=== PATIENT | female | born 1940 | race Caucasian/White ===

== ENCOUNTER 2018-11-18 05:35 | Emergency (ER) | payer OTHER, BC ==
--- NOTE | 2018-11-18 07:25 | ER ---
Nurse's Notes [facility] Name: Samanta Hayes Age: 78 yrs Sex: Female : 1940 Arrival Date: 11/18/2018 Time: 05:37 Bed 17 Private MD: Mak Mtz E Diagnosis: Superficial injury of head;Other sprain of right thumb Presentation: 11/18 05:50 Presenting complaint: Patient states: my feet was tangled up, I fell down and hit my rr5 head on the wall. denies LOC and vomiting . Transition of care: patient was not received from another setting of care. Onset of symptoms was November 18, 2018. Risk Assessment: Do you want to hurt yourself or someone else? Patient reports no desire to harm self or others. Initial Sepsis Screen: Does the patient meet any 2 criteria? No. Patient's initial sepsis screen is negative. Does the patient have a suspected source of infection? No. Patient's initial sepsis screen is negative. Care prior to arrival: None. 05:50 Method Of Arrival: Wheelchair rr5 05:50 Acuity: KIT 3 rr5 05:50 Mechanism of Injury: Fall from standing position. rr5 Historical: - Allergies: 06:03 No Known Allergies; rr5 - Home Meds: 06:03 lamotrigine 100 mg oral tab [Active]; oxybutynin chloride 10 mg Oral tr24 [Active]; rr5 fluoxetine 40 mg Oral cap [Active]; bupropion HCl 100 mg Oral tab [Active]; clonazepam 1 mg Oral tab [Active]; propranolol 20 mg Oral tab [Active]; ranitidine HCl 150 mg Oral cap [Active]; trazodone 50 mg Oral tab [Active]; [place]-3 oral oral [Active]; Mucinex oral oral [Active]; Omeprazole Oral [Active]; Melatonin Oral [Active]; Ana Oral [Active]; - PMHx: 06:03 Crohn's; Depression; hiatal hernia; DVT; Hypertension; insomnia; COPD; rr5 - PSHx: 06:03 ; Hysterectomy; explore laparotomy; Appendectomy; Tonsillectomy; cyst removal rr5 at right hand; - Immunization history:: Adult Immunizations up to date, Adult Immunizations up to date. - Social history:: Smoking status: Patient/guardian denies using tobacco, Smoking status: Patient/guardian denies using tobacco, Patient/guardian denies using alcohol, street drugs. - Ebola Screening: : No symptoms or risks identified at this time Patient negative for fever greater than or equal to 101.5 degrees Fahrenheit, and additional compatible Ebola Virus Disease symptoms Patient denies exposure to infectious person Patient denies travel to an Ebola-affected area in the 21 days before illness onset. Screenin:56 Abuse screen: Denies threats or abuse. Nutritional screening: No deficits noted. ea Tuberculosis screening: No symptoms or risk factors identified. Fall Risk Fall in past 12 months (25 points). Assessment: 05:50 General: Appears in no apparent distress. comfortable, Behavior is calm, cooperative, rr5 appropriate for age. Pain: Complains of pain in right orthodoxy Pain does not radiate. Pain currently is 2 out of 10 on a pain scale. Quality of pain is described as aching, Pain began gradually, Is intermittent. 05:50 Neuro: Level of Consciousness is awake, alert, obeys commands, Oriented to person, rr5 place, time, situation, Appropriate for age Hydraulic Jack Mechanic are equal bilaterally Moves all extremities. Full function Gait is steady, Speech is normal, Pupils are PERRLA. Cardiovascular: Capillary refill < 3 seconds Patient's skin is warm and dry. Respiratory: Airway is patent Respiratory effort is even, unlabored, Respiratory pattern is regular, symmetrical. GI: No signs and/or symptoms were reported involving the gastrointestinal system. : No signs and/or symptoms were reported regarding the genitourinary system. EENT: No signs and/or symptoms were reported regarding the EENT system. Derm: Skin is intact, Skin temperature is warm Wound noted abrasion right elbow. Musculoskeletal: Circulation, motion, and sensation intact. Capillary refill < 3 seconds, Range of motion: intact in all extremities. 06:20 Reassessment: Patient appears in no apparent distress at this time. Patient is alert, rr5 oriented x 3, equal unlabored respirations, skin warm/dry/pink. no complaints made awaiting for result. 07:07 Reassessment: Patient appears in no apparent distress at this time. Patient and/or em family updated on plan of care and expected duration. Pain level reassessed. Patient is alert, oriented x 3, equal unlabored respirations, skin warm/dry/pink. pending radiology results. Vital Signs: 05:50 BP 151 / 89; Pulse 95; Resp 17; Temp 97.6; Pulse Ox 98% ; Weight 68.04 kg; Height 5 ft. rr5 1 in. (154.94 cm); Pain 2/10; 06:30 BP 112 / 55; Pulse 77; Resp 15; Temp 97.7; Pulse Ox 99% ; rr5 07:08 BP 125 / 52; Pulse 73; Resp 16; Pulse Ox 96% on R/A; Pain 2/10; em 05:50 Body Mass Index 28.34 (68.04 kg, 154.94 cm) rr5 [place] Coma Score: 05:50 Eye Response: spontaneous(4). Verbal Response: oriented(5). Motor Response: obeys rr5 commands(6). Total: 15. ED Course: 05:37 Patient arrived in ED. am2 05:37 Mak Mtz MD is Private Physician. am2 05:46 Jim Bradley MD is Attending Physician. ps1 05:50 Austin Yip RN is Primary Nurse. rr5 05:50 Arm band placed on. rr5 05:54 Triage completed. rr5 06:01 Patient has correct armband on for positive identification. Bed in low position. Call ea light in reach. Side rails up X 1. 06:05 No provider procedures requiring assistance completed. Patient did not have IV access rr5 during this emergency room visit. 06:22 CT Head C Spine In Process Unspecified. EDMS 06:22 Hand Right 3 View XRAY In Process Unspecified. EDMS 06:34 Warm blanket given. Ice pack to injury. rr5 07:37 Velcro wrist splint applied to right wrist. em Administered Medications: No medications were administered Outcome: 07:25 Discharge ordered by . rn 07:37 Discharged to home ambulatory. em 07:37 Condition: good 07:37 Discharge instructions given to patient, Instructed on discharge instructions, follow up and referral plans. Demonstrated understanding of instructions, follow-up care. 07:38 Patient left the ED. em Signatures: Dispatcher [employer] EDMS Brandon Valero, [employer] INTERNSHIP [employer] INTERNSH[employer] em Demond Emanuel MD MD rn Moreno, Amanda am2 Debbie Mcnamara RN RN ea Singer, Phillip, MD MD ps1 Roque, Raymond, RN RN rr5 Corrections: (The following items were deleted from the chart) 06:10 06:00 GCS: 15, rr5 rr5
--- NOTE | 2018-11-18 07:26 | EDPHYS ---
Physician Documentation [facility] Name: Samanta Hayes Age: 78 yrs Sex: Female : 1940 Arrival Date: 11/18/2018 Time: 05:37 Bed 17 Private MD: Mak Mtz E ED Physician Jim Bradley HPI: 11/18 05:47 This 78 yrs old Female presents to ER via Unassigned with complaints of Fall ps1 Injury. 05:47 patient got out of the recliner and went to bed, tripped over her feet and hit her head ps1 in the doorway. No LOC. Has small abrasion to right side of head. Abrasion to right elbow and right thumb pain. Pain rated as mild to moderate. 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 Not on blood thinners. . Historical: - Allergies: 06:03 No Known Allergies; rr5 - Home Meds: 06:03 lamotrigine 100 mg oral tab [Active]; oxybutynin chloride 10 mg Oral tr24 [Active]; rr5 fluoxetine 40 mg Oral cap [Active]; bupropion HCl 100 mg Oral tab [Active]; clonazepam 1 mg Oral tab [Active]; propranolol 20 mg Oral tab [Active]; ranitidine HCl 150 mg Oral cap [Active]; trazodone 50 mg Oral tab [Active]; [place]-3 oral oral [Active]; Mucinex oral oral [Active]; Omeprazole Oral [Active]; Melatonin Oral [Active]; Ana Oral [Active]; - PMHx: 06:03 Crohn's; Depression; hiatal hernia; DVT; Hypertension; insomnia; COPD; rr5 - PSHx: 06:03 ; Hysterectomy; explore laparotomy; Appendectomy; Tonsillectomy; cyst removal rr5 at right hand; - Immunization history:: Adult Immunizations up to date, Adult Immunizations up to date. - Social history:: Smoking status: Patient/guardian denies using tobacco, Smoking status: Patient/guardian denies using tobacco, Patient/guardian denies using alcohol, street drugs. - Ebola Screening: : No symptoms or risks identified at this time Patient negative for fever greater than or equal to 101.5 degrees Fahrenheit, and additional compatible Ebola Virus Disease symptoms Patient denies exposure to infectious person Patient denies travel to an Ebola-affected area in the 21 days before illness onset. ROS: 05:47 Constitutional: Negative for fever, chills, and weight loss, Eyes: Negative for injury, ps1 pain, redness, and discharge, ENT: Negative for injury, pain, and discharge, Cardiovascular: Negative for chest pain, palpitations, and edema, Respiratory: Negative for shortness of breath, cough, wheezing, and pleuritic chest pain, Abdomen/GI: Negative for abdominal pain, nausea, vomiting, diarrhea, and constipation, Skin: Negative for injury, rash, and discoloration, Neuro: Negative for headache, weakness, numbness, tingling, and seizure. 05:47 MS/extremity: Positive for abrasion, contusion, tenderness. Exam: 05:47 Constitutional: This is a well developed, well nourished patient who is awake, alert, ps1 and in no acute distress. 05:47 Eyes: Pupils equal round and reactive to light, extra-ocular motions intact. Lids and lashes normal. Conjunctiva and sclera are non-icteric and not injected. ENT: Nares patent. No nasal discharge, no septal abnormalities noted. Tympanic membranes are normal and external auditory canals are clear. Oropharynx with no redness, swelling, or masses, exudates, or evidence of obstruction, uvula midline. Mucous membranes moist. Chest/axilla: Normal chest wall appearance and motion. Nontender with no deformity. No lesions are appreciated. Cardiovascular: Regular rate and rhythm. No gallops, murmurs, or rubs. Normal PMI, no JVD. No pulse deficits. Respiratory: Lungs have equal breath sounds bilaterally, clear to auscultation and percussion. No rales, rhonchi or wheezes noted. No increased work of breathing, no retractions or nasal flaring. Abdomen/GI: Soft, non-tender, with normal bowel sounds. No distension or tympany. No guarding or rebound. No evidence of tenderness throughout. Skin: Warm, dry with normal turgor. Normal color with no rashes, no lesions, and no evidence of cellulitis. Neuro: Awake and alert, GCS 15, oriented to person, place, time, and situation. Cranial nerves II-XII grossly intact. Sensory grossly intact. 05:47 Head/face: Noted is contusion, of the right worship. 05:47 Musculoskeletal/extremity: Extremities: grossly normal except: noted in the dorsal aspect of proximal phalanx of right thumb: pain, noted in the right elbow: abrasion, noted in the right worship: contusion. Vital Signs: 05:50 BP 151 / 89; Pulse 95; Resp 17; Temp 97.6; Pulse Ox 98% ; Weight 68.04 kg; Height 5 ft. rr5 1 in. (154.94 cm); Pain 2/10; 06:30 BP 112 / 55; Pulse 77; Resp 15; Temp 97.7; Pulse Ox 99% ; rr5 07:08 BP 125 / 52; Pulse 73; Resp 16; Pulse Ox 96% on R/A; Pain 2/10; em 05:50 Body Mass Index 28.34 (68.04 kg, 154.94 cm) rr5 [place] Coma Score: 05:50 Eye Response: spontaneous(4). Verbal Response: oriented(5). Motor Response: obeys rr5 commands(6). Total: 15. MDM: 05:50 Patient medically screened. ps1 07:23 ED course: Pt with chronic arthritic changes on exam and on xray, no obvious fracture rn on xray hand, + chronic laxity at MCP of right thumb, FROM. Will splint and dc home, no radiology report yet, if abnormal told patient will call with result instead of her waiting for hours.. 11/18 05:47 Order name: CT Head C Spine ps1 11/18 05:47 Order name: Hand Right 3 View XRAY ps1 11/18 07:26 Order name: Splint - Thumb Spica: velcro splint; Complete Time: 07:27 rn Administered Medications: No medications were administered Disposition: 11/18/18 07:25 Discharged to Home. Impression: Superficial injury of head, Other sprain of right thumb. - Condition is Stable. - Discharge Instructions: Head Injury, Adult, Thumb Sprain. - Medication Reconciliation Form, Thank You Letter, Antibiotic Education, Prescription Opioid Use form. - Follow up: Private Physician; When: As needed; Reason: Recheck today's complaints, Re-evaluation by your physician. - Problem is new. - Symptoms have improved. Signatures: Dispatcher [employer] EDMS Brandon Valero, MARKET DEVELOPMENT SPECIALIST MARKET DEVELOPMENT SPECIALIST em Demond Emanuel MD MD rn Antunez, Elena RN Jim Gutierrez ea, MD MD ps1 Roque, Raymond, RN RN rr5 Corrections: (The following items were deleted from the chart) 07:38 07:25 11/18/2018 07:25 Discharged to Home. Impression: Superficial injury of head; em Other sprain of right thumb. Condition is Stable. Forms are Medication Reconciliation Form, Thank You Letter, Antibiotic Education, Prescription Opioid Use. Follow up: Private Physician; When: As needed; Reason: Recheck today's complaints, Re-evaluation by your physician. Problem is new. Symptoms have improved. rn
[2018-11-18 07:47] VITALS: TEMP 97.7
[2018-11-18 07:49] VITALS: BP 125/52; O2SAT 96
--- NOTE | 2018-11-18 10:02 | RAD REPORT ---
EXAM DESCRIPTION: RAD - Hand Right 3 View - 11/18/2018 6:21 am CLINICAL HISTORY: Fall, right hand pain COMPARISON: None. FINDINGS: No acute fracture identified. Patient has very advanced degenerative changes involving all IP joints of the hand. Advanced degenerative change involves the first MCP joint. Second- fifth MCP joints are spared. There is severe degenerative changes at the trapezial first metacarpal articulatio n. Radiocarpal joint space narrowing present. Distal radius and ulna appear intact. There is no dislo cation or periosteal reaction noted. No foreign body or other soft tissue abnormality. IMPRESSION: Patient has very advanced degenerative changes in the right hand as detailed. No fractur e or acute process identifiable.
--- NOTE | 2018-11-19 10:49 | RAD REPORT ---
EXAM DESCRIPTION: CT - Head C Spine Mpr Wo Con - 11/18/2018 6:35 am CLINICAL HISTORY: Fall hit head COMPARISON: None. TECHNIQUE: CT HEAD NECK WITHOUT IV CONTRAST on 11/18/2018 5:47 AM CDT This exam was performed according to our departmental dose-optimization program, which includes autom ated exposure control, adjustment of the mA and/or kV according to patient size and/or use of iterati ve reconstruction technique. FINDINGS: There is no acute hemorrhage, mass effect or midline shift. Collins-white differentiation is preserved. There is no hydrocephalus. There is no significant volume loss for age. There are mild pat nilay hypodensities within the periventricular and subcortical white matter, consistent with microangio pathic ischemic changes. The calvarium is intact. Orbits and globes are unremarkable. The paranasal sinuses are clear. Mastoid air cells are clear. There is no acute fracture. There is grade 1 anterolisthesis of C3 on C4. There is grade 1 anterolist hesis of C7 on T1. There is fusion of the C4-5 disc. There is mild to moderate diffuse facet arthriti s. There is incomplete posterior fusion of the C1 arch. There are moderate degenerative changes of the C5-6 and C6-7 discs. Vertebral body heights are preser main. Soft tissues are unremarkable. IMPRESSION: No definite posttraumatic findings. Electronically signed by: Nathan Dover MD 11/18/2018 6:30 AM CDT Due to temporary technical issues with the PACS/Fluency reporting system, reports are being signed by the in house radiologist as a courtesy to ensure prompt reporting. The interpreting radiologist is f ully responsible for the content of the report.
== END 2018-11-18 07:38 | disposition home or self-care (01) ==
LOC: ER 05:35
DX: S00.83XA Contusion of other part of head, initial encounter (principal); S63.681A Other sprain of right thumb, initial encounter; W01.198A Fall on same level from slipping, tripping and stumbling with subsequent striking against other object, initial encounter; Y93.89 Activity, other specified; Y92.9 Unspecified place or not applicable; Z86.718 Personal history of other venous thrombosis and embolism; I10 Essential (primary) hypertension; J44.9 Chronic obstructive pulmonary disease, unspecified; F32.9 Major depressive disorder, single episode, unspecified
CPT/HCPCS: 70450; 72125; 99283

== ENCOUNTER 2018-12-20 15:30 | Observation (INO) | payer OTHER, BC ==
[2018-12-20 16:18] LABS: Absolute Lymphocytes (CBC) 2.2 K/uL (0.7-4.9); Basophils % 1.1 % (0-1.3); Eosinophils % 6.3 % (0-4.4); Hematocrit 38.8 % (36.0-45.0); Lymphocytes % 33.2 % (15.3-44.8); MPV 8.1 fL (7.6-11.3); Monocytes % 10.5 % (3.3-12.3); RBC Red Blood Cell Count 4.35 M/uL (3.86-4.86)
[2018-12-20 16:25] LABS: Protime INR 0.91
--- NOTE | 2018-12-20 16:29 | RAD REPORT ---
EXAM DESCRIPTION: RAD - Chest Single View - 12/20/2018 4:21 pm CLINICAL HISTORY: CHEST PAIN Chest pain. COMPARISON: <Comparisons> FINDINGS: Portable technique limits examination quality. Mild emphysematous changes are present throughout the lungs. The heart is normal in size. No displace d fractures. IMPRESSION: Mild COPD suspected.
[2018-12-20] MEDS ORDERED: FENTANYL CITR 100 MCG/2 ML ONE (16:35)
[2018-12-20 16:44] LABS: ALT/SGPT 31 U/L (12-78); AST/SGOT 25 U/L (15-37); Albumin 3.7 g/dL (3.4-5.0); Alkaline Phosphatase 82 U/L (45-117); BUN Blood Urea Nitrogen 13 mg/dL (7-18); Bicarbonate 24 mmol/L (21-32); Bilirubin Direct < 0.1 mg/dL (0-0.2); Bilirubin Total 0.4 mg/dL (0.2-1.0); Glucose Level 96 mg/dL (74-106); Magnesium 2.4 mg/dL (1.8-2.4); NT PRO-BNP 352 pg/mL (<450); Potassium 4.1 mmol/L (3.5-5.1); Protein, Total 7.1 g/dL (6.4-8.2); Sodium Level 140 mmol/L (136-145); Troponin (Emerg Dept Use Only) < 0.02 ng/mL (0.0-0.045)
--- NOTE | 2018-12-20 17:11 | EDPHYS ---
Physician Documentation [facility] Name: Samanta Hayes Age: 78 yrs Sex: Female : 1940 Arrival Date: 12/20/2018 Time: 15:31 Bed 16 Private MD: ED Physician Murtaza Brennan HPI: 12/20 16:23 This 78 yrs old Female presents to ER via Ambulatory with complaints of Chest snw Pain. 16:23 The patient or guardian reports chest pain that is located primarily in the substernal snw area, anterior chest wall, left, anterior aspect of left upper chest. Onset: gradually, and became persistent. The pain does not radiate. Associated signs and symptoms: The patient has no apparent associated signs or symptoms. The chest pain is described as a pressure. Duration: The patient or guardian reports a single episode, that is still ongoing, and unchanged. Modifying factors: The symptoms are alleviated by nothing. Severity of pain: At its worst the pain was mild moderate. The patient has not experienced similar symptoms in the past. seeGreg Kramer at Dr. Mtz' office. Historical: - Allergies: 15:52 No Known Allergies; ph - PMHx: 15:52 COPD; Crohn's; Depression; DVT; hiatal hernia; Hypertension; insomnia; ph - PSHx: 15:52 ; Hysterectomy; explore laparotomy; Appendectomy; Tonsillectomy; cyst removal ph at right hand; - Immunization history:: Adult Immunizations up to date. - Social history:: Smoking status: Patient/guardian denies using tobacco. - Ebola Screening: : Patient negative for fever greater than or equal to 101.5 degrees Fahrenheit, and additional compatible Ebola Virus Disease symptoms Patient denies exposure to infectious person Patient denies travel to an Ebola-affected area in the 21 days before illness onset No symptoms or risks identified at this time. ROS: 16:23 Constitutional: Negative for fever, chills, and weight loss, Eyes: Negative for injury, snw pain, redness, and discharge, ENT: Negative for injury, pain, and discharge, Neck: Negative for injury, pain, and swelling, Respiratory: Negative for shortness of breath, cough, wheezing, and pleuritic chest pain, Abdomen/GI: Negative for abdominal pain, nausea, vomiting, diarrhea, and constipation, Back: Negative for injury and pain, : Negative for injury, bleeding, discharge, and swelling, MS/Extremity: Negative for injury and deformity, Skin: Negative for injury, rash, and discoloration, Neuro: Negative for headache, weakness, numbness, tingling, and seizure. 16:23 Cardiovascular: Positive for chest pain, of the anterior aspect of left upper chest. Exam: 16:23 Constitutional: This is a well developed, well nourished patient who is awake, alert, snw and in no acute distress. Head/Face: Normocephalic, atraumatic. Eyes: Pupils equal round and reactive to light, extra-ocular motions intact. Lids and lashes normal. Conjunctiva and sclera are non-icteric and not injected. Cornea within normal limits. Periorbital areas with no swelling, redness, or edema. ENT: Nares patent. No nasal discharge, no septal abnormalities noted. Tympanic membranes are normal and external auditory canals are clear. Oropharynx with no redness, swelling, or masses, exudates, or evidence of obstruction, uvula midline. Mucous membranes moist. Neck: Trachea midline, no thyromegaly or masses palpated, and no cervical lymphadenopathy. Supple, full range of motion without nuchal rigidity, or vertebral point tenderness. No Meningismus. Chest/axilla: Normal chest wall appearance and motion. Nontender with no deformity. No lesions are appreciated. Cardiovascular: Regular rate and rhythm with a normal S1 and S2. No gallops, murmurs, or rubs. Normal PMI, no JVD. No pulse deficits. Respiratory: Lungs have equal breath sounds bilaterally, clear to auscultation and percussion. No rales, rhonchi or wheezes noted. No increased work of breathing, no retractions or nasal flaring. Abdomen/GI: Soft, non-tender, with normal bowel sounds. No distension or tympany. No guarding or rebound. No evidence of tenderness throughout. Back: No spinal tenderness. No costovertebral tenderness. Full range of motion. Skin: Warm, dry with normal turgor. Normal color with no rashes, no lesions, and no evidence of cellulitis. MS/ Extremity: Pulses equal, no cyanosis. Neurovascular intact. Full, normal range of motion. Neuro: Awake and alert, GCS 15, oriented to person, place, time, and situation. Cranial nerves II-XII grossly intact. Motor strength 5/5 in all extremities. Sensory grossly intact. Cerebellar exam normal. Normal gait. Psych: Awake, alert, with orientation to person, place and time. Behavior, mood, and affect are within normal limits. Vital Signs: 15:50 BP 172 / 67; Pulse 67; Resp 18; Temp 97.4; Pulse Ox 98% on R/A; Weight 56.7 kg; Pain ph 3/10; 16:24 BP 171 / 92; Pulse 66; Resp 14; Pulse Ox 94% on R/A; aj 17:00 BP 138 / 77; Pulse 73; Resp 15; Temp 97.8(O); Pulse Ox 99% on R/A; mh5 18:03 BP 133 / 80; Pulse 59; Resp 13; Pulse Ox 97% on R/A; aj MDM: 16:01 Patient medically screened. snw 16:51 The patient was not given aspirin in the Emergency Department. Patient reports taking snw aspirin within the past 24 hours. JORGE Risk Score: 1 - patient's age is greater or equal to 65 years, 1 - Three or more CAD risk factors, [Family Hx], [HTN], 1 - ASA use in past 7 days, 1 - Recent [<24hrs] Severe Angina, TOTAL SCORE = 4. Data reviewed: vital signs, nurses notes, lab test result(s), EKG. Counseling: I had a detailed discussion with the patient and/or guardian regarding: the historical points, exam findings, and any diagnostic results supporting the discharge/admit diagnosis, the presence of at least one elevated blood pressure reading (>120/80) during this emergency department visit, lab results. 16:58 ECG:. snw 17:00 Physician consultation: Xavier Rider MD was called at 17:01, was contacted at 17:01, formerly [facility] regarding admission, to the telemetry unit. 12/20 16:01 Order name: Basic Metabolic Panel sn 12/20 16:01 Order name: CBC with Diff; Complete Time: 16:22 snw 12/20 16:01 Order name: LFT's; Complete Time: 16:50 snw 12/20 16:01 Order name: Magnesium; Complete Time: 16:50 formerly [facility] 12/20 16:01 Order name: NT PRO-BNP; Complete Time: 16:50 snw 12/20 16:01 Order name: PT-INR; Complete Time: 16:32 snw 12/20 16:01 Order name: Troponin (emerg Dept Use Only); Complete Time: 16:50 snw 12/20 16:01 Order name: XRAY Chest (1 view); Complete Time: 16:32 snw 12/20 16:01 Order name: EKG; Complete Time: 16:01 snw 12/20 16:01 Order name: Cardiac monitoring; Complete Time: 16:18 snw 12/20 16:01 Order name: Basic Metabolic Panel; Complete Time: 16:50 EDMS 12/20 16:19 Order name: Thyroid Stimulating Hormone; Complete Time: 16:50 EDMS 12/20 16:01 Order name: EKG - Nurse/Tech; Complete Time: 16:18 snw 12/20 16:01 Order name: IV Saline Lock; Complete Time: 16:17 snw 12/20 16:01 Order name: Labs collected and sent; Complete Time: 16:17 snw 12/20 16:01 Order name: O2 Per Protocol; Complete Time: 16:17 snw 12/20 16:01 Order name: O2 Sat Monitoring; Complete Time: 16:17 snw EC:58 Rate is 63 beats/min. Rhythm is regular. QRS [place] is Normal. [place] interval is normal. QRS snw interval is normal. QT interval is normal. No Q waves. T waves are Normal. Clinical impression: Normal ECG. Administered Medications: 16:22 Drug: fentaNYL (PF) 25 mcg Route: IVP; Site: left antecubital; 19:28 Follow up: Response: No adverse reaction; Pain is decreased aj Disposition: 12/21 07:52 Co-signature as Attending Physician, Murtaza Brennan MD I agree with the assessment and kdr plan of care. Disposition: 12/20/18 17:10 Hospitalization ordered by Xavier Rider for Observation. Preliminary diagnosis is Chest pain, unspecified. - Bed requested for Telemetry/MedSurg (observation). - Status is Observation. aj - Condition is Stable. - Problem is new. - Symptoms are unchanged. UTI on Admission? No Signatures: Dispatcher [employer] EDMelisa Santos RN RN aj Rittger, Kevin, MD MD kdr Therrien, Shelly, ROAD CROSSING GUARD-C ROAD CROSSING GUARD-Csnw Michelle Laird ag Melanie Chaney, RN RN ph Corrections: (The following items were deleted from the chart) 12/20 16:19 16:14 THYROID STIMULAT HORMONE+C.LAB.BRZ ordered. EDMS EDMS 18:09 17:10 Hospitalization Ordered by Xavier Rider MD for Observation. Preliminary diagnosis ag is Chest pain, unspecified. Bed requested for Telemetry/MedSurg (observation). Status is Observation. Condition is Stable. Problem is new. Symptoms are unchanged. UTI on Admission? No. snw 19:53 18:09 12/20/2018 17:10 Hospitalization Ordered by Xavier Rider MD for Observation. aj Preliminary diagnosis is Chest pain, unspecified. Bed requested for Telemetry/MedSurg (observation). Status is Observation. Condition is Stable. Problem is new. Symptoms are unchanged. UTI on Admission? No. ag
--- NOTE | 2018-12-20 17:11 | ER ---
Nurse's Notes [facility] Name: Samanta Hayes Age: 78 yrs Sex: Female : 1940 Arrival Date: 12/20/2018 Time: 15:31 Bed 16 Private MD: Diagnosis: Chest pain, unspecified Presentation: 12/20 15:48 Presenting complaint: Patient states: L sided chest pain that began this morning, also ph reports slight SOB states, " I have a hx of COPD though." Denies nausea or palpitations. Transition of care: patient was not received from another setting of care. Onset of symptoms was December 20, 2018. Risk Assessment: Do you want to hurt yourself or someone else? Patient reports no desire to harm self or others. Initial Sepsis Screen: Does the patient meet any 2 criteria? No. Patient's initial sepsis screen is negative. Does the patient have a suspected source of infection? No. Patient's initial sepsis screen is negative. Care prior to arrival: None. 15:48 Method Of Arrival: Ambulatory ph 15:48 Acuity: KIT 3 ph Historical: - Allergies: 15:52 No Known Allergies; ph - PMHx: 15:52 COPD; Crohn's; Depression; DVT; hiatal hernia; Hypertension; insomnia; ph - PSHx: 15:52 ; Hysterectomy; explore laparotomy; Appendectomy; Tonsillectomy; cyst removal ph at right hand; - Immunization history:: Adult Immunizations up to date. - Social history:: Smoking status: Patient/guardian denies using tobacco. - Ebola Screening: : Patient negative for fever greater than or equal to 101.5 degrees Fahrenheit, and additional compatible Ebola Virus Disease symptoms Patient denies exposure to infectious person Patient denies travel to an Ebola-affected area in the 21 days before illness onset No symptoms or risks identified at this time. Screenin:26 Abuse screen: Denies threats or abuse. Denies injuries from another. Nutritional aj screening: No deficits noted. Tuberculosis screening: No symptoms or risk factors identified. Fall Risk None identified. Assessment: 16:24 General: Appears in no apparent distress. comfortable, Behavior is calm, cooperative, aj appropriate for age. Pain: Complains of pain in chest Pain does not radiate. Pain began suddenly. Cardiovascular: Reports chest pain, Capillary refill < 3 seconds in bilateral fingers Patient's skin is warm and dry. Respiratory: Airway is patent Respiratory effort is even, unlabored, Respiratory pattern is regular, symmetrical. Derm: Skin is intact, is healthy with good turgor, Skin is pink, warm \\T\\ dry. normal. 18:03 Reassessment: Patient appears in no apparent distress at this time. No changes from aj previously documented assessment. Patient and/or family updated on plan of care and expected duration. Pain level reassessed. Patient is alert, oriented x 3, equal unlabored respirations, skin warm/dry/pink. Patient has family at bedside. Vital Signs: 15:50 BP 172 / 67; Pulse 67; Resp 18; Temp 97.4; Pulse Ox 98% on R/A; Weight 56.7 kg; Pain ph 3/10; 16:24 BP 171 / 92; Pulse 66; Resp 14; Pulse Ox 94% on R/A; aj 17:00 BP 138 / 77; Pulse 73; Resp 15; Temp 97.8(O); Pulse Ox 99% on R/A; mh5 18:03 BP 133 / 80; Pulse 59; Resp 13; Pulse Ox 97% on R/A; aj ED Course: 15:31 Patient arrived in ED. as 15:50 Triage completed. ph 15:50 Placed in gown. Bed in low position. Call light in reach. Side rails up X 1. Side rails jp3 up X2. Warm blanket given. Verbal reassurance given. 15:52 Arm band placed on Patient placed in an exam room, on a stretcher, on monitoring manager, ph on pulse oximetry. 15:55 Initial lab(s) drawn, by tn, sent to lab. EKG done, by fuel storage technician. reviewed by Sadia FISHER. Inserted saline lock: 20 gauge in left antecubital area, using aseptic technique. Blood collected. Patient maintains SpO2 saturation greater than 95% on room air. 16:00 Sadia Clark [facility]-C [facility]. sn 16:00 Murtaza Brennan MD is Attending Physician. snw 16:03 Melisa Medrano, RN is Primary Nurse. aj 16:17 Basic Metabolic Panel Sent. fredy 16:17 Basic Metabolic Panel Sent. Bev 16:17 CBC with Diff Sent. jp3 16:17 Magnesium Sent. jp3 16:17 LFT's Sent. jp3 16:17 NT PRO-BNP Sent. jp3 16:17 PT-INR Sent. jp3 16:17 Troponin (emerg Dept Use Only) Sent. jp3 16:21 XRAY Chest (1 view) In Process Unspecified. EDMS 17:09 Xvaier Rider MD is Hospitalizing Provider. snw 19:44 No provider procedures requiring assistance completed. Patient admitted, IV remains in aj place. intact. 19:45 radiation monitor on. Pulse ox on. NIBP on. aj Administered Medications: 16:22 Drug: fentaNYL (PF) 25 mcg Route: IVP; Site: left antecubital; aj 19:28 Follow up: Response: No adverse reaction; Pain is decreased aj Outcome: 17:10 Decision to Hospitalize by Provider. sn 19:44 Admitted to Tele accompanied by tech, room 430. aj 19:44 Condition: good 19:44 Instructed on the need for admit. 19:53 Patient left the ED. aj Signatures: Dispatcher [employer] Melisa Rowell, RN RN Sadia Mott, TURBINE ROOM ATTENDANT-C TURBINE ROOM ATTENDANT-Rejiw Magali Lizarraga Patricia, RN RN Halima Mccann [facility] Manjit Puri jp3 Corrections: (The following items were deleted from the chart) 16:19 16:17 THYROID STIMULAT HORMONE+C.LAB.BRZ drawn and sent. jp3 EDMS
[2018-12-20] MEDS ORDERED: NITROGLYCERIN 0.4 MG/TAB SL PRN (20:03)
[2018-12-20] MEDS ORDERED: MORPHINE 4 MG/ML SYR IV PRN (20:03)
[2018-12-20] MEDS ORDERED: ACETAMINOPHEN 500 MG TAB PO PRN (20:03)
[2018-12-20] MEDS ORDERED: ATORVASTATIN 40 MG TAB PO SCH (21:00)
[2018-12-20 21:56] VITALS: BMI 22.9
[2018-12-20 23:36] LABS: Urine Appearance CLEAR; Urine Bilirubin NEGATIVE (NEG); Urine Blood NEGATIVE (NEG); Urine Color YELLOW; Urine Glucose NEGATIVE (NEG); Urine Protein NEGATIVE (NEG); Urine Specific Gravity <=1.005 (1.005-1.030); Urine Urobilinogen 0.2 mg/dL (0.2-1.0)
[2018-12-20 23:37] LABS: Urine Microscopic Reflex NO UMIC
--- NOTE | 2018-12-21 03:08 | HP ---
Date of Admission: 12/20/2018 Digital Controls Technical Officer: Dr. Ortzi. Primary Care Physician: Dr. Mtz. Chief Complaint: Chest pain. Code Status: Full. History Of Present Illness: The patient is a 78-year-old female with past medical history of hyperte nsion, COPD, Crohn disease, depression, anxiety, gastroesophageal reflux disease, and history of DVT, who was in her usual state of health until day of admission when the patient had sudden onset of [address] pain that woke her up from sleep and has lasted all day. Pain is substernal, nonradiating; not as sociated with any nausea, vomiting, shortness of breath, diaphoresis, or palpitations. The patient t ook a full-dose aspirin, however, did not have any improvement in her pain. The patient denies any f ever, chills, cough, or sputum production. No ill contacts. The patient, therefore, came into the E R for worsening condition. Her symptoms are constant, moderate, progressively worsening. No allevia ting factors. In the ER, her workup revealed normal cardiac enzyme. No changes on the EKG. Chest x -ray showed mild COPD. The patient was given fentanyl and then referred for admission. When seen in the ER, she was awake, alert, oriented x3. Some mild distress due to chest discomfort. Past Medical History: Crohn disease, irritable bowel syndrome, depression, anxiety, hypertension, in somnia, gastroesophageal reflux disease, hiatal hernia, history of DVT. Past Surgical History: Knee surgery, x3, hysterectomy, exploratory laparotomy, colonoscopy , and EGD recently. Allergies: NO KNOWN DRUG ALLERGIES. Medications: List reviewed. Social History: The patient denies any tobacco use, alcohol use, or illicit drug use. The patient h ad significant secondhand smoke exposure from her . Family History: Mother of heart attack at age of 78. Sister also of a heart attack in her 70s, also had breast cancer. Father had GI disease and bleeding ulcers. Review of Systems: Ten-point system reviewed, negative except as per HPI. Physical Examination: Vital Signs: Blood pressure 172/67, pulse 67, respirations 18, temperature 97.4, O2 98% on room air. General: Awake, alert, oriented x3. Ill-appearing female, elderly. HEENT: Normocephalic, atraumatic. PERRLA. EOMI. Moist mucous membranes. Oropharynx is clear. Co njunctivae are anicteric. Neck: Supple. No JVD. Trachea midline. CV: S1, S2. Regular rate and rhythm. Peripheral pulses present. Respiratory: Moving air well bilaterally. No wheezing or stridor. No use of accessory muscles. Gastrointestinal: Abdomen is soft, nontender, nondistended. Positive bowel sounds. No guarding or rigidity. Extremities: No clubbing, cyanosis, or edema. Neurologic: Nonfocal. Cranial nerves 2 through 12 intact grossly. No focal neurological deficit. Speech is normal. Skin: No rashes. Normal skin turgor. Psych: Mood is okay. Affect is full. Insight and judgment are good. Laboratory Data: Sodium 140, potassium 4.1, chloride 108, CO2 24, BUN 13, creatinine 0.84, glucose 9 6, calcium 9, magnesium 2.4. Troponin less than 0.02. TSH 2.11. INR 0.91. WBC 6.5, H and H 12.9 a nd 38.8, platelets 283, neutrophils 48.9. Chest x-ray shows COPD changes. Assessment: A 78-year-old female with: 1.Chest pain, rule out acute coronary syndrome. We will start on chest pain guidelines. We will co nsult Cardiology. The patient does have heart score of 4. She has hypertension, was previously on m edications for hyperlipidemia. Has first-degree relatives with [place], age is 78. We will obtain serial cardiac enzymes and EKG. Obtain echocardiogram and possible stress test in a.m. We will discuss fu rther with Cardiology. 2.Essential hypertension. We will resume home medications as appropriate. 3.Crohn disease not on biologics. Follows with GI as outpatient. 4.Gastroesophageal reflux disease without esophagitis. 5.Chronic obstructive pulmonary disease, chronic bronchitis. We will use albuterol p.r.n. 6.History of lower extremity deep venous thrombosis. No longer on anticoagulation. Plan: Admit the patient to Med/Surg, place as observation. KRISSY Voice ID: [id number]
[2018-12-21 05:33] LABS: Absolute Lymphocytes (CBC) 3.3 K/uL (0.7-4.9); Basophils % 1.1 % (0-1.3); Eosinophils % 6.5 % (0-4.4); Hematocrit 39.2 % (36.0-45.0); Lymphocytes % 40.8 % (15.3-44.8); MPV 8.5 fL (7.6-11.3); Monocytes % 10.6 % (3.3-12.3); RBC Red Blood Cell Count 4.38 M/uL (3.86-4.86)
[2018-12-21 05:53] LABS: Potassium 3.8 mmol/L (3.5-5.1)
--- NOTE | 2018-12-21 07:35 | EKG ---
Test Date: 2018-12-20 Test Time: 15:59:28 Shearing Machine Feeder: ABNER MEASUREMENT RESULTS: Intervals: Rate: 63 [place]: 180 QRSD: 88 QT: 442 QTc: 452 [place]: P: 41 [place]: 180 QRS: 12 T: 38 INTERPRETIVE STATEMENTS: Normal sinus rhythm Normal ECG Compared to ECG 07/02/2016 05:40:13 No significant changes Electronically Signed On 12-21-18 07:34:20 CDT by Glen Ortiz
[2018-12-21] MEDS ORDERED: PNEUMOCOCCAL VACCINE 0.5 ML IMVAC ONE (08:00)
[2018-12-21 08:45] VITALS: O2SAT 93
[2018-12-21] MEDS ORDERED: LISINOPRIL 10 MG TAB PO SCH (09:00)
[2018-12-21] MEDS ORDERED: ASPIRIN EC 81 MG TAB PO SCH (09:00)
[2018-12-21] MEDS ORDERED: buPROPion HCl 100 MG TAB PO SCH (09:35)
[2018-12-21] MEDS ORDERED: HOME MED 1 EA UNK (Mesalamine [Mesalamine] 2 TAB) PO SCH (09:35)
[2018-12-21] MEDS ORDERED: RANITIDINE 150 MG TABLET PO SCH (09:35)
[2018-12-21] MEDS: lamoTRIgine 100 MG TAB PO SCH ×2 (09:35→11:41)
[2018-12-21] MEDS ORDERED: PROPRANOLOL HCL 10 MG TAB PO SCH (10:00)
[2018-12-21] MEDS ORDERED: OXYBUTYNIN ER 5 MG TAB PO SCH (10:00)
[2018-12-21] MEDS ORDERED: FLUOXETINE 20 MG CAP PO SCH (10:00)
--- NOTE | 2018-12-21 12:25 | CON ---
Date of Consultation: 12/21/[address] Rider's service on 12/20/2018. I saw the patient 12/21/2018. Reason For Consultation: Chest pain. History Of Present Illness: Ms. Hayes is 78 years old, has history of COPD, Crohn disease, depressi on, hypertension, history of DVT in the past. Comes in with chest pain. Her chest pain is in the le ft upper chest right beneath the left shoulder, it is exacerbated by touching and moving. Has been g oing on for about 2 days, normal EKG, normal troponin, normal chest x-ray except for mild COPD. No n ausea, vomiting, diaphoresis, PND, orthopnea, pedal edema, palpitations, or syncope. Denied shortnes s of breath. Past Medical History: As stated above. Allergies: NONE. Review of Systems: Negative. Social History: Negative. Family History: Negative. Medications: Includes clonazepam, other vitamins. Physical Examination: Vital Signs: Stable. She was afebrile. HEENT: Exam was negative. Neck: Supple with no bruit. Chest: Clear. Cardiac: Exam revealed a regular rhythm and rate. No murmurs, gallops, or rubs. Abdomen: Benign. Extremities: Revealed no clubbing, cyanosis, or edema. Diagnostic Data: Were within normal limits except for triglycerides being 218. Cholesterol was 239, her LDL was 140. Impression And Plan: Chest pain, most likely musculoskeletal. Echocardiogram is pending. It may be reasonable to have her do an outpatient stress test with [facility]. She can go home as far as I am co ncerned. We will see her in the office as an outpatient. I suggested that she at least take fish oi l for her lipids and watch her diet. I would prefer we do not start her on a statin at this point. Her blood pressure is well controlled. Her chest x-ray showed mild COPD, which is chronic. GORGE/ALPHONSE Voice ID: [id number] Report ID: [id number]
--- NOTE | 2018-12-21 15:08 | ECHO ---
HEIGHT: 5 ft 2 in WEIGHT: 125 lb 8 oz DATE OF STUDY: 12/21/[address]: Xavier Rider MD 2-DIMENSIONAL: YES M.MODE: YES DOPPLER: YES COLOR FLOW: YES TDS: NO PORTABLE: NO DEFINITY: NO BUBBLE STUDY: NO DIAGNOSIS: CHEST PAIN CARDIAC HISTORY: CATHERIZATION: NO SURGERY: NO PROSTHETIC VALVE: NO PACEMAKER: NO MEASUREMENTS (cm) DIASTOLIC (NORMALS) SYSTOLIC (NORMALS) IVSd 0.8 (0.6-1.2) LA Diam 3.4 (1.9-4.0) LVEF 76% LVIDd 4.5 (3.5-5.7) LVIDs 2.5 (2.0-3.5) %FS 44% LVPWd 0.9 (0.6-1.2) Ao Diam 2.8 (2.0-3.7) 2 DIMENSIONAL ASSESSMENT: RIGHT ATRIUM: NORMAL LEFT ATRIUM: NORMAL RIGHT VENTRICLE: NORMAL LEFT VENTRICLE: NORMAL TRICUSPID VALVE: NORMAL MITRAL VALVE: NORMAL PULMONIC VALVE: NORMAL AORTIC VALVE: NORMAL PERICARDIAL EFFUSION: NONE AORTIC ROOT: NORMAL LEFT VENTRICULAR WALL MOTION: NORMAL DOPPLER/COLOR FLOW: MILD MITRAL AND TRICUSPID REGURGITATION. NORMAL RIGHT VENTRICULAR SYSTOLIC PRESSURE. COMMENTS: NORMAL 2D ECHOCARDIOGRAM. MILD MITRAL AND TRICUSPID REGURGITATION. TECHNOLOGIST: Luz Elena DUTTON
[2018-12-21 16:08] VITALS: BP 146/70; TEMP 97.7
[2018-12-21] MEDS ORDERED: ENOXAPARIN 40 MG/0.4 ML SQ SCH (17:07)
[2018-12-21] MEDS ORDERED: FEXOFENADINE 180 MG TAB PO SCH (21:00)
[2018-12-21] MEDS ORDERED: MELATONIN 5 MG TABLET PO SCH (21:00)
[2018-12-21] MEDS ORDERED: MESALAMINE 1.2 GM PO SCH (21:00)
[2018-12-21] MEDS ORDERED: clonazePAM 1 MG TAB PO SCH (21:00)
--- NOTE | 2018-12-22 04:34 | DS ---
Date of Discharge: 12/21/2018 Consultants: Dr. Ortiz with Cardiology. Discharge Diagnoses: 1.Chest pain, ACS ruled out. 2.Essential hypertension, stable. 3.Crohn disease, on mesalamine. 4.Gastroesophageal reflux disease without esophagitis, stable. 5.COPD, chronic bronchitis, stable. 6.History of DVT, stable. Hospital Course: The patient is a 78-year-old female, comes in with chest pain. The patient was las t evaluated by Cardiology in 2013. The patient was started on chest pain guidelines. Cardiac enzyme s were obtained, which were negative x3. Her cholesterol, however, was abnormal with elevated total cholesterol and LDL at 239 and 140 respectively. Triglycerides were 218. HDL was 55. The patient w as counseled regarding her diet. She voiced understanding. Dr. Ortiz recommended echocardiogram, which was obtained. Chest x-ray did not show any acute changes. Chronic COPD changes were evident. Overall, the patient did well over the course of the hospital stay. Her pain resolved. She was abl e to ambulate without difficulty. She remained afebrile. She was then cleared for discharge and was sent home in a stable condition. Activity: As tolerated. Medications: As per medication reconciliation list. Followup: Follow up with primary care physician in 2-3 days. Follow up with document control supervisor, Dr. Asia candelaria, in 2 weeks. Return to ER for worsening condition. Diet: Heart-healthy. Physical Examination: General: Awake, alert, oriented x3, elderly female. CV: S1, S2. No murmurs. Respiratory: Moving air well bilaterally. Abdomen: Soft, nontender, nondistended. Positive bowel sounds. Extremities: No clubbing, cyanosis, or edema. Neuro: Nonfocal. SA/MODL Voice ID: [id number] Report ID: [id number]
[2018-12-22] MEDS ORDERED: GUAIFENESIN 600 MG SA TAB PO SCH (09:00)
== END 2018-12-21 18:09 | disposition home or self-care (01) ==
LOC: ER 15:30 → ERHOLD 17:05 → 4TH 19:47
PROVIDERS: ADMIT Family Medicine; ATTEND Family Medicine
DX: R07.9 Chest pain, unspecified (principal); I10 Essential (primary) hypertension; K50.90 Crohn's disease, unspecified, without complications; K21.9 Gastro-esophageal reflux disease without esophagitis; J44.9 Chronic obstructive pulmonary disease, unspecified; G47.00 Insomnia, unspecified; F32.9 Major depressive disorder, single episode, unspecified; F41.9 Anxiety disorder, unspecified; I34.0 Nonrheumatic mitral (valve) insufficiency; I07.1 Rheumatic tricuspid insufficiency; Z79.899 Other long term (current) drug therapy; Z86.718 Personal history of other venous thrombosis and embolism; Z82.49 Family history of ischemic heart disease and other diseases of the circulatory system
CPT/HCPCS: 93005; 93306; 85025 ×2; 80048 ×2; 36415; 83735; 85610; 80061; 80076; 84443; 81003; 84484 ×3; 83880; 71045; 90471; 90670; 94760 ×2; 96374; 99285; J3010; G0378 ×2

== ENCOUNTER 2019-08-16 13:47 | Emergency (ER) | payer OTHER, BC ==
--- NOTE | 2019-08-16 14:49 | RAD REPORT ---
EXAM DESCRIPTION: CT - Head C Spine Mpr Wo Con - 08/16/2019 2:39 pm CLINICAL HISTORY: Head and neck injury status post fall. Head and neck pain COMPARISON: 2019 TECHNIQUE: Computed axial tomography of the head and cervical spine was obtained. Sagittal and coronal reconstruction was performed. All CT scans are performed using dose optimization technique as appropriate and may include automated exposure control or mA/KV adjustment according to patient size. FINDINGS: An intracranial bleed is not seen. The ventricles are normal in caliber. An extra-axial fl uid collection is not noted.Fluid within the visualized sinuses and mastoids is not seen A cervical fracture is not visualized. Mild anterior subluxation C3 on C4 is unchanged. Anterior fusi on involves C4 and C5. Mild anterior subluxation C7 on T1 unchanged IMPRESSION: No acute intracranial abnormality is seen. A cervical fracture is not visualized. If the patient continues to have symptoms to suggest intracra nial /spinal cord pathology then MRI would be recommended
--- NOTE | 2019-08-16 14:51 | RAD REPORT ---
EXAM DESCRIPTION: CT - Facial Bones W/ Mpr - 08/16/2019 2:39 pm CLINICAL HISTORY: Facial injury TECHNIQUE: Computed axial tomography of the face was obtained. Coronal and sagittal reconstruction w as performed. All CT scans are performed using dose optimization technique as appropriate and may include automated exposure control or mA/KV adjustment according to patient size. FINDINGS: A fracture is not seen. A TMJ dislocation is not noted. The globes are intact. Fluid within the sinuses is not seen. IMPRESSION: Negative for a facial fracture.
[2019-08-16] MEDS ORDERED: ACETAMINOPHEN 325 MG TABLET ONE (15:05)
[2019-08-16] MEDS ORDERED: TRAMADOL HCL 50 MG TAB ONE (15:05)
--- NOTE | 2019-08-16 15:15 | RAD REPORT ---
EXAM DESCRIPTION: RAD - Knee Left 3 View - 08/16/2019 2:50 pm CLINICAL HISTORY: fall Fall, knee pain COMPARISON: No comparisons FINDINGS: Chondrocalcinosis is present about the knee. No acute fracture or dislocation seen. No shira nt effusion. 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
--- NOTE | 2019-08-16 16:37 | ER ---
Nurse's Notes [facility] Name: Samanta Hayes Age: 79 yrs Sex: Female : 1940 Arrival Date: 08/16/2019 Time: 13:49 Bed 5 Private MD: Mak Mtz E Diagnosis: Contusion of left knee;Contusion of unspecified part of head;Fall on same level from slipping, tripping and stumbling Presentation: 08/15 14:11 Chief complaint: Patient states: "I tripped over a cement block in a parking lot and aa5 fell right onto my face". Abrasions noted to face, no active bleeding noted, Denies LOC. Coronavirus screen: The patient has NOT traveled to a country currently being monitored by the CDC within the last 14 days. The patient has NOT had contact with any known and/or suspected case of coronavirus. Ebola Screen: Patient negative for fever greater than or equal to 101.5 degrees Fahrenheit, and additional compatible Ebola Virus Disease symptoms. Initial Sepsis Screen: Does the patient meet any 2 criteria? No. Patient's initial sepsis screen is negative. Does the patient have a suspected source of infection? No. Patient's initial sepsis screen is negative. Risk Assessment: Do you want to hurt yourself or someone else? Patient reports no desire to harm self or others. 14:11 Method Of Arrival: Ambulatory aa5 14:11 Acuity: KIT 4 aa5 Historical: - Allergies: 14:14 No Known Allergies; aa5 - PMHx: 14:14 COPD; Crohn's; Depression; hiatal hernia; Hypertension; insomnia; DVT; aa5 - PSHx: 14:14 ; Hysterectomy; explore laparotomy; Appendectomy; cyst removal at right hand; aa5 Tonsillectomy; - Immunization history:: Last tetanus immunization: unknown. - Social history:: Smoking status: Patient denies any tobacco usage or history of. Screenin:45 Abuse screen: Denies threats or abuse. Denies injuries from another. Nutritional jl7 screening: No deficits noted. Tuberculosis screening: No symptoms or risk factors identified. Fall Risk Fall in past 12 months (25 points). Total Belcher Fall Scale indicates Low Risk Score (25-44 pts). Fall prevention measures have been instituted. Side Rails Up X 2 Placed close to Nursing Station Frequent Obs/Assesments occuring Family Present and informed to notify staff if they need to leave bedside As available Patient and Family Educated on Fall Prevention Program and strategies. Assessment: 14:45 General: Appears in no apparent distress. uncomfortable, Behavior is calm, cooperative, jl7 appropriate for age. Pain: Complains of pain in left side of face Pain currently is 3 out of 10 on a pain scale. Neuro: Level of Consciousness is awake, alert, obeys commands, Oriented to person, place, time, situation. Cardiovascular: Patient's skin is warm and dry. Respiratory: Airway is patent Respiratory effort is even, unlabored, Respiratory pattern is regular, symmetrical. Derm: Skin is pink, warm \\T\\ dry. Bruising that is on left eye and upper genaro border. 16:28 Reassessment: Patient appears in no apparent distress at this time. No changes from tw2 previously documented assessment. Patient and/or family updated on plan of care and expected duration. Pain level reassessed. Patient is alert, oriented x 3, equal unlabored respirations, skin warm/dry/pink. 17:12 Reassessment: Patient appears in no apparent distress at this time. No changes from tw2 previously documented assessment. Patient and/or family updated on plan of care and expected duration. Pain level reassessed. Patient is alert, oriented x 3, equal unlabored respirations, skin warm/dry/pink. Vital Signs: 14:11 BP 145 / 76; Pulse 76; Resp 16 S; Temp 98.1(TE); Pulse Ox 97% on R/A; Weight 52.16 kg aa5 (R); Height 5 ft. 2 in. (157.48 cm) (R); Pain 2/10; 16:28 BP 151 / 65; Pulse 70; Resp 17; Pulse Ox 99% on R/A; tw2 17:11 BP 151 / 61; Pulse 72; Resp 17; Pulse Ox 99% on R/A; tw2 14:11 Body Mass Index 21.03 (52.16 kg, 157.48 cm) aa5 ED Course: 13:49 Patient arrived in ED. ag5 13:49 Mak Mtz MD is Private Physician. ag5 14:13 Triage completed. aa5 14:13 Arm band placed on. aa5 14:14 Oral Hillman PA is PHCP. cp 14:14 Oral Sesay MD is Attending Physician. cp 14:45 Patient has correct armband on for positive identification. Bed in low position. Call jl7 light in reach. Side rails up X 1. 14:51 Chrissie Cooper, RN is Primary Nurse. jl7 Administered Medications: 15:05 Drug: traMADol 50 mg Route: PO; jl7 16:37 Follow up: Response: No adverse reaction tw2 15:06 Drug: Tylenol 650 mg Route: PO; jl7 16:37 Follow up: Response: No adverse reaction; Pain is decreased tw2 Outcome: 16:37 Discharge ordered by MD. cp 17:12 Discharged to home via wheelchair, with family. tw2 17:12 Condition: stable 17:12 Discharge instructions given to patient, family, Instructed on discharge instructions, follow up and referral plans. Demonstrated understanding of instructions, follow-up care. 17:12 Patient left the ED. tw2 Signatures: Suzanne Ramon, RN RN aa5 Oral Hillman PA PA cp Mali Gudino RN RN tw2 Chrissie Cooper RN RN jl7 Lonnie Brady ag5
--- NOTE | 2019-08-16 16:37 | EDPHYS ---
Physician Documentation [facility] Name: Samanta Hayes Age: 79 yrs Sex: Female : 1940 Arrival Date: 08/16/2019 Time: 13:49 Bed 5 Private MD: Mak Mtz E ED Physician Oral Sesay HPI: 08/15 14:30 This 79 yrs old Female presents to ER via Ambulatory with complaints of Fall cp Injury. 14:30 Details of fall: The patient fell from an upright position, while walking. cp 14:30 Onset: The symptoms/episode began/occurred just prior to arrival. Associated injuries: cp The patient sustained injury to the head, contusion, swelling, tenderness, left knee, painful injury, swelling. Severity of symptoms: in the emergency department the symptoms are unchanged. Patient reports losing her balance and falling to ground striking face and knees while walking to car. Historical: - Allergies: 14:14 No Known Allergies; aa5 - PMHx: 14:14 COPD; Crohn's; Depression; hiatal hernia; Hypertension; insomnia; DVT; aa5 - PSHx: 14:14 ; Hysterectomy; explore laparotomy; Appendectomy; cyst removal at right hand; aa5 Tonsillectomy; - Immunization history:: Last tetanus immunization: unknown. - Social history:: Smoking status: Patient denies any tobacco usage or history of. ROS: 14:40 Constitutional: Negative for body aches, chills, fever. cp 14:40 Eyes: Negative for discharge, redness. cp 14:40 ENT: Negative for drainage from ear(s), ear pain, sore throat, difficulty swallowing, difficulty handling secretions. 14:40 Cardiovascular: Negative for chest pain, palpitations. 14:40 Respiratory: Negative for cough, shortness of breath, wheezing. 14:40 Abdomen/GI: Negative for abdominal pain, vomiting, diarrhea, constipation. 14:40 Back: Negative for pain at rest, pain with movement. 14:40 MS/extremity: Positive for contusion, ecchymosis, pain, tenderness, of the face and left knee, Negative for deformity, paresthesias. 14:40 Neuro: Negative for altered mental status, loss of consciousness, syncope, weakness. 14:40 All other systems are negative. Exam: 14:45 Constitutional: The patient appears in no acute distress, alert, awake, cp non-diaphoretic, non-toxic, well developed, well nourished. 14:45 Head/face: Noted is contusion, that is superficial, of the forehead, right cheek, left cp cheek and mouth, ecchymosis, that is mild, of the forehead, right cheek, left cheek and mouth, swelling, that is mild, of the forehead, right cheek, left cheek and mouth. 14:45 Eyes: Pupils: equal, round, and reactive to light and accomodation, Extraocular movements: intact throughout, Conjunctiva: normal, no exudate, no injection, Lids and lashes: appear normal, bilaterally. 14:45 ENT: External ear(s): are unremarkable, Ear canal(s): are normal, clear, TM's: dullness, bilaterally, Nose: is normal, Mouth: Lips: moist, Oral mucosa: pink and intact, moist, Posterior pharynx: is normal, airway is patent, no erythema, no exudate. 14:45 Neck: C-spine: vertebral tenderness, is not appreciated, crepitus, is not appreciated, ROM/movement: limited range of motion, is not appreciated, nuchal rigidity, is not appreciated. 14:45 Chest/axilla: Inspection: normal, Palpation: is normal, no crepitus, no tenderness. 14:45 Cardiovascular: Rate: normal, Rhythm: regular, Edema: is not appreciated, JVD: is not appreciated. 14:45 Respiratory: the patient does not display signs of respiratory distress, Respirations: normal, no use of accessory muscles, no retractions, labored breathing, is not present, Breath sounds: are clear throughout, no decreased breath sounds. 14:45 Abdomen/GI: Inspection: abdomen appears normal, Bowel sounds: active, all quadrants, Palpation: abdomen is soft and non-tender, in all quadrants, rebound tenderness, is not appreciated, voluntary guarding, is not appreciated, involuntary guarding, is not appreciated. 14:45 Back: pain, is absent, ROM is normal. 14:45 Musculoskeletal/extremity: Joints: All joints are normal except the left knee displays swelling, tenderness. 14:45 Neuro: Orientation: to person, place \T\ time. Mentation: is normal, Motor: moves all fours, strength is normal, Sensation: is normal. Vital Signs: 14:11 BP 145 / 76; Pulse 76; Resp 16 S; Temp 98.1(TE); Pulse Ox 97% on R/A; Weight 52.16 kg aa5 (R); Height 5 ft. 2 in. (157.48 cm) (R); Pain 2/10; 16:28 BP 151 / 65; Pulse 70; Resp 17; Pulse Ox 99% on R/A; tw2 17:11 BP 151 / 61; Pulse 72; Resp 17; Pulse Ox 99% on R/A; tw2 14:11 Body Mass Index 21.03 (52.16 kg, 157.48 cm) aa5 MDM: 14:17 Patient medically screened. luis 15:00 Differential diagnosis: closed head injury, contusion, fracture, multiple trauma. cp 16:23 Data reviewed: vital signs, nurses notes, radiologic studies, CT scan, plain films. cp Test interpretation: by ED physician or midlevel provider: plain radiologic studies, xrays of left knee negative for fracture. 16:37 Counseling: I had a detailed discussion with the patient and/or guardian regarding: the cp historical points, exam findings, and any diagnostic results supporting the discharge/admit diagnosis, radiology results, to return to the emergency department if symptoms worsen or persist or if there are any questions or concerns that arise at home. 16:37 Response to treatment: the patient's symptoms have markedly improved after treatment, cp and as a result, I will discharge patient. 08/15 14:25 Order name: CT Facial Bones W/O Con 08/15 14:25 Order name: CT Head C Spine 08/15 14:25 Order name: XRAY Knee LEFT 3 view 08/15 14:52 Order name: CT; Complete Time: 16:27 EDMS 08/15 16:27 Interpretation: Report reviewed. 08/15 14:52 Order name: CT; Complete Time: 16:27 EDMS 08/15 16:28 Interpretation: Report reviewed. 08/15 15:23 Order name: RAD; Complete Time: 16:27 EDMS 08/15 16:37 Order name: Ice pack; Complete Time: 16:38 tw2 Administered Medications: 15:05 Drug: traMADol 50 mg Route: PO; jl7 16:37 Follow up: Response: No adverse reaction tw2 15:06 Drug: Tylenol 650 mg Route: PO; jl7 16:37 Follow up: Response: No adverse reaction; Pain is decreased tw2 Disposition: 17:20 Chart complete. cp Disposition: 08/16/19 16:37 Discharged to Home. Impression: Contusion of left knee, Contusion of unspecified part of head, Fall on same level from slipping, tripping and stumbling. - Condition is Stable. - Discharge Instructions: Facial or Scalp Contusion, Head Injury, Adult, Knee Pain. - Medication Reconciliation Form, Thank You Letter, Antibiotic Education, Prescription Opioid Use form. - Follow up: Private Physician; When: 2 - 3 days; Reason: Recheck today's complaints. - Problem is new. - Symptoms have improved. Addendum: 08/19/2019 07:32 Co-signature as Attending Physician, Oral Sesay MD I agree with the assessment and c gonzáles plan of care. Signatures: Dispatcher [employer] EDOral Lawrence MD MD cha Calderon, Audri, RN RN aa5 Oral Hillman PA PA cp Mali Gudino, RN RN tw2 Chrissie Cooper RN RN jl7 Corrections: (The following items were deleted from the chart) 03 17:12 16:37 08/16/2019 16:37 Discharged to Home. Impression: Contusion of left knee; tw2 Contusion of unspecified part of head; Fall on same level from slipping, tripping and stumbling. Condition is Stable. Forms are Medication Reconciliation Form, Thank You Letter, Antibiotic Education, Prescription Opioid Use. Follow up: Private Physician; When: 2 - 3 days; Reason: Recheck today's complaints. Problem is new. Symptoms have improved. cp
[2019-08-16 17:17] VITALS: TEMP 98.1
[2019-08-16 17:19] VITALS: O2SAT 99
[2019-08-16 17:20] VITALS: BP 151/61
== END 2019-08-16 17:12 | disposition home or self-care (01) ==
LOC: ER 13:47
DX: S00.93XA Contusion of unspecified part of head, initial encounter (principal); S80.02XA Contusion of left knee, initial encounter; W01.0XXA Fall on same level from slipping, tripping and stumbling without subsequent striking against object, initial encounter; Y93.9 Activity, unspecified; Y92.481 Parking lot as the place of occurrence of the external cause
CPT/HCPCS: 70450; 70486; 72125; 76377; 99283

== ENCOUNTER 2022-03-28 16:23 | Emergency (ER) | payer OTHER, BC ==
--- OUTSIDE RECORDS SUMMARY | 2022-03-28 16:26 | XMS REPORT | Clinical Summary ---
:1940 Author Organization [facility] MD [facility] Address [address] [place] [address] Care Team Providers Name Role Phone Zora Lutz Unavailable Deann Dennis MD Primary Care Provider Allergies No known active allergies Medications Medication Sig Dispensed Refills Start End Date Status Date antiox.mv Take 1 capsule 0 Activ e [id number] by mouth (I-Caps) 280-10-2 mg daily. cap aspirin 81 mg Chew 1 tablet 0 Ac tive chewable tablet daily. Bifidobacterium 0 Acti ve infantis (ALIGN ORAL) clonazePAM Dissolve 1 0 Active (KlonoPIN) 1 mg tablet on the disintegrating tongue daily tablet as needed. cycloSPORINE Administer 1 0 Acti ve (Restasis) 0.05% drop to both ophthalmic emulsion eyes daily. [id number] 0 Active A-LIPIDS ORAL primidone (MYSOLINE) 0 Active 50 mg tablet 1 simethicone 0 Active (Phazyme) 180 mg capsule lamoTRIgine Take 50 mg by 0 Acti ve (LaMICtal) 100 mg mouth at tablet bedtime. ibuprofen Take 1 tablet 30 tablet 0 Active (ADVIL,MOTRIN) 800 (800 mg) by 1 mg mouth every 8 tabletIndications: (eight) hours Abdominal or pelvic as needed for swelling, mass, or moderate pain. lump, other specified site; multiple sites senna (Senna Lax) Take 1 tablet 30 tablet 0 Active 8.6 mg by mouth daily 1 tabletIndications: as needed for Abdominal or pelvic constipation. swelling, mass, or lump, other specified site; multiple sites dexlansoprazole Take 60 mg by 0 Active (DEXILANT) 60 mg mouth daily. capsule latanoprost daily. 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: Clinical stage from 2020: Stage IB (Primary) - Signed by Deann Dennis MD on 02/26/2021 Candidal vulvovaginitis 02/26/2021 Abdominal or pelvic swelling, mass, or lump, other spe cified site; 02/03/2021 multiple sites Family history of malignant neoplasm of breast 021 Overview: Added automatically from request for joaquin jose [id number] Mammography abnormal 02/03/2021 Overview: Added automatically from request for joaquin jose [id number] H/O: major abdominal surgery 02/03/2021 Chronic obstructive pulmonary disease 02/02/2021 Crohn's disease 02/02/2021 Depressive disorder 02/02/2021 Gastroesophageal reflux disease 02/02/2021 Encounters Date Type Specialty Care Team Description 10/01/2021 Office Visit Gynecology Jessy Macedo PA 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); Abdominal or pe lvic swelling, mass, or lump, other specified site; multiple sites 10/01/2021 Travel after 03/28/2021 Surgical History Surgery Date Site/Laterality Comments EXPLORATORY LAPAROTOMY 06/12/1961 - 06/11/1962 BREAST LUMPECTOMY 06/12/1969 - 06/11/1970 HYSTERECTOMY 06/12/1970 - 06/11/1971 UPPER GASTROINTESTINAL 06/12/2016 - ENDOSCOPY 06/11/2017 SECTION, CLASSIC x3 APPENDECTOMY OR LAP,RMV ADNEXAL 02/16/2021 Abdomen/Bilateral Procedure: LAPAROSCOPY STRUCTURE WITH REMOVAL OF ADNEXAL STRUCTURES , TOT AL OOPHERECTOMY AND SALPINGECTOMY.; Surgeon: Deann mcdonald MD; Location: MAIN O R; Service: FLAP PRESSER - GYNECOLOGIC ONCO LOGY OR CYSTOURETHROSCOPY 02/16/2021 Genitalia/Bilateral Procedu re: CYSTOURETHROSCOP Y; Surgeon: Deann Dennis MD; Loc ation: MAIN OR; Service : FLAP PRESSER - GYNECOLOGIC ONCO LOGY OR REMOVAL OF OMENTUM 02/16/2021 Abdomen/N/A Procedure: OMENTAL BIOPSY; Surgeon: Deann Dennis MD; Location: MAIN O R; Service: FLAP PRESSER - GYNECOLOGIC ONCO LOGY OR FREEING BOWEL 02/16/2021 Abdomen/N/A Procedure: FREE ING OF ADHESION,ENTEROLYSIS INTESTINAL ADHESION; Surgeon: Deann Dennis MD; Loc ation: MAIN OR; Service : FLAP PRESSER - GYNECOLOGIC ONCO LOGY OR RELEASE URETER,RETROPER 02/16/2021 Abdomen/Left Proce dure: URETEROLYSIS, FIBROSIS WITH OR WITHOUT REPOSITIONING OF URETER FOR RETROPERITON EAL FIBROSIS; Surgeo n: Deann mcdonald MD; Location: MAIN O R; Service: FLAP PRESSER - GYNECOLOGIC ONCO LOGY Medical History Medical History Date Comments Allergic rhinitis 1960 Sinusitis 1965 Difficulty talking 2018 Tooth disorder 2026 Swallowing problem 2010 Have had throat stre tched twice Gastric reflux 2015 Crohn's disease 2013 Treated for 5 years Irritable bowel syndrome 2018 Treated for 5 y ears Menopause 1970 Osteoporosis 1980 Arthritis 1980 Depressive disorder 1970 Anxiety 1970 History of cerebrovascular accident per imaging Chronic obstructive pulmonary disease Gastroesophageal reflux disease Syncope Family History Medical History Relation Name Comments Skin cancer Father Reji Breast cancer Maternal Aunt Penny Breast cancer Maternal Grandmother Silvia Black Breast cancer Paternal Aunt Annie Breast cancer Sister Em Relation Name Status Comments Father Reji Maternal Aunt Penny Maternal Grandmother Silvia Black Paternal Aunt Annie Sister Em Social History Tobacco Use Types Packs/Day Years Used Date Never Smoker 0 0 Smokeless Tobacco: Never Used Comments: Second hand smoke Alcohol Use Standard Drinks/Week Comments Not Currently 0 (1 standard drink = 0.6 oz pure alcoho l) Education Answer Date Recorded What is the highest level of school you have High school [employer] 02/09/2021 completed or the highest degree you have received? Sex Assigned at Date Recorded Female 02/02/2021 5:56 PM CDT Job Start Date Occupation Industry Not on file Not on file Not on file Obstetrics History Para Term AB IAB SAB Ectopic Multiple Living Live Births 3 3 2 1 2 Date Outcome GA Total Labor/2nd/3rd Weight Sex Delivery Anes PTL Nickie A 1 A5 Name Clin Labor Term Term Last Filed Vital Signs Vital Sign Reading Time Taken Comments Blood Pressure 125/68 10/01/2021 2:41 PM CDT Pulse 77 10/01/2021 2:41 PM CDT Temperature 36.5 C (97.7 F) 10/01/2021 2:41 PM CDT Respiratory Rate 18 10/01/2021 2:41 PM CDT Oxygen Saturation - - Inhaled Oxygen Concentration - - Weight 58.2 kg (128 lb 4.9 oz) 10/01/2021 2:41 PM CDT Height - - Body Mass Index 24.38 02/03/2021 10:58 AM CDT Plan of Treatment Date Type Specialty Care Team Description 04/01/2022 Lab Lab Jessy Macedo PA [address] [place], [place] [address] (Wo rk) 04/01/2022 Office Visit Gynecology Deann Dennis MD [address], [place] [address] (Wo rk) Health Maintenance Due Date Last Done Comments COVID-19 Vaccination (3 - Booster for 01/29/2021 08/29/2020 , 08/08/2020 Pfizer series) Procedures Procedure Name Priority Date/Time Associated Diagnosis Comme nts BHCG, TUMOR MARKER Routine 10/01/2021 2:19 PM Abdominal or pel jona Results for this CDT swelling, mass, or procedure are in lump, other the results specified site; section. multiple sites CANCER ANTIGEN 125 Routine 10/01/2021 2:19 PM Abdominal or pel jona Results for this CDT swelling, mass, or procedure are in lump, other the results specified site; section. multiple sites after 03/28/2021 Results (ABNORMAL) BHCG, Tumor Marker (10/01/2021 2:19 PM CDT) P athologist Signature Beta HCG, 2.3 (H) <=0.9 [facility] Tumor Marker mIU/mL [facility] Comment: Tumor Markers BHCG Reference Range: Negative: <1.0 mIU/mL Non- pre-menopausal women: </= 1 .0 mIU/mL Post-menopausal women: </= 7.0 mIU/mL Men: < 2.0 mIU/mL Specimen Anatomical Collection Method Collection Time Receive d Time (Source) Location / / Volume Laterality Blood 10/01/2021 2:19 PM 2 7:08 CDT PM CDT Jessy JESUS LAB BLOOD ORDERABLES Performing Organization Address City/State/ZIP Code Phon e Number [facility] Unless otherwise noted, [place] [address] CENTER all lab tests performed by: Division of Pathology and Laboratory Medicine [address] [facility] [address] [place] [address] (10/01/2021 2:19 PM CDT) athologist Signature [place] 125 11.7 <=38.0 U/mL [facility] Comment: Results greater than 11,500.0 U/L may no t be reliable due to matrix effect with extended dilution as it exceeds the weed controller s recommended limit. Caution should be exercised when interpreting such values and done in conjunction with cli nical context. Reference intervals are not available fo r male patients. Results should be interpreted in conjunction with clinical context. This test is measured by electrochemilum inescence immunoassay on Janey Sudeep immunoassay analyzers. Results obtained in different methods are not interchangeable. Testing performed at [facility], [address] [place] [id number] Specimen Anatomical Collection Method Collection Time Receive d Time (Source) Location / / Volume Laterality Blood 10/01/2021 2:19 PM 2 2:28 CDT PM CDT Jessy JESUS LAB BLOOD ORDERABLES Performing Organization Address City/[facility]/ZIP [facility] Phon e Number [address] after 03/28/2021 Insurance Payer Benefit Plan Subscriber ID Effective Phone Address Typ e / Group Dates MEDICARE MEDICARE PART [id number] 2005-Prese [phone] [facility] Medicare A AND B [employer] [address] [place] [phone] [employer] [place] PPO [id number] 2015-Prese [address] [place]PO [place] POS nt [address] [place] [address] Care Teams Makeup Editor Relationship Specialty Start Date End Date Zora Lutz PCP - External Primary Obstetrics/Gynecology 01/21/[address] [place] [address] Provider [address] [place], [place] [id number] Deann Dennis, PCP - General Gynecological Oncology [facility] [place] [place] [id number]
--- OUTSIDE RECORDS SUMMARY | 2022-03-28 16:29 | XMS REPORT | Continuity of Care Document ---
:1940 Author Organization [facility] t Address [address] [place] [address] Care Team Providers Name Role Phone Deangelo Flannery MD Primary Care Physician SYSTEM, PROVIDER NOT IN Attending Clinician Unavailable MARCO A LUTZ Attending Clinician Unavailable Duncan Lo MD Attending Clinician Doctor Unassigned, [place] Attending Clinician Unavailable ROMAINE QUINTERO Attending Clinician Unavailable Kirstie Solitario Attending Clinician [phone] Romaine Blackburn Attending Clinician Vaccine, Ang Db Cbc Fam Attending Clinician Unavailable Gavin Vázquez MD Attending Clinician GAVIN VÁZQUEZ Attending Clinician Unavailable Jessy Ochoa Attending Clinician JESSY RIVERA Attending Clinician Unavailable 1, [facility] Infusion Chair Attending Clinician Unavailable Awa Mackey Attending Clinician [phone] AWA MARIN Attending Clinician Unavailable Marco A Lutz MD Attending Clinician DEANGELO FLANNERY Attending Clinician Unavailable Deangelo Flannery MD Attending Clinician Corrine Kaur MA Attending Clinician Unavailable SHAWNEE VIDES Attending Clinician Unavailable RAE JERONIMO Attending Clinician Unavailable HANY BOWER Attending Clinician Unavailable Sheela Gonzalez RN Attending Clinician Unavailable Provider, [facility] Attending Clinician Unavailable John Pinedo Attending Clinician JOHN NAVARRO Attending Clinician Unavailable Shruti Rich Attending Clinician Unavailable Kyle Flannery MD Attending Clinician Jung BASURTO Sobia S Attending Clinician HARMAN MUHAMMAD Attending Clinician Unavailable Lab, Adc Fam Pob I Attending Clinician Unavailable Ora CHEN, Matthew Attending Clinician MATTHEW PAYAN Attending Clinician Unavailable Madison Veronica Attending Clinician RHIANNON DEVINE Attending Clinician Unavailable Rangel Bae DO Attending Clinician Cong Joseph MD Attending Clinician CONG JOSEPH Attending Clinician Unavailable Pob, Adc Lab Main Attending Clinician Unavailable SHAWNEE VIDES Admitting Clinician Unavailable Payers Payer Name Policy Type Policy Number Effective Date Expiration Date S sonya MEDICARE PART A \T\ [id number] 2005 B 00:00:00 [employer] TRADITIONAL [id number] 2015 00:00:00 Problems Condition Condition Condition Status Onset Resolution Last Treating Co mments Source Name Details Category Date Date Treatment Clinician Date Left knee Left knee Disease Active [facility] pain pain 4-27 Health 00:00: 00 Arthritis Arthritis Disease Active Last [facility] of right of right 4-27 Assessmen [facility] knee knee 00:00: t & Plan: 00 Formattin g of this note might be different from the original. Reassured patient today. May follow-up as needed for possible CSI injection recommend she continue PT. Consider CSI injection and if she does not may consider ENNIS injection in future. Today, I recommend ed activity modificat ions, weight loss, NSAIDs as needed (if no contraind ication such as a history of kidney disease), and gentle self-driv en exercise program. We discussed joint replaceme nt as a last resort option, which is guided by progressi ve symptomat ic worsening and unsuccess ful non-opera tive treatment . 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 1-10 ity of 00:00: [place] 00 Medical Branch Postmenopa Postmenopa Disease Active U nivers usal usal 1-10 ity of osteoporos osteoporos [place] 00 [place] Neoplasm Neoplasm Disease Active Unive rs of low of low 9-17 ity of malignant malignant 00:[place] potential potential 00 behavior behavior Junior o of ovary of ovary [facility] Candidal Candidal Disease Active Unive rs vulvovagin vulvovagin -17 it y of itis itis 00:00: 00 MD [facility] Other Other Disease Active Univers intra-abdo intra-abdo 8-25 it y of barbie and barbie and 00:[place] pelvic pelvic 00 Medical swelling, swelling, Bran ch mass and mass and lump lump Other Other Disease Active Univers specified specified 8- ity of postproced postproced 00:[place] ural ural [facility] Abdominal Abdominal Disease Active Uni vers or pelvic or pelvic 825 ity of swelling, swelling, 00:[place] mass, or mass, or 00 MD lump, lump, Anderso other other n specified specified Can er site; site; Center multiple multiple sites sites Family Family Disease Active Overview: Univer s history of history of 02-03 Formattin ity of malignant malignant 00:00: g of this [place] neoplasm neoplasm 00 note of breast of breast might be An derso different n from the Cancer original. Center Added automatic ally from request for surgery [id number] Mammograph Mammograph Disease Active Overview : Univers y abnormal y abnormal 825 Formattin ity of 00:00: g of this note MD might be Anderso different n from the Cancer original. Center Added automatic ally from request for surgery [id number] H/O: major H/O: major Disease Active U nivers abdominal abdominal 8- ity of surgery surgery 00:00: 00 MD [facility] Chronic Chronic Disease Active Univers obstructiv obstructiv 8-24 it y of e e 00:00: [place] pulmonary pulmonary 00 disease disease Andhalieo marible [facility] Center Crohn's Crohn's Disease Active Univers disease disease 02-02 ity of 00:: [place] MD [facility] Depressive Depressive Disease Active U nivers disorder disorder 02-02 ity of 00:: [place] MD [facility] Center Gastroesop Gastroesop Disease Active U nivers hageal hageal 02-02 ity of reflux reflux 00:: [place] disease disease MD [facility] 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 01-18 ity of 00:: [place] [facility] Vaginal Vaginal Disease Active 2019-06 Univers dryness dryness 06-13 ity of :: [place] [facility] Vaginal Vaginal Disease Active 2019-06 Univers discharge discharge 06-13 ity of 00:: [address] Dry eyes Dry eyes Disease Active Unive rs ity of [facility] Allergies Allergies Disease Active Uni vers ity of [facility] Insomnia Insomnia Disease Active Unive rs ity of [facility] Excessive Excessive Disease Active Uni vers gas gas ity of [facility] Panic Panic Disease Active Univers attacks attacks ity of [facility] Incontinen Incontinen Disease Active U nivers ce ce ity of [facility] Bipolar Bipolar Disease Active Univers disease, disease, ity of chronic chronic [facility] Tremors of Tremors of Disease Active U nivers nervous nervous ity of system system [facility] Sinus Sinus Disease Active Univers disease disease ity of [facility] Second Second Disease Active Overview: Univer s hand smoke hand smoke Formattin ity of exposure exposure g of this [place] as note Medical might be Branch different from the original. 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 Vaginal Vaginal Disease Active Univers atrophy atrophy ity of [facility] Allergies, Adverse Reactions, Alerts Allergy Allergy Status Severity Reaction(s) Onset Inactive Treating Comm ents Source Name Type Date Date Clinician NO KNOWN Drug Active Univers ALLERGIE Class ity of [facility] [place] [facility] Family History Family Member Diagnosis Comments Start Date Stop Date Source Natural father Skin cancer Universit y of [facility] Maternal aunt Breast cancer Universi ty of [facility] Maternal grandmother Breast cancer U niversity of [facility] Paternal aunt Breast cancer Universi ty of [facility] Natural sister Breast cancer Univers ity of [facility] Social History Social Habit Start Date Stop Date Quantity Comments Source History [facility] Std [facility]inks [facility] Alcohol Binge History [facility] Alcohol Comment Exposure to Not sure [facility] SARS-CoV-2 (event) History SDOH 2021-10-06 2021-10-06 1 [facility] Alcohol Frequency 00:00:00 00:00:00 Alcohol intake 2021-10-01 2021-10-01 Ex-drinker University 00:00:00 00:00:00 (finding) [place] MD [facility] Education 2021-02-09 2021-02-09 13 [facility] 00:00:00 00:00:00 [place] MD [place] ronquillo [facility] Tobacco use and 2021-02-03 2021-02-03 Smokeless tobacco Un iversity of exposure 00:00:00 00:00:00 non-user [place] MD [place] ronqu[place] [facility] Tobacco Comment 2021-02-03 2021-02-03 Second hand smoke Un iversity of 00:00:00 00:00:00 [place] MD [place] ronquillo [facility] Sex Assigned At [birth year] [facility] 00:00:[facility] 00:00:00 Smoking Status Start Date Stop Date Source Never smoked tobacco [facility] Medications Ordered Filled Start Stop Current Ordering Indication Dosage Frequency Signature Comments Components Source Medication Medication Date Date Medication? Clinician (SIG) Name Name lamoTRIgine Yes 1{tbl} 1 tablet. [facility] (LaMICtal) 4-27 Health 100 MG 11:03: tablet 44 Fluticasone Yes 1{spray Inhale 1 [facility] Furoate 4-27 } spray. Health (Arnuity 11:03: Ellipta) 50 44 MCG/ACT aerosol powder Krill Oil Yes 1{capsu QD Take 1 [facility] 350 MG 4-27 le} capsule by Health capsule 11:03: mouth 1 44 (one) time each day. lamoTRIgine Yes 1{tbl} 1 tablet. [facility] (LaMICtal) 4-27 Health 100 MG 11:03: tablet 44 Fluticasone Yes 1{spray Inhale 1 [facility] Furoate 4-27 } spray. Health (Arnuity 11:03: Ellipta) 50 44 MCG/ACT aerosol powder Krill Oil Yes 1{capsu QD Take 1 [facility] 350 MG 4-27 le} capsule by Health capsule 11:03: mouth 1 44 (one) time each day. buPROPion Yes [facility] (Wellbutrin 4-26 Health ) 100 MG 00:00: tablet 00 buPROPion Yes [facility] (Wellbutrin 4-26 Health ) 100 MG 00:00: tablet 00 cycloSPORIN Yes 1[drp] Administer Univers E 4-22 1 drop to ity of (Restasis) 14:46: [place] eyes [place] 0.05% 14 daily. ophthalmic [facility] KRILL-OMEGA Yes [place] [facility] s -3-DHA-EPA- 4-22 ity of LIPIDS ORAL 14:46: [place] [facility] simethicone Yes [facility] (Ph[facility] 4-22 ity of 180 mg 14:46: [place] [facility] lamoTRIgine Yes 50mg Take 50 mg Univers (LaMICtal) 4-22 by mouth ity o f 100 mg 14:46: at [place] tablet 14 bedtime. MD Kaela lópez [facility] dexlansopra Yes 60mg Take 60 mg Univers zole 4-22 by mouth ity of (DEXILANT) 14:46: daily. [place] 60 mg 14 MD m[facility]ox [facility] antiox.mv Yes 1{capsu Take 1 Uni vers no.10-omeg3 4-22 le} capsule by it y of s-lut-mani 14:46: mouth [place] (I-Caps) 14 daily. 280-10-2 mg [facility] aspirin 81 Yes 1{tbl} Chew 1 Uni vers mg chewable 4-22 tablet ity of tablet 14:46: daily. [place] 14 MD Kaela lópez [facility] Bifidobacte Yes Univyossi s rium 4-22 ity of infantis 14:46: [place] (ALIGN 14 ORAL) [facility] clonazePAM Yes 1{tbl} Dissolve 1 Univers (KlonoPIN) 4-22 tablet on ity of 1 mg 14:46: the tongue [place] disintegrat 14 daily as MD ing tablet needed. [facility] antiox.mv Yes 1{capsu Take 1 Uni vers no.10-omeg3 4-22 le} capsule by it y of s-lut-mani 14:46: mouth [place] (I-Caps) 14 daily. 280-10-2 mg Kaela [facility] aspirin 81 Yes 1{tbl} Chew 1 Uni vers mg chewable 4-22 tablet ity of tablet 14:46: daily. [place] 14 [facility] Bifidobacte Yes Sadiq s rium 4-22 ity of infantis 14:46: [place] (ALIGN 14 MD ORAL) [facility] clonazePAM Yes 1{tbl} Dissolve 1 Univers (KlonoPIN) 4-22 tablet on ity of 1 mg 14:46: the tongue [place] disintegrat 14 daily as MD ing tablet needed. [facility] cycloSPORIN Yes 1[drp] Administer Univers E 4-22 1 drop to ity of (Restasis) 14:46: [place] eyes [place] 0.05% 14 daily. ophthalmic [facility] KRILL-OMEGA Yes Univyossi s -3-DHA-EPA- -22 ity of LIPIDS ORAL 14:46: [place] 14 [facility] simethicone Yes Univer s (Phazyme) 4-22 ity of 180 mg 14:46: [place] capsule 14 [facility] lamoTRIgine Yes 50mg Take 50 mg Univers (LaMICtal) 4-22 by mouth ity o f 100 mg 14:46: at [place] tablet 14 bedtime. MD [place] [facility] dexlansopra Yes 60mg Take 60 mg Univers zole 4-22 by mouth ity of (DEXILANT) 14:46: daily. [place] 60 mg 14 capsule [facility] loratadine 2021- Univer s 10 mg cap 4-22 04-22 ity of 14:46: 00:00 [place] 14 :00 MD [facility] loratadine 2021- No Univer s 10 mg cap 10-01 ity of 14:46: 00:00 [place] 14 :00 MD [place] [facility] pantoprazol Yes UT e 09-28 Health (ProtoNix) 00:00: 40 MG EC 00 tablet pantoprazol Yes UT e 09-28 Health (ProtoNix) 00:00: 40 MG EC 00 tablet latanoprost Yes daily. [facility] ers (XALATAN) 3-24 ity of 0.005% 00:00: [place] ophthalmic 00 solution [facility] latanoprost Yes daily. [facility] ers (XALATAN) 3-24 ity of 0.005% 00:00: [place] ophthalmic 00 MD werner [facility] zoledronic 2021- No [id number] 5mg 5 mg, IV Univers acid 08-26 Piggyback, ity of (RECLAST) 5 16:25: 18:45 at 200 [place] as mg/100 mL 00 :00 mL/hr Medical IV solution Administer Br anch 5 mg over 30 Minutes, ONCE, 1 dose, On Jeanine 08/26/21 at 1130, Routine
city council member approving Restricted medication : AWA MORRISON acetaminoph 2021- No [id number] 650mg 650 mg, Univers en 08-26 Oral, ity of (TYLENOL) 16:24: 16:31 ONCE, 1 [place] tablet 650 00 :00 dose, On Medic al mg Jeanine Branch 08/26/21 at 1130, Routine clonazePAM Yes [facility] (KlonoPIN) 2-28 Health 1 MG tablet 00:00: 00 clonazePAM 0 Yes [facility] (KlonoPIN) 2-28 Health 1 MG tablet 00:00: 00 clonazePAM Yes 1mg Take 1 mg Un nikhil 1 mg tablet 1-10 by mouth 2 it y of 15:44: (two) [place] 12 times Medical daily. Branch antiox.mv Yes 1{capsu Take 1 Uni vers no.10-omeg3 1-10 le} capsule by it y of s-lut-mani 15:44: mouth [place] (I-CAPS) 12 daily. Medical 280-10-2 mg Branch Cap cycloSPORIN 2-0 Yes 1[drp] Place 1 U nivers E 1-10 Drop in ity of (RESTASIS) 15:44: each eye. [place] 0.05 % 12 Medical drops Branch clonazePAM 2-0 Yes 1mg Take 1 mg Un nikhil 1 mg tablet 1-10 by mouth 2 it y of 15:44: (two) [place] 12 times Medical daily. Branch antiox.mv 2021-0 Yes 1{capsu Take 1 Uni vers no.10-omeg3 1-10 le} capsule by it y of s-lut-mani 15:44: mouth [place] (I-CAPS) 12 daily. Medical 280-10-2 mg Branch Cap cycloSPORIN 2-0 Yes 1[drp] Place 1 U nivers E 1-10 Drop in ity of (RESTASIS) 15:44: each eye. [place] 0.05 % 12 Medical drops Branch clonazePAM 2-0 Yes 1mg Take 1 mg Un nikhil 1 mg tablet 1-10 by mouth 2 it y of 15:44: (two) [place] 12 times Medical daily. Branch antiox.mv 2021-0 Yes 1{capsu Take 1 Uni vers no.10-omeg3 1-10 le} capsule by it y of s-lut-mani 15:44: mouth [place] (I-CAPS) 12 daily. Medical 280-10-2 mg Branch Cap cycloSPORIN 2-0 Yes 1[drp] Place 1 U nivers E 1-10 Drop in ity of (RESTASIS) 15:44: each eye. [place] 0.05 % 12 Medical drops Branch clonazePAM 2-0 Yes 1mg Take 1 mg Un nikhil 1 mg tablet 1-10 by mouth 2 it y of 15:44: (two) [place] 12 times Medical daily. Branch antiox.mv 2021-0 Yes 1{capsu Take 1 Uni vers no.10-omeg3 1-10 le} capsule by it y of s-lut-mani 15:44: mouth [place] (I-CAPS) 12 daily. Medical 280-10-2 mg Branch Cap cycloSPORIN 2-0 Yes 1[drp] Place 1 U nivers E 1-10 Drop in ity of (RESTASIS) 15:44: each eye. [place] 0.05 % 12 Medical drops Branch clonazePAM 2021-0 Yes 1mg Take 1 mg Un nikhil 1 mg tablet 1-10 by mouth 2 it y of 15:44: (two) [place] 12 times Medical daily. Branch antiox.mv 2021-0 Yes 1{capsu Take 1 Uni vers no.10-omeg3 1-10 le} capsule by it y of s-lut-mani 15:44: mouth [place] (I-CAPS) 12 daily. Medical 280-10-2 mg Branch Cap cycloSPORIN 2021-0 Yes 1[drp] Place 1 U nivers E 1-10 Drop in ity of (RESTASIS) 15:44: each eye. [place] 0.05 % 12 Medical drops Branch clonazePAM 2021-0 Yes 1mg Take 1 mg Un nikhil 1 mg tablet 1-10 by mouth 2 it y of 15:44: (two) [place] 12 times Medical daily. Branch antiox.mv 2021-0 Yes 1{capsu Take 1 Uni vers no.10-omeg3 1-10 le} capsule by it y of s-lut-mani 15:44: mouth [place] (I-CAPS) 12 daily. Medical 280-10-2 mg Branch Cap cycloSPORIN 2021-0 Yes 1[drp] Place 1 U nivers E 1-10 Drop in ity of (RESTASIS) 15:44: each eye. [place] 0.05 % 12 Medical drops Branch calcium 2021-0 Yes 1{tbl} QD Take 1 [facility] carbonate-v 1-10 tablet by [facility] itamin D 00:00: mouth 1 600-400 00 (one) time MG-UNIT each day. tablet calcium 2021-0 Yes 1{tbl} QD Take 1 [facility] carbonate-v 1-10 tablet by [facility] itamin D 00:00: mouth 1 600-400 00 (one) time MG-UNIT each day. tablet Calcium-Cho 2021-0 Yes [id number] 1{tbl} Take 1 Univers lecalcifero 1-10 tablet by ity of l, D3, 00:00: mouth [place] (CALCIUM 00 daily. Medical WITH Branch VITAMIN D) 600 mg(1,500mg) -400 unit tablet Calcium-Cho 0 Yes [id number] 1{tbl} Take 1 Univers lecalcifero 1-10 tablet by ity of l, D3, 00:00: mouth [place] (CALCIUM 00 daily. Medical WITH Branch VITAMIN D) 600 mg(1,500mg) -400 unit tablet Calcium-Cho 0 Yes [id number] 1{tbl} Take 1 Univers lecalcifero 1-10 tablet by ity of l, D3, 00:00: mouth [place] (CALCIUM 00 daily. Medical WITH Branch VITAMIN D) 600 mg(1,500mg) -400 unit tablet Calcium-Cho Yes [id number] 1{tbl} Take 1 Univers lecalcifero 1-10 tablet by ity of l, D3, 00:00: mouth [place] (CALCIUM 00 daily. Medical WITH Branch VITAMIN D) 600 mg(1,500mg) -400 unit tablet Calcium-Cho Yes [id number] 1{tbl} Take 1 Univers lecalcifero 1-10 tablet by ity of l, D3, 00:00: mouth [place] (CALCIUM 00 daily. Medical WITH Branch VITAMIN D) 600 mg(1,500mg) -400 unit tablet Calcium-Cho Yes [id number] 1{tbl} Take 1 Univers lecalcifero 1-10 tablet by ity of l, D3, 00:00: mouth [place] (CALCIUM 00 daily. Medical WITH Branch VITAMIN D) 600 mg(1,500mg) -400 unit tablet latanoprost 0 Yes Univer s 0.005 % 1-06 ity of ophthalmic 00:00: [place] drops 00 Medical Branch latanoprost 2021-0 Yes Univer s 0.005 % 1-06 ity of ophthalmic 00:00: [place] drops 00 Medical Branch latanoprost 2021-0 Yes Univer s 0.005 % 1-06 ity of ophthalmic 00:00: [place] drops 00 Medical Branch latanoprost 2021-0 Yes Univer s 0.005 % 1-06 ity of ophthalmic 00:00: [place] drops 00 Medical Branch latanoprost 2021-0 Yes Univer s 0.005 % 1-06 ity of ophthalmic 00:00: [place] drops Medical Branch latanoprost 2021-0 Yes Univer s 0.005 % 1-06 ity of ophthalmic 00:00: [place] drops 00 Medical Branch solifenacin 2020-06 Yes 10mg QD Take 10 mg UT (VESIcare) 2-22 by mouth 1 Hea lth 10 MG 00:00: (one) time tablet 00 each day. solifenacin 2020-06 Yes 10mg QD Take 10 mg UT (VESIcare) 2-22 by mouth 1 Hea lth 10 MG 00:00: (one) time tablet 00 each day. clobetasol 2020-06 Yes Apply UT (Temovate) 1-16 topically. Hea lth 0.05 % 00:00: ointment 00 clobetasol 2020-06 Yes Apply UT (Temovate) 1-16 topically. Hea lth 0.05 % 00:00: ointment 00 clobetasoL 2020-06 Yes [id number] Apply to Univers 0.05 % 1-16 area(s) at ity of ointment 00:00: bedtime. [place] Apply to Medical the vulva Branch every night for 4 weeks, then every other night for 4 weeks, then 3 times per week for 4 weeks clobetasoL 2020-06 Yes [id number] Apply to Univers 0.05 % 1-16 area(s) at ity of ointment 00:00: bedtime. [place] 00 Apply to Medical the vulva Branch every night for 4 weeks, then every other night for 4 weeks, then 3 times per week for 4 weeks clobetasoL 2020-06 Yes [id number] Apply to Univers 0.05 % 1-16 area(s) at ity of ointment 00:00: bedtime. [place] Apply to Medical the vulva Branch every night for 4 weeks, then every other night for 4 weeks, then 3 times per week for 4 weeks clobetasoL 2020-06 Yes [id number] Apply to Univers 0.05 % 1-16 area(s) at ity of ointment 00:00: bedtime. [place] Apply to Medical the vulva Branch every night for 4 weeks, then every other night for 4 weeks, then 3 times per week for 4 weeks clobetasoL 2020-06 Yes [id number] Apply to Univers 0.05 % 1-16 area(s) at ity of ointment 00:00: bedtime. [place] 00 Apply to Medical the vulva Branch every night for 4 weeks, then every other night for 4 weeks, then 3 times per week for 4 weeks clobetasoL 2020-06 Yes [id number] Apply to Univers 0.05 % 1-16 area(s) at ity of ointment 00:00: bedtime. [place] 00 Apply to Medical the vulva Branch every night for 4 weeks, then every other night for 4 weeks, then 3 times per week for 4 weeks famotidine 2020-06 Yes 20mg Take 20 mg U T (Pepcid) 20 1-04 by mouth. Hea lth MG tablet 00:00: 00 famotidine 2020-06 Yes 20mg Take 20 mg U T (Pepcid) 20 1-04 by mouth. Hea lth MG tablet 00:00: 00 famotidine 2020-06 Yes [id number] 20mg Take 1 Univers (PEPCID) 20 1-04 tablet by ity of mg tablet 00:00: mouth [place] ([facility]) Medical times Branch daily. famotidine 2020-06 Yes [id number] 20mg Take 1 Univers (PEPCID) 20 1-04 tablet by ity of mg tablet 00:00: mouth [place] ([facility]) Medical times Branch daily. famotidine 2020-06 Yes [id number] 20mg Take 1 Univers (PEPCID) 20 1-04 tablet by ity of mg tablet 00:00: mouth [place] ([facility]) Medical times Branch daily. famotidine 2020-06 Yes [id number] 20mg Take 1 Univers (PEPCID) 20 1-04 tablet by ity of mg tablet 00:00: mouth [place] (two) Medical times Branch daily. famotidine 2020-06 Yes [id number] 20mg Take 1 Univers (PEPCID) 20 1-04 tablet by ity of mg tablet 00:00: mouth [place] (two) Medical times Branch daily. famotidine 2020-06 Yes [id number] 20mg Take 1 Univers (PEPCID) 20 1-04 tablet by ity of mg tablet 00:00: mouth [place] [id number] (two) Medical times Branch daily. ibuprofen Yes Abdominal 800mg Take 1 Univers (ADVIL,MOTR 9-07 or pelvic tablet i ty of [place]) 800 mg 00:00: swelling, (800 mg) [place] tablet 00 mass, or by mouth MD lumcesar, other every 8 [place] so specified (eight) n site; hours as Cancer multiple needed for Cente r sites moderate pain. senna Yes Abdominal 1{tbl} Take 1 Uni vers (Senna Lax) 9-07 or pelvic tablet by ity of 8.6 mg 00:00: swelling, mouth [place] tablet 00 mass, or daily as MD lump, other needed for An derso specified constipati n site; on. Cancer multiple Center sites ibuprofen Yes Univers 800 mg 9-07 ity of tablet 00:00: [facility] sennosides Yes 1{tbl} Take 1 Uni vers 8.6 mg 9-07 tablet by ity of tablet 00:00: mouth. [facility] ibuprofen Yes Univers 800 mg 9-07 ity of tablet 00:00: [facility] Branch sennosides Yes 1{tbl} Take 1 Uni vers 8.6 mg 9-07 tablet by ity of tablet 00:00: mouth. [facility] ibuprofen Yes Univers 800 mg 9-07 ity of tablet 00:00: [facility] Branch sennosides Yes 1{tbl} Take 1 Uni vers 8.6 mg 9-07 tablet by ity of tablet 00:00: mouth. [facility] ibuprofen Yes Univers 800 mg 9-07 ity of tablet 00:00: [facility] sennosides Yes 1{tbl} Take 1 Uni vers 8.6 mg 9-07 tablet by ity of tablet 00:00: mouth. [facility] ibuprofen Yes Univers 800 mg 9-07 ity of tablet 00:00: [facility] Branch sennosides Yes 1{tbl} Take 1 Uni vers 8.6 mg 9-07 tablet by ity of tablet 00:00: mouth. [facility] ibuprofen Yes Univers 800 mg 9-07 ity of tablet 00:00: [facility] Branch sennosides Yes 1{tbl} Take 1 Uni vers 8.6 mg 02-16 tablet by ity of tablet 00:00: mouth. [place] 00 Medical Branch ibuprofen Yes Abdominal 800mg Take 1 Univers (ADVIL,MOTR 02-16 or pelvic tablet i ty of [place]) 800 mg 00:00: swelling, (800 mg) [place] tablet 00 mass, or by mouth MD lump, other every 8 [place] so specified (eight) n site; hours as Cancer multiple needed for Cente r sites moderate pain. senna Yes Abdominal 1{tbl} Take 1 Uni vers (Senna Lax) 02-16 or pelvic tablet by ity of 8.6 mg 00:00: swelling, mouth [place] tablet 00 mass, or daily as MD lump, other needed for An derso specified constipati n site; on. Cancer multiple Center sites acetaminoph 2020- No Abdominal 1000mg Take 2 Univers en (Tylenol 02-16 or pelvic tablets ity of Extra 00:00: 00:00 swelling, (1,000 mg) [place] Strength) 00 :00 mass, or by mouth MD 500 mg lump, other every 6 And erso tablet specified (six) n site; hours as Cancer multiple needed for Cente r sites mild pain. oxyCODONE 2020- No Abdominal 5mg Take 1 [facility] (Roxicodone 02-16 or pelvic tablet (5 ity of ) 5 mg 00:00: 00:00 swelling, mg) by [facility] as immediate 00 :00 mass, or mouth MD release lump, other every 8 An derso tablet specified (eight) n site; hours as Cancer multiple needed for Cente r sites severe pain. DEXILANT 60 Yes TAKE 1 Univ ers mg capsule - CAPSULE BY ity of 00:00: MOUTH ONCE 00 DAILY 30 Medical MINUTES Branch BEFORE EATING BREAKFAST DEXILANT 60 Yes TAKE 1 Univ ers mg capsule - CAPSULE BY ity of 00:00: MOUTH ONCE 00 DAILY 30 Medical MINUTES Branch BEFORE EATING BREAKFAST DEXILANT 60 Yes TAKE 1 Univ ers mg capsule 02-12 CAPSULE BY ity of 00:00: MOUTH ONCE [place] 00 DAILY 30 Medical MINUTES Branch BEFORE EATING BREAKFAST DEXILANT 60 2021-0 Yes TAKE 1 Univ ers mg capsule 9-03 CAPSULE BY ity of 00:00: MOUTH ONCE [place] DAILY 30 Medical MINUTES Branch BEFORE EATING BREAKFAST DEXILANT 60 2020-0 Yes TAKE 1 Univ ers mg capsule 9-03 CAPSULE BY ity of 00:00: MOUTH ONCE [place] DAILY 30 Medical MINUTES Branch BEFORE EATING BREAKFAST DEXILANT 60 2020-0 Yes TAKE 1 Univ ers mg capsule 9-03 CAPSULE BY ity of 00:00: MOUTH ONCE [place] DAILY 30 Medical MINUTES Branch BEFORE EATING BREAKFAST mesalamine 2020-0 Yes 2.4g Take 2.4 g U nivers 1.2 gram EC 8-17 by mouth 2 it y of tablet 00:00: (two) [place] times Medical daily. Branch mesalamine 2020-0 Yes 2.4g Take 2.4 g U nivers 1.2 gram EC 8-17 by mouth 2 it y of tablet 00:00: (two) [place] times Medical daily. Branch mesalamine 2020- Yes 2.4g Take 2.4 g U nivers 1.2 gram EC 8-17 by mouth 2 it y of tablet 00:00: (two) [place] times Medical daily. Branch mesalamine 2020-0 Yes 2.4g Take 2.4 g U nivers 1.2 gram EC 8-17 by mouth 2 it y of tablet 00:00: (two) [place] times Medical daily. Branch mesalamine 2020-0 Yes 2.4g Take 2.4 g U nivers 1.2 gram EC 8-17 by mouth 2 it y of tablet 00:00: (two) [place] times Medical daily. Branch mesalamine 2020-0 Yes 2.4g Take 2.4 g U nivers 1.2 gram EC 8-17 by mouth 2 it y of tablet 00:00: (two) [place] times Medical daily. Branch loratadine 2020- Yes 1{tbl} QD Take 1 [facility] (Claritin) 8-13 tablet by [facility]al [facility] 10 MG 00:00: mouth 1 tablet 00 (one) time each day. loratadine 2020-0 Yes 1{tbl} QD Take 1 [facility] (Claritin) 8-13 tablet by [facility] 10 MG 00:00: mouth 1 tablet 00 (one) time each day. loratadine 2020-0 Yes [id number] 10mg Take 1 U nivers (CLARITIN) 8-13 tablet by ity of 10 mg 00:00: mouth [place] tablet 00 daily. Medical Branch loratadine 0 Yes [id number] 10mg Take 1 U nivers (CLARITIN) 8-13 tablet by ity of 10 mg 00:00: mouth [place] tablet 00 daily. Medical Branch loratadine Yes [id number] 10mg Take 1 U nivers (CLARITIN) 8-13 tablet by ity of 10 mg 00:00: mouth [place] tablet 00 daily. Medical Branch loratadine Yes [id number] 10mg Take 1 U nivers (CLARITIN) 8-13 tablet by ity of 10 mg 00:00: mouth [place] tablet 00 daily. Medical Branch loratadine Yes [id number] 10mg Take 1 U nivers (CLARITIN) 8-13 tablet by ity of 10 mg 00:00: mouth [place] tablet 00 daily. Medical Branch loratadine Yes [id number] 10mg Take 1 U nivers (CLARITIN) 8-13 tablet by ity of 10 mg 00:00: mouth [place] tablet 00 daily. Medical Branch pantoprazol Yes 40mg Take 40 mg Univers e 40 mg EC 8-05 by mouth ity o f tablet 00:00: every [place] 00 morning. Medical Branch pantoprazol Yes 40mg Take 40 mg Univers e 40 mg EC 8-05 by mouth ity o f tablet 00:00: every [place] 00 morning. Medical Branch pantoprazol Yes 40mg Take 40 mg Univers e 40 mg EC 8-05 by mouth ity o f tablet 00:00: every [place] 00 morning. Medical Branch pantoprazol Yes 40mg Take 40 mg Univers e 40 mg EC 8-05 by mouth ity o f tablet 00:00: every [place] 00 morning. Medical Branch pantoprazol 0 Yes 40mg Take 40 mg Univers e 40 mg EC 8-05 by mouth ity o f tablet 00:00: every [place] 00 morning. Medical Branch pantoprazol 0 Yes 40mg Take 40 mg Univers e 40 mg EC 8-05 by mouth ity o f tablet 00:00: every [place] 00 morning. Medical Branch primidone Yes Univers (MYSOLINE) 7-12 ity of 50 mg 00:00: [place] tablet 00 [facility] primidone 0 Yes Univers (MYSOLINE) 7-12 ity of 50 mg 00:00: [place] tablet 00 [facility] solifenacin 0 Yes [id number] 10mg Take 1 [facility] 10 mg 7-06 tablet by ity of tablet 00:00: mouth [place] 00 daily. Medical Branch solifenacin Yes [id number] 10mg Take 1 [facility] 10 mg 7-06 tablet by ity of tablet 00:00: mouth [place] 00 daily. Medical Branch solifenacin Yes [id number] 10mg Take 1 [facility] 10 mg 7-06 tablet by ity of tablet 00:00: mouth [place] 00 daily. [facility] Branch solifenacin Yes [id number] 10mg Take 1 [facility] 10 mg 7-06 tablet by ity of tablet 00:00: mouth [place] 00 daily. [facility] Branch solifenacin Yes [id number] 10mg Take 1 [facility] 10 mg 7-06 tablet by ity of tablet 00:00: mouth [place] 00 daily. Medical Branch solifenacin Yes [id number] 10mg Take 1 [facility] 10 mg 7-06 tablet by ity of tablet 00:00: mouth [place] 00 daily. Medical Branch chlorhexidi 0 Yes [id number] 15mL Swish and Univers ne 0.12 % 3-15 07 spit out ity of mouthwash 00:00: 15 mL 2 [place] 00 (two) Medical times Branch daily. Polyethylen 2020-0 Yes [id number] 1{packe Take 1 Univers e Glycol 3-15 t} Packet by ity of 3350 17 00:00: mouth [place] gram powder 00 daily. Medica l Branch chlorhexidi 2020-0 Yes [id number] 15mL Swish and Univers ne 0.12 % 3-15 07 spit out ity of mouthwash 00:00: 15 mL 2 [place] 00 (two) Medical times Branch daily. Polyethylen 2020-0 Yes [id number] 1{packe Take 1 Univers e Glycol 3-15 t} Packet by ity of 3350 17 00:00: mouth [place] gram powder 00 daily. Medica l Branch chlorhexidi 0 Yes [id number] 15mL Swish and Univers ne 0.12 % 3-15 07 spit out ity of mouthwash 00:00: 15 mL 2 [place] 00 (two) Medical times Branch daily. Polyethylen 2020- Yes [id number] 1{packe Take 1 Univers e Glycol 3-15 t} Packet by ity of 3350 17 00:00: mouth [place] gram powder 00 daily. Medica l Branch chlorhexidi Yes [id number] 15mL Swish and Univers ne 0.12 % 3-15 07 spit out ity of mouthwash 00:00: 15 mL 2 [place] 00 (two) Medical times Branch daily. Polyethylen 2020- Yes [id number] 1{packe Take 1 Univers e Glycol 3-15 t} Packet by ity of 3350 17 00:00: mouth [place] gram powder 00 daily. Medica l Branch chlorhexidi 2020- Yes [id number] 15mL Swish and Univers ne 0.12 % 3-15 07 spit out ity of mouthwash 00:00: 15 mL 2 [place] (two) Medical times Branch daily. Polyethylen 2020- Yes [id number] 1{packe Take 1 Univers e Glycol 3-15 t} Packet by ity of 3350 17 00:00: mouth [place] gram powder 00 daily. Medica l Branch chlorhexidi 2020- Yes [id number] 15mL Swish and Univers ne 0.12 % 3-15 07 spit out ity of mouthwash 00:00: 15 mL 2 [place] 00 (two) Medical times Branch daily. Polyethylen 2020- Yes [id number] 1{packe Take 1 Univers e Glycol 3-15 t} Packet by ity of 3350 17 00:00: mouth [place] gram powder 00 daily. Medica l Branch primidone 2020-0 Yes [facility] (Mysoline) 1-22 Health 50 MG 00:00: tablet 00 primidone 2020-0 Yes [facility] (Mysoline) 1-22 Health 50 MG 00:00: tablet 00 primidone 2020-0 Yes [id number] 25mg Take 0.5 [facility] 50 mg 1-22 tablets by ity of tablet 00:00: mouth 2 [place] 00 (two) Medical times Branch daily. primidone 2020-0 Yes [id number] 25mg Take 0.5 [facility] 50 mg 1-22 tablets by ity of tablet 00:00: mouth 2 (two) Medical times Branch daily. primidone 2020-0 Yes [id number] 25mg Take 0.5 [facility] 50 mg 1-22 tablets by ity of tablet 00:00: mouth 2 (two) Medical times Branch daily. primidone 0 Yes [id number] 25mg Take 0.5 [facility] 50 mg 1-22 tablets by ity of tablet 00:00: mouth 2 (two) Medical times Branch daily. primidone 0 Yes [id number] 25mg Take 0.5 [facility] 50 mg 1-22 tablets by ity of tablet 00:00: mouth 2 (two) Medical times Branch daily. primidone 2020-0 Yes [id number] 25mg Take 0.5 [facility] 50 mg 1-22 tablets by ity of tablet 00:00: mouth 2 (two) Medical times Branch daily. traZODone 2019-06 Yes 1 (one) [facility] (Desyrel) 1-10 time each Healt h 50 MG 00:00: day at the tablet 00 same time. traZODone 2019-06 Yes 1 (one) [facility] (Desyrel) 1-10 time each Healt h 50 MG 00:00: day at the tablet 00 same time. traZODone 2019- Yes [id number] 50mg Take 1 U nivers 50 mg 1-10 tablet by ity of tablet 00:00: mouth at [place] [address] bedtime. Medical Branch traZODone 2019- Yes [id number] 50mg Take 1 U nivers 50 mg 1-10 tablet by ity of tablet 00:00: mouth at [place] [address] bedtime. Medical Branch traZODone 2019- Yes [id number] 50mg Take 1 U nivers 50 mg 1-10 tablet by ity of tablet 00:00: mouth at [place] 00 bedtime. Medical Branch traZODone 2019- Yes [id number] 50mg Take 1 U nivers 50 mg 1-10 tablet by ity of tablet 00:00: mouth at [place] [address] bedtime. Medical Branch traZODone 2019- Yes [id number] 50mg Take 1 U nivers 50 mg 1-10 tablet by ity of tablet 00:00: mouth at [place] [address] bedtime. Medical Branch traZODone 2019-06 Yes [id number] 50mg Take 1 U nivers 50 mg 1-10 tablet by ity of tablet 00:00: mouth at [place] 00 bedtime. Medical Branch buPROPion 2019-06 Yes 100mg Take 100 Uni vers 100 mg 1-02 mg by ity of tablet 16:02: mouth [place] 53 daily. Medical Branch FLUoxetine 2019-06 Yes 40mg Take 40 mg U nivers 40 mg 1-02 by mouth ity of capsule 16:02: daily. [place] 53 Medical Branch fluticasone 2019-06 Yes 1{spray Inhale 1 Univers furoate 50 1-02 } [place] 2 ity of mcg/actuati 16:02: (two) [place] on DsDv 53 times Medical daily. Branch lamoTRIgine 2019-06 Yes 100mg Take 100 U nivers (LAMICTAL) 1-02 mg by ity of 100 mg 16:02: mouth [place] tablet 53 daily. Medical Branch krill-omega 2019-06 Yes 1{capsu Take 1 U nivers -3-dha-epa- 1-02 le} capsule by it y of lipids 16:02: mouth [place] 350-90-24-5 53 daily. Medica l 0 mg Cap Branch carboxymeth 2019-06 Yes 1[drp] Place 1 U nivers ylcellulose 1-02 Drop in ity o f sodium 16:02: each eye [place] (REFRESH 53 as needed. Medic al OPHTHALMIC) Branch B2/vits 2019-06 Yes 1{capsu Take 1 Unive rs A,C,E/lut/z 1-02 le} capsule by it y of eaxanth/min 16:02: mouth [place] (ICAPS 53 daily. Medical ORAL) Branch aspirin 2019-06 Yes 81mg Take 81 mg Univ ers (ASPIRIN 1-02 by mouth ity of LOW DOSE) 16:02: daily. [place] 81 mg EC 53 Medical tablet Branch Bifidobacte 2019-06 Yes 1{capsu Take 1 U nivers rium 1-02 le} capsule by ity of infantis 16:02: mouth [place] (ALIGN 53 daily. Medical ORAL) Branch simethicone 2019-06 Yes 1{capsu Take 1 U nivers (PHAZYME 1-02 le} capsule by ity o f ORAL) 16:02: mouth [place] 53 daily. Medical Branch buPROPion 2020-1 Yes 100mg Take 100 Uni vers 100 mg 1-02 mg by ity of tablet 16:02: mouth [place] 53 daily. Medical Branch FLUoxetine 2019-06 Yes 40mg Take 40 mg U nivers 40 mg 1-02 by mouth ity of capsule 16:02: daily. [place] 53 Medical Branch fluticasone 2019-06 Yes 1{spray Inhale 1 Univers furoate 50 1-02 } [place] 2 ity of mcg/actuati 16:02: (two) [place] on DsDv 53 times Medical daily. Branch lamoTRIgine 2019-06 Yes 100mg Take 100 U nivers (LAMICTAL) 1-02 mg by ity of 100 mg 16:02: mouth [place] tablet 53 daily. Medical Branch krill-omega 2019-06 Yes 1{capsu Take 1 U nivers -3-dha-epa- 1-02 le} capsule by it y of lipids 16:02: mouth [place] 350-90-24-5 53 daily. Medica l 0 mg Cap Branch carboxymeth 2019-06 Yes 1[drp] Place 1 U nivers ylcellulose 1-02 Drop in ity o f sodium 16:02: each eye [place] (REFRESH 53 as needed. Medic al OPHTHALMIC) Branch B2/vits 2019-06 Yes 1{capsu Take 1 Unive rs A,C,E/lut/z 1-02 le} capsule by it y of eaxanth/min 16:02: mouth [place] (ICAPS 53 daily. Medical ORAL) Branch aspirin 2019-06 Yes 81mg Take 81 mg Univ ers (ASPIRIN 1-02 by mouth ity of LOW DOSE) 16:02: daily. [place] 81 mg EC 53 Medical tablet Branch Bifidobacte 2019-06 Yes 1{capsu Take 1 U nivers rium 1-02 le} capsule by ity of infantis 16:02: mouth [place] (ALIGN 53 daily. Medical ORAL) Branch simethicone 2019-06 Yes 1{capsu Take 1 U nivers (PHAZYME 1-02 le} capsule by ity o f ORAL) 16:02: mouth [place] 53 daily. Medical Branch buPROPion 2019-06 Yes 100mg Take 100 Uni vers 100 mg 1-02 mg by ity of tablet 16:02: mouth [place] 53 daily. Medical Branch FLUoxetine 2019-06 Yes 40mg Take 40 mg U nivers 40 mg 1-02 by mouth ity of capsule 16:02: daily. [place] 53 Medical Branch fluticasone 2019-06 Yes 1{spray Inhale 1 Univers furoate 50 1-02 } [place] 2 ity of mcg/actuati 16:02: (two) [place] on DsDv 53 times Medical daily. Branch lamoTRIgine 2019-06 Yes 100mg Take 100 U nivers (LAMICTAL) 1-02 mg by ity of 100 mg 16:02: mouth [place] tablet 53 daily. Medical Branch krill-omega 2019-06 Yes 1{capsu Take 1 U nivers -3-dha-epa- 1-02 le} capsule by it y of lipids 16:02: mouth [place] 350-90-24-5 53 daily. Medica l 0 mg Cap Branch carboxymeth 2019-06 Yes 1[drp] Place 1 U nivers ylcellulose 1-02 Drop in ity o f sodium 16:02: each eye [place] (REFRESH 53 as needed. Medic al OPHTHALMIC) Branch B2/vits 2019-06 Yes 1{capsu Take 1 Unive rs A,C,E/lut/z 1-02 le} capsule by it y of eaxanth/min 16:02: mouth [place] (ICAPS 53 daily. Medical ORAL) Branch aspirin 2019-06 Yes 81mg Take 81 mg Univ ers (ASPIRIN 1-02 by mouth ity of LOW DOSE) 16:02: daily. [place] 81 mg EC 53 Medical tablet Branch Bifidobacte 2019-06 Yes 1{capsu Take 1 U nivers rium 1-02 le} capsule by ity of infantis 16:02: mouth [place] (ALIGN 53 daily. Medical ORAL) Branch simethicone 2019-06 Yes 1{capsu Take 1 U nivers (PHAZYME 1-02 le} capsule by ity o f ORAL) 16:02: mouth [place] 53 daily. Medical Branch buPROPion 2019-06 Yes 100mg Take 100 Uni vers 100 mg 1-02 mg by ity of tablet 16:02: mouth [place] 53 daily. Medical Branch FLUoxetine 2019-06 Yes 40mg Take 40 mg U nivers 40 mg 1-02 by mouth ity of capsule 16:02: daily. [place] 53 Medical Branch fluticasone 2019- Yes 1{spray Inhale 1 [facility] furoate 50 1-02 } [place] 2 ity of mcg/actuati 16:02: (two) [place] on DsDv 53 times Medical daily. Branch lamoTRIgine 2019-06 Yes 100mg Take 100 U nivers (LAMICTAL) 1-02 mg by ity of 100 mg 16:02: mouth [place] tablet 53 daily. Medical Branch krill-omega 2019-06 Yes 1{capsu Take 1 U nivers -3-dha-epa- 1-02 le} capsule by it y of lipids 16:02: mouth [place] 350-90-24-5 53 daily. Medica l 0 mg Cap Branch carboxymeth 2019-06 Yes 1[drp] Place 1 U nivers ylcellulose 1-02 Drop in ity o f sodium 16:02: each eye [place] (REFRESH 53 as needed. Medic al OPHTHALMIC) Branch B2/vits 2019-06 Yes 1{capsu Take 1 Unive rs A,C,E/lut/z 1-02 le} capsule by it y of eaxanth/min 16:02: mouth [place] (ICAPS 53 daily. Medical ORAL) Branch aspirin 2019-06 Yes 81mg Take 81 mg Univ ers (ASPIRIN 1-02 by mouth ity of LOW DOSE) 16:02: daily. [place] 81 mg EC 53 Medical tablet Branch Bifidobacte 2019-06 Yes 1{capsu Take 1 U nivers rium 1-02 le} capsule by ity of infantis 16:02: mouth [place] (ALIGN 53 daily. Medical ORAL) Branch simethicone 2019-06 Yes 1{capsu Take 1 U nivers (PHAZYME 1-02 le} capsule by ity o f ORAL) 16:02: mouth [place] 53 daily. Medical Branch buPROPion 2019-06 Yes 100mg Take 100 Uni vers 100 mg 1-02 mg by ity of tablet 16:02: mouth [place] 53 daily. Medical Branch FLUoxetine 2019-06 Yes 40mg Take 40 mg U nivers 40 mg 1-02 by mouth ity of capsule 16:02: daily. [place] 53 Medical Branch fluticasone 2019-06 Yes 1{spray Inhale 1 [facility] furoate 50 1-02 } [place] 2 ity of mcg/actuati 16:02: (two) [place] on DsDv 53 times Medical daily. Branch lamoTRIgine 2019-06 Yes 100mg Take 100 U nivers (LAMICTAL) 1-02 mg by ity of 100 mg 16:02: mouth [place] tablet 53 daily. Medical Branch krill-omega 2019-06 Yes 1{capsu Take 1 U nivers -3-dha-epa- 1-02 le} capsule by it y of lipids 16:02: mouth [place] 350-90-24-5 53 daily. Medica l 0 mg Cap Branch carboxymeth 2019-06 Yes 1[drp] Place 1 U nivers ylcellulose 1-02 Drop in ity o f sodium 16:02: each eye [place] (REFRESH 53 as needed. Medic al OPHTHALMIC) Branch B2/vits 2019-06 Yes 1{capsu Take 1 Unive rs A,C,E/lut/z 1-02 le} capsule by it y of eaxanth/min 16:02: mouth [place] (ICAPS 53 daily. Medical ORAL) Branch aspirin 2019-06 Yes 81mg Take 81 mg Univ ers (ASPIRIN 1-02 by mouth ity of LOW DOSE) 16:02: daily. [place] 81 mg EC 53 Medical tablet Branch Bifidobacte 2019-06 Yes 1{capsu Take 1 U nivers rium 1-02 le} capsule by ity of infantis 16:02: mouth [place] (ALIGN 53 daily. Medical ORAL) Branch simethicone 2019-06 Yes 1{capsu Take 1 U nivers (PHAZYME 1-02 le} capsule by ity o f ORAL) 16:02: mouth [place] 53 daily. Medical Branch buPROPion 2019-06 Yes 100mg Take 100 Uni vers 100 mg 1-02 mg by ity of tablet 16:02: mouth [place] 53 daily. Medical Branch FLUoxetine 2019-06 Yes 40mg Take 40 mg U nivers 40 mg 1-02 by mouth ity of capsule 16:02: daily. [place] 53 Medical Branch fluticasone 2019-06 Yes 1{spray Inhale 1 [facility] furoate 50 1-02 } [place] 2 ity of mcg/actuati 16:02: (two) [place] on DsDv 53 times Medical daily. Branch lamoTRIgine 2019-06 Yes 100mg Take 100 U nivers (LAMICTAL) 1-02 mg by ity of 100 mg 16:02: mouth [place] tablet 53 daily. Medical Branch krill-omega 2019-06 Yes 1{capsu Take 1 U nivers -3-dha-epa- 1-02 le} capsule by it y of lipids 16:02: mouth [place] 350-90-24-5 53 daily. Medica l 0 mg Cap Branch carboxymeth 2019-06 Yes 1[drp] Place 1 U nivers ylcellulose 1-02 Drop in ity o f sodium 16:02: each eye [place] (REFRESH 53 as needed. Medic al OPHTHALMIC) Branch B2/vits 2019-06 Yes 1{capsu Take 1 Unive rs A,C,E/lut/z 1-02 le} capsule by it y of eaxanth/min 16:02: mouth [place] (ICAPS 53 daily. Medical ORAL) Branch aspirin 2019-06 Yes 81mg Take 81 mg Univ ers (ASPIRIN 1-02 by mouth ity of LOW DOSE) 16:02: daily. [place] 81 mg EC 53 Medical tablet Branch Bifidobacte 2019-06 Yes 1{capsu Take 1 U nivers rium 1-02 le} capsule by ity of infantis 16:02: mouth [place] (ALIGN 53 daily. Medical ORAL) Branch simethicone 2019-06 Yes 1{capsu Take 1 U nivers (PHAZYME 1-02 le} capsule by ity o f ORAL) 16:02: mouth [place] 53 daily. Medical Branch Immunizations Ordered Filled Immunization Date Status Comments [facility] e Immunization Name Name SARS-COV-2 COVID-19 2021-10-12 Completed Unive rsity of PFIZER ROGER-SUCROSE 00:00:00 [place] [facility] VACCINE (BAH TOP) Branch SARS-COV-2 COVID-19 2021-10-12 Completed Unive rsity of PFIZER ROGER-SUCROSE 00:00:00 [place] [facility] VACCINE (BAH TOP) Branch SARS-COV-2 COVID-19 2021-10-12 Completed Unive rsity of PFIZER ROGER-SUCROSE 00:00:00 [place] [facility] VACCINE (BAH TOP) Branch Influenza Virus 2021-04-14 Completed Universit y of Vaccine [place] .5 mL 00:00:00 [place] [facility] IM 6+ MO Branch Influenza Virus 2021-04-14 Completed Universit y of Vaccine [place] .5 mL 00:00:00 [place] [facility] IM 6+ MO Branch Influenza Virus 2021-04-14 Completed Universit y of Vaccine [place] .5 mL 00:00:00 [place] [facility] IM 6+ MO Branch Influenza Virus 2021-04-14 Completed Universit y of Vaccine [place] .5 mL 00:00:00 [place] [facility] IM 6+ MO Branch Influenza Virus 2021-04-14 Completed Universit y of Vaccine [place] .5 mL 00:00:00 [facility] IM 6+ MO Branch Influenza Virus 2021-04-14 Completed Universit y of Vaccine [place] .5 mL 00:00:00 [facility] IM 6+ MO Branch SARS-COV-2 COVID-19 2020-08-29 Completed Unive rsity of PFIZER VACCINE 00:00:00 [facility] Branch SARS-COV-2 COVID-19 2020-08-29 Completed Unive rsity of PFIZER VACCINE 00:00:00 [facility] Branch SARS-COV-2 COVID-19 2020-08-29 Completed Unive rsity of PFIZER VACCINE 00:00:00 [facility] Branch SARS-COV-2 COVID-19 2020-08-29 Completed Unive rsity of PFIZER VACCINE 00:00:00 [facility] Branch SARS-COV-2 COVID-19 2020-08-29 Completed Unive rsity of PFIZER VACCINE 00:00:00 [facility] Branch SARS-COV-2 COVID-19 2020-08-29 Completed Unive rsity of PFIZER VACCINE 00:00:00 [facility] Branch SARS-COV-2 COVID-19 2020-08-08 Completed Unive rsity of PFIZER VACCINE 00:00:00 [facility] Branch SARS-COV-2 COVID-19 2020-08-08 Completed Unive rsity of PFIZER VACCINE 00:00:00 [facility] Branch SARS-COV-2 COVID-19 2020-08-08 Completed Unive rsity of PFIZER VACCINE 00:00:00 [facility] Branch SARS-COV-2 COVID-19 2020-08-08 Completed Unive rsity of PFIZER VACCINE 00:00:00 [facility] Branch SARS-COV-2 COVID-19 2020-08-08 Completed Unive rsity of PFIZER VACCINE 00:00:00 [facility] Branch SARS-COV-2 COVID-19 2020-08-08 Completed Unive rsity of PFIZER VACCINE 00:00:00 [facility] Influenza High Dose 2020-04-09 Completed Unive rsity of [place] 00:00:00 [facility] Influenza High Dose 2020-04-09 Completed Unive rsity of [place] 00:00:00 [facility] Influenza High Dose 2020-04-09 Completed Unive rsity of Quad 00:00:00 [facility] Branch Influenza High Dose 2020-04-09 Completed Unive rsity of Quad 00:00:00 [facility] Branch Influenza High Dose 2020-04-09 Completed Unive rsity of Quad 00:00:00 [facility] Branch Influenza High Dose 2020-04-09 Completed Unive rsity of Quad 00:00:00 [facility] Vital Signs Vital Name Observation Time Observation Value Comments Source Systolic blood 2021-11-06 21:34:00 134 mm[Hg] Univer sity of pressure [place] [facility] Diastolic blood 2021-11-06 21:34:00 78 mm[Hg] Unive rsity of pressure [place] [facility] Heart rate 2021-11-06 21:34:00 80 /min [facility] [place] [facility] [place] Body temperature 2021-11-06 21:34:00 36.67 Priscilla Univ [facility] [place] [facility] Respiratory rate 2021-11-06 21:34:00 16 /min [facility] [place] [facility] Body weight 2021-11-06 21:34:00 57.153 kg [facility] [place] [facility] BMI 2021-11-06 21:34:00 23.05 kg/m2 [facility] [place] [facility] Oxygen saturation in 2021-11-06 21:34:00 97 /min University of Arterial blood by [place] [employer] [facility]anna Pulse oximetry Branch Systolic blood 2021-08-26 17:43:00 150 mm[Hg] Univer sity of pressure [place] [facility] Diastolic blood 2021-08-26 17:43:00 75 mm[Hg] Unive rsity of pressure [place] [facility] Heart rate 2021-08-26 17:43:00 72 /min [facility] [place] [facility] Body temperature 2021-08-26 17:43:00 36.5 Priscilla [facility] [place] [facility] Respiratory rate 2021-08-26 17:43:00 17 /min [facility] [place] [facility] Oxygen saturation in 2021-08-26 17:43:00 99 /min University of Arterial blood by [place] [employer] arianna Pulse oximetry Branch Body height 2021-08-26 16:19:00 157.5 cm [facility] [place] [facility] Body weight 2021-08-26 16:19:00 57.607 kg [facility] [place] [facility] BMI 2021-08-26 16:19:00 23.23 kg/m2 Universi ty of [facility] Systolic blood 2021-07-29 15:47:00 119 mm[Hg] Univer sity of pressure [facility] Diastolic blood 2021-07-29 15:47:00 76 mm[Hg] Unive rsity of pressure [facility] Heart rate 2021-07-29 15:47:00 82 /min Universi ty of [facility] Body temperature 2021-07-29 15:47:00 35.83 Priscilla Univ ersity of [facility] Body height 2021-07-29 15:47:00 157.5 cm Universi ty of [facility] Body weight 2021-07-29 15:47:00 58.06 kg Universi ty of [facility] BMI 2021-07-29 15:47:00 23.41 kg/m2 Universi ty of [facility] Systolic blood 2021-10-01 19:41:59 125 mm[Hg] [facility]iver [facility]ity of [facility] Diastolic blood 2021-10-01 19:41:59 68 mm[Hg] Unive rsity of [facility] Heart rate 2021-10-01 19:41:59 77 /min [facility] [place] [facility] Body temperature 2021-10-01 19:41:59 36.5 Priscilla [facility] Respiratory rate 2021-10-01 19:41:59 18 /min [facility] Body weight 2021-10-01 19:41:59 58.2 kg [facility] BMI 2021-10-01 19:41:59 24.38 kg/m2 [facility] Procedures Procedure Date / Time Performed Performing Clinician Sourc e EXTERNAL PROVIDER 2021-11-17 05:01:00 Doctor Unassigned, No [facility] [place] RECORDS Name Medical Branch SARS-COV-2 COVID-19 2021-10-12 20:36:33 Doctor Unassigned, No [facility] [place] VACCINE 12 Name Medical Branch YRS+,0.3ML,IM (PFIZER - [facility]AH [facility]) EXTERNAL PROVIDER 2021-10-06 05:01:00 Doctor Unassigned, No [facility] [place] RECORDS Name [facility] CANCER ANTIGEN 125 2021-10-01 19:19:00 [place] [facility] y [facility] er Center BHCG, TUMOR MARKER 2021-10-01 19:19:00 RemingtonJessy [facility] er Center Plan of Care Planned Activity Planned Date Details Comments Source Future Scheduled 2022-03-24 COVID-19 Vaccination [facility] [place] Test 14:56:54 (3 - Booster for MD Lázaro Cancer Pfizer series) [code Center = COVID-19 Vaccination (3 - Booster for Pfizer series)] Future Scheduled 2021-11-03 COVID-19 Vaccination [facility] [place] Test 14:51:54 (3 - Booster for MD Lázaro Cancer Pfizer series) [code Center = COVID-19 Vaccination (3 - Booster for Pfizer series)] Encounters Start End Encounter Admission Attending Care Care Encounter Source Date/Time Date/Time Type Type Clinicians Facility Department ID 2021-04-11 Emergency [facility] [id number] Univers 14:43:01 ity [facility] 2021-01-21 Outpatient SYSTEM, [facility] [id number] 09:53:48 PROVIDER Junior lópez 2022-06-21 2022-06-21 Outpatient R MARCO A LUTZ [facility] [id number] Univers 15:30:00 15:30:00 ity [facility] 2021-11-17 2021-11-17 Office Alex [facility] 1.2.840.114 [id number] ID 13:30:00 14:06:15 Visit ESTRADA Jeffers 350.1.13.58 [facility] 9.2.7.2.686 [place] [address] [id number] 7 2021-11-17 2021-11-17 Orders Doctor STEPHANIE 1.2.840.114 [id number] Univers 00:00:00 00:00:00 Only Unassigned, RAFA 350.1.13.10 ity of [place] [facility] 4.2.7.2.686 [place] as [id number] [address] 2021-11-06 2021-11-06 Outpatient R INGRID [facility] [id number] Univers 16:40:00 17:51:21 ROMAINE martino o f [facility] 2021-11-06 2021-11-06 Urgent ByronIldefonsoKirstie Baron [facility] 1.2 .840.114 [id number] Univers 16:40:00 17:51:21 Care Romaine Quintero 350.1.13.10 ity of [facility] 4.2.7.2.686 [place] RAUL?BLEA [phone] [facility] [address] MEDICAL OFFICE BUILDING 2021-10-12 2021-10-12 Imm/Inj Vaccine, Ang Db Cbc Fam [facility] 1. 2.840.114 [id number] Univers 15:10:00 15:20:00 Visit Gavin Vázquez [facility] 350.1.13.10 ity of [place] 4.2.7.2.686 [place] RAUL?BLEA [id number] [facility] 044 [facility] OFFICE [facility] 2021-10-12 2021-10-12 Outpatient R GURPREET [facility] [id number] Univers 15:10:00 15:10:00 GAVIN ity [facility] 2021-10-06 2021-10-06 Office Alex [facility] 1.2.840.114 [id number] ID 11:00:00 11:31:07 Visit ESTRADA Jeffers 350.1.13.58 [facility] 9.2.7.2.686 [place] 9 [id number] 7 2021-10-06 2021-10-06 Orders Doctor STEPHANIE 1.2.840.114 [id number] Univers 00:00:00 00:00:00 Only Unassigned, RAFA 350.1.13.10 ity of [place] [facility] 4.2.7.2.686 [place] as [id number] [address] 2021-10-01 2021-10-01 Office Jessy Stewart 1.2.840.1 [id number] Univers 14:30:00 15:00:00 Visit 06099.1.1 ity of 3.412.2.7 [place] .3.565846 .8 [facility] 2021-10-01 2021-10-01 Office Jessy Rivera 1.2.840.1 [id number] Univers 14:30:00 15:00:00 Visit 83488.1.1 ity of 3.412.2.7 [place] .3.731635 MD De Leon8 [facility] 2021-10-01 2021-10-01 Outpatient EL JESSY RIVERA [facility] [id number] 14:18:36 14:31:15 [facility] 2021-10-01 2021-10-01 Travel 1.2.840.1 1.2.528.930 [id number] Univers 00:00:00 00:00:00 03956.1.1 350.1.13.41 ity of 3.412.2.7 [place].3.698 [place] .3.329[place] 084.8 .8 [facility] 2021-10-01 2021-10-01 Travel 1.2.840.1 1.2.780.706 [id number] Univers 00:00:00 00:00:00 02401.1.1 350.1.13.41 ity of 3.412.2.7 2.[place].3.698 [place] .3.914822 084.8 .8 [facility] 2021-08-26 2021-08-26 Nurse 1, Adc Infusion Chair [facility] 1.2. 840.114 [id number] Univers 11:00:00 11:30:00 Visit Awa Marin 350. 1.13.10 ity of [place] SUR[place]ICAL [phone] Med [place] [id number] [place] 2021-08-26 2021-08-26 Outpatient R SANTHOSH [facility] [id number] Univers 11:00:00 11:00:00 gunner GRAMAJO of [facility] 2021-07-29 2021-07-29 Office Santhosh [facility] 1.2.840.114 [id number] Univers 09:40:00 10:00:00 Visit rox, SPECIALTY 350.1.13.10 ity of [place] CARE 4.2.7.2.686 [facility] s CENTER AT [phone] [place] min [place] [facility] 2021-07-29 2021-07-29 Outpatient R SANTHOSH [facility] [id number] Univers 09:40:00 09:40:00 ROX ity of [facility] 2021-07-29 2021-07-29 Outpatient R SARAHSINGH [facility] [id number] Univers 09:40:00 09:40:00 ROX ity of [facility] 2021-07-29 2021-07-29 [facility] [id number] Univers 09:40:00 09:40:00 ROX ity of [facility] 2021-06-30 2021-06-30 Outpatient R [facility] [id number] Univers 13:00:00 13:00:00 ity of [facility] 2021-06-21 2021-06-21 Outpatient R MARCO A LUTZ [facility] [id number] Univers 15:00:00 15:57:33 ity [facility] 2021-06-21 2021-06-21 Office Marco A Lutz [facility] 1.2.840.114 [id number] Univers 15:00:00 15:57:33 Visit [place] 350.1.13.10 it y of WOMEN'S 4.2.7.2.686 [place] [facility] [id number] [address] 2021-06-21 2021-06-21 Outpatient R MARCO A LUTZ [facility] [id number] Univers 15:00:00 15:57:33 ity of [facility] 2021-06-17 2021-06-17 [facility] 1.2.840.114 [id number] Univers 14:40:00 15:26:45 Visit rox, SPECIALTY 350.1.13.10 ity of [place] CARE 4.2.7.2.686 [facility] s CENTER AT [phone] [place] min [place] [address] [facility] 2021-06-17 2021-06-17 Outpatient R SANTHOSH [facility] [id number] Univers 14:40:00 15:26:45 gunner GRAMAJO [facility] 2021-06-17 2021-06-17 Outpatient R SANTHOSH [facility] [id number] Univers 14:40:00 14:40:00 gunner GRAMAJO [facility] 2021-06-17 2021-06-17 Outpatient R SANTHOSH [facility] 006 [id number] Univers 14:40:00 14:40:00 gunner GRAMAJO [facility] 2021-06-14 2021-06-14 Outpatient R PRUDENCIO [facility] [id number] Univers 15:00:00 15:00:00 DEANGELOROLAND martino [facility] 2021-06-14 2021-06-14 Outpatient R PRUDENCOI [facility] [id number] Univers 15:00:00 [facility]:00:[facility] 2021-04-27 2021-04-27 Office Marco A Lutz [facility] 1.2.840.114 [id number] Univers 14:54:43 16:14:53 Visit SEAMUS 350.1.13.10 i ty [facility] [place].2.7.[place] [id number] Ks dical [address] 2021-04-27 2021-04-27 Outpatient R MARCO A LUTZ [facility] [id number] Univers 14:45:00 14:45:00 ity [facility] 2021-04-27 2021-04-27 Outpatient R MARCO A LUTZ [facility] [id number] Univers 14:45:00 14:45:00 ity [facility] 2021-04-21 2021-04-21 Telephone Marco A Lutz [facility] 1.2.840.11 [id number] Univers 00:00:00 00:00:00 LEONEL 350.1.13.10 it y of [place] [id number] [address] 2021-04-192021-04-19 Telephone Marco A Lutz VARELA 1.2.840.11 [id number] Univers 00:00:00 00:00:00 LEONEL 350.1.13.10 it y of [place] 4[place] [id number] [address] 2021-04-16 2021-04-16 Office Marco A Lutz [facility] 1.2.840.114 [id number] Univers 10:47:12 12:01:36 [facility] 350.1.13.10 i ty of [place].2.[place] PROFESS[place] [id number] [place] dical NAL [address] [place] [address] 2021-04-16 2021-04-16 Outpatient R MARCO A LUTZ [facility] [id number] Univers 10:15:00 12:01:36 ity of [facility] 2021-04-16 2021-04-16 Outpatient R MARCO A LUTZ [facility] [id number] Univers 10:15:00 12:01:36 ity of [facility] 2021-04-16 2021-04-16 Outpatient R MARCO A LUTZ [facility] [id number] Univers 10:15:00 10:15:00 ity of [facility] 2021-04-16 2021-04-16 Orders Doctor STEPHANIE 1.2.840.114 [id number] Univers 00:00:00 00:00:00 Only Unassigned, RAFA 350.1.13.10 ity of [place] [facility] 4.2.7.2.686 [place] [phone] [place] [address] [place] 2021-04-16 2021-04-16 Refill Marco A Lutz [facility] 1.2.840.114 [id number] Univers 00:00:00 00:00:00 LEONEL 350.1.13.10 it y of [place] [id number] [address] 2021-04-15 2021-04-15 Refill Prudencio [facility] 1.2.840.114 [id number] Univers 00:00:00 00:00:00 Deangelo MULTISPEC 350.1.13.10 ity of [place] [id number] [facility] AND [address] DIABETES CLINIC 2021-04-15 2021-04-15 Telephone [facility] 1.2.697.748 [id number] Univers 00:00:00 00:00:00 Deangelo MULTISPEC 350.1.13.10 ity of [place].2.[place] [id number] [facility] AND [address] DIABETES CLINIC 2021-04-14 2021-04-14 Office Marco A Lutz [facility] 1.2.840.114 [id number] Univers 09:41:39 10:55:39 Visit LEONEL 350.1.13.10 it y of [place] 4[place].2.[place] [facility] [id number] [address] 2021-04-14 2021-04-14 Outpatient R ALEX MARCO A [facility] [id number] Univers 09:30:00 10:55:39 ity of [facility] 2021-04-12 2021-04-12 Telephone [facility] 1.2.038.410 [id number] Univers 00:00:00 00:00:00 Deangelo MULTISPEC 350.1.13.10 it[place] of [place]2.[place] [id number] [facility] AND [address] DIABETES CLINIC 2021-04-12 2021-04-12 Telephone [facility] 1.2.215.185 [id number] Univers 00:00:00 00:00:00 Deangelo MULTISPEC 350.1.13.10 ity of [place] [id number] [facility] AND [address] DI[facility]ETES CLINIC 2021-04-08 2021-04-08 Pre Visit CHRISTIAN Kaur 1.2.400.850 [id number] Univers 00:00:00 00:00:00 Outreach Corrine MORA 350.1.13.10 i ty of [place] [id number] [address] 2021-04-08 2021-04-08 Pre Visit CHRISTIAN Kaur 1.2.559.302 [id number] Univers 00:00:00 00:00:00 Outreach Corrine MORA 350.1.13.10 i ty of [place] [id number] [address] 2021-03-22 2021-03-22 Orders Doctor STEPHANIE 1.2.840.114 [id number] Univers 00:00:00 00:00:00 Only Unassigned, RAFA 350.1.13.10 ity of [place] [facility] 4.2.7.2.686 [place] [id number] [address] 2021-03-17 2021-03-17 Office Jessy Stewart 1.2.840.1 [id number] Univers 09:00:00 09:30:00 Visit 10922.1.1 ity of 3.412.2.7 [place] .3.176983 .8 [facility] 2021-03-17 2021-03-17 Travel 1.2.840.1 1.2.750.114 [id number] Univers 00:00:00 00:00:00 63251.1.1 350.1.13.41 ity of 3.412.2.7 [place].3.698 [place] .3.893253 084.8 .8 [facility] 2021-02-26 2021-02-26 Outpatient ESTEFANI VIDES MDA [facility] [id number] 12:17:02 12:17:02 SHAWNEE lópez 2021-02-25 2021-02-25 Orders Doctor STEPHANIE 1.2.840.114 [id number] Univers 00:00:00 00:00:00 Only Unassigned, RAFA 350.1.13.10 ity of [place] [facility]PITAL 4.2.7.2.686 [place] [id number] [address] 2021-02-23 2021-02-23 [facility] 1.2.840.11 [id number] Univers 00:00:00 00:00:00 [place] 350.1.13.10 it y of Women's 4.2.7.2.686 [facility] Health [id number] [facility] [address] 2021-02-22 2021-02-22 Telephone Marco A Lutz 1.2.840.11 [id number] Univers 00:00:00 00:00:00 [place] 350.1.13.10 it y of Women's 4.2.7.2.686 [facility] [id number] [facility] [address] 2021-02-16 2021-02-16 Inpatient ESTEFANI VIDES [facility] [id number] 07:18:00 18:23:00 SHAWNEE lópez 2021-02-14 2021-02-14 Outpatient ESTEFANI JERONIMO MDA MDA [id number] 12:42:59 23:59:00 RAE lópez 2021-02-14 2021-02-14 Outpatient ESTEFANI BOWER MDA MDA [id number] 12:05:06 12:05:06 HANY lópez 2021-02-12 2021-02-12 Outpatient ESTEFANI BOWER MDA MDA [id number] 08:50:02 08:50:02 HANY lópez 2021-02-12 2021-02-12 Outpatient ESTEFANI BOWER MDA MDA [id number] 08:24:48 08:42:33 HANY lópez 2021-02-11 2021-02-11 Outpatient ESTEFANI BOWERGARCIA MDA [id number] 11:58:10 11:58:10 HANY lópez 2021-02-11 2021-02-11 Orders Doctor BROWN 1.2.840.114 [id number] 00:00:00 00:00:00 Only Unassigned, RAFA 350.1.13.10 ity of [place] [facility] 4.2.7.2.686 [facility] [id number] [facility] [address] 2021-02-09 2021-02-09 Outpatient ESTEFANI VIDES MDA MDA [id number] 08:26:01 23:59:00 SHAWNEE lópez 2021-02-09 2021-02-09 Outpatient ESTEFANI VIDES MDA MDA [id number] 09:03:20 15:07:44 SHAWNEE lópez 2021-02-09 2021-02-09 Outpatient ESTEFANI BOWER MDA MDA [id number] 09:03:44 09:03:44 HANY lópez 2021-02-08 2021-02-08 Outpatient ESTEFANI VIDES MDA MDA [id number] 15:43:00 15:43:00 SHAWNEE lópez 2021-02-05 2021-02-05 Outpatient ESTEFANI VIDES MDA MDA [id number] 10:55:45 10:55:45 SHAWNEE lópez 2021-02-05 2021-02-05 Outpatient ESTEFANI VIDES MDA MDA [id number] 09:47:29 09:47:29 SHAWNEE lópez 2021-02-05 2021-02-05 Outpatient ESTEFANI VIDES MDA MDA [id number] 09:02:03 09:02:03 SHAWNEE lópez 2021-02-04 2021-02-04 Telephone Marco A Lutz [facility] 1.2.840.11 [id number] [facility] 00:00:00 00:00:00 Leonel 350.1.13.10 it y of [facility] [place].2.7.2.[place] [id number] [facility] [address] 2021-02-03 2021-02-03 Outpatient ESTEFANI BOWER MDA MDA [id number] 12:49:53 13:07:40 HANY lópez 2021-02-03 2021-02-03 Outpatient ESTEFANI VIDES MDA MDA [id number] 10:38:58 10:38:58 SHAWNEE lópez 2021-01-25 2021-01-25 Telephone STEPHANIE Gonzalez 1.2.291.479 [id number] Univers 00:00:00 00:00:00 Sheela CRAIG 350.1.13.10 i ty [facility] 4.2.7.2.686 [place] [phone] [facility] 019 [address] 2021-01-22 2021-01-22 Urgent Provider, [facility] Urgent Care [facility] 1.2.840.114 [id number] Univers 14:29:39 15:46:58 Care John Navarro [facility] 350.1.13.10 ity of [place] 4.2.7.2.686 [place] Professio [phone] [address] Office [facility] 2021-01-22 2021-01-22 Outpatient R IRMA [facility] [id number] Univers 14:40:00 14:40:00 RANIA ity of [facility] 2021-01-20 2021-01-20 Telephone Marco A Lutz [facility] 1.2.840.11 [id number] Univers 00:00:00 00:00:00 Leonel 350.1.13.10 it y of [place] [id number] [address] 2021-01-18 2021-01-18 Office Marco A Lutz [facility] 1.2.840.114 [id number] Univers 14:44:22 15:18:27 Visit Leonel 350.1.13.10 it y of Women's 4.2.7.2.686 [facility] [id number] [address] 2021-01-18 2021-01-18 Outpatient R MARCO A LUTZ [facility] [id number] Univers 14:30:00 14:30:00 ity of [facility] 2021-01-15 2021-01-15 Telephone Marco A Lutz [facility] 1.2.840.11 [id number] Univers 00:00:00 00:00:00 Leonel 350.1.13.10 it [place] of [place] [id number] [address] 2021-01-15 2021-01-15 [facility] 1.2.803.247 [id number] Univers 00:00:00 00:00:00 Deangelo MULTISPEC 350.1.13.10 ity of IALTY 4.2.7.2.686 [facility] [place] [id number] [facility] AND [address] DIABETES CLINIC 2020-12-15 2020-12-15 [facility] 1.2.277.243 [id number] Univers 00:00:00 00:00:00 Deangelo MULTISPEC 350.1.13.10 it[place].2.[place] [id number] [address] DIABETES CLINIC 2020-12-15 2020-12-15 Orders Doctor BROWN 1.2.840.114 [id number] Univers 00:00:00 00:00:00 Only Unassigned, RAFA 350.1.13.10 ity of [place] [facility] 4.2.7.2.686 [place] [phone] [place] [address] [place] 2020-12-09 2020-12-09 Telephone [facility] 1.2.240.188 [id number] Univers 00:00:00 00:00:00 Deangelo MULTISPEC 350.1.13.10 [place]2.[place] [id number] [address] DIABETES CLINIC 2020-12-07 2020-12-07 Telephone [facility] 1.2.080.355 [id number] Univers 00:00:00 00:00:00 Deangelo MULTISPEC 350.1.13.10 it[place] of [place].2.[place] [id number] [address] DIABETES CLINIC 2020-12-07 2020-12-07 Telephone [facility] 1.2.950.766 [id number] Univers 00:00:00 00:00:00 Deangelo MULTISPEC 350.1.13.10 it[place] [id number] [address] DIABETES CLINIC 2020-12-04 2020-12-04 Telephone [facility] 1.2.700.632 [id number] Univers 00:00:00 00:00:00 Deangelo MULTISPEC 350.1.13.10 ity of [place] 4[place]2.[place].2.[place] [id number] [facility] AND [address] DIABETES CLINIC 2020-12-01 2020-12-01 Orders Doctor STEPHANIE 1.2.840.114 [id number] Univers 00:00:00 00:00:00 Only Unassigned, RAFA 350.1.13.10 ity of [place] [facility] 4.2.7.2.686 [place] [phone] [facility] [address] 2020-11-12 2020-11-12 Telephone [facility] 1.2.186.343 [id number] Univers 00:00:00 00:00:00 Deangelo MULTISPEC 350.1.13.10 it[place]2.[place] [id number] [address] DIABETES CLINIC 2020-11-10 2020-11-10 Telephone [facility] 1.2.327.246 [id number] Univers 00:00:00 00:00:00 Deangelo MULTISPEC 350.1.13.10 it[place] [id number] [address] DIABETES CLINIC 2020-10-27 2020-10-27 Orders Doctor STEPHANIE 1.2.840.114 [id number] Univers 00:00:00 00:00:00 Only Unassigned, RAFA 350.1.13.10 ity of [place] [facility] 4.2.7.2.686 [place] [id number] [address] 2020-10-26 2020-10-26 Patient Hilario [facility] 1.2.840.114 [id number] Univers 00:00:00 00:00:00 Outreach Shruti N MULTISPEC 350.1.13.10 it[place] [id number] [address] DIABETES CLINIC 2020-10-21 2020-10-21 [facility]phone [facility] 1.2.840.114 [id number] Univers 00:00:00 00:00:00 N MULTISPEC 350.1.13.10 [place]2.[place].2.[place] [id number] [address] DIABETES CLINIC 2020-10-15 2020-10-15 Telephone [facility] 1.2.362.269 [id number] Univers 00:00:00 00:00:00 Deangelo MULTISPEC 350.1.13.10 ity of IALTY 4.2.7.2.686 [facility] s [place] [id number] [address] DIABETES CLINIC 2020-10-01 2020-10-[address] [facility] 1.2.018.486 [id number] Univers 15:03:00 19:56:00 Sobia Davison 350.1.13.10 i ty of [place] 4.2.7.2.686 [facility] [id number] [facility] [address] 2020-10-01 2020-10-01 [facility] [id number] Univers 14:40:00 14:40:00 HARMAN ity of [facility] 2020-09-29 2020-09-29 Telephone [facility] 1.2.001.658 [id number] Univers 00:00:00 00:00:00 Deangelo MULTISPEC 350.1.13.10 ity of IALTY 4.2.7.2.686 [facility] [id number] [address] DIABETES CLINIC 2020-09-28 2020-09-28 Orders Doctor STEPHANIE 1.2.840.114 [id number] Univers 00:00:00 00:00:00 Only Unassigned, RAFA 350.1.13.10 ity of [place] [facility] 4.2.7.2.686 [facility] [id number] [facility] [address] 2020-09-28 2020-09-28 Telephone [facility] 1.2.710.663 [id number] 9465 Univers 00:00:00 00:00:00 Deangelo MULTISPEC 350.1.13.10 ity of IALTY 4.2.7.2.686 [facility] [id number] [address] DIABETES CLINIC 2020-09-15 2020-09-15 Telephone [facility] 1.2.715.366 [id number] [id number] Univers 00:00:00 00:00:00 Deangelo MULTISPEC 350.1.13.10 it[place] of [place] [id number] [facility] AND [address] [facility]ES [facility] 2020-09-10 2020-09-10 Orders Doctor STEPHANIE 1.2.840.114 [id number] Univers 00:00:00 00:00:00 Only Unassigned, RAFA 350.1.13.10 ity of [place] [facility] 4.2.7.2.686 [place] [id number] [place] [address] Branch 2020-09-10 2020-09-10 Telephone [facility] 1.2.329.090 [id number] [id number] Univers 00:00:00 00:00:00 Deangelo MULTISPEC 350.1.13.10 it[place] of [place] [id number] [address] [facility]ES CLINIC 2020-09-08 2020-09-08 [facility] 1.2.840.114 [id number] Univers 00:00:00 00:00:00 Outreach Shruti N MULTISPEC 350.1.13.10 it[place] of [place]2.[place] [id number] [facility] AND [address] DIABET[facility] 2020-09-08 2020-09-08 Telephone [facility] [id number] Univers 00:00:00 00:00:00 Deangelo MULTISPEC 350.1.13.10 [place] [id number] [facility] AND [address] [facility] 2020-09-07 2020-09-07 Telephone [facility] [id number] Univers 00:00:00 00:00:00 Deangelo MULTISPEC 350.1.13.10 [place] [id number] [facility] AND [address] [facility] 2020-08-29 2020-08-29 Outpatient [facility] [id number] Univers 12:55:00 12:55:00 ity of [facility] 2020-08-24 2020-08-24 Office [facility] [id number] Univers 16:00:26 16:30:26 Visit Deangelo MULTISPEC 350.1.13.10 [place] [id number] [address] [facility] 2020-08-24 2020-08-24 Outpatient R [facility] [id number] Univers 16:00:00 16:00:00 DEANGELO ity of [facility] 2020-08-18 2020-08-18 Laboratory Lab, Adc Fam Pob I [facility] 1.2. [id number] Univers 17:07:03 17:27:03 Only Matthew Payan [facility] 350.1.13.10 ity of [place] 4.2.7.2.686 [place] Professio [phone] [place] [address] Office [facility] 2020-08-18 2020-08-18 [facility] [id number] Univers 17:00:00 17:00:00 MATTHEW ity [facility] 2020-08-17 2020-08-17 Telephone [facility] [id number] Univers 00:00:00 00:00:00 [place] FRANKLIN 350.1.13.10 ity of [place] 4.2.7.2.686 [facility] [place] [id number] [address] [facility] 2020-08-08 2020-08-08 [facility] [id number] Univers 12:40:00 12:40:00 RHIANNON ity of [facility] 2020-07-13 2020-07-13 Refill [facility] 1.2.840.114 [id number] Univers 00:00:00 00:00:00 Deangelo MULTISPEC 350.1.13.10 [place] CENTER [id number] [address] [facility] 2020-07-04 2020-07-04 [facility] [id number] Univers 00:00:00 00:00:00 Outreach Rangel WALLACE [id number] i ty of [facility] [id number] [id number] [address] 2020-07-03 2020-07-03 Telephone [facility] [id number] Univers 00:00:00 00:00:00 Deangelo MULTISPEC [id number] [id number] [id number] [address] DI[facility]ETES CLINIC 2020-06-15 2020-06-15 Outpatient R MARCO A LUZT [facility] [id number] Univers 13:00:00 13:00:00 ity of [facility] 2020-05-04 2020-05-04 Outpatient R [facility] [id number] Univers 13:30:00 13:30:00 DEANGELO ity [facility] 2020-04-29 2020-04-29 Telephone [facility] [id number] Univers 00:00:00 00:00:00 Deangelo MULTISPEC [id number] [id number] [id number] [address] DI[facility]ETES CLINIC 2020-04-28 2020-04-28 Office [facility] [id number] Univers 10:15:46 10:45:46 Visit Deangelo MULTISPEC [id number] [id number] [id number] [facility] AND [address] DIABETES CLINIC 2020-04-28 2020-04-28 Outpatient R [facility] [id number] Univers 10:30:00 10:30:00 DEANGELO ity [facility] 2020-04-27 2020-04-27 [facility] [id number] Univers 14:08:54 16:35:30 Visit Cong R MULTISPEC [id number] [id number] [id number] [facility] [address] [facility]INIC 2020-04-27 2020-04-27 [facility] [id number] Univers 14:15:00 14:15:00 CONG ity of [facility] 2020-04-25 2020-04-25 Orders Doctor STEPHANIE [id number] Univers 00:00:00 00:00:00 Only Unassigned, RAFA 350.1.13.10 ity of [place] [facility] [id number] [facility] [id number] [place] [address] [address] 2020-04-24 2020-04-24 Telephone [facility] [id number] Univers 00:00:00 00:00:00 Deangelo MULTISPEC [id number] [place] [id number] [facility] [place] [id number] [address] DIABETES CLINIC 2020-04-22 2020-04-22 Telephone [facility] [id number] Univers 00:00:00 00:00:00 Deangelo MULTISPEC [id number] [place] [id number] [facility] [place] [id number] [address] DIABETES CLINIC 2020-04-17 2020-04-17 [facility] [id number] Univers 12:52:50 23:59:00 Encounter Deangelo Davison [id number] [place] [id number] [facility] [address] 2020-04-17 2020-04-17 Outpatient [facility] [id number] Univers 00:00:00 00:00:00 DEANGELO ity of [facility] 2020-04-17 2020-04-17 Orders Doctor BROWN [id number] Univers 00:00:00 00:00:00 Only Unassigned, RAFA [id number] ity of [place] [facility] [id number] [place] [id number] [address] 2020-04-15 2020-04-15 Telephone [facility] [id number] Univers 00:00:00 00:00:00 Deangelo OSEGUERAPEC [id number] [id number] [id number] [facility] AND [address] DIABETES CLINIC 2020-04-14 2020-04-14 Patient Hilario [facility] [id number] Univers 00:00:00 00:00:00 Outreach Shruti OSEGUERAPEC [id number] [id number] [id number] [facility] AND [address] DIABETES CLINIC 2020-04-13 2020-04-13 Outpatient R MARCO A LUTZ [facility] [id number] Univers 15:30:00 15:30:00 ity of [facility] 2020-04-10 2020-04-10 [employer] 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 Braulio [facility] [id number] Univers 11:17:42 11:32:42 Visit Deangelo Flannery [id number] [id number] [phone] [address] 2020-04-10 2020-04-10 Outpatient [facility] [id number] Univers 11:00:00 11:00:00 DEANGELO ity of [facility] 2020-04-09 2020-04-09 Office Prudencio [facility] [id number] Univers 14:16:13 16:58:03 Visit Madsion [place] [id number] [id number] [id number] [facility] AND [address] DIABETES CLINIC 2020-04-09 2020-04-09 Outpatient [facility] [id number] Univers 14:00:00 14:00:00 DEANGELO ity of [facility] 2020-04-09 2020-04-09 Orders Doctor STEPHANIE 1.2.840.114 [id number] Univers 00:00:00 00:00:00 Only Unassigned, RAFA 350.1.13.10 ity of [place] [facility] [id number] [place] [id number] [address] 2020-04-01 2020-04-01 Telephone Marco A Lutz [facility] 1.2.840.114 [id number] Univers 00:00:00 00:00:00 Seamus 350.1.13.10 i [place] [id number] [place] dical nal [address] Results This patient has no known results.
--- NOTE | 2022-03-28 19:04 | RAD REPORT ---
EXAM DESCRIPTION: CT - Stone Protocol - 03/28/2022 6:51 pm CLINICAL HISTORY: Flank pain. stone COMPARISON: Abdomen Pelvis W Contrast dated 01/12/2021 TECHNIQUE: Axial images were obtained without oral or IV contrast. Lack of contrast limits solid org an and vascular assessment. The [id number] spans the entirety of the system partially obscuring uppermost abdomen and lung bases. Coronal reformatted images were obtained and reviewed. All CT scans are performed using dose optimization technique as appropriate and may include automated exposure control or mA/KV adjustment according to patient size. FINDINGS: The lower lung chao are clear. Imaged portions of the liver and spleen show no suspicious findings on non-contrast imaging. The panc reas and adrenal glands are normal. No pathologic lymphadenopathy in the abdomen or pelvis. Small fat containing ventral hernia. No urinary tract stones or obstructive uropathy. No bowel obstruction, free air, free fluid or abscess. Nonvisualized appendix.Prominent sigmoid diver ticulosis coli is seen with moderate fecal retention throughout the colon. Moderate lower lumbar degenerative changes. IMPRESSION: No urinary tract stones or obstructive uropathy. Sigmoid diverticulosis coli is seen with moderate fecal retention. No evidence of diverticulitis.
--- NOTE | 2022-03-28 20:28 | EDPHYS ---
Physician Documentation [facility] Name: Samanta Hayes Age: 81 yrs Sex: Female : 1940 Arrival Date: 03/28/2022 Time: 16:35 Bed 11 Private MD: ED Physician Laura Garcia HPI: 03/28 20:33 This 81 yrs old Female presents to ER via Ambulatory with complaints of Lips Swelling, snw Swelling Of Tongue, Ulcers. 20:33 The patient presents with swelling, to upper lip, edema x 1.5 yrs but worse over the snw past 4 days, ulcerations to tongue and lips x 4 days, lower abd swelling x 4 days. The problem is located in the mouth. Onset: The symptoms/episode began/occurred gradually, 1.5 year(s) ago, and became worse 4 day(s) ago. Duration: The symptoms are continuous, and are unchanged since they started. Associated signs and symptoms: Pertinent positives: swelling, facial. Severity of symptoms: At their worst the symptoms were moderate. The patient has experienced a previous episode. spoke with GI PAc. Historical: - Allergies: 17:57 No Known Allergies; vg1 - PMHx: 17:57 COPD; Crohn's; Depression; DVT; hiatal hernia; Hypertension; insomnia; vg1 - Immunization history:: Client reports receiving the 2nd dose of the Covid vaccine. - Social history:: Smoking status: Patient denies any tobacco usage or history of. ROS: 20:35 Constitutional: Negative for fever, chills, and weight loss, Eyes: Negative for injury, snw pain, redness, and discharge, Neck: Negative for injury, pain, and swelling, Cardiovascular: Negative for chest pain, palpitations, and edema, Respiratory: Negative for shortness of breath, cough, wheezing, and pleuritic chest pain, Abdomen/GI: Negative for abdominal pain, nausea, vomiting, diarrhea, and constipation, Back: Negative for injury and pain, : Negative for injury, bleeding, discharge, and swelling, MS/Extremity: Negative for injury and deformity, Skin: Negative for injury, rash, and discoloration, Neuro: Negative for headache, weakness, numbness, tingling, and seizure. 20:35 ENT: Positive for sore throat, upper lip edema. Exam: 21:16 Constitutional: This is a well developed, well nourished patient who is awake, alert, snw and in no acute distress. Eyes: Pupils equal round and reactive to light, extra-ocular motions intact. Lids and lashes normal. Conjunctiva and sclera are non-icteric and not injected. Cornea within normal limits. Periorbital areas with no swelling, redness, or edema. Neck: Trachea midline, no thyromegaly or masses palpated, and no cervical lymphadenopathy. Supple, full range of motion without nuchal rigidity, or vertebral point tenderness. No Meningismus. Chest/axilla: Normal chest wall appearance and motion. Nontender with no deformity. No lesions are appreciated. Cardiovascular: Regular rate and rhythm with a normal S1 and S2. No gallops, murmurs, or rubs. Normal PMI, no JVD. No pulse deficits. Respiratory: Lungs have equal breath sounds bilaterally, clear to auscultation and percussion. No rales, rhonchi or wheezes noted. No increased work of breathing, no retractions or nasal flaring. Back: No spinal tenderness. No costovertebral tenderness. Full range of motion. Skin: Warm, dry with normal turgor. Normal color with no rashes, no lesions, and no evidence of cellulitis. MS/ Extremity: Pulses equal, no cyanosis. Neurovascular intact. Full, normal range of motion. Neuro: Awake and alert, GCS 15, oriented to person, place, time, and situation. Cranial nerves II-XII grossly intact. Motor strength 5/5 in all extremities. Sensory grossly intact. Cerebellar exam normal. Normal gait. 21:16 Head/face: Noted is erythema, that is moderate, of the mouth, swelling, that is mild, of the mouth, of the upper lip. 21:16 ENT: Nose: is normal, Mouth: Lips: cracked, abraded, Tongue: displays fissures, tender, displays stomatitis. Vital Signs: 17:52 BP 151 / 71; Pulse 76; Resp 17; Temp 98.0; Pulse Ox 97% on R/A; Weight 54.43 kg; Height vg1 5 ft. 2 in. (157.48 cm); Pain 4/10; 19:45 BP 152 / 64; Pulse 69; Resp 16; Temp 98.2; Pulse Ox 96% ; Pain 0/10; jj7 20:53 BP 141 / 69; Pulse 78; Resp 17; Pulse Ox 96% ; Pain 0/10; jj7 17:52 Body Mass Index 21.95 (54.43 kg, 157.48 cm) vg1 MDM: 20:11 Patient medically screened. snw 20:32 Data reviewed: vital signs, nurses notes. Data interpreted: Pulse oximetry: on room air snw is 97 %. Interpretation: normal. Counseling: I had a detailed discussion with the patient and/or guardian regarding: the historical points, exam findings, and any diagnostic results supporting the discharge/admit diagnosis, radiology results, the need for outpatient follow up, for definitive care, to return to the emergency department if symptoms worsen or persist or if there are any questions or concerns that arise at home. Special discussion: Based on the history and exam findings, there is no indication for further emergent testing or inpatient evaluation. I discussed with the patient/guardian the need to see the primary care provider for further evaluation of the symptoms. 03/28 18:28 Order name: Stone Protocol; Complete Time: 19:07 EDMS Administered Medications: 21:07 Drug: GI Cocktail without - (Maalox Suspension 30 ml, Lidocaine Liquid 2 % 15 jj7 ml) Route: PO; 21:07 Drug: Lactulose 20 grams Volume: 30 ml; Route: PO; jj7 Disposition Summary: 03/28/22 20:28 Discharge Ordered Location: Home snw Condition: Stable snw Diagnosis - Other forms of stomatitis snw - Glossitis snw - Constipation, unspecified snw Followup: snw - With: Emergency Department - When: As needed - Reason: Worsening of condition Followup: snw - With: Private Physician - When: 1 - 2 days - Reason: Recheck today's complaints, Continuance of care, Re-evaluation by your physician Discharge Instructions: - Discharge Summary Sheet snw - Constipation, Adult snw - Glossitis snw - Stomatitis snw Forms: - Medication Reconciliation Form snw - Thank You Letter snw - Antibiotic Education snw - Prescription Opioid Use snw Prescriptions: - Carafate 1 gram Oral Tablet - take 1 tablet by ORAL route 4 times per day take on an empty stomach, beginning snw on waking and last dose at bedtime; 100 tablet; Refills: 0, Product Selection Permitted - Zyrtec 10 mg Oral Tablet - take 1 tablet by ORAL route once daily As needed; 20 tablet; Refills: 0, snw Product Selection Permitted - Pepcid 20 mg Oral Tablet - take 1 tablet by ORAL route once daily; 20 tablet; Refills: 0, Product snw Selection Permitted Addendum: 03/31/2022 03:43 STAFF ATTESTATION STATEMENT: I was immediately available onsite in the emergency s d2 department for consultation in the care of this patient. I did not see or examine this patient. Laura Garcia MD. Signatures: Dispatcher [employer] EDMS Sadia Eid FNP-C LOGISTICS DIRECTOR-Alice Ruiz RN RN vg1 Laura Garcia MD MD sd2 Eitan Andino RN RN jj7
--- NOTE | 2022-03-28 20:28 | ER ---
Nurse's Notes [facility] Name: Samanta Hayes Age: 81 yrs Sex: Female : 1940 Arrival Date: 03/28/2022 Time: 16:35 Bed 11 Private MD: Diagnosis: Other forms of stomatitis;Glossitis;Constipation, unspecified Presentation: 03/28 17:52 Chief complaint: Patient states: noticed upper lip swelling and tongue ulcers x 2 days. vg1 States unable to eat due to ulcers. Also states ABD bloating. Coronavirus screen: Vaccine status: Patient reports receiving the 2nd dose of the covid vaccine. Client denies travel out of the [place] in the last 14 days. Ebola Screen: Patient negative for fever greater than or equal to 101.5 degrees Fahrenheit, and additional compatible Ebola Virus Disease symptoms Patient denies exposure to infectious person. Initial Sepsis Screen: Does the patient meet any 2 criteria? No. Patient's initial sepsis screen is negative. Does the patient have a suspected source of infection? No. Patient's initial sepsis screen is negative. Risk Assessment: Do you want to hurt yourself or someone else? Patient reports no desire to harm self or others. Onset of symptoms was March 26, 2022. 17:52 Method Of Arrival: Ambulatory vg1 17:52 Acuity: KIT 3 vg1 Triage Assessment: 17:57 General: Appears in no apparent distress. uncomfortable, Behavior is calm, cooperative. vg1 Pain: Complains of pain in mouth Pain currently is 4 out of 10 on a pain scale. EENT: Oral mucosa is moist. Respiratory: Airway is patent Respiratory effort is even, unlabored. Historical: - Allergies: 17:57 No Known Allergies; vg1 - PMHx: 17:57 COPD; Crohn's; Depression; DVT; hiatal hernia; Hypertension; insomnia; vg1 - Immunization history:: Client reports receiving the 2nd dose of the Covid vaccine. - Social history:: Smoking status: Patient denies any tobacco usage or history of. Screenin:23 Abuse screen: Denies threats or abuse. Nutritional screening: No deficits noted. jj7 Tuberculosis screening: No symptoms or risk factors identified. Fall Risk None identified. Assessment: 19:23 General: Appears in no apparent distress. comfortable, Behavior is calm, cooperative, jj7 appropriate for age, Denies. Pain: Denies pain. Neuro: No deficits noted. EENT: Oral mucosa is dry. NO ULCERS NOTED TO TONGUE. NO LIP SWELLING NOTED. 19:23 GI: No deficits noted. Abdomen is non-distended. jj7 19:23 Reassessment: ASSUMED CARE OF PT. PT SITTING IN BED. NO DISTRESS NOTED. NO SWELLING jj7 NOTED TO LIPS. NO ULCERS NOTED TO TONGUE. NO ABD DISTENTION NOTED. Vital Signs: 17:52 BP 151 / 71; Pulse 76; Resp 17; Temp 98.0; Pulse Ox 97% on R/A; Weight 54.43 kg; Height vg1 5 ft. 2 in. (157.48 cm); Pain 4/10; 19:45 BP 152 / 64; Pulse 69; Resp 16; Temp 98.2; Pulse Ox 96% ; Pain 0/10; jj7 20:53 BP 141 / 69; Pulse 78; Resp 17; Pulse Ox 96% ; Pain 0/10; jj7 17:52 Body Mass Index 21.95 (54.43 kg, 157.48 cm) vg1 ED Course: 16:35 Patient arrived in ED. rg4 17:57 Triage completed. vg1 17:57 Arm band placed on. vg1 18:02 Sadia Eid FNP-C [facility]. snw 18:02 Laura Garcia MD is Attending Physician. snw 18:53 Stone Protocol In Process Unspecified. EDMS 19:19 Eitan Andino, EL is Primary Nurse. jj7 19:23 Patient has correct armband on for positive identification. Bed in low position. Call jj7 light in reach. 19:23 No provider procedures requiring assistance completed. jj7 21:19 Patient did not have IV access during this emergency room visit. jj7 Administered Medications: 21:07 Drug: GI Cocktail without - (Maalox Suspension 30 ml, Lidocaine Liquid 2 % 15 jj7 ml) Route: PO; 21:07 Drug: Lactulose 20 grams Volume: 30 ml; Route: PO; jj7 Medication: 19:23 VIS not applicable for this client. jj7 Outcome: 20:28 Discharge ordered by . snw 21:19 Discharged to home ambulatory, with family. jj7 21:19 Condition: good 21:19 Discharge instructions given to patient, friend, Instructed on discharge instructions, medication usage, Demonstrated understanding of instructions, medications, Prescriptions given X 3. 21:23 Patient left the ED. jj7 Signatures: Dispatcher [employer] EDMS Sadia Eid, GUSTAVO-C CIGAR PACKER-Brenda Ruiz rg4 Alice Gonzalez, RN RN vg1 Eitan Andino RN RN jj7
[2022-03-28] MEDS ORDERED: LIDOCAINE VISCOUS 2% SOLN 15 ML UDC ONE (21:01)
[2022-03-28] MEDS ORDERED: MAGNES/ALUMIN/SIMET 30ML UCUP ONE (21:03)
[2022-03-28] MEDS ORDERED: LACTULOSE 20 GM/30 ML UCUP ONE (21:04)
[2022-03-28 21:42] VITALS: TEMP 98.2; O2SAT 96
[2022-03-28 21:43] VITALS: BP 141/69
== END 2022-03-28 21:23 | disposition home or self-care (01) ==
LOC: ER 16:23
DX: K12.1 Other forms of stomatitis (principal); K14.0 Glossitis; K59.00 Constipation, unspecified; I10 Essential (primary) hypertension; J44.9 Chronic obstructive pulmonary disease, unspecified; K50.90 Crohn's disease, unspecified, without complications; F32.A Depression, unspecified; G47.00 Insomnia, unspecified
CPT/HCPCS: 74176; 76377; 99283

== ENCOUNTER 2022-07-21 09:41 | Emergency (ER) | payer OTHER, BC ==
--- OUTSIDE RECORDS SUMMARY | 2022-07-21 09:45 | XMS REPORT | Clinical Summary ---
:1940 Author Organization [facility] Address [address] [place] [address] Care Team Providers Name Role Phone Zora Lutz Unavailable Deann Dennis MD Primary Care Provider Allergies No known active allergies Medications Medication Sig Dispensed Refills Start End Date Status Date antiox.mv Take 1 capsule 0 Activ e [id number] by mouth (I-Caps) 280-10-2 mg daily. cap aspirin 81 mg Chew 1 tablet 0 Ac tive chewable tablet daily. Bifidobacterium 0 Acti ve infantis (ALIGN ORAL) clonazePAM Dissolve 1 0 Active (KlonoPIN) 1 mg tablet on the disintegrating tongue daily tablet as needed. cycloSPORINE Administer 1 0 Acti ve (Restasis) 0.05% drop to both ophthalmic emulsion eyes daily. [id number]-[id number]-9-DHA-EP 0 Active A-LIPIDS ORAL primidone (MYSOLINE) 0 Active 50 mg tablet 1 simethicone 0 Active (MYLICON,GAS-X) 180 mg capsule LAMOTRIGINE ORAL Take 50 mg by 0 Active mouth at bedtime. ibuprofen Take 1 tablet 30 tablet 0 Active (ADVIL,MOTRIN) 800 (800 mg) by 1 mg mouth every 8 tabletIndications: (eight) hours Abdominal or pelvic as needed for swelling, mass, or moderate pain. lump, other specified site; multiple sites latanoprost daily. 0 Active (XALATAN) 0.005% 2 ophthalmic solution loratadine 10 mg cap 0 10/02/19 Discontinued (Not Appli cable) senna (Senna Lax) Take 1 tablet 30 tablet 0 05/27/20 Discontinued 8.6 mg by mouth daily 1 22 tabletIndications: as needed for Abdominal or pelvic constipation. swelling, mass, or lump, other specified site; multiple sites dexlansoprazole Take 60 mg by 0 05/25/20 Discontinued (DEXILANT) 60 mg mouth daily. 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); Decrease in silvia etite; Screening for m alignant neoplasm of breast 05/25/2022 Travel 10/01/2021 Office Visit Gynecology Jessy Macedo PA 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); Abdominal or pe lvic swelling, mass, or lump, other specified site; multiple sites 10/01/2021 Travel after 07/21/2021 Surgical History Surgery Date Site/Laterality Comments EXPLORATORY LAPAROTOMY 06/12/1961 - 06/11/1962 BREAST LUMPECTOMY 06/12/1969 - 06/11/1970 HYSTERECTOMY 06/12/1970 - 06/11/1971 UPPER GASTROINTESTINAL 06/12/2016 - ENDOSCOPY 06/11/2017 SECTION, CLASSIC x3 APPENDECTOMY RI LAPAROSCOPY W/RMVL 02/16/2021 Abdomen/Bilateral Procedur e: LAPAROSCOPY ADNEXAL STRUCTURES WITH REMOVAL OF ADNEXAL STRUCTURES , TOT AL OOPHERECTOMY AND SALPINGECTOMY.; Surgeon: Deann mcdonald MD; Location: MAIN O R; Service: GYNAECOLOGICAL ONCOLOGIST - GYNECOLOGIC ONCO LOGY RI CYSTOURETHROSCOPY 02/16/2021 Genitalia/Bilateral Procedu re: CYSTOURETHROSCOP Y; Surgeon: Deann Dennis MD; Loc ation: MAIN OR; Service : GYNAECOLOGICAL ONCOLOGIST - GYNECOLOGIC ONCO LOGY RI OMNTC EPIPLOECTOMY RESCJ 02/16/2021 Abdomen/N/A Proc edure: OMENTAL OMENTUM SPX BIOPSY; Surgeon: Deann Dennis MD; Location: MAIN O R; Service: GYNAECOLOGICAL ONCOLOGIST - GYNECOLOGIC ONCO LOGY RI ENTEROLSS FRING 02/16/2021 Abdomen/N/A Procedure: FR EEING OF INTSTINAL ADHESION SPX INTESTINA L ADHESION; Surgeon: Deann Dennis MD; Loc ation: MAIN OR; Service : GYNAECOLOGICAL ONCOLOGIST - GYNECOLOGIC ONCO LOGY RI URETEROLYSIS W/WORPSG 02/16/2021 Abdomen/Left Procedu re: URETEROLYSIS, URETER RETROPERIT FIBROSIS WITH OR WITHOUT REPOSITIONING OF URETER FOR RETROPERITON EAL FIBROSIS; Surgeo n: Deann mcdonald MD; Location: MAIN O R; Service: GYNAECOLOGICAL ONCOLOGIST - GYNECOLOGIC ONCO LOGY Medical History Medical [...] Tobacco Use Types Packs/Day Years Used Date Smoking Tobacco: Never Smokeless Tobacco: Never Comments: Second hand smoke Alcohol Use Standard Drinks/Week Comments Not Currently 0 (1 standard drink = 0.6 oz pure alcoho l) Education Answer Date Recorded What is the highest level of school you have High school fela valdov[employer] 02/09/2021 completed or the highest degree you [...] Sign Reading Time Taken Comments Blood Pressure 130/74 05/25/2022 1:27 PM [employer] CRM DEVELOPER Pulse 73 05/25/2022 1:27 PM [employer] CRM DEVELOPER Temperature 36.6 C (97.9 F) 05/25/2022 1:27 PM [employer] CRM DEVELOPER Respiratory Rate 18 05/25/2022 1:27 PM [employer] CRM DEVELOPER Oxygen Saturation - - Inhaled Oxygen Concentration - - Weight 55.9 kg (123 lb 3.8 oz) 05/25/2022 1:27 PM [employer] CRM DEVELOPER Height - - Body Mass Index 23.42 02/03/2021 10:58 AM CDT Plan of Treatment Date Type Specialty Care Team Description 11/25/2022 Lab Lab Deann Dennis MD [address], [place] [address] (Wo rk) 11/25/2022 Follow-Up Gynecology Deann Dennis MD [address] [place] [address] (Wo rk) Health Maintenance Due Date Last Done Comments COVID-19 Vaccination (4 - Booster 12/07/2021 10/12/2021, , for Pfizer series) 08/08/2020 Procedures Procedure Name Priority Date/Time Associated Diagnosis Comme nts CANCER ANTIGEN 125 Routine 05/25/2022 12:53 PM Neoplasm of low Results for this [employer] CRM DEVELOPER malignant potential procedur e are in behavior of ovary the result s <Unspecified side> section. BHCG, TUMOR MARKER Routine 10/01/2021 2:19 PM Abdominal or pel jona Results for this CDT swelling, mass, or procedure are in lump, other the results specified site; section. multiple sites CANCER ANTIGEN 125 Routine 10/01/2021 2:19 PM Abdominal or pel jona Results for this CDT swelling, mass, or procedure are in lump, other the results specified site; section. multiple sites after 07/21/2021 Results CA 125 (05/25/2022 12:53 PM SAP CRM DEVELOPER)Only the most recent of2 resultswithin the time period is included. athologist Signature CA 125 8.6 <=38.0 U/mL [place] Comment: Results greater than 11,500.0 U/L may no t be reliable due to matrix effect with extended dilution as it exceeds the airline customer service agent s recommended limit. Caution should be exercised when interpreting such values and done in conjunction with cli nical context. Reference intervals are not available fo r male patients. Results should be interpreted in conjunction with clinical context. This test is measured by electrochemilum inescence immunoassay on Janey Sudeep immunoassay analyzers. Results obtained in different methods are not interchangeable. [facility], [address] [place] [id number] Specimen Anatomical Collection Method Collection Time Receive d Time (Source) Location / / Volume Laterality Blood 05/25/2022 12:53 05/25/2022 1:16 PM SAP CRM DEVELOPER PM SAP CRM DEVELOPER Jessy JES[facility] LAB BLOOD ORDERABLES Performing Organization Address City/State/[place] [address] [place] [address] (ABNORMAL) BHCG, Tumor Marker (10/01/2021 2:19 PM CDT) athologist Signature Beta HCG, 2.3 (H) <=0.9 [facility] Tumor Marker mIU/mL [facility] Comment: Tumor Markers BHCG Reference Range: Negative: <1.0 mIU/mL Non- pre-menopausal women: </= 1 .0 mIU/mL Post-menopausal women: </= 7.0 mIU/mL Men: < 2.0 mIU/mL Specimen Anatomical Collection Method Collection Time Receive d Time (Source) Location / / Volume Laterality Blood 10/01/2021 2:19 PM 2 CDT 7:08 PM CDT Jessy JESUS LAB BLOOD ORDERABLES Performing Organization Address City/State/ZIP Code Phon e Number [facility] Unless otherwise noted, [place] [address] [place] all lab tests performed by: Division of Pathology and Laboratory Medicine Eben Yousif after 07/21/2021 Insurance Payer Benefit Plan Subscriber ID Effective Phone Address Typ e / Group Dates MEDICARE MEDICARE PART [id number] 2005-Prese [phone] [employer] Medicare A AND B nt [employer] [address] [place] [phone] [employer] PPO [id number] 2015-Prese [address] [place] 08[address] [place] [address] Care Teams Fly Fishing Guide Relationship Specialty Start Date End Date Zora Lutz PCP - External Primary Obstetrics/Gynecology 01/21/[address] [place] [address] [place] [address] [place] [address] Deann Dennis, PCP - General Gynecological Oncology 01/21/21 [place] [address]
--- OUTSIDE RECORDS SUMMARY | 2022-07-21 09:51 | XMS REPORT | Continuity of Care Document ---
:1940 Author Organization [facility] t Address [address] [place] [address] Care Team Providers Name Role Phone Deangelo Flannery MD Primary Care Physician SYSTEM, PROVIDER NOT IN Attending Clinician Unavailable SHIRLEY SOARES Attending Clinician Unavailable SHIRLEY SOARES Attending Clinician Unavailable AWA MARIN Attending Clinician Unavailable MARCIA AUGUST Attending Clinician Unavailable Marcia August PA-C Attending Clinician MARCO A LUTZ Attending Clinician Unavailable LIZ SALDANA III Attending Clinician Unavailable King TIANNA MD, James C Attending Clinician Unknown, Attending Attending Clinician Unavailable Shawnee Vides MD Attending Clinician SHAWNEE VIDES Attending Clinician Unavailable JESSY RIVERA Attending Clinician Unavailable Awa Mackey Attending Clinician [phone] Duncan Lo MD Attending Clinician Doctor Unassigned, [place] Attending Clinician Unavailable ROMAINE DOMINGUEZ Attending Clinician Unavailable Kirstie Solitario Attending Clinician [phone] Romaine Blackburn Attending Clinician Vaccine, Ang Db Cbc Fam Attending Clinician Unavailable Gavin Hoffman MD Attending Clinician GAVIN HOFFMAN Attending Clinician Unavailable Unke PA, Jessy Attending Clinician 1, Adc Infusion Chair Attending Clinician Unavailable Marco A Lutz MD Attending Clinician DEANGELO FLANNERY Attending Clinician Unavailable Deangelo Flannery MD Attending Clinician Corrine Kaur MA Attending Clinician Unavailable RAE JERONIMO Attending Clinician Unavailable HANY BOWER Attending Clinician Unavailable Carlos GALLEGOS, Sheela Porras Attending Clinician Unavailable Provider, [facility] Attending Clinician Unavailable John Pinedo Attending Clinician JOHN SOLIS Attending Clinician Unavailable Shruti Rich Attending Clinician Unavailable Kyle Flannery MD Attending Clinician Sobia Barboza Attending Clinician HARMAN MUHAMMAD Attending Clinician Unavailable Lab, Adc Fam Pob I Attending Clinician Unavailable Ora CHEN, Matthew Attending Clinician MATTHEW PAYAN Attending Clinician Unavailable Madison Veronica Attending Clinician RHIANNON DEVINE Attending Clinician Unavailable Rangel Bae DO Attending Clinician Cong Chau MD Attending Clinician CONG CHAU Attending Clinician Unavailable Pob, [facility] Lab Main Attending Clinician Unavailable AWA MARIN Admitting Clinician Unavailable SHAWNEE VIDES Admitting Clinician Unavailable Payers Payer Name Policy Type Policy Number Effective Date Expiration Date S [facility] MEDICARE PART A \T\ [id number] 2005 B 00:00:00 [employer] TRADITIONAL [id number] 2015 00:00:00 Problems Condition Condition Condition Status Onset Resolution Last Treating Co mments Source Name Details Category Date Date Treatment Clinician Date 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 00:00: [place] of ovary of ovary 00 Medica l in in Branch adulthood adulthood Abnormal Abnormal Disease Active 2021-06 Unive rs urinalysis urinalysis 0-30 it y of 00:00: [place] 00 Medical Branch Dysuria Dysuria Disease Active 2021-06 Univers 0-30 ity of 00:00: Medical Branch Hematuria, Hematuria, Disease Active 2021-06 U nivers unspecifie unspecifie 0-30 it y of d type d type 00:: Medical Branch Left knee Left knee Disease Active [facility] pain pain 10-06 Health 00:00: 00 Arthritis Arthritis Disease Active Last [place] of right of right 10-06 Assessmen Ez lth knee knee 00:00: t & Plan: [...] Active Univers sclerosus sclerosus 1-10 ity of 00:: Medical Branch Postmenopa Postmenopa Disease Active U nivers usal usal 1-10 ity of osteoporos osteoporos [place] 00 [place] Neoplasm Neoplasm Disease Active Unive rs of low of low 9-17 ity of malignant malignant 00:[place] potential potential 00 behavior behavior [facility] o [facility] Candidal Candidal Disease Active Unive rs vulvovagin vulvovagin 9-17 it y of itis itis 00:00: [facility] Other Other Disease Active Univers intra-abdo intra-abdo 8-25 it y of barbie and barbie and 00:[place] pelvic pelvic 00 Medical swelling, swelling, Bran ch mass and mass and lump lump Other Other Disease Active Univers specified specified 8-25 ity of postproced postproced 00:00: Zachary padilla ural ural 00 [facility] Branch Other Other Disease Active Univers intra-abdo intra-abdo 8-25 it y of barbie and barbie and 00:[place] pelvic pelvic 00 Medical swelling, swelling, Bran ch mass and mass and lump lump Abdominal Abdominal Disease Active Uni vers or pelvic or pelvic 02-03 ity of swelling, swelling, 00:00[place] mass, or mass, or 00 lump, lump, Anderso other other n specified specified [facility] er site; site; Center multiple multiple sites sites Family Family Disease Active Overview: Univer s history of history of 02-03 Formattin ity of malignant malignant 00:00: [place] of this [place] neoplasm neoplasm note MD of breast of breast might be An derso different n from the Cancer original. Center Added automatic ally from request for surgery [id number] Mammograph Mammograph Disease Active Overview : Univers y abnormal y abnormal 02-03 Formattin ity of 00:00: g of this note MD might be Anderso different n from the Cancer original. Center Added automatic ally from request for surgery [id number] H/O: major H/O: major Disease Active U nivers abdominal abdominal 02-03 ity of surgery surgery 00:00: 00 MD [facility] Chronic Chronic Disease Active Univers obstructiv obstructiv 02-02 it y of e e 00:00: [place] pulmonary pulmonary 00 disease disease [facility] Crohn's Crohn's Disease Active Univers disease disease 02-02 ity of 00:00: MD [facility] Depressive Depressive Disease Active U nivers disorder disorder 02-02 ity of 00:00: MD [facility] Gastroesop Gastroesop Disease Active U nivers hageal hageal 02-02 ity of reflux reflux 00:00: [place] disease disease 00 MD [facility] 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 01-18 ity of 00:00: Medical Branch Vaginal Vaginal Disease Active 2019-06 Univers dryness dryness 06-13 ity of 00:00: Medical Branch Vaginal Vaginal Disease Active 2019-06 Univers discharge discharge 06-13 ity of 00:00: Medical Branch Dry eyes Dry eyes Disease Active Unive rs ity of [facility] Allergies Allergies Disease Active Uni vers ity of [facility] Insomnia Insomnia Disease Active Unive rs ity of [facility] Excessive Excessive Disease Active Uni vers gas gas ity of [facility] Panic Panic Disease Active Univers attacks attacks ity of [facility] Incontinen Incontinen Disease Active U nivers ce ce ity of [facility] Bipolar Bipolar Disease Active Univers disease, disease, ity of chronic chronic [facility] Tremors of Tremors of Disease Active U nivers nervous nervous ity of system system [facility] Sinus Sinus Disease Active Univers disease disease ity of [facility] Second Second Disease Active Overview: Univer s hand smoke hand smoke Formattin ity of exposure exposure g of this [place] as note Medical might be Branch different from the original. 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 Vaginal Vaginal Disease Active Univers atrophy atrophy ity of [place] [facility] Allergies, Adverse Reactions, Alerts Allergy Allergy Status Severity Reaction(s) Onset Inactive Treating Comm ents Source Name Type Date Date Clinician NO KNOWN Drug Active Univers ALLERGIE Class ity of [facility] Family History Family Member Diagnosis Comments Start Date Stop Date Source Natural father Skin cancer [facility] [place] Maternal aunt Breast cancer Universi ty of [facility] Maternal grandmother Breast cancer U niversity of [facility] Paternal aunt Breast cancer Universi ty of [facility] Natural sister Breast cancer Univers ity of [facility] Social History Social Habit Start Date Stop Date Quantity Comments [facility] Alcohol Std Drinks [facility] Alcohol Binge History [facility] Health Alcohol Comment Exposure to 2022-06-12 2022-06-22 Not sure [facility] SARS-CoV-2 00:00:00 13:58:00 [place] [facility] (event) Branch History SDOH 2021-10-06 2021-10-06 1 [facility] Alcohol Frequency 00:00:00 00:00:00 Alcohol intake 2021-10-01 2021-10-01 Ex-drinker University 00:00:00 00:00:00 (finding) [facility] Education 2021-02-09 2021-02-09 13 University of 00:00:00 00:00:00 [facility] Tobacco Comment 2021-02-03 2021-02-03 Second hand smoke Un iversity of 00:00:00 00:00:00 [facility] Tobacco use and 2021-02-03 2021-02-03 Smokeless tobacco Un iversity of exposure 00:00:00 00:00:00 non-user [facility] Sex [facility] At [birth year] [facility] 00:00:[facility] 00:00:00 Smoking Status Start Date Stop Date Source Never smoked tobacco [facility] Medications Ordered Filled Start Stop Current Ordering Indication Dosage Frequency Signature Comments Components Source Medication Medication Date Date Medication? Clinician (SIG) Name Name fluticasone Yes USE ONE Uni vers propionate 1-11 SPRAY(S) ity o f 50 14:30: IN EACH [place] mcg/actuati 55 NOSTRIL Medic al on nasal TWICE Branch spray DAILY Mometasone- Yes 2 puffs Uni vers Formoterol 1-11 ity of (DULERA) 14:30: [place] [facility] Medical mcg/actuati Branch on inhaler montelukast Yes 1 tablet Un nikhil 10 mg 1-11 ity of tablet 14:30: [address] Branch oxybutynin Yes 1 tablet Uni vers 10 mg 24 hr 1-11 ity of tablet 14:30: [address] Branch propranoloL Yes 1 capsule U nivers 60 mg 24 hr 1-11 ity of capsule 14:30: [address] simvastatin Yes 1 tablet Un nikhil 20 mg 1-11 in the ity of tablet 14:30: evening [place] [address] Medical Branch fluticasone Yes USE ONE Uni vers propionate 1-11 SPRAY(S) ity o f 50 14:30: IN EACH [place] mcg/actuati 55 NOSTRIL Medic al on nasal TWICE Branch spray DAILY Mometasone- Yes 2 puffs Uni vers Formoterol 1-11 ity of (DULERA) 14:30: [place] 5 55 Medical mcg/actuati Branch on inhaler montelukast 0 Yes 1 tablet Un nikhil 10 mg 1-11 ity of tablet 14:30: [address] Branch oxybutynin 2023-0 Yes 1 tablet Uni vers 10 mg 24 hr 1-11 ity of tablet 14:30: [address] propranoloL Yes 1 capsule U nivers 60 mg 24 hr 1-11 ity of capsule 14:30: [address] simvastatin Yes 1 tablet Un nikhil 20 mg 1-11 in the ity of tablet 14:30: evening [address] nystatin 0 Yes [id number] Take 5 mL Univers 100,000 1-11 by mouth 4 ity of unit/mL 00:00: (four) [place] suspension 00 times Medical daily. Branch Retain in mouth as long as possible to treat thrush nystatin Yes [id number] Take 5 mL Univers 100,000 1-11 by mouth 4 ity of unit/mL 00:00: (four) [place] suspension 00 times Medical daily. Branch Retain in mouth as long as possible to treat thrush fluticasone 2021-06 Yes USE ONE Uni vers propionate 2-23 SPRAY(S) ity o f 50 13:26: IN EACH [facility] [place] [facility] [address] NOSTRIL Medic al on nasal TWICE Branch spray DAILY Mometasone- 2021-06 Yes 2 puffs Uni vers Formoterol 2-23 ity of (DULERA) 13:26: [place] 100-[address] [place] [address]/actuati Branch on inhaler montelukast 2021-06 Yes 1 tablet Un nikhil (SINGULAIR) 2-23 ity of 10 mg 13:26: [address] oxybutynin 2021-06 Yes 1 tablet Uni vers 10 mg 24 hr 2-23 ity of tablet 13:26: [address] propranoloL 2021-06 Yes 1 capsule U nivers 60 mg 24 hr 2-23 ity of capsule 13:26: [address] simvastatin 2021-06 Yes 1 tablet Un nikhil 20 mg 2-23 in the ity of tablet 13:26: evening [address] triamcinolo 2021-06 Yes [id number] by Dental Univers ne 08-04 route 2 ity of acetonide 00:00: (two) [place] 0.1 % 00 times Medical dental daily. Branch paste triamcinolo 2021-06 Yes [id number] by Dental Univers ne 08-04 route 2 ity of acetonide 00:00: (two) [place] 0.1 % 00 times Medical dental daily. Branch paste triamcinolo 2021-06 Yes [id number] by Dental [place] [facility] ne 08-04 route 2 ity of acetonide 00:00: (two) [place] 0.1 % 00 times Medical dental daily. Branch paste aspirin 81 2021-06 Yes 81mg Chew 1 Unive rs mg chewable 2-14 tablet ity of tablet 13:30: [facility]. [facility] Bifidobacte 2021-06 Yes Sadiq alonzo rium 2-14 ity of infantis 13:30: [place] (ALIGN ORAL) [facility] clonazePAM 2021-06 Yes 1mg Dissolve 1 U nivers (KlonoPIN) 2-14 tablet on ity of 1 mg 13:30: the tongue [place] disintegrat 26 daily as ing tablet needed. [facility] cycloSPORIN 2021-06 Yes 1[drp] Administer Univers E 2-14 1 drop to ity of (Restasis) 13:30: [place] eyes [place] 0.05% 26 daily. ophthalmic [facility] KRILL-OMEGA 2021-06 Yes [facility] -[facility]-EPA- 2-14 ity of LIPIDS ORAL [facility]: [facility] simethicone 2021-06 Yes Sadiq alonzo (MYLICON,GA 2-14 ity of S-X) 180 mg 13:30: [facility] LAMOTRIGINE 2021-06 Yes 50mg Take 50 mg Univers ORAL 2-14 by mouth ity of 13:30: at [place] [address] [facility]time. [facility] dexlansopra 2021-06- No 60mg Take 60 mg Univers zole 2-14 12-14 by mouth ity of (DEXILANT) 13:30: 00:00 daily. [place] cheri 60 mg 26 :00 capsule [facility] gabapentin 2021-06 Yes Univers 100 mg 0-30 ity of capsule 00:00: [place] [facility] gabapentin 2021-06 Yes Univers 100 mg 0-30 ity of capsule 00:00: [place] [facility] gabapentin 2021-06 Yes Univers 100 mg 0-30 ity of capsule 00:00: [place] 00 Medical Branch triamcinolo 2021-06 Yes [id number] Apply to Univers ne 0-28 area(s) 2 ity of acetonide 00:00: (two) [place] 0.1 % cream 00 times Medical daily. Branch lidocaine 2021-06 Yes [id number] 1mL Apply 0.5 Univers % mucosal 0-28 Inches to ity o f jelly 00:00: area(s) 2 [place] 00 (two) Medical times Branch daily as needed for Pain (scale 4-6). triamcinolo 2021-06 Yes [id number] Apply to Univers ne 0-28 area(s) 2 ity of acetonide 00:00: (two) [place] 0.1 % cream 00 times Medical daily. Branch lidocaine 2021-06 Yes [id number] 1mL Apply 0.5 Univers % mucosal 0-28 Inches to ity o f jelly 00:00: area(s) 2 [place] 00 (two) Medical times Branch daily as needed for Pain (scale 4-6). triamcinolo 2021-06 Yes [id number] Apply to Univers ne 0-28 area(s) 2 ity of acetonide 00:00: (two) [place] 0.1 % cream 00 times Medical daily. Branch lidocaine 2021-06 Yes [id number] 1mL Apply 0.5 Univers % mucosal 0-28 Inches to ity o f jelly 00:00: area(s) 2 [place] 00 (two) Medical times Branch daily as needed for Pain (scale 4-6). triamcinolo 2021-06 Yes [id number] Apply to Univers ne 0-28 area(s) 2 ity of acetonide 00:00: (two) [place] 0.1 % cream 00 times Medical daily. Branch lidocaine 2021-06 Yes [id number] 1mL Apply 0.5 Univers % mucosal 0-28 Inches to ity o f jelly 00:00: area(s) 2 [place] 00 (two) Medical times Branch daily as needed for Pain (scale 4-6). triamcinolo 2021-06 Yes [id number] Apply to Univers ne 0-28 area(s) 2 ity of acetonide 00:00: (two) [place] 0.1 % cream 00 times Medical daily. Branch lidocaine 2021-06 Yes [id number] 1mL Apply 0.5 Univers % mucosal 0-28 Inches to ity o f jelly 00:00: area(s) 2 [place] 00 (two) Medical times Branch daily as needed for Pain (scale 4-6). triamcinolo 2021-06 Yes [id number] Apply to Univers ne 0-28 area(s) 2 ity of acetonide 00:00: (two) [place] 0.1 % cream 00 times Medical daily. Branch lidocaine 2 2021-06 Yes [id number] 1mL Apply 0.5 Univers % mucosal 0-28 Inches to ity o f jelly 00:00: area(s) 2 [place] 00 (two) Medical times Branch daily as needed for Pain (scale 4-6). solifenacin 2021-06 Yes [id number] 10mg Take 1 Univers 10 mg 0-27 tablet by ity of tablet 00:00: mouth in [place] 00 the Medical morning. Branch solifenacin 2021-06 Yes [id number] 10mg Take 1 Univers 10 mg 0-27 tablet by ity of tablet 00:00: mouth in [place] the Medical morning. Branch solifenacin 2021-06 Yes [id number] 10mg Take 1 Univers 10 mg 0-27 tablet by ity of tablet 00:00: mouth in [place] the Medical morning. Branch solifenacin 2021-06 Yes [id number] 10mg Take 1 Univers 10 mg 0-27 tablet by ity of tablet 00:00: mouth in [place] 00 the Medical morning. Branch solifenacin 2021-06 Yes [id number] 10mg Take 1 Univers 10 mg 0-27 tablet by ity of tablet 00:00: mouth in [place] 00 the Medical morning. Branch solifenacin 2021-06 Yes [id number] 10mg Take 1 Univers 10 mg 0-27 tablet by ity of tablet 00:00: mouth in [place] 00 the Medical morning. Branch solifenacin 2021-06 Yes [id number] 10mg Take 1 Univers 10 mg 0-27 tablet by ity of tablet 00:00: mouth in [place] 00 the Medical morning. [place] Nitrofurant 2021-06- No [id number] 100mg Take 1 Univers oin&Nit. 0-26 11-03 capsule by ity of Mac[place] 00:00: 04:59 [place] (MACROBID) 00 :00 the Medical 100 mg morning Branch capsule and 1 capsule in the evening. Do all this for 7 days. Nitrofurant 2021-06- No [id number] 100mg Take 1 Univers oin&Nit. 0-26 11-03 capsule by ity of Macrocryst 00:00: 04:59 [place] (MACROBID) 00 :00 the Medical 100 mg morning Branch capsule and 1 capsule in the evening. Do all this for 7 days. Nitrofurant 2021-06- No [id number] 100mg Take 1 Univers oin&Nit. 0-26 11-03 capsule by ity of Macrocryst 00:00: 04:59 [place] in [place] (MACROBID) 00 :00 the Medical 100 mg morning Branch capsule and 1 capsule in the evening. Do all this for 7 days. Nitrofurant 2021-06- No [id number] 100mg Take 1 Univers oin&Nit. 0-26 11-03 capsule by ity of Macrocryst 00:00: 04:59 [place] in [place] (MACROBID) 00 :00 the Medical 100 mg morning Branch capsule and 1 capsule in the evening. Do all this for 7 days. Nitrofurant 2021-06- No [id number] 100mg Take 1 Univers oin&Nit. 0-26 11-03 capsule by ity of Macroc[place] 00:00: 04:59 [place] in [place] (MACROBID) 00 :00 the Medical 100 mg morning Branch capsule and 1 capsule in the evening. Do all this for 7 days. sucralfate 2021-06 Yes Univers 1 gram 0-20 ity of tablet 00:00: [place] [facility] sucralfate 2021-06 Yes Univers 1 gram 0-20 ity of tablet 00:00: [place] [facility] sucralfate 2021-06 Yes Univers 1 gram 0-20 ity of tablet 00:00: [place] [facility] lamoTRIgine Yes 1{tbl} 1 tablet. UT (LaMICtal) [...] Fluticasone Yes 1{spray Inhale 1 UT Furoate 427 } spray. Health (Arnuity 11:03: Ellipta) 50 44 MCG/ACT aerosol powder Krill Oil Yes 1{capsu QD Take 1 [place] 350 MG 4-27 le} capsule by Health capsule 11:03: mouth 1 44 (one) time each day. buPROPion Yes [place] (Wellbutrin 4-26 Health ) 100 MG 00:00: tablet 00 buPROPion 0 Yes [place] (Wellbutrin 4-26 Health ) 100 MG 00:00: tablet 00 antiox.mv Yes 1{capsu Take 1 Uni vers no.10-omeg3 - le} capsule by it y of s-lut-mani 14:46: mouth [place] (I-Caps) 14 daily. 280-10-2 mg Kaela harrell [facility] cycloSPORIN Yes 1[drp] Administer Univers E -22 1 drop to ity of (Restasis) 14:46: [place] eyes [place] 0.05% 14 daily. ophthalmic Kaela emulsion [facility] KRILL-OMEGA Yes [facility] s -3-DHA-EPA- -22 ity of LIPIDS ORAL 14:46: [place] 14 MD Kaela lópez [facility] simethicone Yes [facility] s (Phazyme) 4-22 ity of 180 mg 14:46: [place] capsule 14 MD Kaela lópez [facility] lamoTRIgine Yes 50mg Take 50 mg Univers (LaMICtal) 4-22 by mouth ity o f 100 mg 14:46: at [place] tablet 14 bedtime. MD Kaela lópez [facility] dexlansopra Yes 60mg Take 60 mg Univers zole 4-22 by mouth ity of (DEXILANT) 14:46: daily. [place] 60 mg 14 MD capsule [facility] antiox.mv Yes 1{capsu Take 1 Uni vers no.10-omeg3 4-22 le} capsule by it y of s-lut-mani 14:46: mouth [place] (I-Caps) 14 daily. 280-10-2 mg [facility] aspirin 81 Yes 1{tbl} Chew 1 Uni vers mg chewable 4-22 tablet ity of tablet 14:46: daily. [place] 14 [facility] Bifidobacte Yes [facility] s rium 4-22 ity of infantis 14:46: [place] (ALIGN 14 ORAL) [facility] clonazePAM Yes 1{tbl} Dissolve 1 Univers (KlonoPIN) 4-22 tablet on ity of 1 mg 14:46: the tongue [place] disintegrat 14 daily as MD ing tablet needed. [facility] cycloSPORIN Yes 1[drp] Administer Univers E 4-22 1 drop to ity of (Restasis) 14:46: [place] eyes [place] 0.05% 14 daily. ophthalmic [facility] KRILL-OMEGA Yes [facility] s -3-DHA-EPA- 4-22 ity of LIPIDS ORAL 14:46: [place] 14 [facility] simethicone Yes [facility] s (Phazyme) 4-22 ity of 180 mg 14:46: [place] capsule 14 [facility] lamoTRIgine Yes 50mg Take 50 mg Univers (LaMICtal) 4-22 by mouth ity o f 100 mg 14:46: at [place] tablet 14 bedtime. [facility] dexlansopra Yes 60mg Take 60 mg Univers zole 4-22 by mouth ity of (DEXILANT) 14:46: daily. [place] 60 mg 14 MD capsule [facility] antiox.mv Yes 1{capsu Take 1 Uni vers no.10-omeg3 4-22 le} capsule by it y of s-lut-mani 14:46: mouth [place] (I-Caps) 14 daily. 280-10-2 mg Kaela harrell [facility] aspirin 81 Yes 1{tbl} Chew 1 Uni vers mg chewable 4-22 tablet ity of tablet 14:46: daily. [place] 14 MD Kaela lópez [facility] Bifidobacte Yes Univer s rium - ity of infantis 14:46: [place] (ALIGN 14 ORAL) [facility] clonazePAM Yes 1{tbl} Dissolve 1 Univers (KlonoPIN) 4-22 tablet on ity of 1 mg 14:46: the tongue [place] disintegrat 14 daily as ing tablet needed. [facility] loratadine 2021- No Univer s 10 mg cap 10-01- ity of 14:46: 00:00 [place] 14 :00 MD Kaela lópez [facility] loratadine 2021- No Univer s 10 mg cap 10-01 ity of 14:46: 00:00 [place] 14 :00 MD [place] [facility] loratadine 2021- No Univer s 10 mg cap 10-01 ity of 14:46: 00:00 [place] 14 :00 [facility] pantoprazol Yes UT e 4-19 Health (ProtoNix) 00:00: 40 MG EC 00 tablet pantoprazol 0 Yes UT e 4-19 Health (ProtoNix) 00:00: 40 MG EC 00 tablet latanoprost Yes daily. Univ ers (XALATAN) 3-24 ity of 0.005% 00:00: [place] ophthalmic 00 solution [facility] latanoprost Yes daily. Univ ers (XALATAN) 3-24 ity of 0.005% 00:00: [place] ophthalmic 00 solution [facility] latanoprost 0 Yes daily. Univ ers (XALATAN) 3-24 ity of 0.005% 00:00: [place] ophthalmic 00 MD [facility] zoledronic 2021- No [id number] 5mg 5 mg, IV Univers acid 08-26 Piggyback, ity of (RECLAST) 5 16:25: 18:45 at 200 [place] as mg/100 mL 00 :00 mL/hr Medical IV solution Administer Br anch 5 mg over 30 Minutes, ONCE, 1 dose, On Jeanine 08/26/21 at 1130, Routine
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 Branch antiox.mv Yes 1{capsu Take 1 Uni vers no.10-omeg3 1-10 le} capsule by it y of s-lut-mani 15:44: mouth [place] (I-CAPS) 12 daily. Medical 280-10-2 mg Branch Cap cycloSPORIN 0 Yes 1[drp] Place 1 U nivers E 1-10 Drop in ity of (RESTASIS[place] 15:44: [place] 0.05 % 12 Medical drops Branch clonazePAM 0 Yes 1mg Take 1 mg Un nikhil 1 mg tablet 1-10 by mouth 2 it y of 15:44: (two) [place] 12 times Medical daily. Branch antiox.mv 0 Yes 1{capsu Take 1 Uni vers no.10-[id number] 1-10 le} capsule by it y of s-lut-mani 15:44: mouth [place] (I-CAPS) 12 daily. Medical 280-10-2 mg Branch Cap cycloSPORIN 0 Yes 1[drp] Place 1 U nivers E [...] Take 1 [facility] carbonate-v 1-[address] [facility] itamin D 00:00: mouth 1 600-400 00 (one) time MG-UNIT each day. tablet calcium 2021-0 Yes 1{tbl} QD Take 1 [facility] carbonate-v 1-10 tablet [address] [facility] itamin D 00:00: mouth 1 600-400 00 (one) time MG-UNIT each day. tablet Calcium-Cho 2021-0 Yes [id number] 1{tbl} Take 1 [facility] lecalcifero 1-10 tablet by ity of l, D3, 00:00: mouth [place] (CALCIUM 00 daily. Medical WITH Branch VITAMIN D) 600 mg(1,500mg) -400 unit tablet Calcium-Cho 0 Yes [id number] 1{tbl} Take 1 [facility] lecalcifero 1-10 tablet by ity of l, D3, 00:00: mouth [place] (CALCIUM 00 daily. Medical WITH Branch VITAMIN D) 600 mg(1,500mg) -400 unit tablet Calcium-Cho 2021-0 Yes [id number] 1{tbl} Take 1 [facility] lecalcifero 1-10 tablet by ity of l, D3, 00:00: mouth [place] (CALCIUM 00 daily. Medical WITH Branch VITAMIN D) 600 mg(1,500mg) -400 unit tablet Calcium-Cho 2021-0 Yes [id number] 1{tbl} Take 1 [facility] lecalcifero 1-10 tablet by ity of l, D3, 00:00: mouth [place] (CALCIUM 00 daily. Medical WITH Branch VITAMIN D) 600 mg(1,500mg) -400 unit tablet Calcium-Cho 2021-0 Yes [id number] 1{tbl} Take 1 [facility] lecalcifero 1-10 tablet by ity of l, D3, 00:00: mouth [place] (CALCIUM 00 daily. Medical WITH Branch VITAMIN D) 600 mg(1,500mg) -400 unit tablet Calcium-Cho 2021-0 Yes [id number] 1{tbl} Take 1 [facility] lecalcifero 1-10 tablet by ity of l, D3, 00:00: mouth [place] (CALCIUM 00 daily. Medical WITH Branch VITAMIN D) 600 mg(1,500mg) -400 unit tablet Calcium-Cho 2021-0 Yes [id number] 1{tbl} Take 1 [facility] lecalcifero 1-10 tablet by ity of l, D3, 00:00: mouth [place] (CALCIUM 00 daily. Medical WITH Branch VITAMIN D) 600 mg(1,500mg) -400 unit tablet Calcium-Cho 2021-0 Yes [id number] 1{tbl} Take 1 [facility] lecalcifero 1-10 tablet by ity of l, D3, 00:00: mouth [place] (CALCIUM 00 daily. Medical WITH Branch VITAMIN D) 600 mg(1,500mg) -400 unit tablet Calcium-Cho 2021-0 Yes [id number] 1{tbl} Take 1 [facility] lecalcifero 1-10 tablet by ity of l, D3, 00:00: mouth [place] (CALCIUM 00 daily. Medical WITH Branch VITAMIN D) 600 mg(1,500mg) -400 unit tablet Calcium-Cho 2021-0 Yes [id number] 1{tbl} Take 1 [facility] lecalcifero 1-10 tablet by ity of l, D3, 00:00: mouth [place] (CALCIUM 00 daily. Medical WITH Branch VITAMIN D) 600 mg(1,500mg) -400 unit tablet Calcium-Cho 2021-0 Yes [id number] 1{tbl} Take 1 [facility] lecalcifero 1-10 tablet by ity of l, D3, 00:00: mouth [place] (CALCIUM 00 daily. Medical WITH Branch VITAMIN D) 600 mg(1,500mg) -400 unit tablet Calcium-Cho 2021-0 Yes [id number] 1{tbl} Take 1 [facility] lecalcifero 1-10 tablet by ity of l, D3, 00:00: mouth [place] (CALCIUM 00 daily. Medical WITH Branch VITAMIN D) 600 mg(1,500mg) -400 unit tablet Calcium-Cho 2021-0 Yes [id number] 1{tbl} Take 1 [facility] lecalcifero 1-10 tablet by ity of l, D3, 00:00: mouth [place] (CALCIUM 00 daily. Medical WITH Branch VITAMIN D) 600 mg(1,500mg) -400 unit tablet Calcium-Cho 2021-0 Yes [id number] 1{tbl} Take 1 [facility] lecalcifero 1-10 tablet by ity of l, D3, 00:00: mouth [place] (CALCIUM 00 daily. Medical WITH Branch VITAMIN D) 600 mg(1,500mg) -400 unit tablet Calcium-Cho 2021-0 Yes [id number] 1{tbl} Take 1 [facility] lecalcifero 1-10 tablet by ity of l, D3, 00:00: mouth [place] (CALCIUM 00 daily. Medical WITH Branch VITAMIN D) 600 mg(1,500mg) -400 unit tablet latanoprost Yes Univer s 0.005 % 1-06 ity of ophthalmic 00:00: [place] drops Medical Branch latanoprost 0 Yes Univer s 0.005 % 1-06 ity of ophthalmic 00:00: [place] drops Medical Branch latanoprost 0 Yes Univer s 0.005 % 1-06 ity of ophthalmic 00:00: [place] drops Medical Branch latanoprost 0 Yes Univer s 0.005 % 1-06 ity of ophthalmic 00:00: [place] drops Medical Branch latanoprost 0 Yes Univer s 0.005 % 1-06 ity of ophthalmic 00:00: [place] drops Medical Branch latanoprost 0 Yes Univer s 0.005 % 1-06 ity of ophthalmic 00:00: [place] drops Medical Branch latanoprost 0 Yes Univer s 0.005 % 1-06 ity of ophthalmic 00:00: [place] drops Medical Branch latanoprost 0 Yes Univer s 0.005 % 1-06 ity of ophthalmic 00:00: [place] drops Medical Branch latanoprost 0 Yes Univer s 0.005 % 1-06 ity of ophthalmic 00:00: [place] drops Medical Branch latanoprost 0 Yes Univer s 0.005 % 1-06 ity of ophthalmic 00:00: [place] drops Medical Branch latanoprost 0 Yes Univer s 0.005 % 1-06 ity of ophthalmic 00:00: [place] drops 00 Medical Branch latanoprost 0 Yes Univer s 0.005 % 1-06 ity of ophthalmic 00:00: [place] drops 00 Medical Branch latanoprost 0 Yes Univer s 0.005 % 1-06 ity of ophthalmic 00:00: [place] drops 00 Medical Branch latanoprost 0 Yes Univer s 0.005 % 1-06 ity of ophthalmic 00:00: [place] drops Medical Branch latanoprost 2022-0 Yes Univer s 0.005 % 1-06 ity [...] % 00:00: ointment 00 clobetasoL 2020-06 Yes [id number] Apply to Univers 0.05 % 1-16 area(s) at ity of ointment 00:00: bedtime. [place] Apply to Medical the vulva Branch every night for 4 weeks, then every other night for 4 weeks, then 3 times per week for 4 weeks clobetasoL 2020-06 Yes [id number] Apply to Univers 0.05 % 1-16 area(s) at ity of ointment 00:00: bedtime. [place] 00 Apply to Medical the vulva Branch every night for 4 weeks, then every other night for 4 weeks, then 3 times per week for 4 weeks clobetasoL 2020-06 Yes [id number] Apply to Univers 0.05 % 1-16 area(s) at ity of ointment 00:00: bedtime. [place] Apply to Medical the vulva Branch every night for 4 weeks, then every other night for 4 weeks, then 3 times per week for 4 weeks clobetasoL 2020-06 Yes [id number] Apply to Univers 0.05 % 1-16 area(s) at ity of ointment 00:00: bedtime. [place] Apply to Medical the vulva Branch every night for 4 weeks, then every other night for 4 weeks, then 3 times per week for 4 weeks clobetasoL 2020-06 Yes [id number] Apply to Univers 0.05 % 1-16 area(s) at ity of ointment 00:00: bedtime. [place] 00 Apply to Medical the vulva Branch every night for 4 weeks, then every other night for 4 weeks, then 3 times per week for 4 weeks clobetasoL 2020-06 Yes [id number] Apply to Univers 0.05 % 1-16 area(s) at ity of ointment 00:00: bedtime. 00 Apply to Medical the vulva Branch every night for 4 weeks, then every other night for 4 weeks, then 3 times per week for 4 weeks clobetasoL 2020-06 Yes [id number] Apply to Univers 0.05 % 1-16 area(s) at ity of ointment 00:00: bedtime. 00 Apply to Medical the vulva Branch every night for 4 weeks, then every other night for 4 weeks, then 3 times per week for 4 weeks clobetasoL 2020-06 Yes [id number] Apply to Univers 0.05 % 1-16 area(s) at ity of ointment 00:00: bedtime. [place] 00 Apply to Medical the vulva Branch every night for 4 weeks, then every other night for 4 weeks, then 3 times per week for 4 weeks clobetasoL 2020-06 Yes [id number] Apply to Univers 0.05 % 1-16 area(s) at ity of ointment 00:00: bedtime. [place] 00 Apply to Medical the vulva Branch every night for 4 weeks, then every other night for 4 weeks, then 3 times per week for 4 weeks clobetasoL 2020-06 Yes [id number] Apply to Univers 0.05 % 1-16 area(s) at ity of ointment 00:00: bedtime. [place] 00 Apply to Medical the vulva Branch every night for 4 weeks, then every other night for 4 weeks, then 3 times per week for 4 weeks clobetasoL 2020-06 Yes [id number] Apply to Univers 0.05 % 1-16 area(s) at ity of ointment 00:00: bedtime. [place] 00 Apply to Medical the vulva Branch every night for 4 weeks, then every other night for 4 weeks, then 3 times per week for 4 weeks clobetasoL 2020-06 Yes [id number] Apply to Univers 0.05 % 1-16 area(s) at ity of ointment 00:00: bedtime. [place] 00 Apply to Medical the vulva Branch every night for 4 weeks, then every other night for 4 weeks, then 3 times per week for 4 weeks clobetasoL 2020-06 Yes [id number] Apply to Univers 0.05 % 1-16 area(s) at ity of ointment 00:00: bedtime. [place] 00 Apply to Medical the vulva Branch every night for 4 weeks, then every other night for 4 weeks, then 3 times per week for 4 weeks clobetasoL 2020-06 Yes [id number] Apply to Univers 0.05 % 1-16 area(s) at ity of ointment 00:00: bedtime. [place] 00 Apply to Medical the vulva Branch every night for 4 weeks, then every other night for 4 weeks, then 3 times per week for 4 weeks clobetasoL 2020-06 Yes [id number] Apply to Univers 0.05 % 1-16 area(s) at ity of ointment 00:00: bedtime. [place] 00 Apply to Medical the vulva Branch [...] MG tablet 00:00: 00 famotidine 2020-06 Yes [id number] 20mg Take 1 Univers (PEPCID) 20 1-04 tablet by ity of mg tablet 00:00: mouth 2 [place] (two) Medical times Branch daily. famotidine 2020-06 Yes [id number] 20mg Take 1 Univers (PEPCID) 20 1-04 tablet by ity of mg tablet 00:00: mouth 2 [place] (two) Medical times Branch daily. famotidine 2020-06 Yes [id number] 20mg Take 1 Univers (PEPCID) 20 1-04 tablet by ity of mg tablet 00:00: mouth 2 [place] (two) Medical times Branch daily. famotidine 2020-06 Yes [id number] 20mg Take 1 Univers (PEPCID) 20 1-04 tablet by ity of mg tablet 00:00: mouth (two) Medical times Branch daily. famotidine 2020-06 Yes [id number] 20mg Take 1 Univers (PEPCID) 20 1-04 tablet by ity of mg tablet 00:00: mouth 2 (two) Medical times Branch daily. famotidine 2020-06 Yes [id number] 20mg Take 1 Univers (PEPCID) 20 1-04 tablet by ity of mg tablet 00:00: mouth (two) Medical times Branch daily. famotidine 2020-06 Yes [id number] 20mg Take 1 Univers (PEPCID) 20 1-04 tablet by ity of mg tablet 00:00: mouth (two) Medical times Branch daily. famotidine 2020-06 Yes [id number] 20mg Take 1 Univers (PEPCID) 20 1-04 tablet by ity of mg tablet 00:00: mouth (two) Medical times Branch daily. famotidine 2020-06 Yes [id number] 20mg Take 1 Univers (PEPCID) 20 1-04 tablet by ity of mg tablet 00:00: mouth (two) Medical times Branch daily. famotidine 2020-06 Yes [id number] 20mg Take 1 Univers (PEPCID) 20 1-04 tablet by ity of mg tablet 00:00: mouth (two) Medical times Branch daily. famotidine 2020-06 Yes [id number] 20mg Take 1 Univers (PEPCID) 20 1-04 tablet by ity of mg tablet 00:00: mouth (two) Medical times Branch daily. famotidine 2020-06 Yes [id number] 20mg Take 1 Univers (PEPCID) 20 1-04 tablet by ity of mg tablet 00:00: mouth (two) Medical times Branch daily. famotidine 2020-06 Yes [id number] 20mg Take 1 Univers (PEPCID) 20 1-04 tablet by ity of mg tablet 00:00: mouth (two) Medical times Branch daily. famotidine 2020-06 Yes [id number] 20mg Take 1 Univers (PEPCID) 20 1-04 tablet by ity of mg tablet 00:00: mouth 2 (two) Medical times Branch daily. famotidine 2020-06 Yes [id number] 20mg Take 1 Univers (PEPCID) 20 1-04 tablet by ity of mg tablet 00:00: mouth 2 (two) Medical times Branch daily. ibuprofen Yes Abdominal 800mg Take 1 Univers (ADVIL,MOTR 907 or pelvic tablet i ty of [place]) 800 mg 00:00: swelling, (800 mg) [place] tablet 00 mass, or by mouth MD lump, other every 8 [place] so specified (eight) n site; hours as Cancer multiple needed for Cente r sites moderate pain. ibuprofen Yes Abdominal 800mg Take 1 Univers (ADVIL,MOTR 9 or pelvic tablet i ty of [place]) [...] on. Cancer multiple Center sites ibuprofen Yes Abdominal 800mg Take 1 Univers (ADVIL,MOTR 02-16 or pelvic tablet i ty of [place]) 800 mg 00:00: swelling, (800 mg) [place] tablet 00 mass, or by mouth MD lump, other every 8 [place] so specified (eight) n site; hours as Cancer multiple needed for Cente r sites moderate pain. senna Yes Abdominal 1{tbl} Take 1 Uni vers (Senna Lax) 9 or pelvic tablet by ity of 8.6 mg 00:00: swelling, mouth [place] tablet 00 mass, or daily as MD lump, other needed for An derso specified constipati n site; on. Cancer multiple Center sites ibuprofen Yes Univers 800 mg 07 ity of tablet 00:00: Medical Branch sennosides 2021-0 Yes 1{tbl} Take 1 Uni vers 8.6 mg 9-07 tablet by ity of tablet 00:00: mouth. [place] Medical Branch ibuprofen 2020-0 Yes Univers 800 mg 9-07 ity of tablet 00:00: Medical Branch sennosides 2020-0 Yes 1{tbl} Take 1 Uni vers 8.6 mg 9-07 tablet by ity of tablet 00:00: mouth. [place] Medical [place] ibuprofen 2020-0 Yes Univers 800 mg 9-07 ity of tablet 00:00: Medical Branch sennosides 2020-0 Yes 1{tbl} Take 1 Uni vers 8.6 mg 9-07 tablet by ity of tablet 00:00: mouth. [place] [facility] Branch ibuprofen 2020-0 Yes Univers 800 mg 9-07 ity of tablet 00:00: Medical Branch sennosides 2020-0 Yes 1{tbl} Take 1 Uni vers 8.6 mg 9-07 tablet by ity of tablet 00:00: mouth. [place] Medical [place] ibuprofen 2020-0 Yes Univers 800 mg 9-07 ity of tablet 00:00: Medical Branch sennosides 2020-0 Yes 1{tbl} Take 1 Uni vers 8.6 mg 9-07 tablet by ity of tablet 00:00: mouth. [place] [facility] ibuprofen 2020-0 Yes Univers 800 mg 9-07 ity of tablet 00:00: Medical Branch sennosides 2020-0 Yes 1{tbl} Take 1 Uni vers 8.6 mg 9-07 tablet by ity of tablet 00:00: mouth. [place] Medical [place] ibuprofen 2020-0 Yes Univers 800 mg 9-07 ity of tablet 00:00: Medical Branch sennosides 2020-0 Yes 1{tbl} Take 1 Uni vers 8.6 mg 9-07 tablet by ity of tablet 00:00: mouth. [place] Medical [place] ibuprofen 2020-0 Yes Univers 800 mg 9-07 ity of tablet 00:00: Medical Branch sennosides 2020-0 Yes 1{tbl} Take 1 Uni vers 8.6 mg 9-07 tablet by ity of tablet 00:00: mouth. [place] Medical [place] ibuprofen 2020-0 Yes Univers 800 mg 9-07 ity of tablet 00:00: [place] [facility] sennosides 0 Yes 1{tbl} Take 1 Uni vers 8.6 mg 9-07 tablet by ity of tablet 00:00: mouth. [place] [facility] ibuprofen 0 Yes Univers 800 mg 9-07 ity of tablet 00:00: [place] [facility] sennosides 0 Yes 1{tbl} Take 1 Uni vers 8.6 mg 9-07 tablet by ity of tablet 00:00: mouth. [place] [facility] ibuprofen 0 Yes Univers 800 mg 9-07 ity of tablet 00:00: [place] [facility] sennosides 0 Yes 1{tbl} Take 1 Uni vers 8.6 mg 9-07 tablet by ity of tablet 00:00: mouth. [place] [facility] ibuprofen 0 Yes Univers 800 mg 9-07 ity of tablet 00:00: [place] [facility] sennosides 0 Yes 1{tbl} Take 1 Uni vers 8.6 mg 9-07 tablet by ity of tablet 00:00: mouth. [place] [facility] ibuprofen 0 Yes Univers 800 mg 9-07 ity of tablet 00:00: [place] [facility] sennosides 0 Yes 1{tbl} Take 1 Uni vers 8.6 mg 9-07 tablet by ity of tablet 00:00: mouth. [place] [facility] ibuprofen 0 Yes Univers 800 mg 9-07 ity of tablet 00:00: [address] sennosides 0 Yes 1{tbl} Take 1 Uni vers 8.6 mg 9-07 tablet by ity of tablet 00:00: mouth. [place] [facility] ibuprofen 0 Yes Univers 800 mg 9-07 ity of tablet 00:00: [address] sennosides 0 Yes 1{tbl} Take 1 Uni vers 8.6 mg 9-07 tablet by ity of tablet 00:00: mouth. [address] senna 0 2- No Abdominal 1{tbl} Take 1 Un nikhil (Senna Lax) 02-16 12-16 or pelvic tablet by ity of 8.6 mg 00:00: 00:00 [place], [place] tablet [place] :00 mass, or daily as MD lump, other [...] CAPSULE BY ity of 00:00: MOUTH ONCE [place] 00 DAILY 30 Medical MINUTES Branch BEFORE EATING BREAKFAST DEXILANT 60 Yes TAKE 1 Univ ers mg capsule 9-03 CAPSULE BY ity of 00:00: MOUTH ONCE [place] 00 DAILY 30 Medical MINUTES Branch BEFORE EATING BREAKFAST DEXILANT 60 Yes TAKE 1 Univ ers mg capsule 9-03 CAPSULE BY ity of 00:00: MOUTH ONCE [place] 00 DAILY 30 Medical MINUTES Branch BEFORE EATING BREAKFAST DEXILANT 60 Yes TAKE 1 Univ ers mg capsule 9-03 CAPSULE BY ity of 00:00: MOUTH ONCE [place] 00 DAILY 30 Medical MINUTES Branch BEFORE EATING BREAKFAST DEXILANT 60 Yes TAKE 1 Univ ers mg capsule 9-03 CAPSULE BY ity of 00:00: MOUTH ONCE [place] 00 DAILY 30 Medical MINUTES Branch BEFORE EATING BREAKFAST DEXILANT 60 Yes TAKE 1 Univ ers mg capsule 9-03 CAPSULE BY ity of 00:00: MOUTH ONCE [place] 00 DAILY 30 Medical MINUTES Branch BEFORE EATING BREAKFAST DEXILANT 60 Yes TAKE 1 Univ ers mg capsule 9-03 CAPSULE BY ity of 00:00: MOUTH ONCE [place] 00 DAILY 30 Medical MINUTES Branch BEFORE EATING BREAKFAST DEXILANT 60 2021-0 Yes TAKE 1 Univ ers mg capsule 9-03 CAPSULE BY ity of 00:00: MOUTH ONCE DAILY 30 Medical MINUTES Branch BEFORE EATING BREAKFAST DEXILANT 60 2020-0 Yes TAKE 1 Univ ers mg capsule 9-03 CAPSULE BY ity of 00:00: MOUTH ONCE DAILY 30 Medical MINUTES Branch BEFORE EATING BREAKFAST DEXILANT 60 2020-0 Yes TAKE 1 Univ ers mg capsule 9-03 CAPSULE BY ity of 00:00: MOUTH ONCE DAILY 30 Medical MINUTES Branch BEFORE EATING BREAKFAST DEXILANT 60 2020-0 Yes TAKE 1 Univ ers mg capsule 9-03 CAPSULE BY ity of 00:00: MOUTH ONCE DAILY 30 Medical MINUTES Branch BEFORE EATING BREAKFAST DEXILANT 60 2020-0 Yes TAKE 1 Univ ers mg capsule 9-03 CAPSULE BY ity of 00:00: MOUTH ONCE [place] DAILY 30 Medical MINUTES Branch BEFORE EATING BREAKFAST DEXILANT 60 2020-0 Yes TAKE 1 Univ ers mg capsule 9-03 CAPSULE BY ity of 00:00: MOUTH ONCE [place] DAILY 30 Medical MINUTES Branch BEFORE EATING BREAKFAST DEXILANT 60 2020-0 Yes TAKE 1 Univ ers mg capsule 9-03 CAPSULE BY ity of 00:00: MOUTH ONCE [place] DAILY 30 Medical MINUTES Branch BEFORE EATING BREAKFAST DEXILANT 60 2020-0 Yes TAKE 1 Univ ers mg capsule 9-03 CAPSULE BY ity of 00:00: MOUTH ONCE [place] DAILY 30 Medical MINUTES Branch BEFORE EATING BREAKFAST mesalamine 0 Yes 2.4g Take 2.4 g U nivers 1.2 gram EC 8-17 by mouth 2 it y of tablet 00:00: (two) [place] 00 times Medical daily. Branch mesalamine Yes 2.4g Take 2.4 g U nivers 1.2 gram EC 8-17 by mouth 2 it y of tablet 00:00: (two) [place] 00 times Medical daily. Branch mesalamine Yes 2.4g Take 2.4 g U nivers 1.2 gram EC 8-17 by mouth 2 it y of tablet 00:00: (two) [place] 00 times Medical daily. Branch mesalamine Yes 2.4g Take 2.4 g U nivers 1.2 gram EC 8-17 by mouth 2 it y of tablet 00:00: (two) [place] 00 times Medical daily. Branch mesalamine 2021-0 Yes 2.4g Take 2.4 g U nivers 1.2 gram EC 8-17 by mouth 2 it y of tablet 00:00: (two) [place] 00 times Medical daily. Branch mesalamine 2021-0 Yes 2.4g Take 2.4 g U nivers 1.2 gram EC 8-17 by mouth 2 it y of tablet 00:00: (two) [place] 00 times Medical daily. Branch mesalamine 2021-0 Yes 2.4g Take 2.4 g U nivers 1.2 gram EC 8-17 by mouth 2 it y of tablet 00:00: (two) [place] 00 times Medical daily. Branch mesalamine 2021-0 Yes 2.4g Take 2.4 g U nivers 1.2 gram EC 8-17 by mouth 2 it y of tablet 00:00: (two) [place] 00 times Medical daily. Branch mesalamine 2021-0 Yes 2.4g Take 2.4 g U nivers 1.2 gram EC 8-17 by mouth 2 it y of tablet 00:00: (two) [place] times Medical daily. Branch mesalamine 2021-0 Yes 2.4g Take 2.4 g U nivers 1.2 gram EC 8-17 by mouth 2 it y of tablet 00:00: (two) [place] 00 times Medical daily. Branch mesalamine 2021-0 Yes 2.4g Take 2.4 g U nivers 1.2 gram EC 8-17 by mouth 2 it y of tablet 00:00: (two) [place] 00 times Medical daily. Branch mesalamine 2021-0 Yes 2.4g Take 2.4 g U nivers 1.2 gram EC 8-17 by mouth 2 it y of tablet 00:00: (two) [place] 00 times Medical daily. Branch mesalamine 2021-0 Yes 2.4g Take 2.4 g U nivers 1.2 gram EC 8-17 by mouth 2 it y of tablet 00:00: (two) [place] 00 times Medical daily. Branch mesalamine 2021-0 Yes 2.4g Take 2.4 g U nivers 1.2 gram EC 8-17 by mouth 2 it y of tablet 00:00: (two) [place] 00 times Medical daily. Branch mesalamine 2021-0 Yes 2.4g Take 2.4 g U nivers 1.2 gram EC 8-17 by mouth 2 it y of tablet 00:00: (two) [place] 00 times Medical daily. Branch loratadine Yes 1{tbl} QD Take 1 [facility] (Claritin) 8-13 tablet by Heal th 10 MG 00:00: mouth 1 tablet 00 (one) time each day. loratadine Yes 1{tbl} QD Take 1 [facility] (Claritin) 8-13 tablet by Heal th 10 MG 00:00: mouth 1 tablet 00 (one) time each day. loratadine Yes [id number] 10mg Take 1 U nivers (CLARITIN) 8-13 tablet by ity of 10 mg 00:00: mouth [place] tablet 00 daily. Medical Branch loratadine Yes [id number] 10mg Take 1 U nivers (CLARITIN) 8-13 tablet by ity of 10 mg 00:00: mouth [place] tablet 00 daily. Medical Branch loratadine Yes [id number] 10mg Take 1 U nivers (CLARITIN) 8-13 tablet by ity of 10 mg 00:00: mouth [place] tablet 00 daily. Medical Branch loratadine Yes [id number] 10mg Take 1 U nivers (CLARITIN) 8-13 tablet by ity of 10 mg 00:00: mouth [place] tablet 00 daily. Medical Branch loratadine Yes [id number] 10mg Take 1 U nivers (CLARITIN) 8-13 tablet by ity of 10 mg 00:00: mouth [place] tablet 00 daily. Medical Branch loratadine Yes [id number] 10mg Take 1 U nivers (CLARITIN) 8-13 tablet by ity of 10 mg 00:00: mouth [place] tablet 00 daily. Medical Branch loratadine Yes [id number] 10mg Take 1 U nivers (CLARITIN) 8-13 tablet by ity of 10 mg 00:00: mouth [place] tablet 00 daily. Medical Branch loratadine Yes [id number] 10mg Take 1 U nivers (CLARITIN) 8-13 tablet by ity of 10 mg 00:00: mouth [place] tablet 00 daily. Medical Branch loratadine Yes [id number] 10mg Take 1 U nivers (CLARITIN) 8-13 tablet by ity of 10 mg 00:00: mouth [place] tablet 00 daily. Medical Branch loratadine 2020-0 Yes [id number] 10mg Take 1 U nivers (CLARITIN) 8-13 tablet by ity of 10 mg 00:00: mouth [place] tablet 00 daily. Medical Branch loratadine 2020-0 Yes [id number] 10mg Take 1 U nivers (CLARITIN) 8-13 tablet by ity of 10 mg 00:00: mouth [place] tablet 00 daily. Medical Branch loratadine 2020-0 Yes [id number] 10mg Take 1 U nivers (CLARITIN) 8-13 tablet by ity of 10 mg 00:00: mouth [place] tablet 00 daily. Medical Branch loratadine 0 Yes [id number] 10mg Take 1 U nivers (CLARITIN) 8-13 tablet by ity of 10 mg 00:00: mouth [place] tablet 00 daily. Medical Branch loratadine 0 Yes [id number] 10mg Take 1 U nivers (CLARITIN) 8-13 tablet by ity of 10 mg 00:00: mouth [place] tablet 00 daily. Medical Branch loratadine 0 Yes [id number] 10mg Take 1 U nivers (CLARITIN) 8-13 tablet by ity of 10 mg 00:00: mouth [place] tablet 00 daily. Medical Branch pantoprazol 0 Yes 40mg Take 40 mg Univers e 40 mg EC 8-05 by mouth ity o f tablet 00:00: every [place] 00 morning. Medical Branch pantoprazol 2020-0 Yes 40mg Take 40 mg Univers e 40 mg EC 8-05 by mouth ity o f tablet 00:00: every [place] 00 morning. Medical Branch pantoprazol 2020-0 Yes 40mg Take 40 mg Univers e 40 mg EC 8-05 by mouth ity o f tablet 00:00: every [place] 00 morning. Medical Branch pantoprazol 2020-0 Yes 40mg Take 40 mg Univers e 40 mg EC 8-05 by mouth ity o f tablet 00:00: every [place] 00 morning. Medical Branch pantoprazol 2020-0 Yes 40mg Take 40 mg Univers e 40 mg EC 8-05 by mouth ity o f tablet 00:00: every [place] 00 morning. Medical Branch pantoprazol 2020-0 Yes 40mg Take 40 mg Univers e 40 mg EC 8-05 by mouth ity o f tablet 00:00: every [place] 00 morning. Medical Branch pantoprazol Yes 40mg Take 40 mg Univers e 40 mg EC 8-05 by mouth ity o f tablet 00:00: every [place] morning. Medical Branch pantoprazol Yes 40mg Take 40 mg [facility] e 40 mg EC 8-05 by mouth ity o f tablet 00:00: every [place] morning. Medical Branch pantoprazol Yes 40mg Take 40 mg [facility] e 40 mg EC 8-05 by mouth ity o f tablet 00:00: every [place] morning. Medical Branch pantoprazol Yes 40mg Take 40 mg [facility] e 40 mg EC 8-05 by mouth ity o f tablet 00:00: every [place] 00 morning. Medical Branch pantoprazol Yes 40mg Take 40 mg [facility] e 40 mg EC 8-05 by mouth ity o f tablet 00:00: every [place] morning. Medical Branch pantoprazol Yes 40mg Take 40 mg [facility] e 40 mg EC 8-05 by mouth ity o f tablet 00:00: every [place] morning. Medical Branch pantoprazol Yes 40mg Take 40 mg Univers e 40 mg EC 8-05 by mouth ity o f tablet 00:00: every [place] morning. [facility] pantoprazol Yes 40mg Take 40 mg Univers e 40 mg EC 8-05 by mouth ity o f tablet 00:00: every [place] morning. [facility] pantoprazol Yes 40mg Take 40 mg Univers e 40 mg EC 8-05 by mouth ity o f tablet 00:00: every [place] morning. [facility] primidone Yes Univers (MYSOLINE) 7-12 ity of 50 mg 00:00: [place] tablet 00 MD Kaela lópez [facility] primidone Yes Univers (MYSOLINE) 7-12 ity of 50 mg 00:00: [place] tablet 00 MD Kaela lópez [facility] primidone Yes Univers (MYSOLINE) 7-12 ity of 50 mg 00:00: [place] tablet 00 MD [facility] solifenacin Yes [id number] 10mg Take 1 Univers 10 mg 7-06 tablet by ity of tablet 00:00: mouth [place] 00 daily. Medical Branch solifenacin 2021-0 Yes [id number] 10mg Take 1 Univers 10 mg 7-06 tablet by ity of tablet 00:00: mouth [place] 00 daily. [facility] solifenacin 2020-0 Yes [id number] 10mg Take 1 Univers 10 mg 7-06 tablet by ity of tablet 00:00: mouth [place] 00 daily. [facility] solifenacin 2020-0 Yes [id number] 10mg Take 1 Univers 10 mg 7-06 tablet by ity of tablet 00:00: mouth [place] 00 daily. [facility] solifenacin 2020-0 Yes [id number] 10mg Take 1 [facility] 10 mg 7-06 tablet by ity of tablet 00:00: mouth [place] 00 daily. [facility] solifenacin 2020-0 Yes [id number] 10mg Take 1 Univers 10 mg 7-06 tablet by ity of tablet 00:00: mouth [place] 00 daily. [facility] solifenacin 2020-0 Yes [id number] 10mg Take 1 Univers 10 mg 7-06 tablet by ity of tablet 00:00: mouth [place] 00 daily. [facility] solifenacin 2020-0 Yes [id number] 10mg Take 1 [facility] 10 mg 7-06 tablet by ity of tablet 00:00: mouth [place] 00 daily. [facility] solifenacin 2020-0 Yes [id number] 10mg Take 1 Univers 10 mg 7-06 tablet by ity of tablet 00:00: mouth [place] 00 daily. [facility] solifenacin 2020-0 Yes [id number] 10mg Take 1 [facility] 10 mg 7-06 tablet by ity of tablet 00:00: mouth [place] 00 daily. [facility] solifenacin 2020-0 Yes [id number] 10mg Take 1 [facility] 10 mg 7-06 tablet by ity of tablet 00:00: mouth [place] 00 daily. [facility] solifenacin 2020-0 Yes [id number] 10mg Take 1 [facility] 10 mg 7-06 tablet by ity of tablet 00:00: mouth [place] 00 daily. [facility] solifenacin 2020-0 Yes [id number] 10mg Take 1 Univers 10 mg 7-06 tablet by ity of tablet 00:00: mouth [place] 00 daily. [facility] solifenacin 2020-0 Yes [id number] 10mg Take 1 Univers 10 mg 7-06 tablet by ity of tablet 00:00: mouth [place] 00 daily. [facility] solifenacin 2020-0 Yes [id number] 10mg Take 1 Univers 10 mg 7-06 tablet by ity of tablet 00:00: mouth [place] 00 daily. Medical Branch chlorhexidi Yes [id number] 15mL Swish and Univers ne 0.12 % 3-15 07 spit out ity of mouthwash 00:00: 15 mL 2 [place] 00 (two) Medical times Branch daily. Polyethylen Yes [id number] 1{packe Take 1 Univers e Glycol 3-15 t} Packet by ity of 3350 17 00:00: mouth [place] gram powder 00 daily. Medica l Branch chlorhexidi Yes [id number] 15mL Swish and Univers ne 0.12 % 3-15 07 spit out ity of mouthwash 00:00: 15 mL 2 [place] 00 (two) Medical times Branch daily. Polyethylen Yes [id number] 1{packe Take 1 Univers e Glycol 3-15 t} Packet by ity of 3350 17 00:00: mouth [place] gram powder 00 daily. Medica l Branch chlorhexidi Yes [id number] 15mL Swish and Univers ne 0.12 % 3-15 07 spit out ity of mouthwash 00:00: 15 mL 2 [place] (two) Medical times Branch daily. Polyethylen Yes [id number] 1{packe Take 1 Univers e Glycol 3-15 t} Packet by ity of 3350 17 00:00: mouth [place] gram powder 00 daily. Medica l Branch chlorhexidi Yes [id number] 15mL Swish and Univers ne 0.12 % 3-15 07 spit out ity of mouthwash 00:00: 15 mL 2 [place] 00 (two) Medical times Branch daily. Polyethylen 2020- Yes [id number] 1{packe Take 1 Univers e Glycol 3-15 t} Packet by ity of 3350 17 00:00: mouth [place] gram powder 00 daily. Medica l Branch chlorhexidi Yes [id number] 15mL Swish and Univers ne 0.12 % 3-15 07 spit out ity of mouthwash 00:00: 15 mL 2 [place] 00 (two) Medical times Branch daily. Polyethylen Yes [id number] 1{packe Take 1 Univers e Glycol 3-15 t} Packet by ity of 3350 17 00:00: mouth [place] gram powder 00 daily. Medica l Branch chlorhexidi Yes [id number] 15mL Swish and Univers ne 0.12 % 3-15 07 spit out ity of mouthwash 00:00: 15 mL 2 [place] 00 (two) Medical times Branch daily. Polyethylen 2020- Yes [id number] 1{packe Take 1 Univers e Glycol 3-15 t} Packet by ity of 3350 17 00:00: mouth [place] gram powder 00 daily. Medica l Branch chlorhexidi Yes [id number] 15mL Swish and Univers ne 0.12 % 3-15 07 spit out ity of mouthwash 00:00: 15 mL 2 [place] 00 (two) Medical times Branch daily. Polyethylen Yes [id number] 1{packe Take 1 Univers e Glycol 3-15 t} Packet by ity of 3350 17 00:00: mouth [place] gram powder 00 daily. Medica l Branch chlorhexidi Yes [id number] 15mL Swish and Univers ne 0.12 % 3-15 07 spit out ity of mouthwash 00:00: 15 mL 2 [place] 00 (two) Medical times Branch daily. Polyethylen 2020- Yes [id number] 1{packe Take 1 Univers e Glycol 3-15 t} Packet by ity of 3350 17 00:00: mouth [place] gram powder 00 daily. Medica l Branch chlorhexidi Yes [id number] 15mL Swish and Univers ne 0.12 % 3-15 07 spit out ity of mouthwash 00:00: 15 mL 2 [place] 00 (two) Medical times Branch daily. Polyethylen 2020-0 Yes [id number] 1{packe Take 1 Univers e Glycol 3-15 t} Packet by ity of 3350 17 00:00: mouth [place] gram powder 00 daily. Medica l Branch chlorhexidi Yes [id number] 15mL Swish and Univers ne 0.12 % 3-15 07 spit out ity of mouthwash 00:00: 15 mL 2 [place] 00 (two) Medical times Branch daily. Polyethylen 2020- Yes [id number] 1{packe Take 1 Univers e Glycol 3-15 t} Packet by ity of 3350 17 00:00: mouth [place] gram powder 00 daily. Medica l Branch chlorhexidi 0 Yes [id number] 15mL Swish and Univers ne 0.12 % 3-15 07 spit out ity of mouthwash 00:00: 15 mL 2 [place] 00 (two) Medical times Branch daily. Polyethylen 2020- Yes [id number] 1{packe Take 1 Univers e Glycol 3-15 t} Packet by ity of 3350 17 00:00: mouth [place] gram powder 00 daily. Medica l Branch chlorhexidi Yes [id number] 15mL Swish and Univers ne 0.12 % 3-15 07 spit out ity of mouthwash 00:00: 15 mL 2 [place] 00 (two) Medical times Branch daily. Polyethylen Yes [id number] 1{packe Take 1 Univers e Glycol 3-15 t} Packet by ity of 3350 17 00:00: mouth [place] gram powder 00 daily. Medica l Branch chlorhexidi Yes [id number] 15mL Swish and Univers ne 0.12 % 3-15 07 spit out ity of mouthwash 00:00: 15 mL 2 [place] 00 (two) Medical times Branch daily. Polyethylen 2020- Yes [id number] 1{packe Take 1 Univers e Glycol 3-15 t} Packet by ity of 3350 17 00:00: mouth [place] gram powder 00 daily. Medica l Branch chlorhexidi 0 Yes [id number] 15mL Swish and Univers ne 0.12 % 3-15 07 spit out ity of mouthwash 00:00: 15 mL 2 [place] 00 (two) Medical times Branch daily. Polyethylen 2020-0 Yes [id number] 1{packe Take 1 Univers e Glycol 3-15 t} Packet by ity of 3350 17 00:00: mouth [place] gram powder 00 daily. Medica l Branch chlorhexidi Yes [id number] 15mL Swish and Univers ne 0.12 % 3-15 07 spit out ity of mouthwash 00:00: 15 mL 2 [place] 00 (two) Medical times Branch daily. Polyethylen 2020-0 Yes [id number] 1{packe Take 1 Univers e Glycol 3-15 t} Packet by ity of 3350 17 00:00: mouth [place] gram powder 00 daily. Medica l [facility] primidone 2020-0 Yes [facility] (Mysoline) 1-22 [facility] 50 MG 00:00: tablet 00 primidone 2020-0 Yes [facility] (Mysoline) 1-22 [facility] 50 MG 00:00: tablet 00 primidone 2020-0 Yes [id number] 25mg Take 0.5 Univers 50 mg 1-22 tablets by ity of tablet 00:00: mouth 2 [place] (two) Medical times Branch daily. primidone 2020-0 Yes [id number] 25mg Take 0.5 Univers 50 mg 1-22 tablets by ity of tablet 00:00: mouth [place] (two) Medical times Branch daily. primidone 2020-0 Yes [id number] 25mg Take 0.5 Univers 50 mg 1-22 tablets by ity of tablet 00:00: mouth [address] [place] [address] (two) Medical times Branch daily. primidone 2020-0 Yes [id number] 25mg Take 0.5 Univers 50 mg 1-22 tablets by ity of tablet 00:00: mouth [address] [place] [address] (two) Medical times Branch daily. primidone 2020-0 Yes [id number] 25mg Take 0.5 Univers 50 mg 1-22 tablets by ity of tablet 00:00: mouth [place] (two) Medical times Branch daily. primidone 2020-0 Yes [id number] 25mg Take 0.5 Univers 50 mg 1-22 tablets by ity of tablet 00:00: mouth [address] [place] [address] (two) Medical times Branch daily. primidone 2020-0 Yes [id number] 25mg Take 0.5 Univers 50 mg 1-22 tablets by ity of tablet 00:00: mouth [address] [place] [address] (two) Medical times Branch daily. primidone 2020-0 Yes [id number] 25mg Take 0.5 Univers 50 mg 1-22 tablets by ity of tablet 00:00: mouth 2 [place] (two) Medical times Branch daily. primidone 2020-0 Yes [id number] 25mg Take 0.5 Univers 50 mg 1-22 tablets by ity of tablet 00:00: mouth [address] [place] [address] (two) Medical times Branch daily. primidone 2021-0 Yes [id number] 25mg Take 0.5 Univers 50 mg 1-22 tablets by ity of tablet 00:00: mouth 2 (two) Medical times Branch daily. primidone 2020-0 Yes [id number] 25mg Take 0.5 Univers 50 mg 1-22 tablets by ity of tablet 00:00: mouth 2 00 (two) Medical times Branch daily. primidone 2020-0 Yes [id number] 25mg Take 0.5 Univers 50 mg 1-22 tablets by ity of tablet 00:00: mouth 2 00 (two) Medical times Branch daily. primidone 2020-0 Yes [id number] 25mg Take 0.5 Univers 50 mg 1-22 tablets by ity of tablet 00:00: mouth 2 (two) Medical times Branch daily. primidone 2020-0 Yes [id number] 25mg Take 0.5 Univers 50 mg 1-22 tablets by ity of tablet 00:00: mouth 2 (two) Medical times Branch daily. primidone 2020-0 Yes [id number] 25mg Take 0.5 Univers 50 mg 1-22 tablets by ity of tablet 00:00: mouth 2 (two) Medical times Branch daily. traZODone 2020- Yes 1 (one) [place] (Desyrel) 1-10 time each [facility]alt [facility] 50 MG 00:00: day at the tablet 00 same time. traZODone 2019- Yes 1 (one) [place] (Desyrel) 1-10 time each Healt [facility] 50 MG 00:00: day at the tablet 00 same time. traZODone 2019- Yes [id number] 50mg Take 1 U nivers 50 mg 1-10 tablet by ity of tablet 00:00: mouth at [place] 00 bedtime. Medical Branch traZODone 2019- Yes [id number] 50mg Take 1 U nivers 50 mg 1-10 tablet by ity of tablet 00:00: mouth at [place] 00 bedtime. Medical Branch traZODone 2019- Yes [id number] 50mg Take 1 U nivers 50 mg 1-10 tablet by ity of tablet 00:00: mouth at [place] 00 bedtime. Medical Branch traZODone 2019- Yes [id number] 50mg Take 1 U nivers 50 mg 1-10 tablet by ity of tablet 00:00: mouth at [place] [address] bedtime. Medical Branch traZODone 2020-1 Yes [id number] 50mg Take 1 U nivers 50 mg 1-10 tablet by ity of tablet 00:00: mouth at [place] [address] bedtime. Medical Branch traZODone 2020-1 Yes [id number] 50mg Take 1 U nivers 50 mg 1-10 tablet by ity of tablet 00:00: mouth at [place] [address] bedtime. Medical Branch traZODone 2020-1 Yes [id number] 50mg Take 1 U nivers 50 mg 1-10 tablet by ity of tablet 00:00: mouth at [place] [address] bedtime. Medical Branch traZODone 2020-1 Yes [id number] 50mg Take 1 U nivers 50 mg 1-10 tablet by ity of tablet 00:00: mouth at [place] [address] bedtime. Medical Branch traZODone 2020-1 Yes [id number] 50mg Take 1 U nivers 50 mg 1-10 tablet by ity of tablet 00:00: mouth at [place] [address] bedtime. Medical Branch traZODone 2020-1 Yes [id number] 50mg Take 1 U nivers 50 mg 1-10 tablet by ity of tablet 00:00: mouth at [place] [address] bedtime. Medical Branch traZODone 2020-1 Yes [id number] 50mg Take 1 U nivers 50 mg 1-10 tablet by ity of tablet 00:00: mouth at [place] [address] bedtime. Medical Branch traZODone 2020-1 Yes [id number] 50mg Take 1 U nivers 50 mg 1-10 tablet by ity of tablet 00:00: mouth at [place] [address] bedtime. Medical Branch traZODone 2020-1 Yes [id number] 50mg Take 1 U nivers 50 mg 1-10 tablet by ity of tablet 00:00: mouth at [place] [address] bedtime. Medical Branch traZODone 2020-1 Yes [id number] 50mg Take 1 U nivers 50 mg 1-10 tablet by ity of tablet 00:00: mouth at [place] [address] bedtime. Medical Branch traZODone 2020-1 Yes [id number] 50mg Take 1 U nivers 50 mg 1-10 tablet by ity of tablet 00:00: mouth at [place] [address] bedtime. Medical Branch buPROPion 2019-1 Yes 100mg Take 100 Uni vers 100 mg 1-02 mg by ity of tablet 16:02: mouth [place] 53 daily. Medical Branch FLUoxetine 2019-06 Yes 40mg Take 40 mg U nivers 40 mg 1-02 by mouth ity of capsule 16:02: daily. [place] 53 Medical Branch fluticasone 2019-06 Yes 1{spray Inhale 1 Univers furoate 50 1-02 } [place] 2 ity of mcg/actuati 16:02: (two) [place] [...] by mouth ity of capsule 16:02: daily. [place] 53 Medical Branch fluticasone 2019- Yes 1{spray Inhale 1 Univers furoate 50 1-02 } [place] 2 ity of mcg/actuati 16:02: (two) [place] [...] mouth [place] 53 daily. Medical Branch buPROPion 2019- Yes 100mg Take 100 Uni vers 100 mg 1-02 mg by ity of tablet 16:02: mouth [place] 53 daily. Medical Branch FLUoxetine 2019-06 Yes 40mg Take 40 mg U nivers 40 mg 1-02 by mouth ity of capsule 16:02: daily. [place] 53 Medical Branch fluticasone 2019- Yes 1{spray Inhale 1 Univers furoate 50 1-02 } [place] 2 ity of mcg/actuati 16:02: (two) [place] [...] mouth ity of LOW DOSE) 16:02: daily. [place] 81 mg EC 53 Medical tablet Branch [...] Inhale 1 Univers furoate 50 1-02 } [place] 2 ity of mcg/actuati 16:02: (two) [place] [...] Inhale 1 Univers furoate 50 1-02 } [place] 2 ity of mcg/actuati 16:02: (two) [place] [...] Inhale 1 Univers furoate 50 1-02 } [place] 2 ity of mcg/actuati 16:02: (two) [place] [...] Inhale 1 Univers furoate 50 1-02 } [place] 2 ity of mcg/actuati 16:02: (two) [place] [...] Inhale 1 Univers furoate 50 1-02 } [place] 2 ity of mcg/actuati 16:02: (two) [place] [...] Inhale 1 Univers furoate 50 1-02 } [place] 2 ity of mcg/actuati 16:02: (two) [place] [...] Inhale 1 Univers furoate 50 1-02 } [place] 2 ity of mcg/actuati 16:02: (two) [place] [...] Inhale 1 Univers furoate 50 1-02 } [place] 2 ity of mcg/actuati 16:02: (two) [place] [...] mouth ity of LOW DOSE) 16:02: daily. [place] 81 mg EC 53 Medical tablet Branch [...] by mouth ity of capsule 16:02: daily. [place] 53 Medical Branch fluticasone 2019-06 Yes 1{spray Inhale 1 Univers furoate 50 1-02 } [place] 2 ity of mcg/actuati 16:02: (two) [place] [...] by mouth ity of capsule 16:02: daily. [place] 53 Medical Branch fluticasone 2019-06 Yes 1{spray Inhale 1 Univers furoate 50 1-02 } [place] 2 ity of mcg/actuati 16:02: (two) [place] on DsDv 53 times Medical daily. Branch [...] Inhale 1 Univers furoate 50 1-02 } [place] 2 ity of mcg/actuati 16:02: (two) [place] on DsDv 53 times Medical daily. Branch [...] Inhale 1 Univers furoate 50 1-02 } [place] 2 ity of mcg/actuati 16:02: (two) [place] [...] Immunizations Ordered Filled Immunization Date Status Comments [facility] Immunization Name Name SARS-COV-2 COVID-19 2021-10-12 Completed [...] y of Vaccine Quad .5 mL 00:00:00 [place] [facility] IM 6+ MO Branch Influenza Virus 2021-04-14 Completed Universit y of Vaccine [place] .5 mL 00:00:00 [place] [facility] IM 6+ MO Branch Influenza Virus 2021-04-14 Completed Universit y of Vaccine [place] .5 mL 00:00:00 [place] [facility] IM 6+ MO Branch Influenza Virus 2021-04-14 Completed Universit y of Vaccine [place] .5 mL 00:00:00 [place] [facility] IM 6+ MO Branch Influenza Virus 2021-04-14 Completed Universit y of Vaccine [place] .5 mL 00:00:00 [place] [facility] IM 6+ MO Branch Influenza Virus 2021-04-14 Completed Universit y of Vaccine [place] .5 mL 00:00:00 [place] [facility] IM 6+ MO Branch Influenza Virus 2021-04-14 Completed Universit y of Vaccine [place] .5 mL 00:00:00 [place] [facility] IM 6+ MO Branch Influenza Virus 2021-04-14 Completed Universit y of Vaccine [place] .5 mL 00:00:00 [place] [facility] IM 6+ MO Branch Influenza Virus 2021-04-14 Completed Universit y of Vaccine [place] .5 mL 00:00:00 [place] [facility] IM 6+ MO Branch Influenza Virus 2021-04-14 Completed Universit y of Vaccine [place] .5 mL 00:00:00 [place] [facility] IM 6+ MO Branch Influenza Virus 2021-04-14 Completed Universit y of Vaccine [place] .5 mL 00:00:00 [place] [facility] IM 6+ MO Branch Influenza Virus 2021-04-14 Completed Universit y of Vaccine [place] .5 mL 00:00:00 [place] [facility] IM 6+ MO Branch Influenza Virus 2021-04-14 Completed Universit y of Vaccine [place] .5 mL 00:00:00 [place] [facility] IM 6+ MO Branch Influenza Virus 2021-04-14 Completed Universit y of Vaccine [facility] .5 mL 00:00:00 [place] [facility] IM 6+ MO Branch Influenza Virus 2021-04-14 Completed Universit y of Vaccine Quad .5 mL 00:00:00 [place] [facility] IM 6+ MO Branch SARS-COV-2 COVID-19 2020-08-29 Completed Unive rsity of PFIZER VACCINE 00:00:00 [facility] SARS-COV-2 COVID-19 2020-08-29 Completed Unive rsity of PFIZER VACCINE 00:00:00 [facility] SARS-COV-2 COVID-19 2020-08-29 Completed Unive rsity of PFIZER VACCINE 00:00:00 [facility] SARS-COV-2 COVID-19 2020-08-29 Completed Unive rsity of PFIZER VACCINE 00:00:00 [facility] SARS-COV-2 COVID-19 2020-08-29 Completed Unive rsity of PFIZER VACCINE 00:00:00 [facility] SARS-COV-2 COVID-19 2020-08-29 Completed Unive rsity of PFIZER VACCINE 00:00:00 [facility] [place] [facility] SARS-COV-2 COVID-19 2020-08-29 Completed Unive rsity of PFIZER VACCINE 00:00:00 [facility] SARS-COV-2 COVID-19 2020-08-29 Completed Unive rsity of PFIZER VACCINE 00:00:00 [facility] SARS-COV-2 COVID-19 2020-08-29 Completed Unive rsity of PFIZER VACCINE 00:00:00 [facility] SARS-COV-2 COVID-19 2020-08-29 Completed Unive rsity of PFIZER VACCINE 00:00:00 [place] [facility] SARS-COV-2 COVID-19 2020-08-29 Completed Unive rsity of PFIZER VACCINE 00:00:00 [facility] [place] [facility] SARS-COV-2 COVID-19 2020-08-29 Completed Unive rsity of PFIZER VACCINE 00:00:00 [facility] [place] [facility] SARS-COV-2 COVID-19 2020-08-29 Completed Unive rsity of PFIZER VACCINE 00:00:00 [facility] [place] [facility] SARS-COV-2 COVID-19 2020-08-29 Completed Unive rsity of PFIZER VACCINE 00:00:00 [facility] [place] [facility] SARS-COV-2 COVID-19 2020-08-29 Completed Unive rsity of PFIZER VACCINE 00:00:00 [facility] [place] [facility] SARS-COV-2 COVID-19 2020-08-08 Completed Unive rsity of PFIZER VACCINE 00:00:00 [facility] [place] [facility] SARS-COV-2 COVID-19 2020-08-08 Completed Unive rsity of PFIZER VACCINE 00:00:00 [facility] [place] [facility] SARS-COV-2 COVID-19 2020-08-08 Completed Unive rsity of PFIZER VACCINE 00:00:00 [facility] [place] [facility] SARS-COV-2 COVID-19 2020-08-08 Completed Unive rsity of PFIZER VACCINE 00:00:00 [facility] [place] [facility] SARS-COV-2 COVID-19 2020-08-08 Completed Unive rsity of PFIZER VACCINE 00:00:00 [facility] [place] [facility] SARS-COV-2 COVID-19 2020-08-08 Completed Unive rsity of PFIZER VACCINE 00:00:00 [facility] [place] [facility] SARS-COV-2 COVID-19 2020-08-08 Completed Unive rsity of PFIZER VACCINE 00:00:00 [facility] [place] [facility] SARS-COV-2 COVID-19 2020-08-08 Completed Unive rsity of PFIZER VACCINE 00:00:00 [facility] [place] [facility] SARS-COV-2 COVID-19 2020-08-08 Completed Unive rsity of PFIZER VACCINE 00:00:00 [facility] [place] [facility] SARS-COV-2 COVID-19 2020-08-08 Completed Unive rsity of PFIZER VACCINE 00:00:00 [facility] [place] [facility] SARS-COV-2 COVID-19 2020-08-08 Completed Unive rsity of PFIZER VACCINE 00:00:00 [facility] SARS-COV-2 COVID-19 2020-08-08 Completed Unive rsity of PFIZER VACCINE 00:00:00 [facility] SARS-COV-2 COVID-19 2020-08-08 Completed Unive rsity of PFIZER VACCINE 00:00:00 [facility] SARS-COV-2 COVID-19 2020-08-08 Completed Unive rsity of PFIZER VACCINE 00:00:00 [facility] SARS-COV-2 COVID-19 2020-08-08 Completed Unive rsity of PFIZER VACCINE 00:00:00 [facility] Influenza High Dose 2020-04-09 Completed Unive rsity of Quad 00:00:00 [facility] Influenza High Dose 2020-04-09 Completed Unive rsity of Quad 00:00:00 [facility] Influenza High Dose 2020-04-09 Completed Unive rsity of Quad 00:00:00 [facility] Influenza High Dose 2020-04-09 Completed Unive rsity of Quad 00:00:00 [facility] Influenza High Dose 2020-04-09 Completed Unive rsity of Quad 00:00:00 [facility] Influenza High Dose 2020-04-09 Completed Unive rsity of Quad 00:00:00 [facility] Influenza High Dose 2020-04-09 Completed Unive rsity of Quad 00:00:00 [facility] Influenza High Dose 2020-04-09 Completed Unive rsity of Quad 00:00:00 [facility] Influenza High Dose 2020-04-09 Completed Unive rsity of Quad 00:00:00 [facility] Influenza High Dose 2020-04-09 Completed Unive rsity of Quad 00:00:00 [facility] Influenza High Dose 2020-04-09 Completed Unive rsity of Quad 00:00:00 [facility] Influenza High Dose 2020-04-09 Completed Unive rsity of Quad 00:00:00 [facility] Influenza High Dose 2020-04-09 Completed Unive rsity of Quad 00:00:00 [facility] Influenza High Dose 2020-04-09 Completed Unive rsity of Quad 00:00:00 [facility] Influenza High Dose 2020-04-09 Completed Unive rsity of Quad 00:00:00 [place] [facility] Vital Signs Vital Name Observation Time Observation Value Comments Source Systolic blood 2022-06-22 20:27:00 122 mm[Hg] Univer sity of pressure [place] [facility] Diastolic blood 2022-06-22 20:27:00 66 mm[Hg] Unive rsity of pressure [place] [facility] Heart rate 2022-06-22 20:27:00 82 /min [facility] [place] [facility] Body temperature 2022-06-22 20:27:00 36.83 Priscilla [facility] [place] [facility] Respiratory rate 2022-06-22 20:27:00 18 /min [facility] [place] [facility] Body height 2022-06-22 20:27:00 157.5 cm [facility] [place] [facility] Body weight 2022-06-22 20:27:00 56.246 kg [facility] [place] [facility] BMI 2022-06-22 20:27:00 22.68 kg/m2 [facility] [place] [facility] Systolic blood 2022-06-03 19:24:00 144 mm[Hg] Univer sity of pressure [place] [facility] Diastolic blood 2022-06-03 19:24:00 80 mm[Hg] Unive rsity of pressure [place] [facility] Heart rate 2022-06-03 19:24:00 89 /min [facility] [place] [facility] Body temperature 2022-06-03 19:24:00 36.56 [facility]illa [facility] [place] [facility] Respiratory rate 2022-06-03 19:24:00 16 /min [facility] [place] [facility] Body height 2022-06-03 19:24:00 157.5 cm [facility] [place] [facility] Body weight 2022-06-03 19:24:00 55.702 kg [facility] [place] [facility] BMI 2022-06-03 19:24:00 22.46 kg/m2 [facility] [place] [facility] Oxygen saturation in 2022-06-03 19:24:00 98 /min [facility] of Arterial blood by [facility] [place] [facility] Pulse oximetry Branch Systolic blood 2022-04-06 19:42:00 124 mm[Hg] Univer sity of pressure [place] [facility] Diastolic blood 2022-04-06 19:42:00 75 mm[Hg] Unive rsity of pressure [place] [facility] Heart rate 2022-04-06 19:42:00 81 /min [facility] [place] [facility] Body temperature 2022-04-06 19:42:00 36.61 [facility]illa [facility] [place] [facility] Respiratory rate 2022-04-06 19:42:00 17 /min [facility] [place] [facility] Body weight 2022-04-06 19:42:00 56.246 kg [facility] [place] [facility] BMI 2022-04-06 19:42:00 22.68 kg/m2 [facility] [place] [facility] Systolic blood 2021-11-06 21:34:00 134 mm[Hg] Univer sity of pressure [place] [facility] Diastolic blood 2021-11-06 21:34:00 78 mm[Hg] Unive rsity of pressure [place] [facility] Heart rate 2021-11-06 21:34:00 80 /min [facility] [place] [facility] Body temperature 2021-11-06 21:34:00 36.67 Priscilla [facility] Respiratory rate 2021-11-06 21:34:00 16 /min [facility] Body weight 2021-11-06 21:34:00 57.153 kg [facility] BMI 2021-11-06 21:34:00 23.05 kg/m2 [facility] Oxygen saturation in 2021-11-06 21:34:00 97 /min [facility] of Arterial blood by [place] [employer] arianna Pulse oximetry Branch Systolic blood 2021-08-26 17:43:00 150 mm[Hg] [facility] Diastolic blood 2021-08-26 17:43:00 75 mm[Hg] [facility]ive [facility] Heart rate 2021-08-26 17:43:00 72 /min [facility] Body temperature 2021-08-26 17:43:00 36.5 Priscilla [facility] Respiratory rate 2021-08-26 17:43:00 17 /min [facility] Oxygen saturation in 2021-08-26 17:43:00 99 /min [facility] Arterial blood by [place] [employer] arianna Pulse oxim[facility] Branch Body height 2021-08-26 16:19:00 157.5 cm [facility] Body weight 2021-08-26 16:19:00 57.607 kg [facility] BMI 2021-08-26 16:19:00 23.23 kg/m2 [facility] Systolic blood 2021-07-29 15:47:00 119 mm[Hg] Univer [facility] Diastolic blood 2021-07-29 15:47:00 76 mm[Hg] Unive rsity of [facility] Heart rate 2021-07-29 15:47:00 82 /min [facility] Body temperature 2021-07-29 15:47:00 35.83 Priscilla [facility] Body height 2021-07-29 15:47:00 157.5 cm [facility] Body weight 2021-07-29 15:47:00 58.06 kg [facility] BMI 2021-07-29 15:47:00 23.41 kg/m2 [facility] Systolic blood 2022-05-25 19:27:00 130 mm[Hg] [facility] of [facility] Diastolic blood 2022-05-25 19:27:00 74 mm[Hg] Unive [facility]ity of [facility] Heart rate 2022-05-25 19:27:00 73 /min [facility] Body temperature 2022-05-25 19:27:00 36.61 Priscilla [facility] Respiratory rate 2022-05-25 19:27:00 18 /min [facility] Body weight 2022-05-25 19:27:00 55.9 kg [facility] BMI 2022-05-25 19:27:00 23.42 kg/m2 [facility] Systolic blood 2021-10-01 19:41:59 125 mm[Hg] Univer sitdonta of [facility] Diastolic blood 2021-10-01 19:41:59 68 mm[Hg] Unive rsity of [facility] Heart rate 2021-10-01 19:41:59 77 /min [facility] Body temperature 2021-10-01 19:41:59 36.5 Priscilla [facility] Respiratory rate 2021-10-01 19:41:59 18 /min [facility] Body weight 2021-10-01 19:41:59 58.2 kg [facility] BMI 2021-10-01 19:41:59 24.38 kg/m2 [facility] Procedures Procedure Date / Time Performed Performing Clinician Sour e CANCER ANTIGEN 125 2022-05-25 18:53:00 Jessy Rivera [facility] DEXA PERIPHERAL 2022-05-16 19:48:[facility] DEXA AXIAL (HIP AND 2022-05-16 19:48:01 Rusty [facility] SPINE) [facility] CONSENT/REFUSAL FOR 2022-05-16 19:14:10 Doctor Unassigned, [facility] TREATMENT ASSIGNMENT OF BENEFITS 2022-05-16 19:13:29 Doctor Unassigned, No [facility] URINE CULTURE 2022-04-06 19:57:00 Shirley Soares [facility] POCT URINALYSIS W/O 2022-04-06 00:00:00 Shirley Soares [facility] SPECIFIC GRAVITY [facility] EXTERNAL PROVIDER 2021-11-17 05:01:00 Doctor Unassigned, No [facility] SARS-COV-2 COVID-19 2021-10-12 20:36:33 Doctor Unassigned, No [facility] VACCINE 12 [facility] YRS+,0.3ML,IM (PFIZER - [facility]) EXTERNAL PROVIDER 2021-10-06 05:01:00 Doctor Unassigned, No [facility] ersity [facility] RECORDS [facility] CANCER ANTIGEN 125 2021-10-01 19:19:00 Jessy Rivera [facility] BHCG, TUMOR MARKER 2021-10-01 19:19:00 Jessy Rivera [facility] [place] [facility] Plan of Care Planned Activity Planned Date Details Comments Source Future Scheduled 2022-06-30 COVID-19 Vaccination [facility] [place] Test 10:51:05 (4 - Booster for MD [facility] Cancer Pfizer series) [code Center = COVID-19 Vaccination (4 - Booster for Pfizer series)] Future Scheduled 2022-03-24 COVID-19 Vaccination [facility] [place] Test 14:56:54 (3 - Booster for MD [facility] Pfizer series) [code Center = COVID-19 Vaccination (3 - Booster for Pfizer series)] Future Scheduled 2021-11-03 COVID-19 Vaccination [facility] [place] Test 14:51:54 (3 - Booster for MD [facility] Pfizer series) [code Center = COVID-19 Vaccination (3 - Booster for Pfizer series)] Encounters Start End Encounter Admission Attending Care Care Encounter Source Date/Time Date/Time Type Type Clinicians Facility Department ID 2021-04-11 Emergency [facility] [id number] Univers 14:43:01 [facility] 2021-01-21 Outpatient [facility] [id number] 09:53:48 PROVIDER Junior lópez 2022-06-22 2022-06-22 Outpatient Lien AUGUST [facility] [id number] Univers 14:15:00 [facility]52[facility] 2022-06-22 2022-06-22 Office Mariangel [facility] 1.2.490.101 [id number] Univers 14:15:00 15:52:[address] 350.1.13.10 sonia Conroy 4.2.7.2.686 Estefany FELIZ [id number] Nv dical [address] 2022-06-21 2022-06-21 Outpatient R MARCO A LUTZ [facility] [id number] Univers 15:30:00 15:30:00 [facility] 2022-06-21 2022-06-21 Outpatient R MARIANGEL [facility] [id number] Univers 15:00:00 15:00:00 MARCIA [facility] 2022-06-03 2022-06-03 Outpatient R KING TIANNA [facility] [id number] Univers 13:20:00 13:44:13 LIZ [facility] 2022-06-03 2022-06-03 Urgent Liz Saldana [facility] 1.2.840.114 [id number] Univers 13:20:00 13:44:13 Care Unknown, Attending [facility] 350.1.13.10 ity of [place] 4.2.7.2.686 [place]hal as RAUL?BLEA [id number] [address] MEDICAL OFFICE BUILDING 2022-05-25 2022-05-25 Follow-Up Jeannie 1.2.840.1 [id number] Univers 13:30:00 14:17:29 Shawnee Irvin 64759.1.1 it y of 3.412.2.7 [place] .3.438174 .8 [facility] 2022-05-25 2022-05-25 Outpatient ESTEFANI VIDES MDA MDA [id number] 13:18:22 14:17:29 SHAWNEE lópez 2022-05-25 2022-05-25 Outpatient JESSY SIMMS MDA [facility] [id number] 12:52:49 13:10:50 Junior lópez 2022-05-25 2022-05-25 Travel 1.2.840.1 1.2.008.056 [id number] Univers 00:00:00 00:00:00 12922.1.1 350.1.13.41 ity of 3.412.2.7 [place].3.698 [place] .3.207186 084.8 .8 [facility] 2022-05-16 2022-05-16 Outpatient R [place] [facility] [id number] Univers 13:12:23 23:59:00 gunner GRAMAJO of [facility] 2022-05-16 2022-05-16 [facility] 1.2.840.114 [id number] Univers 13:12:23 23:59:00 [facility] SEAMUS gramajo 350.1.13.10 ity of [facility] 4.2.7.2.686 [place] [facility] [id number] [address] 2022-04-11 2022-04-11 Telephone [facility] 1.2.840.11 [id number] Univers 00:00:00 00:00:00 Shirley SANDERSON 350.1.13.10 it [place].2.[place] [facility] [id number] [address] 2022-04-08 2022-04-08 Case [facility] 1.2.840.114 [id number] Univers 00:00:00 00:00:00 Management Shirley SANDERSON 350.1.13.10 ity of WOMEN'S 4.2.7.2.686 [facility] [id number] [address] 2022-04-06 2022-04-06 Outpatient R SHIRLEY SOARES [facility] B [id number] [facility] 14:30:00 15:18:55 SHIRLEY SOARES [facility] 2022-04-06 2022-04-06 Office [facility] 1.2.840.114 [id number] [facility] 14:30:00 15:18:55 Visit Shirley SANDERSON 350.1.13.10 it y of WOMEN'S 4.2.7.2.686 [facility] [id number] [address] 2022-04-06 2022-04-06 Telephone [facility] 1.2.840.11 [id number] Univers 00:00:00 00:00:00 Shirley SANDERSON 350.1.13.10 it [place] [facility] [id number] [address] 2021-11-17 2021-11-[address] [facility] 1.2.840.114 [id number] [place] 13:30:00 14:06:15 Visit ESTRADA Jeffers 350.1.13.58 H [facility] 9.2.7.2.686 PLA[place] 1 [id number] 7 2021-11-17 2021-11-17 Orders Doctor STEPHANIE 1.2.840.114 [id number] Univers 00:00:00 00:00:00 Only Unassigned, RAFA 350.1.13.10 ity of [place] [facility] 4.2.7.2.686 [place] as [id number] [facility] [address] 2021-11-06 2021-11-06 Outpatient R INGRID [facility] [id number] Univers 16:40:00 17:51:21 ROMAINE martino o f [facility] 2021-11-06 2021-11-06 Urgent Kirstie Cardenas [facility] 1.2 .840.114 [id number] Univers 16:40:00 17:51:21 Care Romaine Dominguez [facility] 350.1.13.10 ity of [place] 4.2.7.2.686 [place] as RAUL?BLEA [id number] [facility] [address] MEDICAL OFFICE [facility] 2021-10-12 2021-10-12 Imm/Inj Vaccine, Ang Db Cbc Fam [facility] 1. 2.840.114 [id number] Univers 15:10:00 15:20:00 Visit HoffmanGavin ambrose [facility] 350.1.13.10 ity of [place] 4.2.7.2.686 [place] as RAUL?BLEA [id number] [facility] [address] MEDICAL OFFICE [facility] 2021-10-12 2021-10-12 Outpatient R HOFFMAN [facility] [id number] Univers 15:10:00 15:10:00 GAVIN gunner [facility] 2021-10-06 2021-10-[address] [facility] 1.2.840.114 [id number] [place] 11:00:00 11:31:07 Visit ESTRADA Jeffers 350.1.13.58 H [facility] 9.2.7.2.686 [place] 6 [id number] [id number] 2021-10-06 2021-10-06 Orders Doctor BROWN 1.2.840.114 [id number] Univers 00:00:00 00:00:00 Only Unassigned, RAFA 350.1.13.10 ity of [place] [facility] 4.2.7.2.686 [place] as [id number] [facility] [address] 2021-10-01 2021-10-01 Office Jessy Rivera 1.2.840.1 [id number] Univers 14:30:00 15:00:00 Visit 43159.1.1 ity of 3.412.2.7 [place] .3.767619 MD De Leon8 [facility] 2021-10-01 2021-10-01 Office Jessy Simms 1.2.840.1 [id number] Univers 14:30:00 15:00:00 Visit 92800.1.1 ity of 3.412.2.7 [place] .3.108182 .8 [facility] 2021-10-01 2021-10-01 Outpatient JESSY SIMMS [facility] MDA [id number] 14:18:36 14:31:15 [facility] 2021-10-01 2021-10-01 Travel 1.2.840.1 1.2.471.123 [id number] Univers 00:00:00 00:00:00 45055.1.1 350.1.13.41 ity of 3.412.2.7 [place]7.3.698 [place] .3.793453 084.8 MD De Leon8 [facility] 2021-10-01 2021-10-01 Travel 1.2.840.1 1.2.016.038 [id number] Univers 00:00:00 00:00:00 12369.1.1 350.1.13.41 ity of 3.412.2.7 [place].7.3.698 [place] .3.228274 084.8 MD De Leon8 [facility] 2021-08-26 2021-08-26 Nurse 1, Adc Infusion Chair [facility] 1.2. 840.114 [id number] Univers 11:00:00 11:30:00 Visit Awa Marin 350. 1.13.10 ity of [place] 4.2.7.2.686 [place] SURGICAL [id number] [facility] CENTER [address] 2021-08-26 2021-08-26 Outpatient Lien [facility]IP[facility] [id number] Univers 11:00:00 11:00:00 king GRAMAJOy of [facility] 2021-07-29 2021-07-29 [facility] 1.2.840.114 [id number] Univers 09:40:00 10:00:00 Visit PARAM gramajo 350.1.13.10 ity of [facility] 4.2.7.2.686 [facility] AT [id number] Nv yung[address] 2021-07-29 2021-07-29 [facility] [id number] Univers 09:40:00 09:40:00 KORINAKYLEE kingy of [facility] 2021-07-29 2021-07-29 Outpatient R SARAHALEDA E. [facility]Z [facility] [id number] Univers 09:40:00 09:40:00 ROXkingy of [facility] 2021-07-29 2021-07-29 Outpatient R SARAHALEDA E. LUTZ [facility] [id number] Univers 09:40:00 09:40:00 KOIRNAking PICHARDOy of [facility] 2021-06-30 2021-06-30 Outpatient R [facility] [id number] Univers 13:00:00 13:00:00 ity [facility] 2021-06-21 2021-06-21 Outpatient R MARCO A LUTZ [facility] [id number] Univers 15:00:00 15:57:33 ity [facility] 2021-06-21 2021-06-21 Office Marco A Lutz [facility] 1.2.840.114 [id number] Univers 15:00:00 15:57:33 Visit LEONEL 350.1.13.10 it y of [facility] 4.2.7.2.686 [facility] [id number] [address] 2021-06-21 2021-06-21 Outpatient R MARCO A LUTZ [facility] [id number] Univers 15:00:00 15:57:33 ity [facility] 2021-06-17 2021-06-17 [facility] 1.2.840.114 [id number] Univers 14:40:00 15:26:45 Visit PARAM gramajo 350.1.13.10 ity [facility] 4.2.7.2.686 [place] CENTER AT [phone] Nv dical VICTORY [address] [place] [address] 2021-06-17 2021-06-17 Outpatient R SARAHSINGH [facility] [id number] Univers 14:40:00 15:26:45 KAMRONJACKSON gunner [facility] 2021-06-17 2021-06-17 Outpatient R SARAH-SINGH [facility] [id number] Univers 14:40:00 14:40:00 KAMRONJACKSON donta [facility] 2021-06-17 2021-06-17 Outpatient R SARAHALEDA E. L[facility]Z [facility] [id number] Univers 14:40:00 14:40:00 king GRAMAJOdonta [facility] 2021-06-14 2021-06-14 [facility] [id number] Univers 15:00:00 15:00:00 [facility] 2021-06-14 2021-06-14 Outpatient [facility] [id number] Univers 15:00:00 15:00:00 [facility] 2021-04-27 2021-04-27 Office Bolivar Marco A [facility] 1.2.840.114 [id number] Univers 14:54:43 16:14:53 [facility] 350.1.13.10 i [facility] 4.2.7.2.686 [place] [facility] [id number] Nv dicmaximino NAL [address] [facility] 2021-04-27 2021-04-27 Outpatient R MARCO A LUTZ [facility] [id number] Univers 14:45:00 14:45:00 [facility] 2021-04-27 2021-04-27 Outpatient R BOLIVAR MARCO A [facility] [id number] Univers 14:45:00 14:45:00 ity [facility] 2021-04-21 2021-04-21 Telephone Marco A Lutz [facility] 1.2.840.11 [id number] Univers 00:00:00 00:00:00 LEONEL 350.1.13.10 it y [place].7.2.[place] [id number] [address] 2021-04-19 2021-04-19 Telephone Marco A Lutz [facility] 1.2.840.11 [id number] Univers 00:00:00 00:00:00 LEONEL 350.1.13.10 it y of W[place] 4.2.7.2.686 [place] [id number] [address] 2021-04-16 2021-04-16 Office Marco A Lutz [facility] 1.2.840.114 [id number] Univers 10:47:12 12:01:36 Visit BERGER 350.1.13.10 i ty of [place] 4.2.7.2.686 [place] PROFESSIO [id number] Nv dical [address] 2021-04-16 2021-04-16 Outpatient R MARCO A LUTZ [facility] [id number] Univers 10:15:00 12:01:36 ity of [facility] 2021-04-16 2021-04-16 Outpatient R MARCO A LUTZ [facility] [id number] Univers 10:15:00 12:01:36 ity of [facility] 2021-04-16 2021-04-16 Outpatient R MARCO A LUTZ [facility] [id number] Univers 10:15:00 10:15:00 ity of [facility] 2021-04-16 2021-04-16 Orders Doctor STEPHANIE 1.2.840.114 [id number] Univers 00:00:00 00:00:00 Only Unassigned, RAFA 350.1.13.10 ity of [place] [facility] 4.2.7.2.686 [place] as [id number] [address] 2021-04-16 2021-04-16 Refill Marco A Lutz MTTIMOTHY [facility] 1.2.840.114 [id number] Univers 00:00:00 00:00:00 LEONEL 350.1.13.10 it y of [place] 4.2.7.2.686 [place] [id number] [address] 2021-04-15 2021-04-15 Refill [facility] 1.2.840.114 [id number] Univers 00:00:00 00:00:00 Deangelo MULTISPEC 350.1.13.10 ity of [place].2.7.2.686 [place] C[place] [id number] [facility] AND [address] DIABETES CLINIC 2021-04-15 2021-04-15 Telephone [facility] 1.2.100.762 [id number] Univers 00:00:00 00:00:00 Deangelo MULTISPEC 350.1.13.10 ity of IALTY 4.2.7.2.686 [facility] [id number] [facility] AND [address] DIABETES CLINIC 2021-04-14 2021-04-14 Office Marco A Lutz [facility] 1.2.840.114 [id number] Univers 09:41:39 10:55:39 Visit LEONEL 350.1.13.10 it y of W[place] 4.2.7.2.686 [place] [id number] [address] 2021-04-14 2021-04-14 Outpatient R MARCO A LUTZ [facility] [id number] Univers 09:30:00 10:55:39 ity of [facility] 2021-04-12 2021-04-12 Telephone [facility] 1.2.430.716 [id number] Univers 00:00:00 00:00:00 Deangelo MULTISPEC 350.1.13.10 ity of [place] 4.2.7.2.686 [place] CENTER [id number] [facility] AND [address] DIABETES CLINIC 2021-04-12 2021-04-12 Telephone [facility] 1.2.874.448 [id number] Univers 00:00:00 00:00:00 Deangelo MULTISPEC 350.1.13.10 ity of [place]2.7.2.686 [place] C[place] [id number] [facility] AND [address] DIABETES CLINIC 2021-04-08 2021-04-08 Pre Visit CHRISTIAN Kaur 1.2.181.440 [id number] Univers 00:00:00 00:00:00 Outreach Corrine MORA 350.1.13.10 i ty of [place] 4.2.7.2.686 [place] [id number] [facility] [address] 2021-04-08 2021-04-08 Pre Visit CHRISTIAN Kaur 1.2.536.593 [id number] Univers 00:00:00 00:00:00 Outreach Corrine MORA 350.1.13.10 i ty of [place] 4[place]2.7.2.686 [place] [id number] [facility] [address] 2021-03-22 2021-03-22 Orders Doctor STEPHANIE 1.2.840.114 [id number] Univers 00:00:00 00:00:00 Only Unassigned, RAFA 350.1.13.10 ity of [place] [facility] 4.2.7.2.686 [place] as [id number] [facility] [address] 2021-03-17 2021-03-17 Office ESTEFANI VarinderJessy martinez 1.2.840.1 [id number] Univers 09:00:00 09:30:00 Visit 97497.1.1 ity of 3.412.2.7 [place] .3.009712 MD De Leon8 [facility] 2021-03-17 2021-03-17 Travel 1.2.840.1 1.2.324.687 [id number] Univers 00:00:00 00:00:00 63803.1.1 350.1.13.41 ity of 3.412.2.7 2.[place].7.3.698 [place] .3.377502 084.8 .8 [facility] 2021-02-26 2021-02-26 Outpatient ESTEFANI VIDES MDA [facility] [id number] 12:17:02 12:17:02 SHAWNEE lópez 2021-02-25 2021-02-25 Orders Doctor STEPHANIE 1.2.840.114 [id number] Univers 00:00:00 00:00:00 Only Unassigned, RAFA 350.1.13.10 ity of [place] [facility] 4.2.7.2.686 [place] [id number] [facility] [address] 2021-02-23 2021-02-23 Telephone Marco A Lutz Alaniz 1.2.840.11 [id number] Univers 00:00:00 00:00:00 Leonel 350.1.13.10 it y of Women's 4.2.7.2.686 [place] [id number] [facility] [address] 2021-02-22 2021-02-22 Telephone Marco A Lutz [facility] 1.2.840.11 [id number] Univers 00:00:00 00:00:00 Leonel 350.1.13.10 it y of Women's 4.2.7.2.686 [facility] [id number] [address] 2021-02-16 2021-02-16 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 [id number] 07:18:00 18:23:00 SHAWNEE lópez 2021-02-14 2021-02-14 Outpatient ESTEFANI JERONIMO MDA MDA [id number] 12:42:59 23:59:00 RAE lópez 2021-02-14 2021-02-14 Outpatient ESTEFANI BOWER MDA MDA [id number] 12:05:06 12:05:06 HANY lópez 2021-02-12 2021-02-12 Outpatient ESTEFANI BOWER MDA MDA [id number] 08:50:02 08:50:02 HANY lópez 2021-02-12 2021-02-12 Outpatient ESTEFANI BOWER MDA MDA [id number] 08:24:48 08:42:33 HANY lópez 2021-02-11 2021-02-11 Outpatient ESTEFANI BOWER MDA MDA [id number] 11:58:10 11:58:10 HANY lópez 2021-02-11 2021-02-11 Candie BROWN 1.2.840.114 [id number] Univers 00:00:00 00:00:00 Only Unassigned, RAFA 350.1.13.10 ity of [place] [facility] 4.2.7.2.686 [facility] [id number] [facility] [address] 2021-02-09 2021-02-09 Outpatient ESTEFANI VIDES, MDA MDA [id number] 08:26:01 23:59:00 SHAWNEE lópez 2021-02-09 2021-02-09 Outpatient ESTEFANI VIDES MDA MDA [id number] 09:03:20 15:07:44 SHAWNEE lópez 2021-02-09 2021-02-09 Outpatient ESTEFANI BOWER, MDA MDA [id number] 09:03:44 09:03:44 HANY lópez 2021-02-08 2021-02-08 Outpatient ESTEFANI VIDES, MDA MDA [id number] 15:43:00 15:43:00 SHAWNEE lópez 2021-02-05 2021-02-05 Outpatient ESTEFANI VIDES MDA MDA [id number] 10:55:45 10:55:45 SHAWNEE lópez 2021-02-05 2021-02-05 Outpatient ESTEFANI VIDES MDA MDA [id number] 09:47:29 09:47:29 SHAWNEE lópez 2021-02-05 2021-02-05 Outpatient ESTEFANI VIDES MDA MDA [id number] 09:02:03 09:02:03 SHAWNEE lópez 2021-02-04 2021-02-04 Telephone Marco A Lutz Alaniz 1.2.840.11 [id number] Univers 00:00:00 00:00:00 Leonel 350.1.13.10 it y of Women's 4.2.7.2.686 [facility] [id number] [facility] [address] 2021-02-03 2021-02-03 Outpatient ESTEFANI BOWER, MDA MDA [id number] 12:49:53 13:07:40 HANY lópez 2021-02-03 2021-02-03 Outpatient ESTEFANI VIDES, MDA MDA [id number] 10:38:58 10:38:58 SHAWNEE lópez 2021-01-25 2021-01-25 Telephone STEPHANIE Gonzalez [id number] Univers 00:00:00 00:00:00 Sheela D RAFA [id number] i ty of [facility] 4.2.7.2.686 [place] as [id number] [address] 2021-01-22 2021-01-22 Urgent Provider, [facility] [id number] Univers 14:29:39 15:46:58 Care Melanie John [facility] [id number] ity [facility] 4.2.7.2.686 [place] as Professio [phone] [facility] [address] 2021-01-22 2021-01-22 Outpatient R MELANIE [facility] [id number] Univers 14:40:00 14:40:00 JOHN ity [facility] 2021-01-20 2021-01-20 Telephone Daniele Lutzn [facility] [id number] Univers 00:00:00 00:00:00 Leonel [id number] it y [facility] [id number] [facility] [id number] [address] 2021-01-18 2021-01-18 Office Marco A Lutz [facility] [id number] Univers 14:44:22 15:18:27 Visit Leonel [id number] it y [facility] [id number] [facility] [id number] [address] 2021-01-18 2021-01-18 Outpatient R BOLIVAR MARCO A [facility] [id number] Univers 14:30:00 14:30:00 ity [facility] 2021-01-15 2021-01-15 Telephone Marco A Lutz [facility] 1.2.840.11 [id number] Univers 00:00:00 00:00:00 Leonel [id number] it y [facility] [id number] [facility] [id number] [id number] [address] 2021-01-15 2021-01-15 Telephone Prudencio [facility] [id number] Univers 00:00:00 00:00:00 Deangelo MULTISPEC 350.1.13.10 [place] [phone] [facility] AND [address] [facility] 2020-12-15 2020-12-15 Telephone [facility] [id number] Univers 00:00:00 00:00:00 Deaneglo MULTISPEC 350.1.13.10 [place] [phone] [facility] AND [address] [facility] 2020-12-15 2020-12-15 Orders Doctor STEPHANIE 1.2.840.114 [id number] 00:00:00 00:00:00 Only Unassigned, RAFA 350.1.13.10 ity of [place] [facility] 4.2.7.2.686 [place] [phone] [place] [address] [place] 2020-12-09 2020-12-09 Telephone [facility] [id number] Univers 00:00:00 00:00:00 Deangelo MULTISPEC 350.1.13.10 [place] [id number] [facility] AND [address] [facility] 2020-12-07 2020-12-07 Telephone [facility] 1.2.510.522 [id number] Univers 00:00:00 00:00:00 Deangelo MULTISPEC 350.1.13.10 [place] [phone] [facility] AND [address] [facility] 2020-12-07 2020-12-07 Telephone [facility] [id number] Univers 00:00:00 00:00:00 Deangelo MULTISPEC 350.1.13.10 [place] [phone] [facility] AND [address] [facility] 2020-12-04 2020-12-04 Telephone [facility] [id number] Univers 00:00:00 00:00:00 Deangelo MULTISPEC 350.1.13.10 [place] [phone] [address] [facility] 2020-12-01 2020-12-01 Orders Doctor STEPHANIE 1.2.840.114 [id number] Univers 00:00:00 00:00:00 Only Unassigned, RAFA 350.1.13.10 ity of [place] [facility] 4.2.7.2.686 [place] [id number] [facility] [address] 2020-11-12 2020-11-12 Telephone [facility] 1.2.801.781 [id number] Univers 00:00:00 00:00:00 Deangelo MULTISPEC 350.1.13.10 [place] [id number] [address] [facility] 2020-11-10 2020-11-10 Telephone [facility] [id number] Univers 00:00:00 00:00:00 Deangelo MULTISPEC 350.1.13.10 [place] [phone] [address] [facility] 2020-10-27 2020-10-27 Orders Doctor BROWN 1.2.840.114 [id number] Univers 00:00:00 00:00:00 Only Unassigned, RAFA 350.1.13.10 ity of [place] [facility] 4.2.7.2.686 [place] [phone] [facility] [address] 2020-10-26 2020-10-26 [facility] 1.2.840.114 [id number] Univers 00:00:00 00:00:00 Outreach Shruti N MULTISPEC 350.1.13.10 [place] [id number] [address] [facility] 2020-10-21 2020-10-21 Telephone [facility] 1.2.840.114 [id number] Univers 00:00:00 00:00:00 N MULTISPEC 350.1.13.10 ity of [place] 4.2.7.2.686 [facility] [place] [id number] [address] [facility] 2020-10-15 2020-10-15 Telephone [facility] 1.2.830.411 [id number] Univers 00:00:00 00:00:00 Deangelo MULTISPEC 350.1.13.10 ity of [place] 4.2.7.2.686 [place] [facility] [id number] [address] [facility] 2020-10-01 2020-10-01 Emergency [facility] [id number] Univers 15:03:00 19:56:[address] 350.1.13.10 i ty of [place] 4.2.7.2.686 [facility] [phone] [facility] [address] [place] 2020-10-01 2020-10-01 [facility] [id number] Univers 14:40:00 14:40:00 HARMAN ity of [facility] 2020-09-29 2020-09-29 Telephone [facility] 1.2.532.813 [id number] Univers 00:00:00 00:00:00 Deangelo MULTISPEC 350.1.13.10 ity of [place] 4.2.7.2.686 [facility] [place] [id number] [address] [facility] 2020-09-28 2020-09-28 Orders Doctor STEPHANIE 1.2.840.114 [id number] Univers 00:00:00 00:00:00 Only Unassigned, RAFA 350.1.13.10 ity of [place] [facility] 4.2.7.2.686 [facility] [id number] [facility] [address] 2020-09-28 2020-09-28 Telephone [facility] [id number] Univers 00:00:00 00:00:00 Deangelo MULTISPEC 350.1.13.10 [place] [phone] [facility] AND [address] [facility] 2020-09-15 2020-09-15 Telephone [facility] [id number] Univers 00:00:00 00:00:00 Deangelo MULTISPEC 350.1.13.10 [place] [phone] [address] [facility] 2020-09-10 2020-09-10 Orders Doctor STEPHANIE 1.2.840.114 [id number] Univers 00:00:00 00:00:00 Only Unassigned, RAFA 350.1.13.10 ity of [place] [facility] 4.2.7.2.686 [place] [id number] [place] [address] [address] 2020-09-10 2020-09-10 Telephone [facility] 1.2.393.820 [id number] Univers 00:00:00 00:00:00 Deangelo MULTISPEC 350.1.13.10 [place] [id number] [address] [facility] 2020-09-08 2020-09-08 [facility] 1.2.840.114 [id number] Univers 00:00:00 00:00:00 Outreach Shruti N MULTISPEC 350.1.13.10 [place] [id number] [address] [facility] 2020-09-08 2020-09-08 Telephone [facility] 1.2.703.044 [id number] Univers 00:00:00 00:00:00 Deangelo MULTISPEC 350.1.13.10 [place] [id number] [facility] AND [address] [facility] 2020-09-07 2020-09-07 Telephone [facility] [id number] Univers 00:00:00 00:00:00 Deangelo MULTISPEC 350.1.13.10 [place] [id number] [facility] AND [address] [facility] 2020-08-29 2020-08-29 Outpatient [facility] [id number] Univers 12:55:00 12:55:00 ity of [facility] 2020-08-24 2020-08-24 Office [facility] 1.2.840.114 [id number] Univers 16:00:26 16:30:26 Visit Deangelo MULTISPEC 350.1.13.10 [place] [id number] [address] [facility] 2020-08-24 2020-08-24 Outpatient R [facility] [id number] Univers 16:00:00 16:00:00 [facility] 2020-08-18 2020-08-18 Laboratory Lab, Adc Fam Pob I [facility] 1.2. 840.114 [id number] Univers 17:07:03 17:27:03 Only Matthew Payan [facility] 350.1.13.10 ity of [place] 4.2.7.2.686 [facility] as Professio [phone] [address] Office Building One 2020-08-18 2020-08-18 [facility] [id number] Univers 17:00:00 17:00:00 MATTHEW ity of [facility] 2020-08-17 2020-08-17 Telephone [facility] 1.2.345.391 [id number] Univers 00:00:00 00:00:00 [place] OSEGUERAPEC 350.1.13.10 [place] [id number] [address] [facility] 2020-08-08 2020-08-08 Outpatient R SYBIL [facility] [id number] Univers 12:40:00 12:40:00 RHIANNON ity of [facility] 2020-07-13 2020-07-13 Refill [facility] 1.2.840.114 [id number] Univers 00:00:00 00:00:00 Deangelo MULTISPEC 350.1.13.10 [place] [id number] [address] [facility] 2020-07-04 2020-07-04 Patient [facility] 1.2.840.114 [id number] Univers 00:00:00 00:00:00 Outreach Rangel PRIMARY 350.1.13.10 i ty of [facility] 4[place]2.7.2.[place] [id number] [facility] [address] [place] [address] 2020-07-03 2020-07-03 Telephone [facility] 1.2.264.921 [id number] Univers 00:00:00 00:00:00 Deangelo MULTISPEC 350.1.13.10 [place] [id number] [address] [facility] 2020-06-15 2020-06-15 Outpatient R MARCO A LUTZ [facility] [id number] Univers 13:00:00 13:00:00 ity of [facility] 2020-05-04 2020-05-04 Outpatient R [facility] [id number] Univers 13:30:00 13:30:00 DEANGELO ity of [facility] 2020-04-29 2020-04-29 Telephone [facility] [id number] Univers 00:00:00 00:00:00 Deangelo MULTISPEC 350.1.13.10 [place] [id number] [address] [facility] 2020-04-28 2020-04-28 Office [facility] 1.2.840.114 [id number] Univers 10:15:46 10:45:46 Visit Deangelo MULTISPEC 350.1.13.10 [place] [id number] [address] [facility] 2020-04-28 2020-04-28 Outpatient R [facility] [id number] Univers 10:30:00 10:30:00 DEANGELO ity of [facility] 2020-04-27 2020-04-27 Office [facility] 1.2.840.114 [id number] Univers 14:08:54 16:35:30 Visit Cong OSEGUERAPEC 350.1.13.10 [place]2.[place] [id number] [address] [facility] 2020-04-27 2020-04-27 Outpatient R [facility] [id number] Univers 14:15:00 14:15:00 CONG ity of [facility] 2020-04-25 2020-04-25 Orders Doctor STEPHANIE 1.2.840.114 [id number] Univers 00:00:00 00:00:00 Only Unassigned, RAFA 350.1.13.10 ity of [place] [facility] 4.2.7.2.686 [place] [id number] [place] [address] [address] 2020-04-24 2020-04-24 Telephone [facility] [id number] Univers 00:00:00 00:00:00 Deangelo MULTISPEC 350.1.13.10 ity of [place] 4.2.7.2.686 [facility] [id number] [address] [facility] 2020-04-22 2020-04-22 Telephone [facility] [id number] Univers 00:00:00 00:00:00 Deangelo MULTISPEC 350.1.13.10 [place] [id number] [address] [facility] 2020-04-17 2020-04-17 [facility] 1.2.840.114 [id number] Univers 12:52:50 23:59:[address] 350.1.13.10 ity of [place].2.[place] [phone] [facility] [address] 2020-04-17 2020-04-17 Outpatient R [facility] [id number] Univers 00:00:00 00:00:00 DEANGELO ity [facility] 2020-04-17 2020-04-17 Orders Doctor STEPHANIE 1.2.840.114 [id number] Univers 00:00:00 00:00:00 Only Unassigned, RAFA 350.1.13.10 ity of [place] [facility] 4.2.7.2.686 [place] [phone] [address] 2020-04-15 2020-04-15 Telephone [facility] [id number] Univers 00:00:00 00:00:00 Deangelo MULTISPEC 350.1.13.10 [place] [id number] [address] [facility] 2020-04-14 2020-04-14 [facility] 1.2.840.114 [id number] Univers 00:00:00 00:00:00 Outreach Shruti López MULTISPEC 350.1.13.10 [place] [id number] [facility] AND [address] [facility] 2020-04-13 2020-04-13 Outpatient R MARCO A LUTZ [facility] [id number] Univers 15:30:00 15:30:00 ity of [facility] 2020-04-10 2020-04-10 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[employer] Braulio Blandon Lab Main [facility] 1.2.8 40.114 [id number] Univers 11:17:42 11:32:42 Visit Deangelo Flannery 350.1.13.10 ity of [place] [phone] Nv dical [address] 2020-04-10 2020-04-10 Outpatient R [facility] [id number] Univers 11:00:00 11:00:00 DEANGELO ity [facility] 2020-04-09 2020-04-09 Office Prudencio [facility] 1.2.840.114 [id number] Univers 14:16:13 16:58:03 Visit [place] 350.1.13.10 [place] [phone] [facility] AND TERRY [address] [place] [facility] 2020-04-09 2020-04-09 Outpatient R PRUDENCIO [facility] [id number] Univers 14:00:00 14:00:00 DEANGELO ity of [facility] 2020-04-09 2020-04-09 Orders Doctor STEPHANIE 1.2.840.114 [id number] Univers 00:00:00 00:00:00 Only Unassigned, RAFA 350.1.13.10 ity of [place] [facility] 4.2.7.2.686 [place] [phone] [facility] [address] 2020-04-01 2020-04-01 Telephone Marco A Lutz [facility] 1.2.840.114 [id number] Univers 00:00:00 00:00:00 Seamus 350.1.13.10 i ty of [place] [phone] Me dical nal [address] [facility] Results Test Description Test Time Test Comments Results Result Comments Source POCT URINALYSIS W/O SPECIFIC GRAVITY 2022-04-06 19:53:00 Test Item Value Reference Range Interpretation Comme nts POCT PH U (test code = 3254) 5 mg/dl 5-8 POCT U LEUK EST (test code = 3263) trace Negative - Negative POCT U NIT (test code = 3262) negative Negative - Negative POCT U PROT (test code = 3259) trace Negative - Negative POCT U GLU (test code = 3256) negative Negative - Negative POCT U KETONE (test code = 3258) negative Negative - Negative POCT U BLD (test code = 3257) trace Negative - Negative [facility] SPECIFIC [id number] 19:53:00 Test Item Value Reference Range Interpretation Comments POCT PH U (test code = 3254) 5 mg/dl 5-8 POCT U LEUK EST (test code = trace Negative - Negative 3263) POCT U NIT (test code = 3262) negative Negative - Negative POCT U PROT (test code = 3259) trace Negative - Negative POCT U GLU (test code = 3256) negative Negative - Negative POCT U KETONE (test code = 3258) negative Negative - Negative POCT U BLD (test code = 3257) trace Negative - Negative [facility]
[2022-07-21 10:24] LABS: Urine Blood Trace-intact (Negative); Urine Glucose Negative (Negative); Urine Protein Negative (Negative); Urine pH 5.5 (5.0-7.0)
--- NOTE | 2022-07-21 10:42 | RAD REPORT ---
EXAM DESCRIPTION: CT - Abdomen Pelvis Wo Contrast - 07/21/2022 10:24 am CLINICAL HISTORY: Flank pain COMPARISON: Stone protocol CT abdomen and pelvis 03/28/2022 TECHNIQUE: CT imaging of the abdomen and pelvis was performed without IV contrast. Multiplanar refor mats were generated and reviewed. All CT scans are performed using dose optimization technique as appropriate and may include automated exposure control or mA/KV adjustment according to patient size. FINDINGS: No suspicious findings in the lung bases. The liver, spleen and pancreas show no suspicious findings. Gallbladder and biliary tree are also wit hout suspicious finding. No hydronephrosis or suspicious renal mass or other abnormalities within limits of noncontrast CT. Ad renal glands are unremarkable. Colonic diverticulosis without evidence of acute diverticulitis. No dilated bowel loops or bowel wall thickening. No free air, free fluid or inflammatory stranding. No hernia, mass or bulky lymphadenopa thy. Urinary bladder is suboptimally distended, limiting evaluation. Status post hysterectomy. Moderate atherosclerotic calcifications of the abdominal aorta. Small left lower abdominal paramidlin e fat containing hernia measuring 2 centimeter. No suspicious bony findings. Lumbosacral spine degenerative changes are present. IMPRESSION: Non-contrast enhanced CT abdomen and pelvis showing no significant or suspicious finding . Incidental findings as above.
[2022-07-21 10:53] LABS: Urine Bacteria None Seen /HPF (<20); Urine Mucus 4+ /HPF (None Seen)
--- NOTE | 2022-07-21 11:09 | ER ---
Nurse's Notes [facility] Name: Samanta Hayes Age: 82 yrs Sex: Female : 1940 Arrival Date: 07/21/2022 Time: 09:48 Bed 13 Private MD: Diagnosis: Muscle spasm of back;Hematuria, unspecified Presentation: 07/21 09:56 Chief complaint: Patient states: "I was just watching TV today around 2 or 3am when I aa5 started feeling a pain in my back and every time I move it hurts". Pt c/o pain to right scapular area, pt's daughter states "she almost had a fall 3 days ago and I was able to catch her". Coronavirus screen: At this time, the client does not indicate any symptoms associated with coronavirus-19. Ebola Screen: Patient denies travel to an Ebola-affected area in the 21 days before illness onset. Initial Sepsis Screen: Does the patient meet any 2 criteria? No. Patient's initial sepsis screen is negative. Does the patient have a suspected source of infection? No. Patient's initial sepsis screen is negative. Risk Assessment: Do you want to hurt yourself or someone else? Patient reports no desire to harm self or others. Onset of symptoms was July 21, 2022. 09:56 Acuity: KIT 4 aa5 09:56 Method Of Arrival: Wheelchair aa5 Triage Assessment: 10:00 General: Appears in no apparent distress. uncomfortable, Behavior is calm, cooperative, bp appropriate for age. Pain: Complains of pain in back. EENT: No deficits noted. Neuro: No deficits noted. Cardiovascular: No deficits noted. Respiratory: No deficits noted. GI: No signs and/or symptoms were reported involving the gastrointestinal system. : No signs and/or symptoms were reported regarding the genitourinary system. Derm: No deficits noted. Musculoskeletal: Circulation, motion, and sensation intact. Range of motion: intact in all extremities. Historical: - Allergies: 10:01 No Known Allergies; aa5 - PMHx: 10:01 COPD; Crohn's; Depression; DVT; hiatal hernia; Hypertension; insomnia; Anxiety; CVA; aa5 - Immunization history:: Adult Immunizations unknown. - Social history:: Smoking status: Patient denies any tobacco usage or history of. - Family history:: not pertinent. Screenin:02 [facility] ED Fall Risk Assessment (Adult) History of falling in the last 3 months, bp including since admission No falls in past 3 months (0 pts). Abuse screen: Denies threats or abuse. Denies injuries from another. Nutritional screening: No deficits noted. Tuberculosis screening: No symptoms or risk factors identified. Assessment: 10:02 General: SEE TRIAGE NOTE. bp 11:03 Reassessment: PT RETURNED FROM CT. Neuro: Level of Consciousness is awake, alert, obeys bp commands, Oriented to Appropriate for age. 11:36 Reassessment: DC HOME VIA WC WITH FAMILY. bp Vital Signs: 09:56 BP 164 / 78; Pulse 81; Resp 16 S; Temp 98.0(TE); Pulse Ox 95% on R/A; Weight 58.97 kg aa5 (R); Height 5 ft. 2 in. (157.48 cm) (R); 11:03 BP 163 / 76; Pulse 72; Resp 16; Pulse Ox 98% ; bp 09:56 Body Mass Index 23.78 (58.97 kg, 157.48 cm) aa5 ED Course: 09:48 Patient arrived in ED. as 09:49 Pawan Garcia MD is Attending Physician. rt 09:56 Arm band placed on Patient placed in an exam room, on a stretcher. aa5 10:01 Triage completed. aa5 10:01 Tanner Arce, RN is Primary Nurse. bp 10:02 Patient has correct armband on for positive identification. Bed in low position. Call bp light in reach. Side rails up X2. 10:26 CT Abd/Pelvis - Without Contrast In Process Unspecified. EDMS 11:07 Jordin Marie MD is Referral Physician. rt 11:36 No provider procedures requiring assistance completed. Patient did not have IV access bp during this emergency room visit. Administered Medications: No medications were administered Medication: 11:36 VIS not applicable for this client. bp Outcome: 11:08 Discharge ordered by . rt 11:36 Discharged to home via wheelchair, with family. bp 11:36 Condition: stable 11:36 Discharge instructions given to patient, family, Instructed on discharge instructions, follow up and referral plans. medication usage, Demonstrated understanding of instructions, follow-up care, medications, Prescriptions given X 1. 11:37 Patient left the ED. bp Signatures: Dispatcher [employer] Magali Dia Audri, RN RN aa5 Tanner Arce RN RN bp Pawan Garcia MD MD rt
--- NOTE | 2022-07-21 11:09 | EDPHYS ---
Physician Documentation [facility] Name: Samanta Hayes Age: 82 yrs Sex: Female : 1940 Arrival Date: 07/21/2022 Time: 09:48 Bed 13 Private MD: ED Physician Pawan Garcia HPI: 07/21 10:19 This 82 yrs old Female presents to ER via Wheelchair with complaints of Back Pain. rt 10:19 The patient presents with pain that is acute, with no known mechanism of injury. The rt symptoms are located in the right mid back. Onset: The symptoms/episode began/occurred acutely, At 2 AM. The pain does not radiate. Associated signs and symptoms: The patient has no apparent associated signs or symptoms. Modifying factors: The patient symptoms are alleviated by OTC meds, NSAID. Severity of symptoms: At their worst the symptoms were severe, in the emergency department the symptoms have improved, markedly. The patient has not experienced similar symptoms in the past. Historical: - Allergies: 10:01 No Known Allergies; aa5 - PMHx: 10:01 COPD; Crohn's; Depression; DVT; hiatal hernia; Hypertension; insomnia; Anxiety; CVA; aa5 - Immunization history:: Adult Immunizations unknown. - Social history:: Smoking status: Patient denies any tobacco usage or history of. - Family history:: not pertinent. ROS: 10:19 Constitutional: Negative for fever, chills, and weight loss, Cardiovascular: Negative rt for chest pain, palpitations, and edema, Respiratory: Negative for shortness of breath, cough, wheezing, and pleuritic chest pain, Abdomen/GI: Negative for abdominal pain, nausea, vomiting, diarrhea, and constipation, : Negative for injury, bleeding, discharge, and swelling, MS/Extremity: Negative for injury and deformity, Skin: Negative for injury, rash, and discoloration, Neuro: Negative for headache, weakness, numbness, tingling, and seizure, Psych: Negative for depression, anxiety, suicide ideation, homicidal ideation, and hallucinations. 10:19 Back: Positive for pain at rest, pain with movement. Exam: 10:19 Constitutional: This is a well developed, well nourished patient who is awake, alert, rt and in no acute distress. Head/Face: Normocephalic, atraumatic. Eyes: Pupils equal round and reactive to light, extra-ocular motions intact. Lids and lashes normal. Conjunctiva and sclera are non-icteric and not injected. Cornea within normal limits. Periorbital areas with no swelling, redness, or edema. Chest/axilla: Normal chest wall appearance and motion. Nontender with no deformity. No lesions are appreciated. Cardiovascular: Regular rate and rhythm with a normal S1 and S2. No gallops, murmurs, or rubs. Normal PMI, no JVD. No pulse deficits. Respiratory: Lungs have equal breath sounds bilaterally, clear to auscultation and percussion. No rales, rhonchi or wheezes noted. No increased work of breathing, no retractions or nasal flaring. Abdomen/GI: Soft, non-tender, with normal bowel sounds. No distension or tympany. No guarding or rebound. No evidence of tenderness throughout. Back: No spinal tenderness. No costovertebral tenderness. Full range of motion. Skin: Warm, dry with normal turgor. Normal color with no rashes, no lesions, and no evidence of cellulitis. MS/ Extremity: Pulses equal, no cyanosis. Neurovascular intact. Full, normal range of motion. Neuro: Awake and alert, GCS 15, oriented to person, place, time, and situation. Cranial nerves II-XII grossly intact. Motor strength 5/5 in all extremities. Sensory grossly intact. Cerebellar exam normal. Normal gait. Psych: Awake, alert, with orientation to person, place and time. Behavior, mood, and affect are within normal limits. Vital Signs: 09:56 BP 164 / 78; Pulse 81; Resp 16 S; Temp 98.0(TE); Pulse Ox 95% on R/A; Weight 58.97 kg aa5 (R); Height 5 ft. 2 in. (157.48 cm) (R); 11:03 BP 163 / 76; Pulse 72; Resp 16; Pulse Ox 98% ; bp 09:56 Body Mass Index 23.78 (58.97 kg, 157.48 cm) aa5 MDM: 09:57 Patient medically screened. rt 11:09 Differential diagnosis: Shingles, musculoskeletal back pain, pyelonephritis, rt ureterolithiasis. Data reviewed: vital signs, nurses notes, lab test result(s), radiologic studies, CT scan. I considered the following discharge prescriptions or medication management in the emergency department Pain Medications: At this time, prescription pain medications are not recommended. Independent interpretation of the following test(s) in the Emergency Department CT Scan: My interpretation is No obvious compression fracture, stone on CT. Test considered but Not performed: Labs: Stable vital signs, labs not indicated. Counseling: I had a detailed discussion with the patient and/or guardian regarding: the need for outpatient follow up, Discussed recommendation to follow-up with urology for gross hematuria to rule out tumor. 07/21 10:25 Order name: Urine Dipstick-Ancillary; Complete Time: 10:25 EDMS 07/21 10:26 Order name: Urine Microscopic Only; Complete Time: 10:57 rt 07/21 10:06 Order name: CT Abd/Pelvis - Without Contrast; Complete Time: 10:42 rt 07/21 10:06 Order name: Urine Dipstick-Ancillary (obtain specimen); Complete Time: 10:28 rt 07/21 10:57 Order name: Urine Culture EDMS 07/21 11:07 Order name: Urine Culture rt Administered Medications: No medications were administered Disposition Summary: 07/21/22 11:08 Discharge Ordered Location: Home rt Problem: new rt Symptoms: have improved rt Condition: Stable rt Diagnosis - Muscle spasm of back rt - Hematuria, unspecified rt Followup: rt - With: Private Physician - When: 2 - 3 days - Reason: Followup: rt - With: Jordin Marie MD - When: 7 - 10 days - Reason: Discharge Instructions: - Discharge Summary Sheet rt - Acute Back Pain, Adult rt - Hematuria, Adult rt Forms: - Medication Reconciliation Form rt - Thank You Letter rt - Antibiotic Education rt - Prescription Opioid Use rt Prescriptions: - Cyclobenzaprine 5 mg Oral Tablet - take 1 tablet by ORAL route 3 times per day As needed; 15 tablet; Refills: 0, rt Product Selection Permitted Signatures: Dispatcher [employer] Suzanne Smith, RN RN aa5 Pawan Garcia MD MD rt
[2022-07-21 11:41] VITALS: TEMP 98
[2022-07-21 11:42] VITALS: BP 163/76; O2SAT 98
== END 2022-07-21 11:37 | disposition home or self-care (01) ==
LOC: ER 09:41
DX: M62.830 Muscle spasm of back (principal); R31.9 Hematuria, unspecified; I10 Essential (primary) hypertension; J44.9 Chronic obstructive pulmonary disease, unspecified; Z86.73 Personal history of transient ischemic attack (TIA), and cerebral infarction without residual deficits
CPT/HCPCS: 74176; 81003; 81015; 87086; 87088; 99283

== ENCOUNTER → 2023-06-08 | Emergency (ER) | payer OTHER, BC ==
[~2023-06-08] MED LIST: LORazepam 2 MG/ML VIAL ONE
--- OUTSIDE RECORDS SUMMARY | 2023-06-08 13:40 | XMS REPORT | Clinical Summary ---
Author Name Unknown Organization [facility] Address [address] [place] [address] Care Team Providers Care Room Attendants Name Role Phone Zora Lutz Unavailable Deann Dennis MD Primary Care Provider [phone] Sachin Holliday MD Unavailable [phone] Allergies No known active allergies Medications Medication Sig Dispensed Refills Start Date End Date Status antiox.mv no.[id number] (I-Caps) 280-10-2 mg cap Take 1 capsule by mouth daily. 0 Active aspirin 81 mg chewable tablet Chew 1 tablet daily. 0 Active Bifidobacterium infantis (ALIGN ORAL) 0 Act marti clonazePAM (KlonoPIN) 1 mg disintegrating tablet Dissolve 1 tablet (1 mg) on the tongue daily as needed. 0 Active cycloSPORINE (Restasis) 0.05% ophthalmic emulsion Administer 1 drop to both eyes daily. 0 Active [id number]-[id number]-[id number] -LIPIDS ORAL 0 Active primidone (MYSOLINE) 50 mg tablet 0 12/21/2020 Active simethicone (MYLICON,GAS-X) 180 mg capsule 0 Active LAMOTRIGINE ORAL Take 50 mg by mouth at bedtime. 0 Active ibuprofen (ADVIL,MOTRIN) 800 mg tabletIndications:Abd ominal or pelvic swelling, mass, or lump, other specified site; multiple sites Take 1 tablet (800 mg) by mouth every 8 (eight) hours as needed for moderate pain. 30 tablet 0 02/16/2021 Active latanoprost (XALATAN) 0.005% ophthalmic solution daily. 0 09/02/2021 Active gabapentin (NEURONTIN) 100 mg capsule 0 04/10/2022 Active temazepam (RESTORIL) 7.5 mg capsule Take 1 capsule (7.5 mg) by mouth nightly as needed for sleep. 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:Clinical stage from 02/16/2021:Stage IB(Primary) - Signed by Deann Dennis MD on 02/26/2021 Candidal vulvovaginitis 02/26/2021 Abdominal or pelvic swelling , mass, or lump, other specified site; multiple sites 02/03/2021 Family history of malignant neoplasm of breast 0 02/03/2021 Overview: Added automatically from request for surgery [id number] Mammography abnormal 02/03/2021 Overview: Added automatically from request for surgery [id number] H/O: major abdominal surgery 02/03/2021 Chronic obstructive pulmonary disease 02/02/2021 Crohn's disease 02/02/2021 Depressive disorder 02/02/2021 Gastroesophageal reflux disease 02/02/2021 Encounters Date Type Department Care Team Description 12/28/2022 9:30 AM CDT Follow-Up MD [facility] [address] [place] [address] [id number] Deann Dennis MD 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) 12/28/2022 Travel after 06/08/2022 Surgical History Surgery Date Site/Laterality Comments EXPLORATORY LAPAROTOMY 06/12/1961 - 06/11/1962 BREAST LUMPECTOMY 06/12/1969 - 06/11/1970 HYSTERECTOMY 06/12/1970 - 06/11/1971 UPPER GASTROINTESTINAL ENDOSCOPY 06/12/2016 - 06/11/2017 SECTION, CLASSIC x3 APPENDECTOMY RI LAPAROSCOPY W/RMVL ADNEXAL STRUCTURES 02/16/2021 Abdomen/Bilateral Procedure: LAPAROSCOPY WITH REMOVAL OF ADNEXAL STRUCTURES , TOTAL OOPHERECTOMY AND SALPINGECTOMY.; Surgeon: Deann Dennis MD; Location: MAIN OR; Service: LITERACY TEACHER - GYNECOLOGIC ONCOLOGY RI CYSTOURETHROSCOPY 02/16/2021 Genitalia/Bilateral Procedure: CYSTOURETHROSCOPY; Surgeon: Deann Dennis MD; Location: MAIN OR; Service: LITERACY TEACHER - GYNECOLOGIC ONCOLOGY RI OMNTC EPIPLOECTOMY RESCJ OMENTUM SPX 02/16/2021 Abdomen/N/A Procedure: OMENTAL BIOPSY; Surgeon: Deann Dennis MD; Location: MAIN OR; Service: LITERACY TEACHER - GYNECOLOGIC ONCOLOGY RI ENTEROLSS FRING INTSTINAL ADHESION SPX 02/16/2021 Abdomen/N/A Procedure: FREEING OF INTESTINAL ADHESION; Surgeon: Deann Dennis MD; Location: MAIN OR; Service: LITERACY TEACHER - GYNECOLOGIC ONCOLOGY RI URETEROLYSIS W/WORPSG URETER RETROPERIT FIBROSIS 02/16/2021 Abdomen/Left Procedure: URETEROLYSIS, WITH OR WITHOUT REPOSITIONING OF URETER FOR RETROPERITONEAL FIBROSIS; Surgeon: Deann Dennis MD; Location: MAIN OR; Service: LITERACY TEACHER - GYNECOLOGIC ONCOLOGY Medical History Medical History Date Comments Allergic rhinitis 1960 Sinusitis 1965 Difficulty talking 2018 Tooth disorder 2026 Swallowing problem 2010 Have had thro at stretched twice Gastric reflux 2015 Crohn's disease 2013 Treated for 5 ye ars Irritable bowel syndrome 2018 Treated for 5 years Menopause 1970 Osteoporosis 1980 Arthritis 1980 Depressive [...] Date Smoking Tobacco: Never Smokeless Tobacco: Never Comments:Second hand smoke Alcohol Use Standard Drinks/Week Comments Not Currently 0 (1 standard drink = 0.6 oz pur e alcohol) Education Answer Date Recorded What is the highest level of school you have completed or the highest degree you have received? High school graduate 02/09/2021 Sex and Gender Information Value Date Recorded Sex Assigned at Female 02/02/2021 5:56 PM CDT Gender Identity Female 02/02/2021 5:56 PM CDT Sexual Orientation Straight 02/02/2021 5: 56 PM CDT Job Start Date Occupation Industry Not on file Not on file Not on file Obstetrics History Para Term AB IAB SAB Ectopic Multiple Livin g Live Births 3 3 2 1 2 Date Outcome GA Total Labor Labor/2nd/3rd Weight Sex Delivery Anes PTL Nickie A1 A5 Name Cl in Term Term Last Filed Vital Signs Vital Sign Reading Time Taken Comments Blood Pressure 145/85 12/28/2022 10:54 AM CDT Pulse 76 12/28/2022 10:54 AM CDT Temperature 36.8 C (98.2 F) 12/28/2022 10:54 AM C DT Respiratory Rate 16 12/28/2022 10:54 AM CDT Oxygen Saturation - - Inhaled Oxygen Concentration - - Weight - - Height - - Body Mass Index - - Plan of Treatment Upcoming Encounters Date Type Department Care Team Description 06/30/2023 9:00 AM CODE ENFORCEMENT OFFICER Lab MD [facility] [address] [place] [address] [address] [place] [address] Deann Dennis MD [address] [place] [address] [id number] 06/30/2023 9:30 AM CODE ENFORCEMENT OFFICER Follow-Up MD [facility] [address] [place] [id number] Deann Dennis MD [address] [place] [address] [id number] Health Maintenance Due Date Last Done Comments COVID-19 Vaccination (-24 season) 2023 10/12/2021, 08/29/2020, 08/08/2020 Procedures Procedure Name Priority Date/Time Associated Diagnosis Comments CANCER ANTIGEN 125 Routine 12/28/2022 9: 23 AM CDT 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 Caution should be exercised when interpreting such values and done in conjunction with clinical context. Reference intervals are not available for male patients. Results should be interpreted in conjunction with clinical context. This test is measured by electrochemiluminescence immunoassay on Janey Sudeep immunoassay analyzers. Results obtained in different methods are not interchangeable. Testing performed at [facility], [address], [place] [address] Blood 12/28/2022 9:23 AM CDT 12/28/2022 9:23 AM CDT Cherelle JESUS LAB BLOOD ORDERABLES [facility] [address], [address] [place] [address] after 06/08/2022 Care Teams Room Attendants Relationship Specialty Start Date End Date Zora Lutz [address] [place] [address] [id number] PCP - External Primary Care Provider Obstetrics/Gynecology 01/21/21 Deann Dennis MD [address] [place] [address] [id number] PCP - General Gynecological Oncology 01/21/21 Sachin Holliday MD [address] [place] [address] Consulting Physician Internal Medicine 02/09/21
[2023-06-08 14:18] LABS: Absolute Lymphocytes (CBC) 2.6 K/uL (0.7-4.9); Hematocrit 41.9 % (36.0-45.0); Lymphocytes % 39.6 % (15.3-44.8); MCV 90.3 fL (80-100); MPV 7.6 fL (7.6-11.3); Platelets 272 thou/uL (152-406); RBC Red Blood Cell Count 4.64 M/uL (3.86-4.86)
[2023-06-08 14:20] LABS: Protime INR 0.98
--- NOTE | 2023-06-08 14:20 | RAD REPORT ---
EXAM DESCRIPTION: CT - Head Brain Wo Cont - 06/08/2023 2:13 pm CLINICAL HISTORY: Paresthesia COMPARISON: Head Brain Wo Cont dated 03/16/2022; Facial Bones W/ Mpr dated 08/16/2019 TECHNIQUE: All CT scans are performed using dose optimization technique as appropriate and may inclu de automated exposure control or mA/KV adjustment according to patient size. FINDINGS: No intracranial hemorrhage, hydrocephalus or extra-axial fluid collection.No areas of brai n edema or evidence of midline shift. Cerebral atrophy. Mild chronic small vessel ischemic changes. The paranasal sinuses and mastoids are clear. The calvarium is intact. IMPRESSION: No acute intracranial abnormality.
--- NOTE | 2023-06-08 14:43 | RAD REPORT ---
EXAM DESCRIPTION: RAD - Chest Single View - 06/08/2023 2:21 pm CLINICAL HISTORY: CHEST PAIN COMPARISON: Chest Single View dated 03/16/2022; Chest Single View dated 12/20/2018; Chest Pa And Lat ( 2 Views) dated 10/22/2018; Chest Single View dated 07/01/2016 FINDINGS: Lines: None. Lungs: No evidence of edema or pneumonia. Pleural: No significant pleural effusions or pneumothorax. Cardiac: The heart size is within normal limits. Mediastinum: Within normal limits. Bones: No acute fractures. Other: None IMPRESSION: No acute cardiopulmonary disease.
[2023-06-08 14:46] LABS: Potassium 4.3 mEq/L (3.5-5.1); Troponin High Sensitivity 5.7 pg/mL (<58.9)
--- NOTE | 2023-06-08 16:33 | RAD REPORT ---
EXAM DESCRIPTION: MRI - Brain Wo Cont - 06/08/2023 4:08 pm CLINICAL HISTORY: WEAKNESS COMPARISON: Brain W/Wo Cont dated 02/19/2020; MRA Head Wo Cont dated 02/19/2020; Head Brain Wo Cont date d 06/08/2023 TECHNIQUE: Sagittal T1-weighted images were obtained along with PD/heavily T2-weighted and T2-FLAIR images. Axial DWI and ADC mapping sequences were also obtained along with coronal heavily T2-weighted images were obtained. FINDINGS: No intracranial hemorrhage, mass or acute infarction. There is no edema or shift of midlin e structures. No extra-axial fluid collections. Signal voids are seen as a normal finding in the kerwin r intracranial vessels. Mild chronic small vessel ischemic changes. Patchy signal changes in the amado likely reflecting chronic small vessel ischemic changes as well and similar to 02/19/2020. Cerebral atrophy. Mild ethmoid air cell thickening. IMPRESSION: No acute intracranial abnormality. Specifically, no evidence of acute infarct. Nonspecif ic T2/FLAIR hyperintense signal within the subcortical and deep white matter and notably at the brain stem likely reflecting chronic small vessel ischemic changes and similar to 02/19/2020
--- NOTE | 2023-06-08 16:56 | RAD REPORT ---
EXAM DESCRIPTION: CT - Chest For Pe Angio - 06/08/2023 4:38 pm CLINICAL HISTORY: SOB COMPARISON: No comparisons TECHNIQUE: Dynamically enhanced axial 3 mm thick images of the chest were obtained during administra tion of <100> mL Isovue 370 IV contrast. Coronal and oblique reconstruction images were generated and reviewed. Exam utilizes a protocol for optimal evaluation of pulmonary arterial tree. Maximum intensity projections 3D imaging was utilized All CT scans are performed using dose optimization technique as appropriate and may include automated exposure control or mA/KV adjustment according to patient size. FINDINGS: Chest Wall: No suspicious thyroid nodules or pathologic lymphadenopathy. Lungs: No acute abnormality. Pleura: No significant effusions or pneumothorax. Mediastinum/ping: No pathologic lymphadenopathy. Pulmonary arteries/Aorta: No filling defect identified. No aortic aneurysm. Heart: No significant pericardial effusion. Normal heart size. Multi-vessel coronary artery disease. Mitral annular calcifications. Upper abdomen: No acute abnormality. Bones: No acute abnormality. IMPRESSION: Negative for pulmonary embolism. No acute findings within the chest. Left main and three -vessel coronary artery disease.
--- NOTE | 2023-06-08 17:49 | ER ---
Nurse's Notes [facility] Name: Samanta Hayes Age: 82 yrs Sex: Female : 1940 Arrival Date: 06/08/2023 Time: 13:36 Bed 4 Private MD: Diagnosis: Weakness;Shortness of breath Presentation: 06/08 13:44 Chief complaint: Patient states: Shortness of breath onset 2 weeks ago and feeling more cm10 fatigued. Pt states that today at 12:30 she woke up and her left arm felt heavy and it was numb. Pt states that her arm numbness has resolved and patient able to move arm with no difficulty. Coronavirus screen: Vaccine status: Patient reports being unvaccinated. Client denies travel out of the [place] in the last 14 days. Ebola Screen: Patient denies travel to an Ebola-affected area in the 21 days before illness onset. No symptoms or risks identified at this time. Initial Sepsis Screen: Does the patient meet any 2 criteria? No. Patient's initial sepsis screen is negative. Does the patient have a suspected source of infection? No. Patient's initial sepsis screen is negative. Risk Assessment: Do you want to hurt yourself or someone else? Patient reports no desire to harm self or others. Onset of symptoms was June 08, 2023. 13:44 Method Of Arrival: Wheelchair cm10 13:44 Acuity: KIT 3 cm10 Triage Assessment: 14:04 Respiratory: the patient has mild shortness of breath. ll1 18:10 General: Appears in no apparent distress. Behavior is calm, cooperative, appropriate ll1 for age. Respiratory: Onset: The symptoms/episode began/occurred 2 weeks. Historical: - Allergies: 13:46 No Known Allergies; cm10 - PMHx: 13:46 Anxiety; COPD; Crohn's; CVA; Depression; DVT; hiatal hernia; Hypertension; insomnia; cm10 - Immunization history:: Adult Immunizations unknown. - Social history:: Smoking status: Patient denies any tobacco usage or history of. Screenin:04 [facility] ED Fall Risk Assessment (Adult) Score/Fall Risk Level 0 - 2 = Low Risk ll1 Oriented to surroundings, Maintained a safe environment, Educated pt \T\ family on fall prevention, incl call for assistance when getting out of bed, Hourly rounding (assess needs \T\ fall precautionary measures) done. Abuse screen: Denies threats or abuse. Nutritional screening: No deficits noted. Tuberculosis screening: No symptoms or risk factors identified. Assessment: 14:00 Pain: Denies pain. Cardiovascular: Rhythm is regular. Respiratory: Airway is patent ll1 Respiratory effort is even, unlabored, Breath sounds are clear bilaterally. 14:03 General: Appears uncomfortable, Behavior is calm, cooperative, appropriate for age. ll1 Neuro: Reports numbness weakness. Cardiovascular: Reports shortness of breath. Respiratory: Reports shortness of breath. 14:03 Musculoskeletal: Circulation, motion, and sensation intact. Capillary refill < 3 ll1 seconds, Reports numbness in left arm. 15:23 Reassessment: No changes from previously documented assessment. Patient and/or family ll1 updated on plan of care and expected duration. Pain level reassessed. 16:00 Reassessment: No changes from previously documented assessment. Patient and/or family ll1 updated on plan of care and expected duration. Pain level reassessed. 17:03 Reassessment: No changes from previously documented assessment. Patient and/or family ll1 updated on plan of care and expected duration. Pain level reassessed. Patient is alert, oriented x 3, equal unlabored respirations, skin warm/dry/pink. 17:48 Reassessment: No changes from previously documented assessment. Patient and/or family ll1 updated on plan of care and expected duration. Pain level reassessed. 18:05 Reassessment: No changes from previously documented assessment. Patient and/or family ll1 updated on plan of care and expected duration. Pain level reassessed. Patient is alert, oriented x 3, equal unlabored respirations, skin warm/dry/pink. gait steady with cane. Tolerated well. Vital Signs: 13:44 BP 111 / 70; Pulse 74; Resp 16; Temp 98; Pulse Ox 99% on R/A; Weight 53.98 kg; Height 5 cm10 ft. 2 in. ; 15:23 BP 136 / 65; Pulse 81; Resp 15; Pulse Ox 100% on R/A; ll1 17:03 BP 128 / 83; Pulse 62; Resp 15; Pulse Ox 100% ; ll1 17:47 BP 112 / 57; Pulse 65; Resp 16; Pulse Ox 96% ; ll1 13:44 Body Mass Index 21.77 (53.98 kg, 157.48 cm) cm10 ED Course: 13:39 Patient arrived in ED. mg5 13:41 Murtaza Brennan MD is Attending Physician. kdr 13:46 Triage completed. cm10 13:47 Arm band placed on Patient placed in an exam room, on a stretcher. cm10 13:48 Abbi Good, RN is Primary Nurse. ll1 13:57 Inserted saline lock: 20 gauge in left antecubital area, using aseptic technique. Blood ll1 collected. 14:04 Patient has correct armband on for positive identification. Bed in low position. Call ll1 light in reach. Side rails up X 1. Provided Education on: ER process and procedures. Client placed on continuous cardiac and pulse oximetry monitoring. NIBP monitoring applied. playground monitor on. 14:14 CT Head Brain wo Cont In Process Unspecified. EDMS 14:23 XRAY Chest (1 view) In Process Unspecified. EDMS 16:10 MRI - Brain Wo Cont In Process Unspecified. EDMS 16:40 CT Chest For PE Angio In Process Unspecified. EDMS 18:10 No provider procedures requiring assistance completed. IV discontinued, intact, ll1 bleeding controlled, No redness/swelling at site. Pressure dressing applied. Administered Medications: 16:00 Drug: Ativan IVP 0.5 mg IVP once Route: IVP; Site: left antecubital; ll1 18:25 Follow up: Response: No adverse reaction; Anxiety decreased; RASS: Alert and Calm (0) ll1 Medication: 15:23 VIS not applicable for this client. ll1 Outcome: 17:48 Discharge ordered by . kdr 18:12 Patient left the ED. ll1 18:12 Discharged to home via wheelchair, ll1 18:12 Condition: stable 18:12 Discharge instructions given to patient, family, Instructed on discharge instructions, follow up and referral plans. Demonstrated understanding of instructions, follow-up care, Signatures: Dispatcher [employer] EDNE Murtaza Brennan MD MD kdr Abbi Good, RN RN ll1 Lay Lizarraga RN RN 10 Em Segal mg5 Corrections: (The following items were deleted from the chart) 14:04 14:03 Respiratory: Reports shortness of breath ll1 ll1
--- NOTE | 2023-06-08 17:49 | EDPHYS ---
Physician Documentation [facility] Name: Samanta Hayes Age: 82 yrs Sex: Female : 1940 Arrival Date: 06/08/2023 Time: 13:36 Bed 4 Private MD: ED Physician Murtaza Brennan HPI: 06/08 17:49 This 82 yrs old Female presents to ER via Wheelchair with complaints of Breathing kdr Difficulty, Arm Pain - NUMBNESS. 17:49 Patient family reports that she has had increasing shortness of breath over the last 2 kdr weeks. She is also been feeling more fatigued. Today when the patient woke around 1230 from a nap, she noted that her left arm felt heavy and it was numb. She is not believed to have been laying on the arm at the time. After short time she picked up her arm and began to rub it and it improved and returned to normal. She now has no neurologic deficits or complaints. Patient is otherwise stable in the ED and appropriate.. Onset: The symptoms/episode began/occurred gradually, 2 weeks for the shortness of breath and this afternoon for the left arm weakness and numbness. Severity of symptoms: At their worst the symptoms were mild in the emergency department the symptoms have resolved. The patient has not experienced similar symptoms in the past. The patient has not recently seen a physician. Historical: - Allergies: 13:46 No Known Allergies; cm10 - PMHx: 13:46 Anxiety; COPD; Crohn's; CVA; Depression; DVT; hiatal hernia; Hypertension; insomnia; cm10 - Immunization history:: Adult Immunizations unknown. - Social history:: Smoking status: Patient denies any tobacco usage or history of. ROS: 17:49 Constitutional: Negative for fever, chills, and weight loss, Eyes: Negative for injury, kdr pain, redness, and discharge, Neck: Negative for injury, pain, and swelling, Cardiovascular: Negative for chest pain, palpitations, and edema, Abdomen/GI: Negative for abdominal pain, nausea, vomiting, diarrhea, and constipation, Back: Negative for injury and pain, : Negative for injury, bleeding, discharge, and swelling, MS/Extremity: Negative for injury and deformity, Skin: Negative for injury, rash, and discoloration, Psych: Negative for depression, anxiety, suicide ideation, homicidal ideation, and hallucinations, Allergy/Immunology: Negative for hives, rash, and allergies, Endocrine: Negative for neck swelling, polydipsia, polyuria, polyphagia, and marked weight changes, Hematologic/Lymphatic: Negative for swollen nodes, abnormal bleeding, and unusual bruising, 17:49 Respiratory: Positive for dyspnea on exertion, shortness of breath, on exertion. 17:49 Neuro: Positive for numbness, weakness, Generalized fatigue, Exam: 17:49 Constitutional: This is a well developed, well nourished patient who is awake, alert, kdr and in no acute distress. Head/Face: Normocephalic, atraumatic. Eyes: Pupils equal round and reactive to light, extra-ocular motions intact. Lids and lashes normal. Conjunctiva and sclera are non-icteric and not injected. Cornea within normal limits. Periorbital areas with no swelling, redness, or edema. Neck: Trachea midline, no thyromegaly or masses palpated, and no cervical lymphadenopathy. Supple, full range of motion without nuchal rigidity, or vertebral point tenderness. No Meningismus. Chest/axilla: Normal chest wall appearance and motion. Nontender with no deformity. No lesions are appreciated. Cardiovascular: Regular rate and rhythm with a normal S1 and S2. No gallops, murmurs, or rubs. Normal PMI, no JVD. No pulse deficits. Respiratory: Lungs have equal breath sounds bilaterally, clear to auscultation and percussion. No rales, rhonchi or wheezes noted. No increased work of breathing, no retractions or nasal flaring. Abdomen/GI: Soft, non-tender, with normal bowel sounds. No distension or tympany. No guarding or rebound. No evidence of tenderness throughout. Back: No spinal tenderness. No costovertebral tenderness. Full range of motion. Skin: Warm, dry with normal turgor. Normal color with no rashes, no lesions, and no evidence of cellulitis. MS/ Extremity: Pulses equal, no cyanosis. Neurovascular intact. Full, normal range of motion. Neuro: Awake and alert, GCS 15, oriented to person, place, time, and situation. Cranial nerves II-XII grossly intact. Motor strength 5/5 in all extremities. Sensory grossly intact. Cerebellar exam normal. Normal gait. Psych: Awake, alert, with orientation to person, place and time. Behavior, mood, and affect are within normal limits. Vital Signs: 13:44 BP 111 / 70; Pulse 74; Resp 16; Temp 98; Pulse Ox 99% on R/A; Weight 53.98 kg; Height 5 cm10 ft. 2 in. ; 15:23 BP 136 / 65; Pulse 81; Resp 15; Pulse Ox 100% on R/A; ll1 17:03 BP 128 / 83; Pulse 62; Resp 15; Pulse Ox 100% ; ll1 17:47 BP 112 / 57; Pulse 65; Resp 16; Pulse Ox 96% ; ll1 13:44 Body Mass Index 21.77 (53.98 kg, 157.48 cm) cm10 MDM: 17:48 Patient medically screened. kdr 17:49 Data reviewed: vital signs, nurses notes, lab test result(s), radiologic studies. kdr 17:56 ED course: I had extensive and detailed review of all lab results and findings with the [facility] patient's family. They were in agreement that the patient was stable and wished to take her home for further care and evaluation with her primary care physician.. 06/08 13:55 Order name: Basic Metabolic Panel; Complete Time: 15:51 ph 06/08 13:55 Order name: CBC with Diff; Complete Time: 14:44 ph 06/08 13:55 Order name: D-Dimer; Complete Time: 14:44 ph 06/08 13:55 Order name: NT PRO-BNP; Complete Time: 15:51 ph 06/08 13:55 Order name: PT-INR; Complete Time: 14:44 ph 06/08 13:55 Order name: Troponin HS; Complete Time: 15:51 06/08 13:55 Order name: XRAY Chest (1 view); Complete Time: 14:44 06/08 13:56 Order name: CT Head Brain wo Cont; Complete Time: 14:44 [facility] 06/08 15:00 Order name: MRI - Brain Wo Cont; Complete Time: 17:33 [facility] 06/08 15:52 Order name: CT Chest For PE Angio; Complete Time: 17:33 [facility] 06/08 13:55 Order name: EKG; Complete Time: 13:55 06/08 13:55 Order name: Cardiac monitoring; Complete Time: 14:01 06/08 13:55 Order name: EKG - Nurse/Tech; Complete Time: 14:01 ph 06/08 13:55 Order name: IV Saline Lock; Complete Time: 13:55 ph 06/08 13:55 Order name: Labs collected and sent; Complete Time: 13:55 ph 06/08 13:55 Order name: O2 Per Protocol; Complete Time: 13:55 ph 06/08 13:55 Order name: O2 Sat Monitoring; Complete Time: 13:55 ph Administered Medications: 16:00 Drug: Ativan IVP 0.5 mg IVP once Route: IVP; Site: left antecubital; ll1 18:25 Follow up: Response: No adverse reaction; Anxiety decreased; RASS: Alert and Calm (0) ll1 Disposition Summary: 06/08/23 17:48 Discharge Ordered Notes: Location: Home kdr Problem: new kdr Symptoms: have improved kdr Condition: Stable kdr Diagnosis - Weakness kdr - Shortness of breath kdr Followup: kdr - With: Private Physician - When: 2 - 3 days - Reason: If symptoms return, Further diagnostic work-up, Recheck today's complaints, Continuance of care, Re-evaluation by your physician Discharge Instructions: - Discharge Summary Sheet kdr - Shortness of Breath, Adult, [id number] kdr - Weakness, [id number] kdr Forms: - Medication Reconciliation Form kdr - Thank You Letter kdr - Patient Portal Instructions kdr - Leadership Thank You Letter kdr Signatures: Dispatcher [employer] Murtaza Sullivan MD MD kdr Melanie Chaney RN Abbi Tobias ph, RN RN ll1 Lay Lizarraga RN RN cm10
[2023-06-08 19:33] VITALS: TEMP 98
[2023-06-08 19:48] VITALS: BP 112/57; O2SAT 96
--- NOTE | 2023-06-09 15:31 | EKG ---
Test Date: 2023-06-08 Test Time: 14:02:28 Appliance Painter And Refinisher: HB MEASUREMENT RESULTS: Intervals: Rate: 71 [place]: 190 QRSD: 86 QT: 410 QTc: 445 [place]: P: 50 [place]: 190 QRS: 30 T: 57 INTERPRETIVE STATEMENTS: Normal sinus rhythm Normal ECG Compared to ECG 03/16/2022 15:47:15 No significant changes Electronically Signed On 06-09-23 15:27:43 MANAGEMENT AND BUDGET ANALYST by Lloyd Vences
== END ==
LOC: ER 13:36
DX: R53.1 Weakness (principal); R06.02 Shortness of breath; R20.0 Anesthesia of skin; R53.83 Other fatigue; I10 Essential (primary) hypertension; J44.9 Chronic obstructive pulmonary disease, unspecified; F41.9 Anxiety disorder, unspecified
CPT/HCPCS: 93005; 85025; 80048; 36415; 85610; 85379; 84484; 83880; 70450; 71275; 71045; 70551; 96374; 99285; Q9967

== ENCOUNTER → 2023-08-04 | Emergency (ER) | payer OTHER, BC ==
[~2023-08-04] MED LIST changes: +CEFTRIAXONE 1000 MG/VIAL ONE; +CIPROFLOXACIN HCL 500 MG TAB ONE; -LORazepam 2 MG/ML VIAL ONE; +NA CHLORIDE 0.9% 500 ML ONE
--- OUTSIDE RECORDS SUMMARY | 2023-08-04 02:06 | XMS REPORT | Clinical Summary ---
Author Name Unknown Organization [facility] Address [address] [place] [address] Care Team Providers Care Printed Circuit Boards Laminator Name Role Phone Zora Lutz Unavailable Deann Dennis MD Primary Care Provider [phone] Sachin Holliday MD Unavailable [phone] Allergies No known active allergies Medications Medication Sig Dispensed Refills Start Date End Date Status antiox.mv no.[id number]-jkh-log (I-Caps) 280-10-2 mg cap Take 1 capsule by mouth daily. 0 Active aspirin 81 mg chewable tablet Chew 1 tablet (81 mg) daily. 0 Active Bifidobacterium infantis (ALIGN ORAL) 0 Act marti clonazePAM (KlonoPIN) 1 mg disintegrating tablet Dissolve 1 tablet (1 mg) on the tongue daily as needed. 0 Active cycloSPORINE (Restasis) 0.05% ophthalmic emulsion Administer 1 drop to both eyes daily. 0 Active [id number]-[id number]-[id number] -LIPIDS ORAL 0 Active primidone (MYSOLINE) 50 [...] nightly as needed for sleep. 0 Active donepezil (Aricept) 5 mg tablet Take 1 tablet (5 mg) by mouth daily. 0 Active solifenacin (VESICARE) 10 MG tablet Take 1 tablet (10 mg) by mouth daily. 0 Active Active Problems Problem Noted Date [...] Overview: Added automatically from request for surgery [id number] Mammography abnormal 02/03/2021 Overview: Added automatically from request for surgery [id number] H/O: major abdominal surgery 02/03/2021 Chronic obstructive pulmonary disease 02/02/2021 Crohn's disease 02/02/2021 Depressive disorder 02/02/2021 Gastroesophageal reflux disease 02/02/2021 Encounters Date Type Department Care Team Description 07/19/2023 2:00 PM [facility] Follow-Up MD [facility] [place] - Gynecology [address] [place] [id number] Deann Dennis MD 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); Screening for malignant neoplasm of breast 07/19/2023 Travel 12/28/2022 9:30 AM CDT Follow-Up MD [facility] [place] - Gynecology [address] [place] [id number] Deann Dennis MD 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) 12/28/2022 Travel after 08/04/2022 Surgical History Surgery Date Site/Laterality Comments EXPLORATORY LAPAROTOMY 06/12/1961 - 06/11/1962 BREAST LUMPECTOMY 06/12/1969 - 06/11/1970 HYSTERECTOMY 06/12/1970 - 06/11/1971 UPPER GASTROINTESTINAL ENDOSCOPY 06/12/2016 - 06/11/2017 SECTION, CLASSIC x3 APPENDECTOMY VA LAPAROSCOPY W/RMVL ADNEXAL STRUCTURES 02/16/2021 Abdomen/Bilateral Procedure: LAPAROSCOPY WITH REMOVAL OF ADNEXAL STRUCTURES , TOTAL OOPHERECTOMY AND SALPINGECTOMY.; Surgeon: Deann Dennis MD; Location: MAIN OR; Service: WIND TUNNEL TECHNICIAN - GYNECOLOGIC ONCOLOGY VA CYSTOURETHROSCOPY 02/16/2021 Genitalia/Bilateral Procedure: CYSTOURETHROSCOPY; Surgeon: Deann Dennis MD; Location: MAIN OR; Service: WIND TUNNEL TECHNICIAN - GYNECOLOGIC ONCOLOGY VA OMNTC EPIPLOECTOMY RESCJ OMENTUM SPX 02/16/2021 Abdomen/N/A Procedure: OMENTAL BIOPSY; Surgeon: Deann Dennis MD; Location: MAIN OR; Service: WIND TUNNEL TECHNICIAN - GYNECOLOGIC ONCOLOGY VA ENTEROLSS FRING INTSTINAL ADHESION SPX 02/16/2021 Abdomen/N/A Procedure: FREEING OF INTESTINAL ADHESION; Surgeon: Deann Dennis MD; Location: MAIN OR; Service: WIND TUNNEL TECHNICIAN - GYNECOLOGIC ONCOLOGY VA URETEROLYSIS W/WORPSG URETER RETROPERIT FIBROSIS 02/16/2021 Abdomen/Left Procedure: URETEROLYSIS, WITH OR WITHOUT REPOSITIONING OF URETER FOR RETROPERITONEAL FIBROSIS; Surgeon: Deann Dennis MD; Location: MAIN OR; Service: WIND TUNNEL TECHNICIAN - GYNECOLOGIC ONCOLOGY Medical History Medical History [...] Sign Reading Time Taken Comments Blood Pressure 124/76 07/19/2023 3:58 PM [facility] Pulse 69 07/19/2023 3:58 PM [facility] [employer] Temperature 36.8 C (98.2 F) 12/28/2022 10:54 AM C DT Respiratory Rate 18 07/19/2023 3:58 PM [facility] Oxygen Saturation - - Inhaled Oxygen Concentration - - Weight 54.6 kg (120 lb 5.9 oz) 07/19/2023 3:58 P M [facility] [employer] Height - - Body Mass Index 22.87 02/03/2021 10:58 AM CDT Plan of Treatment Upcoming Encounters Date Type Department Care Team Description 01/17/2024 10:15 AM CDT Lab MD [facility] [place] [facility] [address] [place] [address] [address] [place] [address] Deann Dennis MD [address] [place], [place] [id number] 01/17/2024 11:30 AM CDT Follow-Up MD [facility] [place] - Gynecology [address] [place] [address] Deann Dennis MD [address] [place] [address] Health Maintenance Due Date Last Done Comments COVID-19 Vaccination (-24 season) 2023 10/12/2021, 08/29/2020, 08/08/2020 Procedures Procedure Name Priority Date/Time Associated Diagnosis Comments CANCER ANTIGEN 125 Routine 07/19/2023 1: 22 PM [facility] [employer] 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 Cancer Antigen 125 8.3 <=38.0 U/mL 07/19/2023 2:04 PM [facility] [place] Blood Peripheral blood specimen / Unknown Venipuncture / Unknown 07/19/2023 1:22 PM [facility] 07/19/2023 1:25 PM [facility] Narrative [place] - 07/19/2023 2:04 PM [facility] [employer] Results greater than 11,500.0 U/mL may not be reliable due to matrix effect with extended dilution as it exceeds the portable grinding machine operator's recommended limit. Caution should be exercised when interpreting such values and done in conjunction with clinical context. This test is measured by electrochemiluminescence immunoassay on Janey Sudeep immunoassay analyzers. Results obtained in different methods are not interchangeable. Reference intervals are not available for male patients. Results should be interpreted in conjunction with clinical context. Cherelle JESUS LAB BLOOD ORDERABLES [place] [place] Isabelle Sykes [address], [address] [place] [address] after 08/04/2022 Care Teams Printed Circuit Boards Laminator Relationship Specialty Start Date End Date Zora Lutz [address] [place] [id number] PCP - External Primary Care Provider Obstetrics/Gynecology 01/21/21 Deann Dennis MD [address] [place] [id number] PCP - General Gynecological Oncology 01/21/21 Sachin Holliday MD [address] [place] [address] Consulting Physician Internal Medicine 02/09/21
[2023-08-04 03:48] LABS: Absolute Lymphocytes (CBC) 2.2 K/uL (0.7-4.9); Hematocrit 39.3 % (36.0-45.0); Lymphocytes % 30.4 % (15.3-44.8); MCV 88.9 fL (80-100); MPV 7.2 fL (7.6-11.3); Platelets 276 thou/uL (152-406); RBC Red Blood Cell Count 4.42 M/uL (3.86-4.86)
[2023-08-04 04:07] LABS: Albumin 3.4 g/dL (3.4-5.0); Bilirubin Total 0.3 mg/dL (0.2-1.0); Potassium 4.4 mEq/L (3.5-5.1); Protein, Total 6.9 g/dL (6.4-8.2); Troponin High Sensitivity 5.9 pg/mL (<58.9)
[2023-08-04 04:17] LABS: Specific Gravity 1.021 (1.005-1.030); Urine Bacteria <20 /HPF (<20); Urine Bilirubin NEGATIVE (Negative); Urine Blood Trace (Negative); Urine Clarity Extremely Turbid (Clear); Urine Color Light-Yellow (Yellow); Urine Glucose NEGATIVE (Negative); Urine Mucus Slight /HPF (None Seen); Urine Protein TRACE (Negative); Urine Urobilinogen Normal (Normal)
--- NOTE | 2023-08-04 04:27 | EDPHYS ---
Physician Documentation [facility] Name: Samanta Hayes Age: 83 yrs Sex: Female : 1940 Arrival Date: 08/04/2023 Time: 02:04 Bed 8 Private MD: ED Physician Oral Sesay HPI: 08/04 02:56 This 83 yrs old Female presents to ER via Wheelchair with complaints of Fall luis Injury, Head Injury Without LOC-Adult. 02:56 Details of fall: The patient fell from an upright position, while standing. Onset: The luis symptoms/episode began/occurred just prior to arrival. Associated injuries: The patient sustained injury to the head, neck injury, injury to the low back, pain, tenderness. Severity of symptoms: At their worst the symptoms were moderate, in the emergency department the symptoms are unchanged. 02:57 Modifying factors: The symptoms are alleviated by nothing, the symptoms are aggravated luis by nothing. Associated signs and symptoms: Pertinent positives: headache. Severity of symptoms: At their worst the symptoms were moderate in the emergency department the symptoms have improved moderately. Historical: - Allergies: 02:25 No Known Allergies; jb4 - PMHx: 02:25 Crohn's; Anxiety; DVT; hiatal hernia; Hypertension; CVA; Depression; COPD; insomnia; jb4 - PSHx: 02:25 None; jb4 - Immunization history:: Adult Immunizations up to date. - Social history:: Smoking status: Patient denies any tobacco usage or history of. - Family history:: not pertinent. ROS: 02:57 Constitutional: Negative for fever, chills, and weight loss, Eyes: Negative for injury, luis pain, redness, and discharge, ENT: Negative for injury, pain, and discharge, Neck: Negative for injury, pain, and swelling, Cardiovascular: Negative for chest pain, palpitations, and edema, Respiratory: Negative for shortness of breath, cough, wheezing, and pleuritic chest pain, Abdomen/GI: Negative for abdominal pain, nausea, vomiting, diarrhea, and constipation, Back: Negative for injury and pain, : Negative for injury, bleeding, discharge, and swelling, Skin: Negative for injury, rash, and discoloration, Psych: Negative for depression, anxiety, suicide ideation, homicidal ideation, and hallucinations, Allergy/Immunology: Negative for hives, rash, and allergies, Endocrine: Negative for neck swelling, polydipsia, polyuria, polyphagia, and marked weight changes, Hematologic/Lymphatic: Negative for swollen nodes, abnormal bleeding, and unusual bruising, 02:57 MS/extremity: Positive for pain, of the buttocks, :57 Neuro: Positive for dizziness, Exam: 02:57 Constitutional: This is a well developed, well nourished patient who is awake, alert, luis and in no acute distress. Head/Face: Normocephalic, atraumatic. Eyes: Pupils equal round and reactive to light, extra-ocular motions intact. Lids and lashes normal. Conjunctiva and sclera are non-icteric and not injected. Cornea within normal limits. Periorbital areas with no swelling, redness, or edema. ENT: Nares patent. No nasal discharge, no septal abnormalities noted. Tympanic membranes are normal and external auditory canals are clear. Oropharynx with no redness, swelling, or masses, exudates, or evidence of obstruction, uvula midline. Mucous membranes moist. Neck: Trachea midline, no thyromegaly or masses palpated, and no cervical lymphadenopathy. Supple, full range of motion without nuchal rigidity, or vertebral point tenderness. No Meningismus. Chest/axilla: Normal chest wall appearance and motion. Nontender with no deformity. No lesions are appreciated. Cardiovascular: Regular rate and rhythm with a normal S1 and S2. No gallops, murmurs, or rubs. Normal PMI, no JVD. No pulse deficits. Respiratory: Lungs have equal breath sounds bilaterally, clear to auscultation and percussion. No rales, rhonchi or wheezes noted. No increased work of breathing, no retractions or nasal flaring. Abdomen/GI: Soft, non-tender, with normal bowel sounds. No distension or tympany. No guarding or rebound. No evidence of tenderness throughout. Back: No spinal tenderness. No costovertebral tenderness. Full range of motion. Female : Normal external genitalia. Skin: Warm, dry with normal turgor. Normal color with no rashes, no lesions, and no evidence of cellulitis. Neuro: Awake and alert, GCS 15, oriented to person, place, time, and situation. Cranial nerves II-XII grossly intact. Motor strength 5/5 in all extremities. Sensory grossly intact. Cerebellar exam normal. Normal gait. Psych: Awake, alert, with orientation to person, place and time. Behavior, mood, and affect are within normal limits. 02:57 Musculoskeletal/extremity: Extremities: all appear grossly normal, with no appreciated pain with palpation, ROM: intact in all extremities, full active range of motion, full passive range of motion, Circulation is intact in all extremities. Sensation intact. Compartment Syndrome exam of affected extremity: is normal. DVT Exam: No signs of deep vein thrombosis. no pain, no swelling, no tenderness, negative Homans' sign noted on exam, no appreciated bluish discoloration, no erythema, no increased warmth, 02:57 Neuro: Orientation: is normal, appropriate for stated age, no acute changes, Mentation: is normal, appropriate for stated age, no acute changes, Memory: is normal, appropriate for stated age, no acute changes, Cranial nerves: grossly normal, is grossly normal based on the patient's age, no acute changes, Cerebellar function: is grossly normal, is grossly normal based on the patient's age, no acute changes, Motor: is normal, is grossly normal based on the patient's age, no acute changes, moves all fours, strength is 5/5 in all extremities, Sensation: is normal, no obvious gross deficits, no acute changes, Gait: not tested. 03:55 ECG was reviewed by the Attending Physician. [facility] Vital Signs: 02:23 BP 157 / 72; Pulse 92; Resp 16; Temp 98.5(TE); Pulse Ox 97% on R/A; Weight 53.98 kg; jb4 Height 5 ft. 2 in. ; 03:24 BP 141 / 66; Pulse 71; Pulse Ox 95% on R/A; 6 04:22 BP 157 / 57; Pulse 64; Pulse Ox 95% on R/A; 6 04:58 BP 157 / 57; Pulse 70; Resp 20; Temp 98; Pulse Ox 99% on R/A; Pain 0/10; 6 02:23 Body Mass Index 21.77 (53.98 kg, 157.48 cm) [facility] 04:58 Pain Scale: Adult [facility] MDM: 02:09 Patient medically screened. [facility] 03:00 Differential diagnosis: abrasion, closed head injury, contusion, fracture, laceration, luis sprain, strain, generalized weakness, GI bleed, hypovolemia, idiopathic dizziness, near-syncope, syncope, TIA, vertigo. Data reviewed: vital signs, nurses notes, lab test result(s), EKG, radiologic studies, CT scan, doppler, plain films. Consideration of Admission/Observation Escalation of care including admission/observation considered. I considered the following discharge prescriptions or medication management in the emergency department Medications were administered in the Emergency Department. See MAR. Independent interpretation of the following test(s) in the Emergency Department EKG: See my EKG interpretation above. Test considered but Not performed: MRI: no mri brain. 08/04 02:56 Order name: CBC with Diff; Complete Time: 03:55 [facility] 08/04 02:56 Order name: Comprehensive Metabolic Panel; Complete Time: 04:22 [facility] 08/04 02:56 Order name: Troponin HS; Complete Time: 04:22 [facility] 08/04 02:56 Order name: Urinalysis w/ reflexes; Complete Time: 04:22 [facility] 08/04 02:29 Order name: Head C Spine Cap Wo Con EDMS 08/04 02:56 Order name: Carotid Artery Bilateral US [facility] 08/04 02:56 Order name: EKG; Complete Time: 02:57 [facility] 08/04 02:56 Order name: EKG - Nurse/Tech; Complete Time: 03:47 [facility] EC:55 Rate is 69 beats/min. Rhythm is regular. QRS [place] is Normal. AL interval is normal. QRS luis interval is normal. QT interval is normal. No Q waves. T waves are Normal. No ST changes noted. Clinical impression: Normal ECG and No evidence of ischemia. Interpreted by me. Reviewed by me. Administered Medications: : Drug: NS 0.9% IV 500 ml IV at bolus once Route: IV; Rate: bolus; Site: right tm6 antecubital; 04:41 Drug: Rocephin IV 1 grams IV at per protocol once; Given slow IV push per pharmacy tm6 instructions Route: IV; Rate: per protocol; Site: right antecubital; 04:41 Drug: Ciprofloxacin PO 500 mg PO once Route: PO; tm6 Disposition Summary: 08/04/23 04:27 Discharge Ordered Notes: Location: Home luis Problem: new luis Symptoms: have improved luis Condition: Stable luis Diagnosis - Dizziness and giddiness luis - Fall on same level, unspecified luis - Fracture of coccyx - clinically luis - UTI/ Urinary tract infection, site not specified [facility] Followup: luis - With: Private Physician - When: 2 - 3 days - Reason: Recheck today's complaints, Continuance of care, Re-evaluation by your physician Followup: luis - With: Yimi Hand MD - When: 2 - 3 days - Reason: Recheck today's complaints, Continuance of care, Re-evaluation by your physician Discharge Instructions: - Discharge Summary Sheet luis - Contusion luis - Dizziness luis - Near-Syncope luis - Urinary Tract Infection, Adult luis - Urinary Tract Infection, Adult, Zpec-qq-[id number] luis - Near-Syncope, Bcxz-vx-Lunh luis - Contusion, Rhfs-br-[id number] luis - Aspirin and Your Heart luis - Dizziness, [id number]-[id number] [facility] Forms: - Medication Reconciliation Form [facility] - Thank You Letter [facility] - Antibiotic Education luis - Prescription Opioid Use luis - Patient Portal Instructions [facility] - Leadership Thank You Letter [facility] Prescriptions: - Cipro 250 mg Oral tablet - take 1 tablet ORAL route every 12 hours; 14 tablet; Refills: 0, Product [facility] Selection Permitted - Bactrim DS 800-160 mg Oral tablet - take 1 tablet ORAL route every 12 hours for 5 days; 10 tablet; Refills: 0, [facility] Product Selection Permitted Signatures: Dispatcher [employer] Oral Ordaz MD MD cha Bryson, James, RN RN jb4 Natalie Shaffer RN RN tm6 Corrections: (The following items were deleted from the chart) 02:29 02:10 Head C Spine MPR Wo Con+CT.RAD.BRZ ordered. EDMS EDMS
--- NOTE | 2023-08-04 04:27 | ER ---
Nurse's Notes [facility] Name: Samanta Hayes Age: 83 yrs Sex: Female : 1940 Arrival Date: 08/04/2023 Time: 02:04 Bed 8 Private MD: Diagnosis: Dizziness and giddiness;Fall on same level, unspecified;Fracture of coccyx-clinically;UTI/ Urinary tract infection, site not specified Presentation: 08/04 02:23 Chief complaint: Patient's son or daughter states: She fell about an hour ago and is jb4 complaining of head pain and her tail bone hurting. Coronavirus screen: At this time, the client does not indicate any symptoms associated with coronavirus-19. Ebola Screen: No symptoms or risks identified at this time. Initial Sepsis Screen: Does the patient meet any 2 criteria? No. Patient's initial sepsis screen is negative. Does the patient have a suspected source of infection? No. Patient's initial sepsis screen is negative. Risk Assessment: Do you want to hurt yourself or someone else? Patient reports no desire to harm self or others. Onset of symptoms was August 04, 2023. Transition of care: patient was not received from another setting of care. 02:23 Method Of Arrival: Wheelchair jb4 02:23 Acuity: KIT 3 jb4 Historical: - Allergies: 02:25 No Known Allergies; jb4 - PMHx: 02:25 Crohn's; Anxiety; DVT; hiatal hernia; Hypertension; CVA; Depression; COPD; insomnia; jb4 - PSHx: 02:25 None; jb4 - Immunization history:: Adult Immunizations up to date. - Social history:: Smoking status: Patient denies any tobacco usage or history of. - Family history:: not pertinent. Screenin:30 [facility] ED Fall Risk Assessment (Adult) History of falling in the last 3 months, tm6 including since admission Yes- physiologic fall (2 pts) Confusion or Disorientation No (0 pts) Intoxicated or Sedated No (0 pts) Impaired Gait Yes (1 pt) Mobility Assist Device Used Yes (1 pt) Altered Elimination No (0 pt) Score/Fall Risk Level 3 or more points = High Risk Oriented to surroundings, Maintained a safe environment, Educated pt \T\ family on fall prevention, incl call for assistance when getting out of bed. Abuse screen: Denies threats or abuse. Denies injuries from another. Nutritional screening: No deficits noted. Tuberculosis screening: No symptoms or risk factors identified. Assessment: 02:30 General: Appears in no apparent distress. Behavior is calm, cooperative. Pain: tm6 Complains of pain in buttocks Quality of pain is described as aching. Neuro: Level of Consciousness is awake, alert, obeys commands, Oriented to person, place, time, situation. Neuro: Reports dizziness, since two weeks ago. Cardiovascular: Capillary refill < 3 seconds Patient's skin is warm and dry. Rhythm is sinus rhythm. Respiratory: Airway is patent Respiratory effort is even, unlabored, Respiratory pattern is regular, symmetrical. GI: Abdomen is flat, non-distended. : No signs and/or symptoms were reported regarding the genitourinary system. EENT: No signs and/or symptoms were reported regarding the EENT system. Derm: No signs and/or symptoms reported regarding the dermatologic system. Musculoskeletal: Reports pain in buttocks. 04:23 Reassessment: Patient appears in no apparent distress at this time. No changes from tm6 previously documented assessment. Patient and/or family updated on plan of care and expected duration. Pain level reassessed. 04:58 Reassessment: Patient appears in no apparent distress at this time. No changes from tm6 previously documented assessment. Patient and/or family updated on plan of care and expected duration. Pain level reassessed. Vital Signs: 02:23 BP 157 / 72; Pulse 92; Resp 16; Temp 98.5(TE); Pulse Ox 97% on R/A; Weight 53.98 kg; jb4 Height 5 ft. 2 in. ; 03:24 BP 141 / 66; Pulse 71; Pulse Ox 95% on R/A; tm6 04:22 BP 157 / 57; Pulse 64; Pulse Ox 95% on R/A; tm6 04:58 BP 157 / 57; Pulse 70; Resp 20; Temp 98; Pulse Ox 99% on R/A; Pain 0/10; tm6 02:23 Body Mass Index 21.77 (53.98 kg, 157.48 cm) jb4 04:58 Pain Scale: Adult 6 ED Course: 02:06 Patient arrived in ED. jj6 02:09 Oral Sesay MD is Attending Physician. luis 02:25 Triage completed. jb4 02:25 Arm band placed on right wrist. jb4 02:30 Patient has correct armband on for positive identification. Bed in low position. Call tm6 light in reach. Side rails up X2. Provided Education on: plan of care. Client placed on continuous cardiac and pulse oximetry monitoring. NIBP monitoring applied. Door closed. Noise minimized. Lights dimmed. Warm blanket given. 02:30 Inserted saline lock: 22 gauge in right antecubital area, using aseptic technique. tm6 02:45 Head C Spine Cap Wo Con In Process Unspecified. EDMS 03:06 Natalie Shaffer, RN is Primary Nurse. tm6 03:31 Carotid Artery Bilateral US In Process Unspecified. EDMS 04:26 Yimi Hand MD is Referral Physician. [facility] 04:58 No provider procedures requiring assistance completed. IV discontinued, intact, tm6 bleeding controlled, No redness/swelling at site. Pressure dressing applied. Administered Medications: 04:23 Drug: NS 0.9% IV 500 ml IV at bolus once Route: IV; Rate: bolus; Site: right tm6 antecubital; 04:41 Drug: Rocephin IV 1 grams IV at per protocol once; Given slow IV push per pharmacy tm6 instructions Route: IV; Rate: per protocol; Site: right antecubital; 04:41 Drug: Ciprofloxacin PO 500 mg PO once Route: PO; tm6 Medication: 02:30 VIS not applicable for this client. tm6 Outcome: 04:27 Discharge ordered by . luis 04:58 Discharged to home via wheelchair, with family, tm6 04:58 Condition: stable 04:58 Discharge instructions given to patient, family, Instructed on discharge instructions, follow up and referral plans. medication usage, Demonstrated understanding of instructions, follow-up care, medications, Prescriptions given X 2, 04:59 Patient left the ED. tm6 Signatures: Dispatcher [employer] EDOral Lawrence MD MD cha Bryson, James, RN RN jb4 Tiffanie Nguyen6 Natalie Shaffer, EL RN tm6 Corrections: (The following items were deleted from the chart) 02:43 02:23 BP 157 / 72; Pulse 92bpm; Resp 16bpm; Pulse Ox 97% RA; jb4 jb4
[2023-08-04 05:17] VITALS: BP 157/57; TEMP 98; O2SAT 99
--- NOTE | 2023-08-04 14:05 | RAD REPORT ---
EXAM DESCRIPTION: CT HEAD CERVICAL SPINE CHEST ABDOMEN PELVIS WITHOUT IV CONTRAST CLINICAL HISTORY: Trauma, fall COMPARISON: None. TECHNIQUE: CT HEAD CERVICAL SPINE CHEST ABDOMEN PELVIS WITHOUT IV CONTRAST on 08/04/2023 2:10 AM ROOFING TILE SORTER This exam was performed according to our departmental dose-optimization program, which includes autom ated exposure control, adjustment of the mA and/or kV according to patient size and/or use of iterati ve reconstruction technique. FINDINGS: Brain: There is no acute hemorrhage, mass effect or midline shift. Collins-white differentiat ion is preserved. There is no hydrocephalus. There is no significant volume loss for age. The calvarium is intact. Orbits and globes are unremarkable. The paranasal sinuses are clear. Mastoid air cells are clear. Cervical Spine: There is no acute fracture. There is grade 1 anterolisthesis of C3 on C4. There is gr ari 1 anterolisthesis of C7 on T1. There is incomplete posterior fusion of C1. There is fusion of the C4-5 disc. There is mild right-sided and moderate left-sided facet arthritis. There is severe narrowing at C5-6 and C6-7. Vertebral body heights are preserved. Soft tissues are un remarkable. Chest: The heart is normal in size. There is no pericardial effusion. Intrathoracic lymph nodes are n ot enlarged. There is no pleural effusion, pleural thickening or pneumothorax. Central airways are patent. Lungs a re clear with no consolidation, mass or interstitial lung disease. Abdomen: The liver is normal in appearance. There is no biliary dilatation. Gallbladder is normal in appearance. The pancreas and spleen are normal in appearance. There is mild fullness of the right misty al collecting system. Adrenal glands and left kidney are normal. Abdominal aorta is moderately calcified without aneurysm. There is no free air. There is no retroperi toneal adenopathy. Pelvis: There is moderate distal colonic diverticulosis. There is a moderate amount of stool througho ut the colon. Urinary bladder is unremarkable. There is no free fluid. Uterus is not well seen. Maxime endix is not well seen. Skeleton: There are no acute osseous findings. No suspicious bony lesions. IMPRESSION: No definite acute posttraumatic findings. Electronically signed by: Nathan Dover MD 08/04/2023 03:44 AM ROOFING TILE SORTER Due to temporary technical issues with the PACS/Fluency reporting system, reports are being signed by the in house radiologists without review as a courtesy to insure prompt reporting. The interpreting radiologist is fully responsible for the content of the report.
--- NOTE | 2023-08-04 14:11 | RAD REPORT ---
EXAM DESCRIPTION: Carotid Artery Bilateral US bilateral carotid artery duplex Doppler CLINICAL HISTORY: Dizziness COMPARISON: CT Head/Brain Without Contrast 08/04/2023 at 2:34 AM TECHNIQUE: Grayscale, color Doppler, and duplex Doppler images of major neck arteries. FINDINGS: No US technologist worksheet is provided. Only thing provided is technologist notes stating that "no elevated velocities seen bilateral." No hemodynamically significant carotid artery atherosclerotic plaque is grossly seen by my observatio n. Both vertebral arteries show antegrade flow. IMPRESSION: Grossly unremarkable US bilateral carotid artery duplex Doppler. Electronically signed by: Kimani Malhotra MD 08/04/2023 06:08 AM ASSISTANT INVENTORY MANAGER Due to temporary technical issues with the PACS/Fluency reporting system, reports are being signed by the in house radiologists without review as a courtesy to insure prompt reporting. The interpreting radiologist is fully responsible for the content of the report.
--- NOTE | 2023-08-07 14:41 | EKG ---
Test Date: 2023-08-04 Test Time: 03:30:56 Mine Boss: ALVARADO MEASUREMENT RESULTS: Intervals: Rate: 69 [place]: 192 QRSD: 98 QT: 416 QTc: 445 [place]: P: 53 [place]: 192 QRS: 40 T: 63 INTERPRETIVE STATEMENTS: Normal sinus rhythm Normal ECG Compared to ECG 06/08/2023 14:02:28 No significant changes Electronically Signed On 08-07-23 14:31:10 BATCH ATTENDANT by Lloyd Vences
== END ==
LOC: ER 02:04
DX: S32.2XXA Fracture of coccyx, initial encounter for closed fracture (principal); N39.0 Urinary tract infection, site not specified; W18.30XA Fall on same level, unspecified, initial encounter; I10 Essential (primary) hypertension
CPT/HCPCS: 93005; 85025; 81001; 36415; 84484; 80053; 70450; 71250; 72125; 93880; J7040; J0696

== ENCOUNTER 2024-02-25 21:24 | Emergency (ER) | payer OTHER, BC ==
--- OUTSIDE RECORDS SUMMARY | 2024-02-25 21:28 | XMS REPORT | Clinical Summary ---
Author Name Unknown Organization [facility] Address [address] [place] [address] Care Team Providers Care Adobe Ball Mixer Name Role Phone Zora Lutz Unavailable Deann Dennis MD Primary Care Provider [phone] Sachin Holliday MD Unavailable [phone] Allergies No known active allergies Medications Medication Sig Dispensed Refills Start Date End Date Status antiox.mv no.05-[id number]-obj-dvp (I-Caps) 280-10-2 mg cap Take 1 capsule by mouth daily. Active aspirin 81 mg chewable tablet Chew 1 tablet (81 mg) daily. Active Bifidobacterium infantis (ALIGN ORAL) Act marti clonazePAM (KlonoPIN) 1 mg disintegrating tablet Dissolve 1 tablet (1 mg) on the tongue daily as needed. Active cycloSPORINE (Restasis) 0.05% ophthalmic emulsion Administer 1 drop to both eyes daily. Active WPQTW-NLAUM-1-DHA-EPA -LIPIDS ORAL Active primidone (MYSOLINE) 50 mg tablet 12/21/2020 Active simethicone (MYLICON,GAS-X) 180 mg capsule Active LAMOTRIGINE ORAL Take 50 mg by mouth at bedtime. Active ibuprofen (ADVIL,MOTRIN) 800 mg tabletIndications:Abd ominal or pelvic swelling, mass, or lump, other specified site; multiple sites Take 1 tablet (800 mg) by mouth every 8 (eight) hours as needed for moderate pain. 30 tablet 02/16/2021 Active latanoprost (XALATAN) 0.005% ophthalmic solution daily. 09/02/2021 Active gabapentin (NEURONTIN) 100 mg capsule 04/10/2022 Active temazepam (RESTORIL) 7.5 mg capsule Take 1 capsule (7.5 mg) by mouth nightly as needed for sleep. Active donepezil (Aricept) 5 mg tablet Take 1 tablet (5 mg) by mouth daily. Active solifenacin (VESICARE) 10 MG tablet Take 1 tablet (10 mg) by mouth daily. Active Active Problems Problem Noted Date Diagnosed [...] Overview: Added automatically from request for surgery [id number] Mammography abnormal 02/03/2021 Overview: Added automatically from request for surgery [id number] H/O: major abdominal surgery 02/03/2021 Chronic obstructive pulmonary disease 02/02/2021 Crohn's disease 02/02/2021 Depressive disorder 02/02/2021 Gastroesophageal reflux disease 02/02/2021 Encounters Date Type Department Care Team Description 01/17/2024 11:30 AM CDT Follow-Up MD [facility] [place] - Gynecology [address] [place] [id number] Deann Dennis MD Unke, Jenna, PA 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); Screening for malignant neoplasm of breast 07/19/2023 Travel after 02/25/2023 Surgical History Surgery Date Site/Laterality Comments EXPLORATORY LAPAROTOMY 06/12/1961 - 06/11/1962 BREAST LUMPECTOMY 06/12/1969 - 06/11/1970 HYSTERECTOMY 06/12/1970 - 06/11/1971 UPPER GASTROINTESTINAL ENDOSCOPY 06/12/2016 - 06/11/2017 SECTION, CLASSIC x3 APPENDECTOMY VT LAPAROSCOPY W/RMVL ADNEXAL STRUCTURES 02/16/2021 Abdomen/Bilateral Procedure: LAPAROSCOPY WITH REMOVAL OF ADNEXAL STRUCTURES , TOTAL OOPHERECTOMY AND SALPINGECTOMY.; Surgeon: Deann Dennis MD; Location: MAIN OR; Service: BRANCH MANAGER - GYNECOLOGIC ONCOLOGY VT CYSTOURETHROSCOPY 02/16/2021 Genitalia/Bilateral Procedure: CYSTOURETHROSCOPY; Surgeon: Deann Dennis MD; Location: MAIN OR; Service: BRANCH MANAGER - GYNECOLOGIC ONCOLOGY VT OMNTC EPIPLOECTOMY RESCJ OMENTUM SPX 02/16/2021 Abdomen/N/A Procedure: OMENTAL BIOPSY; Surgeon: eDann Dennis MD; Location: MAIN OR; Service: BRANCH MANAGER - GYNECOLOGIC ONCOLOGY VT ENTEROLSS FRING INTSTINAL ADHESION SPX 02/16/2021 Abdomen/N/A Procedure: FREEING OF INTESTINAL ADHESION; Surgeon: Deann Dennis MD; Location: MAIN OR; Service: BRANCH MANAGER - GYNECOLOGIC ONCOLOGY VT URETEROLYSIS W/WORPSG URETER RETROPERIT FIBROSIS 02/16/2021 Abdomen/Left Procedure: URETEROLYSIS, WITH OR WITHOUT REPOSITIONING OF URETER FOR RETROPERITONEAL FIBROSIS; Surgeon: Deann Dennis MD; Location: MAIN OR; Service: BRANCH MANAGER - GYNECOLOGIC ONCOLOGY Medical History Medical History [...] Outcome GA Total Labor Labor/2nd/3rd Weight Sex Type Anes PTL Nickie A1 A5 Name Clin Term Term Last Filed Vital Signs Vital Sign Reading Time Taken Comments Blood Pressure 117/64 01/17/2024 12:12 PM CDT Pulse 65 01/17/2024 12:12 PM CDT Temperature 36.4 C (97.5 F) 01/17/2024 12:12 PM C DT Respiratory Rate 16 01/17/2024 12:12 PM CDT Oxygen Saturation - - Inhaled Oxygen Concentration - - Weight 52.4 kg (115 lb 8.3 oz) 01/17/2024 12:12 PM CDT Height 154 cm (5' 0.63") 01/17/2024 12:12 PM CDT Body Mass Index 22.09 01/17/2024 12:12 PM CDT Plan of Treatment Upcoming Encounters Date Type Department Care Team (Late st Contact Info) Description 07/19/2024 11:00 AM SR. MANAGER CORPORATE COMMUNICATIONS Lab MD [facility] [place] [facility] [address] [place] [address] [address] [place] [address] eJssy Macedo PA [facility] [place] [address] [phone] [email or web address] 07/19/2024 11:30 AM SR. MANAGER CORPORATE COMMUNICATIONS Follow-Up MD [facility] [place] - Gynecology [address] [place] [id number] Jessy Macedo PA [facility] [place] [address] [email or web address] Maintenance Due Date Last Done Comments Pneumococcal Vaccine: 65+ Ye ars (2 of 2 - PCV) 12/22/2019 12/21/2018 COVID-19 Vaccine (4 - 2022-2 4 season) 2024 10/12/2021, 08/29/2020, 08/08/2020 Influenza Vaccine (#1) 2024 3, 04/23/2022, 04/14/2021, Additional history exists Procedures Procedure Name Priority Date/Time Associated Diagnosis Comments CANCER ANTIGEN 125 Routine 01/16/2024 10 :18 AM CDT 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 Cancer Antigen 125 9.4 <=38.0 U/mL 01/16/2024 10:54 AM CDT [place] Blood Peripheral blood specimen / Unknown Venipuncture / Unknown 01/16/2024 10:18 AM CDT 01/16/2024 10:18 AM CDT Narrative [place] - 01/16/2024 10:54 AM CDT Results greater than 11,500.0 U/mL may not be reliable due to matrix effect with extended dilution as it exceeds the swage tender's recommended limit. Caution should be exercised when interpreting such values and done in conjunction with clinical context. This test is measured by electrochemiluminescence immunoassay on Janey Sudeep immunoassay analyzers. Results obtained in different methods are not interchangeable. Reference intervals are not available for male patients. Results should be interpreted in conjunction with clinical context. Cherelle JESUS LAB BLOOD ORDERABLES KELSI [facility] [address] [facility] [address] [place] [address] after 02/25/2023 Care Teams Adobe Ball Mixer Relationship Specialty Start Date End Date BolivarDanielen [address] [place] [phone] [email or web address] PCP - External Primary Care Provider Obstetrics/Gynecology 01/21/21 Deann Dennis MD [address] [place] [phone] [email or web address] PCP - General Gynecological Oncology 01/21/21 Sachin Holliday MD [address] [place] [address] [email or web address] Consulting Physician Internal Medicine 02/09/21
[2024-02-25] MEDS ORDERED: NA CHLORIDE 0.9% 1,000 ML ONE (22:06)
[2024-02-25 22:19] LABS: Absolute Basophils 0.1 K/uL (0-0.5); Absolute Eosinophils 0.2 K/uL (0-0.5); Absolute Lymphocytes (CBC) 2.3 K/uL (0.7-4.9); Absolute Monocytes 0.8 K/uL (0.1-1.3); Absolute Neutrophil 5.3 K/uL (1.8-8.0); Basophils % 1.2 % (0-1.3); Eosinophils % 2.1 % (0-4.4); Hematocrit 42.1 % (36.0-45.0); Lymphocytes % 26.1 % (15.3-44.8); MCH 30.2 pg (27.0-35.0); MCHC 33.3 g/dL (32.0-36.0); MCV 90.5 fL (80-100); MPV 7.4 fL (7.6-11.3); Monocytes % 8.8 % (3.3-12.3); Neutrophils % 61.8 % (41.7-73.7); Nucleated Red Blood Cells % 0.1 % (0-0); Platelets 271 thou/uL (152-406); RBC Red Blood Cell Count 4.66 M/uL (3.86-4.86); Red Cell Distribution Width 13.5 % (12.1-15.2)
[2024-02-25 22:39] LABS: ALT/SGPT 25 U/L (13-56); AST/SGOT 26 U/L (15-37); Albumin/Globulin Ratio 1.1 (1.1-1.8); Alkaline Phosphatase 92 U/L (45-117); Anion Gap 9.8 mEq/L (5.0-15.0); BUN Blood Urea Nitrogen 16 mg/dL (7-18); Bicarbonate 27 mEq/L (21-32); Bilirubin Total 0.3 mg/dL (0.2-1.0); Globulin 3.6 g/dL (2.3-3.5); Glomerular Filtration Rate 67 ml/min (=/>90); Glucose Level 109 mg/dL (74-106); Magnesium 2.3 mg/dL (1.6-2.4); Potassium 3.8 mEq/L (3.5-5.1); Protein, Total 7.6 g/dL (6.4-8.2); Sodium Level 135 mEq/L (136-145)
[2024-02-25 22:41] LABS: Bilirubin Direct < 0.2 mg/dL (0-0.2); Bilirubin Indirect, Calculated 0.1 mg/dL (0.2-0.8)
--- NOTE | 2024-02-26 00:02 | EDPHYS ---
Physician Documentation [facility] Name: Samanta Hayes Age: 83 yrs Sex: Female : 1940 Arrival Date: 02/25/2024 Time: 21:24 Bed 14 Private MD: ED Physician Pawan Garcia HPI: 02/24 21:55 This 83 yrs old Female presents to ER via Wheelchair with complaints of Chest Pain. rt 21:55 Patient presents to the ED with a right sided neck pain today that lasted for less than rt 30 seconds. She states that she is concern for carotid artery. Patient states that she has had off-and-on brief episodes of chest pain, last 1 was last week. Denies other acute complaints at this time. Patient denies physical symptoms at this time, symptoms are moderate in severity, no other aggravating or elevating factors.. Historical: - Allergies: 21:39 No Known Allergies; tl4 - PMHx: 21:39 Anxiety; COPD; Crohn's; CVA; Depression; DVT; hiatal hernia; Hypertension; insomnia; tl4 - Immunization history:: Adult Immunizations unknown. - Infectious Disease History:: Denies. - Social history:: Smoking status: Patient denies any tobacco usage or history of. - Family history:: not pertinent. ROS: 21:55 Constitutional: Negative for fever, chills, and weight loss, Respiratory: Negative for rt shortness of breath, cough, wheezing, and pleuritic chest pain, Abdomen/GI: Negative for abdominal pain, nausea, vomiting, diarrhea, and constipation, MS/Extremity: Negative for injury and deformity, Skin: Negative for injury, rash, and discoloration, Neuro: Negative for headache, weakness, numbness, tingling, and seizure, 21:55 Neck: Positive for pain at rest, Negative for injury or acute deformity, 21:55 Cardiovascular: Positive for chest pain, Negative for edema, Exam: 21:56 Constitutional: This is a well developed, well nourished patient who is awake, alert, rt and in no acute distress. Head/Face: Normocephalic, atraumatic. ENT: Nares patent. No nasal discharge, no septal abnormalities noted. Tympanic membranes are normal and external auditory canals are clear. Oropharynx with no redness, swelling, or masses, exudates, or evidence of obstruction, uvula midline. Mucous membranes moist. Neck: Trachea midline, no thyromegaly or masses palpated, and no cervical lymphadenopathy. Supple, full range of motion without nuchal rigidity, or vertebral point tenderness. No Meningismus. Chest/axilla: Normal chest wall appearance and motion. Nontender with no deformity. No lesions are appreciated. Cardiovascular: Regular rate and rhythm with a normal S1 and S2. No gallops, murmurs, or rubs. Normal PMI, no JVD. No pulse deficits. Respiratory: Lungs have equal breath sounds bilaterally, clear to auscultation and percussion. No rales, rhonchi or wheezes noted. No increased work of breathing, no retractions or nasal flaring. Abdomen/GI: Soft, non-tender, with normal bowel sounds. No distension or tympany. No guarding or rebound. No evidence of tenderness throughout. Skin: Warm, dry with normal turgor. Normal color with no rashes, no lesions, and no evidence of cellulitis. MS/ Extremity: Pulses equal, no cyanosis. Neurovascular intact. Full, normal range of motion. Neuro: Awake and alert, GCS 15, oriented to person, place, time, and situation. Cranial nerves II-XII grossly intact. Motor strength 5/5 in all extremities. Sensory grossly intact. Cerebellar exam normal. Normal gait. 22:01 ECG was reviewed by the Attending Physician. rt Vital Signs: 21:38 BP 189 / 108; Pulse 92; Resp 20; Temp 98(O); Pulse Ox 95% on R/A; Weight 72.57 kg; tl4 Height 5 ft. 3 in. ; 21:50 BP 177 / 82; Pulse 76; Resp 17; Temp 98; Pulse Ox 97% on R/A; Pain 8/10; rg5 22:45 BP 148 / 80; Pulse 75; Resp 18; Pulse Ox 98% on R/A; rg5 23:49 BP 147 / 69; Pulse 67; Resp 17; Pulse Ox 97% on R/A; rg5 21:38 Body Mass Index 28.34 (72.57 kg, 160.02 cm) tl4 21:50 Pain Scale: Adult rg5 Rachel Coma Score: 21:50 Eye Response: spontaneous(4). Motor Response: obeys commands(6). Verbal Response: rg5 oriented(5). Total: 15. MDM: 21:39 Patient medically screened. rt 02/25 00:24 Differential diagnosis: Neck spasm, carotid dissection. Data reviewed: vital signs, rt nurses notes, lab test result(s), EKG, radiologic studies. Consideration of Admission/Observation Escalation of care including admission/observation considered. Patient with no acute findings on the neck, suspect neck spasm as the etiology as the symptoms are brief, self-limited. Patient has not had chest pain for the past several days, given chronicity of the symptoms, 1 set of enzymes is sufficient to rule out any acute coronary syndrome. Patient is appropriate for outpatient follow-up, no indication for admission at this time. Independent interpretation of the following test(s) in the Emergency Department X-Ray: My interpretation is No consolidation seen on my interpretation of x-ray images. Care significantly affected by the following chronic conditions: Chronic Obstructive Pulmonary Disease. Counseling: I had a detailed discussion with the patient and/or guardian regarding the historical points, exam findings, and any diagnostic results supporting the discharge/admit diagnosis, lab results, radiology results, the need for outpatient follow up, to return to the emergency department if symptoms worsen or persist or if there are any questions or concerns that arise at home. Response to treatment: the patient's symptoms have resolved after treatment, the patient's pain is gone. 02/24 21:51 Order name: Basic Metabolic Panel; Complete Time: 22:42 rt 02/24 21:51 Order name: CBC with Diff; Complete Time: 22:42 rt 02/24 21:51 Order name: LFT's; Complete Time: 22:42 rt 02/24 21:51 Order name: Magnesium; Complete Time: 22:42 rt 02/24 21:51 Order name: Troponin HS; Complete Time: 22:42 rt 02/24 21:51 Order name: XRAY Chest (1 view) rt 02/24 21:51 Order name: CT Neck Angio rt 02/24 21:51 Order name: EKG; Complete Time: 21:52 rt 02/24 21:51 Order name: Cardiac monitoring; Complete Time: 21:56 rt 02/24 21:51 Order name: EKG - Nurse/Tech; Complete Time: 21:55 rt 02/24 21:51 Order name: IV Saline Lock; Complete Time: 22:08 rt 02/24 21:51 Order name: Labs collected and sent; Complete Time: 22:08 rt 02/24 21:51 Order name: O2 Per Protocol; Complete Time: : rt 02/24 21:51 Order name: O2 Sat Monitoring; Complete Time: :08 rt EC/15 22:01 Rate is 99 beats/min. Rhythm is regular, Normal Sinus Rhythm with No ectopy. QRS Ferguson rt is Normal. [place] interval is normal. QRS interval is normal. QT interval is prolonged at 495 msec. No Q waves. T waves are Normal. No ST changes noted. Administered Medications: : Drug: NS 0.9% IV 1000 ml IV at 1 bolus Per protocol; 1000 mL bolus Route: IV; Rate: 1 rg5 bolus; Site: right antecubital; 23:00 Follow up: IV Status: Completed infusion; IV Intake: 1000ml rg5 Disposition Summary: 02/26/24 00:01 Discharge Ordered Notes: Location: Home rt Problem: new rt Symptoms: have improved rt Condition: Stable rt Diagnosis - Neck pain rt Followup: rt - With: Private Physician - When: 2 - 3 days - Reason: Discharge Instructions: - Discharge Summary Sheet rt - Muscle Cramps and Spasms rt Forms: - Medication Reconciliation Form rt - Antibiotic Education rt - Prescription Opioid Use rt - Patient Portal Instructions rt - Leadership Thank You Letter rt Prescriptions: - Cyclobenzaprine 5 mg Oral Tablet - take 1 tablet ORAL route 3 times per day As needed; 15 tablet; Refills: 0, rt Product Selection Permitted Signatures: Dispatcher [employer] Paawn So MD MD rt Rony Talamantes RN RN tl4 Dayton Laird, RN RN rg5
--- NOTE | 2024-02-26 00:02 | ER ---
Nurse's Notes [facility] Name: Samanta Hayes Age: 83 yrs Sex: Female : 1940 Arrival Date: 02/25/2024 Time: 21:24 Bed 14 Private MD: Diagnosis: Neck pain Presentation: 02/24 21:38 Chief complaint: Patient states: Pt c/o severe right side "carotid artery pain" tl4 tonight. Pt also c/o intermittent left side chest pain x months. Coronavirus screen: At this time, the client does not indicate any symptoms associated with coronavirus-19. Ebola Screen: No symptoms or risks identified at this time. Initial Sepsis Screen: Does the patient meet any 2 criteria? No. Patient's initial sepsis screen is negative. Does the patient have a suspected source of infection? No. Patient's initial sepsis screen is negative. Risk Assessment: Do you want to hurt yourself or someone else? Patient reports no desire to harm self or others. Onset of symptoms was February 25, 2024. 21:38 Method Of Arrival: Wheelchair tl4 21:38 Acuity: KIT 2 tl4 Triage Assessment: 21:39 General: Appears in no apparent distress. Behavior is anxious, crying. Pain: Complains tl4 of pain in neck. EENT: No signs and/or symptoms were reported regarding the EENT system. Neuro: Level of Consciousness is awake, alert, obeys commands, Oriented to person, place, time, situation. Cardiovascular: Reports chest pain. Respiratory: Airway is patent Respiratory effort is even, unlabored, Respiratory pattern is regular, symmetrical. GI: No signs and/or symptoms were reported involving the gastrointestinal system. : No signs and/or symptoms were reported regarding the genitourinary system. Derm: No signs and/or symptoms reported regarding the dermatologic system. Musculoskeletal: No signs and/or symptoms reported regarding the musculoskeletal system. Historical: - Allergies: 21:39 No Known Allergies; tl4 - PMHx: 21:39 Anxiety; COPD; Crohn's; CVA; Depression; DVT; hiatal hernia; Hypertension; insomnia; tl4 - Immunization history:: Adult Immunizations unknown. - Infectious Disease History:: Denies. - Social history:: Smoking status: Patient denies any tobacco usage or history of. - Family history:: not pertinent. Screenin:50 [facility] ED Fall Risk Assessment (Adult) History of falling in the last 3 months, rg5 including since admission No falls in past 3 months (0 pts) Confusion or Disorientation No (0 pts) Intoxicated or Sedated No (0 pts) Impaired Gait No (0 pts) Mobility Assist Device Used No (0 pt) Altered Elimination No (0 pt) Score/Fall Risk Level 0 - 2 = Low Risk Oriented to surroundings, Maintained a safe environment, Hourly rounding (assess needs \\T\\ fall precautionary measures) done. Abuse screen: Denies threats or abuse. Nutritional screening: No deficits noted. Tuberculosis screening: No symptoms or risk factors identified. Assessment: 21:50 General: Appears in no apparent distress. Behavior is calm, cooperative, appropriate rg5 for age, anxious. Pain: Complains of pain in right side of neck Pain currently is 8 out of 10 on a pain scale. Quality of pain is described as throbbing, Pain began 1 hour ago. Neuro: Level of Consciousness is awake, alert, obeys commands, Oriented to person, place, time, situation. Cardiovascular: Reports chest pain, Capillary refill < 3 seconds Patient's skin is warm and dry. Rhythm is sinus rhythm. Respiratory: Airway is patent Trachea midline Respiratory effort is even, unlabored, Respiratory pattern is regular. GI: Abdomen is flat, non-distended, Abd is soft and non tender. : No signs and/or symptoms were reported regarding the genitourinary system. EENT: No deficits noted. Derm: Skin is intact, Skin is dry, Skin is normal. Musculoskeletal: Range of motion: intact in all extremities. 21:50 Pain: Pain does not radiate. rg5 22:45 Reassessment: No changes from previously documented assessment. Patient and/or family rg5 updated on plan of care and expected duration. Pain level reassessed. Patient is alert, oriented x 3, equal unlabored respirations, skin warm/dry/pink. 23:50 Reassessment: Patient and/or family updated on plan of care and expected duration. Pain rg5 level reassessed. Patient is alert, oriented x 3, equal unlabored respirations, skin warm/dry/pink. Patient states feeling better. Patient states symptoms have improved. Vital Signs: 21:38 BP 189 / 108; Pulse 92; Resp 20; Temp 98(O); Pulse Ox 95% on R/A; Weight 72.57 kg; tl4 Height 5 ft. 3 in. ; 21:50 BP 177 / 82; Pulse 76; Resp 17; Temp 98; Pulse Ox 97% on R/A; Pain 8/10; rg5 22:45 BP 148 / 80; Pulse 75; Resp 18; Pulse Ox 98% on R/A; rg5 23:49 BP 147 / 69; Pulse 67; Resp 17; Pulse Ox 97% on R/A; rg5 21:38 Body Mass Index 28.34 (72.57 kg, 160.02 cm) tl4 21:50 Pain Scale: Adult rg5 [place] Coma Score: 21:50 Eye Response: spontaneous(4). Motor Response: obeys commands(6). Verbal Response: rg5 oriented(5). Total: 15. ED Course: 21:33 Patient arrived in ED. im 21:35 Pawan Garcia MD is Attending Physician. rt 21:39 Triage completed. tl4 21:40 Arm band placed on left wrist. tl4 21:45 EKG done, by ED staff, reviewed by Pawan Garcia MD. oe 21:45 Patient maintains SpO2 saturation greater than 95% on room air. rg5 21:45 Inserted saline lock: 20 gauge in right antecubital area, using aseptic technique. rg5 Blood collected. Flushed with 10 mL NS. 21:50 Dayton Laird, RN is Primary Nurse. rg5 21:50 Patient has correct armband on for positive identification. Placed in gown. Bed in low rg5 position. Call light in reach. Side rails up X 1. Client placed on continuous cardiac and pulse oximetry monitoring. NIBP monitoring applied. quality assurance monitor chassis on. Pulse ox on. NIBP on. Door closed. Noise minimized. Warm blanket given. Verbal reassurance given. 21:50 No provider procedures requiring assistance completed. rg5 22:45 XRAY Chest (1 view) In Process Unspecified. EDMS 23:17 CT Neck Angio In Process Unspecified. EDMS 0916 00:11 IV discontinued, bleeding controlled, Pressure dressing applied. rg5 00:12 Provided Education on: post er care. rg5 Administered Medications: 02/24 22:09 Drug: NS 0.9% IV 1000 ml IV at 1 bolus Per protocol; 1000 mL bolus Route: IV; Rate: 1 rg5 bolus; Site: right antecubital; 23:00 Follow up: IV Status: Completed infusion; IV Intake: 1000ml rg5 Medication: 21:50 VIS not applicable for this client. rg5 Intake: 23:00 IV: 1000ml; Total: 1000ml. rg5 Outcome: 02/25 00:01 Discharge ordered by . rt 00:12 Discharged to home via wheelchair, rg5 00:12 Condition: stable 00:12 Discharge instructions given to patient, Instructed on discharge instructions, follow up and referral plans. Demonstrated understanding of instructions, follow-up care, medications, Prescriptions given X 1, 00:14 Patient left the ED. rg5 Signatures: Dispatcher [employer] EDMS Feliciano Morales Ryan, MD MD rt Ngozi De Guzman Toni, RN RN tl4 Dayton Laird, RN RN rg5 Corrections: (The following items were deleted from the chart) 00:14 00:12 Pain: Pain does not radiate. rg5 rg5
[2024-02-26 00:32] VITALS: TEMP 98
[2024-02-26 00:40] VITALS: BP 147/69; O2SAT 97
--- NOTE | 2024-02-26 12:49 | EKG ---
Test Date: 2024-02-25 Test Time: 21:42:28 Bill Distributor: JEAN MEASUREMENT RESULTS: Intervals: Rate: 99 CT: 174 QRSD: 84 QT: 386 QTc: 495 Watts: P: 54 CT: 174 QRS: 22 T: 54 INTERPRETIVE STATEMENTS: Normal sinus rhythm Prolonged QT Abnormal ECG Compared to ECG 08/04/2023 03:30:56 Prolonged QT interval now present Electronically Signed On 02-26-24 12:46:52 CDT by Lloyd Vences
--- NOTE | 2024-02-26 15:00 | RAD REPORT ---
CLINICAL HISTORY: Neck pain. COMPARISON: None. TECHNIQUE: CT NECK ANGIOGRAPHYWITH IV CONTRAST on 02/25/2024 9:51 PM CDT This exam was performed according to our departmental dose-optimization program, which includes autom ated exposure control, adjustment of the mA and/or kV according to patient size and/or use of iterative reconstruction techn ique. MIP reconstructions were generated. Stenoses are calculated by NASCET criteria. FINDINGS: The visualized aortic arch and origins of the great vessels unremarkable. The common carotid arteries are patent and symmetric bilaterally. No hemodynamically significant stenosis is observed at the common carotid bifurcations or origins of the internal carotid arteries bilaterally. There are heavy calcifications of the proximal right ICA. Vertebral arteries are unremarkable without evidence of pseudoaneurysm, hemodynamically significant s tenosis, or dissection. IMPRESSION: Unremarkable CT angiogram of the neck for age without dissection or hemodynamically significant steno sis. CAROTID STENOSIS REFERENCE USING NASCET CRITERIA: % ICA stenosis = (1 - narrowest ICA diameter/diameter of distal cervical ICA) x 100. Mild - <50% stenosis. Moderate - 50-69% stenosis. Severe - 70-94% stenosis. Near occlusion - 95-99% stenosis. Occluded - 100% stenosis. Electronically signed by: Nathan Dover MD 02/25/2024 11:48 PM CDT Transcribed Date/Time: 02/26/2024 2:59 PM
--- NOTE | 2024-02-26 15:00 | RAD REPORT ---
EXAM DESCRIPTION: Chest Single View RadLex: XR CHEST 1 VIEW CLINICAL HISTORY: 83 years Female, CHEST PAIN COMPARISON: None. FINDINGS: Single AP view of the chest. Trachea is midline. Normal size of the cardiac silhouette. Minimal left basilar opacities may represent atelectasis. No pleural effusion or pneumothorax. Probable bone island left humeral head. IMPRESSION: Minimal left basilar opacities may represent atelectasis. Electronically signed by: Brenda Hagen MD 02/25/2024 11:14 PM CDT Transcribed Date/Time: 02/26/2024 2:59 PM
== END 2024-02-26 00:14 | disposition home or self-care (01) ==
LOC: ER 21:24
DX: M54.2 Cervicalgia (principal); R07.9 Chest pain, unspecified; I10 Essential (primary) hypertension; Z86.73 Personal history of transient ischemic attack (TIA), and cerebral infarction without residual deficits
CPT/HCPCS: 93005; 85025; 80048; 36415; 83735; 80076; 84484; 70498; 71045; 96360; 99285; Q9967; J7030

== ENCOUNTER 2024-10-10 00:07 | Emergency (ER) | payer OTHER, BC ==
--- OUTSIDE RECORDS SUMMARY | 2024-10-10 00:11 | XMS REPORT | Clinical Summary ---
Author Name Unknown Organization [facility] Address [address] [place] [address] Care Team Providers Care [employer] Janitor Name Role Phone Zora Lutz Unavailable Deann Dennis MD Primary Care Provider [phone] Sachin Holliday MD Unavailable [phone] Ana Mendoza MD Unavailable Allergies No known active allergies Medications * This document contains information received from the source organization and may not represent a complete record from that organization. antiox. no.30-[id number]-[id number]-z ea (I-Caps) 280-10-2 mg cap Take 1 capsule by mouth daily. Active aspirin 81 mg chewable tablet Chew 1 tablet (81 mg) daily. Active Bifidobacterium infantis (ALIGN ORAL) Active clonazePAM (KlonoPIN) 1 mg disintegrating tablet Dissolve 1 tablet (1 mg) on the tongue 2 (two) times a day as needed for anxiety. Active cycloSPORINE (Restasis) 0.05% ophthalmic emulsion Administer 1 drop to both eyes daily. Active UPVMI-CEWIC-8-DHA- EPA-LIPIDS ORAL Acti ve primidone (MYSOLINE) 50 mg tablet 12/22/19 21 Active simethicone (MYLICON,GAS-X) 180 mg capsule Activ e LAMOTRIGINE ORAL Take 50 mg by mouth at bedtime. Active ibuprofen (ADVIL,MOTRIN) 800 mg tabletIndications: Abdominal or pelvic swelling, mass, or lump, other specified site; multiple sites Take 1 tablet (800 mg) by mouth every 8 (eight) hours as needed for moderate pain. 30 tablet 02/16/2021 3:28 PM CDT 02/17/20 21 Active Additional Information Patient not taking.Reason: No longer taking, Reported on 10/03/2024 latanoprost (XALATAN) 0.005% ophthalmic solution daily. 09/03/19 22 Active gabapentin (NEURONTIN) 100 mg capsule 04/10/20 22 Active temazepam (RESTORIL) 7.5 mg capsule Take 1 capsule (7.5 mg) by mouth nightly as needed for sleep. Active donepezil (Aricept) 5 mg tablet Take 1 tablet (5 mg) by mouth daily. Active solifenacin (VESICARE) 10 MG tablet Take 1 tablet (10 mg) by mouth daily. Active FLUoxetine (PROzac) 40 mg capsule 10/01/19 25 Active brexpiprazole (Rexulti) 0.5 mg tab 10/03/19 25 Active zolpidem (AMBIEN) 5 mg tablet Take 1 tablet (5 mg) by mouth nightly as needed. Active oxyBUTYnin (DITROPAN-XL) 10 mg 24 hr tablet Take 1 tablet (10 mg) by mouth. 03/08/20 24 Active guaiFENesin (MUCINEX) 600 mg 12 hr tablet Take 1 tablet (600 mg) by mouth. Active diphenhydrAMINE (BENADRYL) 25 mg capsule Take 1 capsule (25 mg) by mouth. Active vit C/E/Zn/coppr/lutei n/zeaxan (PRESERVISION AREDS-2 ORAL) Take by mouth. A ctive cholecalciferol, vitamin D3, (VITAMIN D3) 5,000 units tab tablet Take by mouth. Active cyanocobalamin (VITAMIN B-12) 1000 mcg tablet Take by mouth daily. Active vitamin K2 100 mcg cap Take by mouth. Activ e ascorbic acid (ascorbic acid with patrice hips) 500 mg tablet Take by mouth. 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:Clinical stage from 02/16/2021:Stage IB(Primary) - Signed by Deann Dennis MD on 02/26/2021 Candidal vulvovaginitis 02/26/2021 Abdominal or pelvic swelling , mass, or lump, other specified site; multiple sites 02/03/2021 Family history of malignant neoplasm of breast 0 02/03/2021 Overview (02/03/2021): Added automatically from request for surgery [id number] Mammography abnormal 02/03/2021 Overview (02/03/2021): Added automatically from request for surgery [id number] H/O: major abdominal surgery 02/03/2021 Chronic obstructive pulmonary disease 02/02/2021 Crohn's disease 02/02/2021 Depressive disorder 02/02/2021 Gastroesophageal reflux disease 02/02/2021 Encounters Date Type Department Care Team Description 10/03/2024 3:40 PM CDT Consult MD [facility] [place] - Dermatology [address] [place] [address] [address] [place] [address] Ana Mendoza MD Seborrheic keratosis (Primary Dx); Skin lesion; Benign neoplasm of skin; Skin cancer screening 10/03/2024 Travel 07/19/2024 11:30 AM PURCHASING DIRECTOR Follow-Up MD [facility] [place] - [address] [address] Jessy Macedo PA 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); Breast lump present; Skin lesion 07/19/2024 Travel 02/29/2024 Orders Only MD [facility] in [address] [address] Cherelle Akers PA Breast lump present (Primary Dx); 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>; Pain of breast 02/29/2024 Telephone MD [facility] in [address] [address] Francine Jackson RN 01/17/2024 11:30 AM CDT Follow-Up MD [facility] [place] - Gynecology [address] [place] [address] Deann Dennis MD Unke, Jenna, PA 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); Screening mammography 01/17/2024 Travel after 10/11/2023 Surgical History Surgery Date Site/Laterality Comments EXPLORATORY LAPAROTOMY 06/12/1961 - 06/11/1962 BREAST LUMPECTOMY 06/12/1969 - 06/11/1970 HYSTERECTOMY 06/12/1970 - 06/11/1971 UPPER GASTROINTESTINAL ENDOSCOPY 06/12/2016 - 06/11/2017 SECTION, CLASSIC x3 APPENDECTOMY CO LAPAROSCOPY W/RMVL ADNEXAL STRUCTURES 02/16/2021 Abdomen/Bilateral Procedure: LAPAROSCOPY WITH REMOVAL OF ADNEXAL STRUCTURES , TOTAL OOPHERECTOMY AND SALPINGECTOMY.; Surgeon: Deann Dennis MD; Location: MAIN OR; Service: EMERGENCY RESPONSE COORDINATOR - GYNECOLOGIC ONCOLOGY CO CYSTOURETHROSCOPY 02/16/2021 Genitalia/Bilateral Procedure: CYSTOURETHROSCOPY; Surgeon: Deann Dennis MD; Location: MAIN OR; Service: EMERGENCY RESPONSE COORDINATOR - GYNECOLOGIC ONCOLOGY CO OMNTC EPIPLOECTOMY RESCJ OMENTUM SPX 02/16/2021 Abdomen/N/A Procedure: OMENTAL BIOPSY; Surgeon: Deann Dennis MD; Location: MAIN OR; Service: EMERGENCY RESPONSE COORDINATOR - GYNECOLOGIC ONCOLOGY CO ENTEROLSS FRING INTSTINAL ADHESION SPX 02/16/2021 Abdomen/N/A Procedure: FREEING OF INTESTINAL ADHESION; Surgeon: Deann Dennis MD; Location: MAIN OR; Service: EMERGENCY RESPONSE COORDINATOR - GYNECOLOGIC ONCOLOGY CO URETEROLYSIS W/WORPSG URETER RETROPERIT FIBROSIS 02/16/2021 Abdomen/Left Procedure: URETEROLYSIS, WITH OR WITHOUT REPOSITIONING OF URETER FOR RETROPERITONEAL FIBROSIS; Surgeon: Deann Dennis MD; Location: MAIN OR; Service: EMERGENCY RESPONSE COORDINATOR - GYNECOLOGIC ONCOLOGY Medical History Medical History [...] you have received? High school graduate 02/09/2021 Comments No Sex and Gender Information Value Date Recorded Sex Assigned at Female 02/02/2021 5:56 PM CDT Legal Sex Female 9:25 AM CDT Gender Identity Female 02/02/2021 5:56 PM CDT Sexual Orientation Straight 02/02/2021 5: 56 PM CDT Obstetrics History Para Term AB IAB SAB Ectopic Multiple Livin g Live Births 3 3 2 1 2 Date Outcome GA Total Labor Labor/2nd/3rd Weight Sex Type Anes PTL Nickie A1 A5 Name Clin Term Term Last Filed Vital Signs Vital Sign Reading Time Taken Comments Blood Pressure 124/74 10/03/2024 3:37 PM CDT Pulse 71 10/03/2024 3:37 PM CDT Temperature 36.7 °C (98 °F) 10/03/2024 3:37 PM CDT Respiratory Rate 18 10/03/2024 3:37 PM CDT Oxygen Saturation - - Inhaled Oxygen Concentration - - Weight 53.2 kg (117 lb 4.6 oz) 10/03/2024 3:37 P M CDT Height 154 cm (5' 0.63") 01/17/2024 12:12 PM CDT Body Mass Index 22.43 01/17/2024 12:12 PM CDT Plan of Treatment Upcoming Encounters Date Type Department Care Team (Late st Contact Info) Description 01/24/2025 12:00 PM CDT Follow-Up MD [facility] [place] - Gynecology [address] [place] [address] Jessy Macedo PA [address] [place], [place] [id number] [email or web address] [email or web address] Akers, ANN MARIE [address] [place] [address] 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 Cancer Antigen 125 8.2 <=38.0 U/mL 07/19/2024 11:54 AM PURCHASING DIRECTOR [place] Blood Peripheral blood specimen / Unknown Venipuncture / Unknown 07/19/2024 11:21 AM PURCHASING DIRECTOR 07/19/2024 11:22 AM PURCHASING DIRECTOR Narrative [place] - 07/19/2024 11:54 AM PURCHASING DIRECTOR Results greater than 11,500.0 U/mL may not be reliable due to matrix effect with extended dilution as it exceeds the supervisor buffing and pasting's recommended limit. Caution should be exercised when interpreting such values and done in conjunction with clinical context. This test is measured by electrochemiluminescence immunoassay on Janey Sudeep immunoassay analyzers. Results obtained in different methods are not interchangeable. Reference intervals are not available for male patients. Results should be interpreted in conjunction with clinical context. us Jessy JES[facility] BLOOD ORDERABLES Final Resul t ISABELLE SYKES [facility] Isabelle Sykes [address] [facility], [address] [place] [address] after 10/11/2023 [place] [id number] [facility] MEDICARE SUPP-SECONDARY ONLY MEDICARE PART A AND B [facility] MEDICARE SUPP-SECONDARY ONLY Care Teams School Janitor Relationship Specialty Start Date End Date Zora Lutz [address] [place] [phone] [email or web address] PCP - External Primary Care Provider Obstetrics/Gynecology 01/21/21 Deann Dennis MD [address] [place] [phone] [email or web address] PCP - General Gynecological Oncology 01/21/21 Sachin Holliday MD [address] [place] [phone] [email or web address] Consulting Physician Internal Medicine 02/09/21 Ana Mendoza MD [address] [place] [address] [phone] [email or web address] Consulting Physician Dermatology 10/03/24
[2024-10-10 01:16] LABS: Absolute Basophils 0.1 K/uL (0-0.5); Absolute Eosinophils 0.2 K/uL (0-0.5); Absolute Lymphocytes (CBC) 2.9 K/uL (0.7-4.9); Absolute Monocytes 0.7 K/uL (0.1-1.3); Basophils % 0.8 % (0-1.3); Eosinophils % 3.2 % (0-4.4); Hematocrit 38.7 % (36.0-45.0); Hemoglobin 13.1 g/dL (12.0-15.0); Lymphocytes % 42.4 % (15.3-44.8); MCH 30.1 pg (27.0-35.0); MCHC 33.9 g/dL (32.0-36.0); MCV 88.7 fL (80-100); MPV 7.7 fL (7.6-11.3); Monocytes % 10.4 % (3.3-12.3); Neutrophils % 43.2 % (41.7-73.7); Nucleated Red Blood Cells % 0.1 % (0-0); Platelets 268 thou/uL (152-406); RBC Red Blood Cell Count 4.36 M/uL (3.86-4.86); Red Cell Distribution Width 13.7 % (12.1-15.2)
[2024-10-10 01:17] LABS: PT Prothrombin Time 11.2 SECONDS (10-13.0); Protime INR 0.98
[2024-10-10 01:30] LABS: ALT/SGPT 20 U/L (13-56); AST/SGOT 22 U/L (15-37); Albumin 3.7 g/dL (3.4-5.0); Alkaline Phosphatase 81 U/L (45-117); Anion Gap 9.1 mEq/L (5.0-15.0); BUN Blood Urea Nitrogen 18 mg/dL (7-18); Bicarbonate 26 mEq/L (21-32); Bilirubin Total 0.4 mg/dL (0.2-1.0); Globulin 3.6 g/dL (2.3-3.5); Glomerular Filtration Rate 76 ml/min (=/>90); Glucose Level 94 mg/dL (74-106); Magnesium 2.1 mg/dL (1.6-2.4); NT PRO-BNP 72 pg/mL (<450); Potassium 4.1 mEq/L (3.5-5.1); Protein, Total 7.3 g/dL (6.4-8.2); Sodium Level 133 mEq/L (136-145); Troponin High Sensitivity 8.2 pg/mL (<58.9)
[2024-10-10 01:34] LABS: Thyroid Stimulating Hormone 2.96 uIU/mL (0.358-3.740)
[2024-10-10 01:43] LABS: Bilirubin Direct < 0.2 mg/dL (0-0.2); Bilirubin Indirect, Calculated 0.2 mg/dL (0.2-0.8)
--- NOTE | 2024-10-10 04:33 | EDPHYS ---
Physician Documentation [facility] Name: Samanta Hayes Age: 84 yrs Sex: Female : 1940 Arrival Date: 10/10/2024 Time: 00:07 Bed 6 Private MD: ED Physician Morgan Rosenberg HPI: 10/10 00:23 This 84 yrs old Female presents to ER via Ambulatory with complaints of Chest sp4 Pain. 20:58 84-year-old female with history of anxiety, GERD, insomnia, depression, and resting sp4 tremor on p.o. primidone presents with acute left-sided sharp stabbing chest pain that is not exertional. Pain is intermittent. Historical: - Allergies: 00:21 No Known Allergies; dd2 - PMHx: 00:21 Anxiety; GERD (hiatal hernia); insomnia; Depression; OVARIAN CANCER (Depression); dd2 - PSHx: 00:21 section; Appendectomy; dd2 - Immunization history:: Adult Immunizations up to date. - Infectious Disease History:: Denies. - Social history:: Smoking status: Patient denies any tobacco usage or history of. - Family history:: not pertinent. ROS: 20:58 Constitutional: Negative for fever, chills, and weight loss, positive for left-sided sp4 sharp intermittent chest pain 20:58 All other systems are negative, Exam: 20:58 Constitutional: This is a well developed, well nourished patient who is awake, alert, sp4 and in no acute distress. Head/Face: Normocephalic, atraumatic. Eyes: Pupils equal round and reactive to light, extra-ocular motions intact. Lids and lashes normal. Conjunctiva and sclera are not injected. Cornea within normal limits. Periorbital areas with no swelling, redness, or edema. ENT: Nares patent. No nasal discharge, no septal abnormalities noted. Tympanic membranes are normal and external auditory canals are clear. Oropharynx with no redness, swelling, or masses, exudates, or evidence of obstruction, uvula midline. Mucous membranes moist. Neck: Trachea midline, no thyromegaly or masses palpated, and no cervical lymphadenopathy. Supple, full range of motion without nuchal rigidity, or vertebral point tenderness. Chest/axilla: Normal chest wall appearance and motion. Nontender with no deformity. No lesions are appreciated. Cardiovascular: Regular rate and rhythm with a normal S1 and S2. No gallops, murmurs, or rubs. Normal PMI, no JVD. No pulse deficits. Respiratory: Lungs have equal breath sounds bilaterally, clear to auscultation and percussion. No rales, rhonchi or wheezes noted. No increased work of breathing, no retractions or nasal flaring. Abdomen/GI: Soft, with normal bowel sounds. No distension or tympany. No guarding or rebound. No evidence of tenderness throughout. Back: No spinal tenderness. No costovertebral tenderness. Skin: Warm, dry with normal turgor. Normal color with no rashes, no lesions, and no evidence of cellulitis. MS/ Extremity: Pulses equal, no cyanosis. Neurovascular intact. Full, normal range of motion. Neuro: Awake and alert, GCS 15, oriented to person, place, time, and situation. Cranial nerves II-XII grossly intact. Motor strength 5/5 in all extremities. Sensory grossly intact. Psych: Awake, alert, with orientation to person, place and time. Behavior, mood, and affect are within normal limits 21:26 ECG was reviewed by the Attending Physician. EKG 0031 normal sinus rhythm rate 69 sp4 normal EKG. Vital Signs: 00:19 BP 128 / 70; Pulse 71; Resp 16; Temp 98.2; Pulse Ox 98% on R/A; Weight 51.71 kg (R); dd2 Pain 0/10; 02:28 BP 148 / 65; Pulse 62; Resp 16; Pulse Ox 99% ; al5 03:00 BP 103 / 56; Pulse 63; Resp 15; Pulse Ox 94% ; al5 03:30 BP 138 / 60; Pulse 68; Resp 17; Pulse Ox 97% ; al5 04:00 BP 132 / 60; Pulse 64; Resp 17; Pulse Ox 96% ; al5 05:00 BP 125 / 64; Pulse 67; Resp 16; Pulse Ox 97% ; al5 00:19 Pain Scale: Adult dd2 Rachel Coma Score: 20:58 Eye Response: spontaneous(4). Motor Response: obeys commands(6). Verbal Response: sp4 oriented(5). Total: 15. MDM: 02:15 Medical Screening Exam initiated sp4 02:32 ED course: EXAM DESCRIPTION: Chest Single View RadLex: XR CHEST 1 VIEW CLINICAL sp4 HISTORY: 84 years Female, CHEST PAIN COMPARISON: None. FINDINGS: Single portable AP upright view of the chest. Trachea is midline. Normal size of the cardiac silhouette. There are some mild bilateral coarse interstitial markings. No consolidation. No pleural effusion or pneumothorax. No acute osseous abnormality. IMPRESSION: Mild coarse interstitial markings which could be due to chronic interstitial lung disease. No consolidation. . 20:58 Differential diagnosis: acute pericarditis, anxiety, chest wall pain, congestive heart sp4 failure esophagitis, gastritis. HEART Score: History: Slightly Suspicious (0), ECG: Normal (0), Age: > or = 65 years (2), Risk Factors: 1 or 2 risk factors (1), Troponin: < or = 1 x Normal Limit (0), Total Score = 3. The patient was given aspirin in the Emergency Department. Data reviewed: vital signs, nurses notes, lab test result(s), CBC, drug level(s), electrolytes, hepatic panel, EKG, radiologic studies, plain films. Consideration of Admission/Observation Escalation of care including admission/observation considered. ED course: Troponin x 2 is negative, pain has resolved. Patient stable for discharge home however advised nonemergent follow-up with [facility] director for outpatient echocardiogram and a stress test. Patient was referred to Dr. Vences . 10/10 00:23 Order name: Basic Metabolic Panel; Complete Time: 03:23 10/10 00:23 Order name: CBC with Diff; Complete Time: 03:23 10/10 00:23 Order name: LFT's; Complete Time: 03:23 10/10 00:23 Order name: Magnesium; Complete Time: 03:23 10/10 00:23 Order name: NT PRO-BNP; Complete Time: 03:23 10/10 00:23 Order name: PT-INR; Complete Time: 03:10/10 00:23 Order name: Troponin HS; Complete Time: 03:23 10/10 00:48 Order name: CK; Complete Time: 03:23 10/10 00:48 Order name: Thyroid Stimulat Hormone; Complete Time: 03:23 10/10 00:48 Order name: T4 Free; Complete Time: 03:23 10/10 03:23 Order name: Troponin High Sensitivity; Complete Time: 04:23 sp4 10/10 00:23 Order name: XRAY Chest (1 view) [facility] 10/10 00:23 Order name: Cardiac monitoring; Complete Time: 02:23 4 10/10 00:23 Order name: EKG - Nurse/Tech; Complete Time: 01:29 sp4 10/10 00:23 Order name: IV Saline Lock; Complete Time: : 4 10/10 00:23 Order name: Labs collected and sent; Complete Time: : sp4 10/10 00:23 Order name: O2 Per Protocol; Complete Time: : sp4 10/10 00:23 Order name: O2 Sat Monitoring; Complete Time: 4 EC:31 Rate is 69 beats/min. Rhythm is regular, Normal Sinus Rhythm. QRS [place] is Normal. ID sp4 interval is normal. QRS interval is normal. QT interval is normal. No Q waves. T waves are Normal. No ST changes noted. Clinical impression: Normal ECG. Interpreted by me. Reviewed by me. Administered Medications: No medications were administered Disposition Summary: 10/10/24 04:32 Discharge Ordered Problem: new sp4 Symptoms: have improved sp4 Condition: Stable sp4 Diagnosis - Atypical chest pain sp4 Followup: sp4 - With: Lloyd Vences MD - When: 7 - 10 days - Reason: Recheck today's complaints Discharge Instructions: - Discharge Summary Sheet sp4 - Nonspecific Chest Pain, Adult, [id number] sp4 Forms: - Patient Portal Instructions sp4 Signatures: Dispatcher MedHo Morgan Xiao MD MD sp4 GINNY JIMENES RN RN dd2 Corrections: (The following items were deleted from the chart) 00:24 00:23 BASIC METABOLIC PANEL+C.LAB.BRZ ordered. EDMS EDMS 00:24 00:23 CBC+H.LAB.BRZ ordered. EDMS EDMS 00:24 00:23 HEPATIC FUNCTION+C.LAB.BRZ ordered. EDMS EDMS 00:24 00:23 MAGNESIUM+C.LAB.BRZ ordered. EDNJ EDMS 00:24 00:23 PROBNP+C.LAB.BRZ ordered. EDNJ EDMS 00:24 00:23 PROTIME (+INR)+COAG.LAB.BRZ ordered. EDMS EDMS 00:24 00:23 Troponin High Sensitivity+C.LAB.BRZ ordered. EDMS EDMS 00:21 PMHx: COPD; dd2 dd2 00:21 PMHx: Crohn's; dd2 dd 00:21 PMHx: CVA; dd2 dd 00:21 PMHx: DVT; dd2 dd 00:21 PMHx: hiatal hernia; dd2 dd2 00:21 PMHx: Hypertension; dd2 dd2 00:48 00:48 CREATINE PHOSPHOKINASE+C.LAB.BRZ ordered. EDMS EDMS 00:48 00:48 THYROID STIMULAT HORMONE+C.LAB.BRZ ordered. EDMS EDMS 00:48 00:48 T4 FREE+C.LAB.BRZ ordered. EDMS EDMS
--- NOTE | 2024-10-10 04:33 | ER ---
Nurse's Notes [facility] Name: Samanta Hayes Age: 84 yrs Sex: Female : 1940 Arrival Date: 10/10/2024 Time: 00:07 Bed 6 Private MD: Diagnosis: Atypical chest pain Presentation: 10/10 00:19 Chief complaint: Patient states: WAS GOING TO BED AND FELT SHARP PAIN IN THE LEFT SIDE dd2 OF CHEST, LIKE ELECTRICAL SHOCK AND WENT AWAY. DENIES PAIN TO ARM OR NECK. Coronavirus screen: At this time, the client does not indicate any symptoms associated with coronavirus-19. Ebola Screen: No symptoms or risks identified at this time. Initial Sepsis Screen: Does the patient meet any 2 criteria? No. Patient's initial sepsis screen is negative. Does the patient have a suspected source of infection? No. Patient's initial sepsis screen is negative. Risk Assessment: Do you want to hurt yourself or someone else? Patient reports no desire to harm self or others. Onset of symptoms was October 10, 2024. 00:19 Method Of Arrival: Ambulatory dd2 00:19 Acuity: KIT 2 dd2 Triage Assessment: 00:21 General: Appears in no apparent distress. Behavior is calm, cooperative, appropriate dd2 for age. Pain: Complains of pain in anterior aspect of left upper chest Pain does not radiate. Pain currently is 0 out of 10 on a pain scale. at worst was 6 out of 10 on a pain scale. Quality of pain is described as stabbing. Cardiovascular: Reports chest pain, Patient's skin is warm and dry. Respiratory: Airway is patent Respiratory effort is even, unlabored, Respiratory pattern is regular, symmetrical. Historical: - Allergies: 00:21 No Known Allergies; dd2 - PMHx: 00:21 Anxiety; GERD (hiatal hernia); insomnia; Depression; OVARIAN CANCER (Depression); dd2 - PSHx: 00:21 section; Appendectomy; dd2 - Immunization history:: Adult Immunizations up to date. - Infectious Disease History:: Denies. - Social history:: Smoking status: Patient denies any tobacco usage or history of. - Family history:: not pertinent. Screenin:27 [facility] ED Fall Risk Assessment (Adult) History of falling in the last 3 months, al5 including since admission No falls in past 3 months (0 pts) Confusion or Disorientation No (0 pts) Intoxicated or Sedated No (0 pts) Impaired Gait Yes (1 pt) Mobility Assist Device Used Yes (1 pt) Altered Elimination No (0 pt) Score/Fall Risk Level 0 - 2 = Low Risk Oriented to surroundings, Maintained a safe environment, Provided non-skid footwear. Abuse screen: Denies threats or abuse. Denies injuries from another. Nutritional screening: No deficits noted. Tuberculosis screening: No symptoms or risk factors identified. Assessment: 02:26 Reassessment: assumed care of patient at this time. General: Appears in no apparent al5 distress. comfortable, Behavior is calm, cooperative. Pain: Denies pain. Pain began denies pain. Cardiovascular: Capillary refill < 3 seconds Patient's skin is warm and dry. Rhythm is sinus rhythm. Respiratory: Airway is patent Respiratory effort is even, unlabored, Respiratory pattern is regular, symmetrical. GI: No signs and/or symptoms were reported involving the gastrointestinal system. : No signs and/or symptoms were reported regarding the genitourinary system. EENT: No signs and/or symptoms were reported regarding the EENT system. Derm: Skin is intact, is healthy with good turgor, Skin is pink, warm \T\ dry. normal. Musculoskeletal: No signs and/or symptoms reported regarding the musculoskeletal system. 03:17 Reassessment: Patient appears in no apparent distress at this time. No changes from al5 previously documented assessment. Patient and/or family updated on plan of care and expected duration. Pain level reassessed. Patient is alert, oriented x 3, equal unlabored respirations, skin warm/dry/pink. 04:31 Reassessment: Patient appears in no apparent distress at this time. No changes from al5 previously documented assessment. Patient and/or family updated on plan of care and expected duration. Pain level reassessed. Patient is alert, oriented x 3, equal unlabored respirations, skin warm/dry/pink. Vital Signs: 00:19 BP 128 / 70; Pulse 71; Resp 16; Temp 98.2; Pulse Ox 98% on R/A; Weight 51.71 kg (R); dd2 Pain 0/10; 02:28 BP 148 / 65; Pulse 62; Resp 16; Pulse Ox 99% ; al5 03:00 BP 103 / 56; Pulse 63; Resp 15; Pulse Ox 94% ; al5 03:30 BP 138 / 60; Pulse 68; Resp 17; Pulse Ox 97% ; al5 04:00 BP 132 / 60; Pulse 64; Resp 17; Pulse Ox 96% ; al5 05:00 BP 125 / 64; Pulse 67; Resp 16; Pulse Ox 97% ; al5 00:19 Pain Scale: Adult dd2 Rachel Coma Score: 20:58 Eye Response: spontaneous(4). Motor Response: obeys commands(6). Verbal Response: sp4 oriented(5). Total: 15. ED Course: 00:12 Patient arrived in ED. gm2 00:21 Triage completed. dd2 00:21 Arm band placed on right wrist. dd2 00:22 Morgan Rosenberg MD is Attending Physician. sp4 00:57 Initial lab(s) drawn, by me, sent to lab. Inserted saline lock: 20 gauge in left rk3 antecubital area, using aseptic technique. Blood collected. Flushed with 10 mL NS. 01:19 XRAY Chest (1 view) In Process Unspecified. EDMS 02:26 Melisa Hernandez, RN is Primary Nurse. al5 02:27 Patient has correct armband on for positive identification. Bed in low position. Call al5 light in reach. Side rails up X2. Provided Education on: wait time. Client placed on continuous cardiac and pulse oximetry monitoring. NIBP monitoring applied. environmental monitoring specialist on. Pulse ox on. 02:27 No provider procedures requiring assistance completed. Patient maintains SpO2 al5 saturation greater than 95% on room air. 04:32 Lloyd Vences MD is Referral Physician. sp4 05:00 IV discontinued, intact, bleeding controlled, No redness/swelling at site. Pressure al5 dressing applied. Administered Medications: No medications were administered Medication: 02:27 VIS not applicable for this client. al5 Outcome: 04:32 Discharge ordered by . sp4 05:11 Discharged to home ambulatory, with family, al5 05:11 Condition: good 05:11 Discharge instructions given to patient, family, Instructed on discharge instructions, follow up and referral plans. Demonstrated understanding of instructions, follow-up care, 05:11 Patient left the ED. al5 Signatures: Dispatcher [employer] EDVT Morgan Rosenberg MD MD sp4 Martina Pinto gm2 Melisa Hernandez RN RN al5 GINNY JIMENES RN RN dd2 Srikanth Ya rk3 Corrections: (The following items were deleted from the chart) 00 00:21 PMHx: COPD; dd2 dd2 00: PMHx: Crohn's; dd2 dd2 00: PMHx: CVA; dd2 dd2 00: PMHx: DVT; dd2 dd2 00: PMHx: hiatal hernia; dd2 dd2 00:21 PMHx: Hypertension; dd2 dd2
[2024-10-10 05:29] VITALS: TEMP 98.2
--- NOTE | 2024-10-10 05:47 | RAD REPORT ---
EXAM DESCRIPTION: Chest Single View RadLex: XR CHEST 1 VIEW CLINICAL HISTORY: 84 years Female, CHEST PAIN COMPARISON: None. FINDINGS: Single portable AP upright view of the chest. Trachea is midline. Normal size of the cardiac silhouet te. There are some mild bilateral coarse interstitial markings. No consolidation. No pleural effusion or pneumothorax. No acute osseous abnormality. IMPRESSION: Mild coarse interstitial markings which could be due to chronic interstitial lung disease. No consoli dation. Electronically signed by: Brenda Hagen MD 10/10/2024 01:55 AM CDT Due to temporary technical issues with the PACS/Quikly reporting system, reports are being lashawn d by the in-house radiologist without review as a courtesy to ensure prompt reporting the interpreting radiologist is fully responsible for the content of the report. Transcribed Date/Time: 10/10/2024 5:47 AM
[2024-10-10 05:52] VITALS: BP 125/64; O2SAT 97
--- NOTE | 2024-10-10 11:52 | EKG ---
Test Date: 2024-10-10 Test Time: 00:31:59 Induction Coordination Power Engineer: RUTH MEASUREMENT RESULTS: Intervals: Rate: 69 MN: 182 QRSD: 78 QT: 396 QTc: 424 [place]: P: 53 MN: 182 QRS: 39 T: 60 INTERPRETIVE STATEMENTS: Normal sinus rhythm Normal ECG Compared to ECG 02/25/2024 21:42:28 Prolonged QT interval no longer present Electronically Signed On 10-10-24 11:51:53 CDT by Phil Jones
== END 2024-10-10 05:11 | disposition home or self-care (01) ==
LOC: ER 00:07
DX: R07.89 Other chest pain (principal); F41.9 Anxiety disorder, unspecified
CPT/HCPCS: 36415; 71045; 80048; 80076; 82550; 83735; 83880; 84439; 84443; 84484; 85025; 85610; 93005; 99284

== ENCOUNTER 2024-10-17 13:09 | Emergency (ER) | payer OTHER, BC ==
--- OUTSIDE RECORDS SUMMARY | 2024-10-17 13:13 | XMS REPORT | Clinical Summary ---
Author Name Unknown Organization [facility] Address [address] [place] [address] Care Team Providers Care Hairspring Assembler Name Role Phone Zora Lutz Unavailable Deann Dennis MD Primary Care Provider [phone] Sachin Holliday MD Unavailable [phone] Ana Mendoza MD Unavailable Allergies No known active allergies Medications * This document contains information received from the source organization and may not represent a complete record from that organization. antiox. no.[id number] ea (I-Caps) 280-10-2 mg cap Take 1 [...] 1 drop to both eyes daily. Active [id number]-DHA- EPA-LIPIDS ORAL Acti ve primidone (MYSOLINE) 50 [...] (02/03/2021): Added automatically from request for surgery [id number] Mammography abnormal 02/03/2021 Overview (02/03/2021): Added automatically from request for surgery [id number] H/O: major abdominal surgery 02/03/2021 Chronic obstructive pulmonary disease 02/02/2021 Crohn's disease 02/02/2021 Depressive disorder 02/02/2021 Gastroesophageal reflux disease 02/02/2021 Encounters Date Type Department Care Team Description 10/03/2024 3:40 PM CDT Consult [facility] [place] - Dermatology [address] [place] [address] [address] [place] [address] Ana Mendoza MD Seborrheic keratosis (Primary Dx); Skin lesion; Benign neoplasm of skin; Skin cancer screening 10/03/2024 Travel 07/19/2024 11:30 AM DUTY MANAGER Follow-Up MD [facility] [place] - [address] [address] Jessy Macedo PA 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); Breast lump present; Skin lesion 07/19/2024 Travel 02/29/2024 Orders Only [facility] in [address] [address] Cherelle Akers PA Breast lump present (Primary Dx); 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>; Pain of breast 02/29/2024 Telephone MD [facility] in [address] [address] Francine Jackson RN 01/17/2024 11:30 AM CDT Follow-Up MD [facility] [place] - Gynecology [address] [place] [address] Deann Dennis MD Unke, Jenna, PA 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); Screening mammography 01/17/2024 Travel after 10/18/2023 Surgical History Surgery Date Site/Laterality Comments EXPLORATORY LAPAROTOMY 06/12/1961 - 06/11/1962 BREAST LUMPECTOMY 06/12/1969 - 06/11/1970 HYSTERECTOMY 06/12/1970 - 06/11/1971 UPPER GASTROINTESTINAL ENDOSCOPY 06/12/2016 - 06/11/2017 SECTION, CLASSIC x3 APPENDECTOMY HI LAPAROSCOPY W/RMVL ADNEXAL STRUCTURES 02/16/2021 Abdomen/Bilateral Procedure: LAPAROSCOPY WITH REMOVAL OF ADNEXAL STRUCTURES , TOTAL OOPHERECTOMY AND SALPINGECTOMY.; Surgeon: Deann Dennis MD; Location: MAIN OR; Service: LEAKAGE TESTER - GYNECOLOGIC ONCOLOGY HI CYSTOURETHROSCOPY 02/16/2021 Genitalia/Bilateral Procedure: CYSTOURETHROSCOPY; Surgeon: Deann Dennis MD; Location: MAIN OR; Service: LEAKAGE TESTER - GYNECOLOGIC ONCOLOGY HI OMNTC EPIPLOECTOMY RESCJ OMENTUM SPX 02/16/2021 Abdomen/N/A Procedure: OMENTAL BIOPSY; Surgeon: Deann Dennis MD; Location: MAIN OR; Service: LEAKAGE TESTER - GYNECOLOGIC ONCOLOGY HI ENTEROLSS FRING INTSTINAL ADHESION SPX 02/16/2021 Abdomen/N/A Procedure: FREEING OF INTESTINAL ADHESION; Surgeon: Deann Dennis MD; Location: MAIN OR; Service: LEAKAGE TESTER - GYNECOLOGIC ONCOLOGY HI URETEROLYSIS W/WORPSG URETER RETROPERIT FIBROSIS 02/16/2021 Abdomen/Left Procedure: URETEROLYSIS, WITH OR WITHOUT REPOSITIONING OF URETER FOR RETROPERITONEAL FIBROSIS; Surgeon: Deann Dennis MD; Location: MAIN OR; Service: LEAKAGE TESTER - GYNECOLOGIC ONCOLOGY Medical History Medical History [...] 12:00 PM CDT Follow-Up MD [facility] [place] - Gynecology [address] [place] [address] Jessy Macedo PA [address] [place], [place] [id number] [email or web address] Akers, ANN MARIE [address] [place] [address] 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 Cancer Antigen 125 8.2 <=38.0 U/mL 07/19/2024 11:54 AM DUTY MANAGER [place] Blood Peripheral blood specimen / Unknown Venipuncture / Unknown 07/19/2024 11:21 AM DUTY MANAGER 07/19/2024 11:22 AM DUTY MANAGER Narrative [place] - 07/19/2024 11:54 AM DUTY MANAGER Results greater than 11,500.0 U/mL may not be reliable due to matrix effect with extended dilution as it exceeds the electrician apprentice powerhouse's recommended limit. Caution should be exercised when [...] BLOOD ORDERABLES Final Resul t ISABELLE SYKES [facility] Isabelle Sykes [address] [facility], [address] [place] [address] after 10/18/2023 [place] [id number] [facility] MEDICARE SUPP-SECONDARY ONLY MEDICARE PART A AND B [facility] MEDICARE SUPP-SECONDARY ONLY Care Teams Hairspring Assembler Relationship Specialty Start Date End Date Zora Lutz [address] [place] [phone] [email or web address] PCP - External Primary Care Provider Obstetrics/Gynecology 01/21/21 Deann Dennis MD [address] [place] [id number] [email or web address] PCP - General Gynecological Oncology 01/21/21 Sachin Holliday MD [address] [place] [id number] [email or web address] Consulting Physician Internal Medicine 02/09/21 Ana Mendoza MD [address] [place] [address] [phone] [email or web address] Consulting Physician Dermatology 10/03/24
[2024-10-17 14:31] LABS: PT Prothrombin Time 11.3 SECONDS (10-13.0); PTT, Activated Partial Thromb 30.8 SECONDS (27.2-37.4); Protime INR 0.99
[2024-10-17 14:35] LABS: Albumin 3.7 g/dL (3.4-5.0); Albumin/Globulin Ratio 1.1 (1.1-1.8); Anion Gap 8.9 mEq/L (5.0-15.0); Bilirubin Total 0.6 mg/dL (0.2-1.0); Globulin 3.5 g/dL (2.3-3.5); Potassium 3.9 mEq/L (3.5-5.1); Protein, Total 7.2 g/dL (6.4-8.2)
[2024-10-17] MEDS ORDERED: NA CHLORIDE 0.9% 1,000 ML ONE (14:36)
[2024-10-17 14:37] LABS: Absolute Basophils 0.1 K/uL (0-0.5); Absolute Eosinophils 0.1 K/uL (0-0.5); Absolute Lymphocytes (CBC) 1.8 K/uL (0.7-4.9); Absolute Monocytes 0.6 K/uL (0.1-1.3); Absolute Neutrophil 5.6 K/uL (1.8-8.0); Basophils % 0.6 % (0-1.3); Eosinophils % 1.2 % (0-4.4); Hematocrit 38.6 % (36.0-45.0); Hemoglobin 13.4 g/dL (12.0-15.0); Lymphocytes % 21.9 % (15.3-44.8); MCH 30.8 pg (27.0-35.0); MCHC 34.7 g/dL (32.0-36.0); MCV 88.9 fL (80-100); MPV 7.8 fL (7.6-11.3); Neutrophils % 69.3 % (41.7-73.7); Nucleated Red Blood Cells % 0.1 % (0-0); Platelets 281 thou/uL (152-406); RBC Red Blood Cell Count 4.34 M/uL (3.86-4.86); Red Cell Distribution Width 14.3 % (12.1-15.2)
--- NOTE | 2024-10-17 14:59 | RAD REPORT ---
EXAMINATION: ONE VIEW CHEST XR CLINICAL INDICATION: Female, 84 years old.,MALAISE TECHNIQUE: Frontal chest projection is submitted. Examination is limited by patient positioning and t echnique. COMPARISON: 10/10/2024 FINDINGS: The lungs are well inflated and clear of new focal opacities. Right basilar prominent interstitial, s table.. No pneumothorax or sizable effusion. The heart is normal in size. Mediastinal contours are unremarkable. IMPRESSION: No acute intrathoracic abnormalities.
--- NOTE | 2024-10-17 15:04 | RAD REPORT ---
EXAM: CT Head Brain Wo Cont HISTORY: CONFUSED COMPARISON: 06/08/2023 TECHNIQUE: Multiple contiguous axial images were obtained for a CT of the brain without contrast. Sag ittal and coronal reformats were performed. One or more of the following dose reduction techniques were used: Automated exposure control, adjus tment of the mA and kV according to patient size, and iterative reconstruction. Unless otherwise specified, incidental findings do not require dedicated imaging follow-up. FINDINGS: No evidence of hydrocephalus, intracranial hemorrhage, or extra-axial fluid collection. The brain is normal in morphology. The calvarium is intact. The visualized paranasal sinuses and mastoid air cells are essentially clear . IMPRESSION: No evidence of acute intracranial abnormality.
[2024-10-17 15:48] LABS: Specific Gravity 1.016 (1.005-1.030); Sqamous Epithelial <5 /HPF (None Seen); Transitional Epithelial <5 /HPF (None Seen); Urine Bacteria <20 /HPF (<20); Urine Bilirubin NEGATIVE (Negative); Urine Blood Trace (Negative); Urine Clarity Turbid (Clear); Urine Color Light-Yellow (Yellow); Urine Culture Reflex Order NOT NEEDED; Urine Glucose TRACE (Negative); Urine Ketones 1+ (Negative); Urine Microscopic Reflex YN ORDER UMIC; Urine Mucus Slight /HPF (None Seen); Urine Nitrite NEGATIVE (Negative); Urine Protein TRACE (Negative); Urine RBC <5 /HPF (None Seen); Urine Urobilinogen Normal (Normal); Urine WBC <5 /HPF (<5); Urine pH 5.5 (5.0-7.0)
--- NOTE | 2024-10-17 16:07 | ER ---
Nurse's Notes [facility] Name: Samanta Hayes Age: 84 yrs Sex: Female : 1940 Arrival Date: 10/17/2024 Time: 13:09 Bed 2 Private MD: Diagnosis: Generalized weakness Presentation: 10/17 13:24 Chief complaint: Patient's son or daughter states: started yesterday with not feeling iw well, not acting like her normal self, today she is acting even more unlike herself, not eating or drinking, no able to hold her cup of water , denies n/v/d, denies urinary symptoms , just feels very weak and she is drooling , denies weakness to her face, she "just feels real bad ". Coronavirus screen: Client presents with at least one sign or symptom that may indicate coronavirus-19. Ebola Screen: No symptoms or risks identified at this time. Initial Sepsis Screen: Does the patient meet any 2 criteria? No. Patient's initial sepsis screen is negative. Does the patient have a suspected source of infection? No. Patient's initial sepsis screen is negative. Risk Assessment: Do you want to hurt yourself or someone else? Patient reports no desire to harm self or others. 13:24 Method Of Arrival: Wheelchair iw 13:24 Acuity: KIT 2 iw Historical: - Allergies: 13:27 No Known Allergies; iw - Home Meds: 13:28 Ana Oral [Active]; fluoxetine 40 mg Oral cap daily [Active]; Fluoxetine Oral every iw day at bedtime [Active]; clonazepam 0.5 mg Oral tablet 2 times per day [Active]; Ambien 5 mg Oral tablet every day at bedtime [Active]; Rexulti 1 mg oral tablet daily [Active]; gabapentin 100 mg oral tablet 2 times per day [Active]; oxybutynin chloride 10 mg Oral Tablet, Extended Release 24 hr daily [Active]; 13:31 primidone 50 mg Oral tablet 2 times per day [Active]; donepezil 10 mg oral tablet twice iw a day [Active]; - PMHx: 13:27 Depression; Anxiety; GERD; insomnia; ovarian cancer; iw - PSHx: 13:27 Appendectomy; section; iw - Immunization history:: Adult Immunizations up to date. - Infectious Disease History:: Denies. - Social history:: Smoking status: Patient denies any tobacco usage or history of. Screenin:04 [facility] ED Fall Risk Assessment (Adult) History of falling in the last 3 months, kc6 including since admission No falls in past 3 months (0 pts) Confusion or Disorientation No (0 pts) Intoxicated or Sedated No (0 pts) Impaired Gait No (0 pts) Mobility Assist Device Used No (0 pt) Altered Elimination No (0 pt) Score/Fall Risk Level 0 - 2 = Low Risk Oriented to surroundings. Abuse screen: Denies threats or abuse. Denies injuries from another. Nutritional screening: No deficits noted. Tuberculosis screening: No symptoms or risk factors identified. Assessment: 13:45 General: Appears in no apparent distress. comfortable, well groomed, well developed, kc6 Behavior is calm, cooperative, appropriate for age, quiet. Pain: Denies pain. Neuro: Level of Consciousness is awake, obeys commands, lethargic, Oriented to person, place, time, situation, Appropriate for age. Cardiovascular: Capillary refill < 3 seconds. Respiratory: Airway is patent Trachea midline Respiratory effort is even, unlabored, Respiratory pattern is regular, symmetrical. GI: No signs and/or symptoms were reported involving the gastrointestinal system. : Reports urinary frequency. EENT: No signs and/or symptoms were reported regarding the EENT system. Derm: No signs and/or symptoms reported regarding the dermatologic system. Skin is intact, is fragile, is thin, with poor turgor Skin is dry, Skin is pink, warm \\T\\ dry. Skin temperature is warm. Musculoskeletal: No signs and/or symptoms reported regarding the musculoskeletal system. Circulation, motion, and sensation intact. Range of motion: intact in all extremities. 14:45 Reassessment: Patient appears in no apparent distress at this time. No changes from kc6 previously documented assessment. Patient and/or family updated on plan of care and expected duration. Pain level reassessed. Patient is alert, oriented x 3, equal unlabored respirations, skin warm/dry/pink. 15:45 Reassessment: Patient appears in no apparent distress at this time. No changes from kc6 previously documented assessment. Patient and/or family updated on plan of care and expected duration. Pain level reassessed. Patient is alert, oriented x 3, equal unlabored respirations, skin warm/dry/pink. Patient states feeling better. Patient states symptoms have improved. 16:54 Reassessment: Patient appears in no apparent distress at this time. No changes from kc6 previously documented assessment. Patient and/or family updated on plan of care and expected duration. Pain level reassessed. Patient is alert, oriented x 3, equal unlabored respirations, skin warm/dry/pink. Vital Signs: 13:24 BP 119 / 58; Pulse 75; Resp 16; Pulse Ox 97% on R/A; Weight 52.16 kg; Height 5 ft. 1 iw in. ; 13:38 Temp 97.7(O); iw 15:04 BP 151 / 74; Pulse 68; Resp 17 S; Pulse Ox 99% on R/A; kc6 13:24 Body Mass Index 21.73 (52.16 kg, 154.94 cm) iw ED Course: 13:15 Patient arrived in ED. gl 13:20 Franklyn Hay MD is Attending Physician. sp3 13:27 Triage completed. iw 13:28 Arm band placed on. iw 13:34 Jazzy Talley, RN is Primary Nurse. kc6 14:03 Patient has correct armband on for positive identification. Bed in low position. Call kc6 light in reach. Side rails up X2. Adult w/ patient. media monitor on. Pulse ox on. NIBP on. Door closed. Noise minimized. Lights dimmed. Warm blanket given. Pillow given. Verbal reassurance given. 14:03 Initial lab(s) drawn, by me, sent to lab. EKG done, by ED staff, reviewed by Franklyn Hay MD. Inserted saline lock: 18 gauge in right antecubital area, using aseptic technique. Blood collected. Flushed with 10 mL NS. Patient maintains SpO2 saturation greater than 95% on room air. 14:12 Chest Single View XRAY In Process Unspecified. EDMS 14:15 CT Head Brain wo Cont In Process Unspecified. EDMS 14:24 Assisted to bedside commode. Repositioned patient. Linen changed. kc6 15:26 Assisted to bedside commode. Repositioned patient. kc6 16:54 No provider procedures requiring assistance completed. IV discontinued, intact, kc6 bleeding controlled, No redness/swelling at site. Pressure dressing applied. Administered Medications: 14:41 Drug: NS 0.9% IV 1000 ml IV at 1 bolus Per protocol; to be given as a bolus over 60 kc6 minutes Route: IV; Rate: 1 bolus; Site: right antecubital; 15:26 Follow up: Response: No adverse reaction; IV Status: Completed infusion; IV Intake: kc6 1000ml Medication: 16:55 VIS not applicable for this client. kc6 Intake: 15:26 IV: 1000ml; Total: 1000ml. kc6 Outcome: 16:07 Discharge ordered by MD. simons 16:55 Discharged to home via wheelchair, with family, kc6 16:55 Condition: improved 16:55 Discharge instructions given to patient, family, Instructed on discharge instructions, follow up and referral plans. Demonstrated understanding of instructions, follow-up care, 16:55 Patient left the ED. kc6 Signatures: Dispatcher [employer] Peyton Chen, RN EL iw Franklyn Hay MD MD sp3 Jazzy Talley RN RN kc6 Alida Donaldson, Reg Reg gl Corrections: (The following items were deleted from the chart) 13:31 13:28 Home Meds: bupropion HCl 100 mg Oral tab; [facility]
--- NOTE | 2024-10-17 16:07 | EDPHYS ---
Physician Documentation [facility] Name: Samanta Hayes Age: 84 yrs Sex: Female : 1940 Arrival Date: 10/17/2024 Time: 13:09 Bed 2 Private MD: CORNELIA Physician Franklyn Hay HPI: 10/17 14:12 This 84 yrs old Female presents to ER via Wheelchair with complaints of General sp3 Weakness. 14:12 84-year-old female with history of anxiety, depression, GERD, prior ovarian cancer now sp3 presents to the ED with chief complaint generalized weakness and lethargy and decreased responsiveness. No focal neurological deficit reported. Patient denies have any significant pain. ROS, history physical limited secondary to patient's slow response.. Historical: - Allergies: 13:27 No Known Allergies; iw - Home Meds: 13:28 Ana Oral [Active]; fluoxetine 40 mg Oral cap daily [Active]; Fluoxetine Oral every iw day at bedtime [Active]; clonazepam 0.5 mg Oral tablet 2 times per day [Active]; Ambien 5 mg Oral tablet every day at bedtime [Active]; Rexulti 1 mg oral tablet daily [Active]; gabapentin 100 mg oral tablet 2 times per day [Active]; oxybutynin chloride 10 mg Oral Tablet, Extended Release 24 hr daily [Active]; 13:31 primidone 50 mg Oral tablet 2 times per day [Active]; donepezil 10 mg oral tablet twice iw a day [Active]; - PMHx: 13:27 Depression; Anxiety; GERD; insomnia; ovarian cancer; iw - PSHx: 13:27 Appendectomy; section; iw - Immunization history:: Adult Immunizations up to date. - Infectious Disease History:: Denies. - Social history:: Smoking status: Patient denies any tobacco usage or history of. ROS: 14:13 Eyes: Negative for injury, pain, redness, and discharge, Neck: Negative for injury, sp3 pain, and swelling, Cardiovascular: Negative for chest pain, palpitations, and edema, Respiratory: Negative for shortness of breath, cough, wheezing, and pleuritic chest pain, Abdomen/GI: Negative for abdominal pain, nausea, vomiting, diarrhea, and constipation, Back: Negative for injury and pain, MS/Extremity: Negative for injury and deformity, Skin: Negative for injury, rash, and discoloration, Neuro: Negative for headache, weakness, numbness, tingling, and seizure, Psych: Negative for depression, anxiety, suicide ideation, homicidal ideation, and hallucinations, Allergy/Immunology: Negative for hives, rash, and allergies, Endocrine: Negative for neck swelling, polydipsia, polyuria, polyphagia, and marked weight changes, 14:13 All other systems are negative, Exam: 14:14 Constitutional: This is a well developed, well nourished patient who is awake, alert, sp3 and in no acute distress. Head/Face: Normocephalic, atraumatic. Eyes: Pupils equal round and reactive to light, extra-ocular motions intact. Lids and lashes normal. Conjunctiva and sclera are non-icteric and not injected. Cornea within normal limits. Periorbital areas with no swelling, redness, or edema. Neck: Trachea midline, no thyromegaly or masses palpated, and no cervical lymphadenopathy. Supple, full range of motion without nuchal rigidity, or vertebral point tenderness. No Meningismus. Chest/axilla: Normal chest wall appearance and motion. Nontender with no deformity. No lesions are appreciated. Cardiovascular: Regular rate and rhythm with a normal S1 and S2. No gallops, murmurs, or rubs. Normal PMI, no JVD. No pulse deficits. Respiratory: Lungs have equal breath sounds bilaterally, clear to auscultation and percussion. No rales, rhonchi or wheezes noted. No increased work of breathing, no retractions or nasal flaring. Abdomen/GI: Soft, non-tender, with normal bowel sounds. No distension or tympany. No guarding or rebound. No evidence of tenderness throughout. Back: No spinal tenderness. No costovertebral tenderness. Full range of motion. Skin: Warm, dry with normal turgor. Normal color with no rashes, no lesions, and no evidence of cellulitis. MS/ Extremity: Pulses equal, no cyanosis. Neurovascular intact. Full, normal range of motion. 14:14 Neuro: Patient slow to respond but has no focal neurological deficit., 14:16 ECG was reviewed by the Attending Physician. EKG demonstrates normal sinus rhythm at 70 sp3 bpm with normal intervals, normal QRS, normal axis, nonspecific diffuse ST/T-segment's without evidence of acute ischemia. Vital Signs: 13:24 BP 119 / 58; Pulse 75; Resp 16; Pulse Ox 97% on R/A; Weight 52.16 kg; Height 5 ft. 1 iw in. ; 13:38 Temp 97.7(O); iw 15:04 BP 151 / 74; Pulse 68; Resp 17 S; Pulse Ox 99% on R/A; kc6 13:24 Body Mass Index 21.73 (52.16 kg, 154.94 cm) iw MDM: 13:30 Medical Screening Exam initiated sp3 14:14 Data reviewed: vital signs, nurses notes, old medical records, lab test result(s), EKG, sp3 radiologic studies. ED course: 84-year-old female with PMH above now with generalized weakness. Differential diagnosis is broad and includes UTI, viral illness, pneumonia, neurological process, electrolyte abnormality, dehydration, among others. Workup will be broad to include CT scan of the head, EKG, chest x-ray, UA, general labs with disposition pending final workup and course.. 16:06 ED course: Full workup negative. Have discussed with family all the results and also sp3 discussed with them home health options as well as the possibility of temporary or permanent placement in the prison or assisted facility. Neurological exam remains normal and patient is completely coherent. We will discharge patient home at this time.. 10/17 13:36 Order name: Blood Culture Adult (2) sp3 10/17 13:36 Order name: CBC with Diff; Complete Time: 15:17 3 10/17 13:36 Order name: CMP; Complete Time: 15:17 3 10/17 13:36 Order name: Lactate w/ 2H reflex if indic.; Complete Time: 15:17 3 10/17 13:36 Order name: Protime (+inr); Complete Time: 15:17 3 10/17 13:36 Order name: Ptt, Activated; Complete Time: 15:17 3 10/17 13:36 Order name: UA Rfx Brennen Cult if indicated; Complete Time: 15:50 3 10/17 13:36 Order name: Chest Single View XRAY; Complete Time: 15:17 3 10/17 13:36 Order name: CT Head Brain wo Cont; Complete Time: 15:17 3 10/17 13:36 Order name: Cardiac monitoring; Complete Time: 13:56 sp3 10/17 13:36 Order name: EKG - Nurse/Tech; Complete Time: 13:57 sp3 10/17 13:36 Order name: IV Saline Lock - Large Bore; Complete Time: 13:57 sp3 10/17 13:36 Order name: Labs collected and sent; Complete Time: 13:57 sp3 10/17 13:36 Order name: O2 Per Protocol; Complete Time: 13:57 sp3 10/17 13:36 Order name: O2 Sat Monitoring; Complete Time: 13:57 sp3 10/17 13:36 Order name: Vital Signs; Complete Time: 13:57 sp3 Administered Medications: 14:41 Drug: NS 0.9% IV 1000 ml IV at 1 bolus Per protocol; to be given as a bolus over 60 kc6 minutes Route: IV; Rate: 1 bolus; Site: right antecubital; 15:26 Follow up: Response: No adverse reaction; IV Status: Completed infusion; IV Intake: kc6 1000ml Disposition Summary: 10/17/24 16:07 Discharge Ordered Notes: Location: Home sp3 Condition: Stable sp3 Diagnosis - Generalized weakness sp3 Followup: sp3 - With: Private Physician - When: Upon discharge from the Emergency Department - Reason: Continuance of care Discharge Instructions: - Discharge Summary Sheet sp3 - Weakness sp3 Forms: - Medication Reconciliation Form sp3 - Antibiotic Education sp3 - Prescription Opioid Use sp3 - Patient Portal Instructions sp3 - Leadership Thank You Letter sp3 Signatures: Dispatcher [employer] Peyton Chen RN RN iw Franklyn Hay MD MD sp3 Jazzy Talley RN RN kc6 Corrections: (The following items were deleted from the chart) 13:31 13:28 Home Meds: bupropion HCl 100 mg Oral tab; [facility] 13:37 13:37 BLOOD CULTURE*+BA.LAB.BRZ ordered. EDMS EDMS 13:37 13:37 CBC+H.LAB.BRZ ordered. EDMS EDMS 13:37 13:37 COMPREHENSIVE METABOLIC PANEL+C.LAB.BRZ ordered. EDMS EDMS 13:37 13:37 LACTATE+C.LAB.BRZ ordered. EDMS EDMS 13:37 13:37 PROTIME (+INR)+COAG.LAB.BRZ ordered. EDMS EDMS : 13:37 PTT, ACTIVATED+COAG.LAB.BRZ ordered. EDMS EDMS : 13:37 UA Rfx Brennen Cult if indicated+U.LAB.BRZ ordered. EDMS EDMS : 13:37 Chest Single View+RAD.RAD.BRZ ordered. EDMS EDMS : 13:37 Head Brain Wo Cont+CT.RAD.BRZ ordered. EDMS EDMS
[2024-10-17 17:11] VITALS: TEMP 97.7
[2024-10-17 17:12] VITALS: BP 151/74; O2SAT 99
--- NOTE | 2024-10-21 12:11 | EKG ---
Test Date: 2024-10-17 Test Time: 13:43:08 Inspector Floor: RONY MEASUREMENT RESULTS: Intervals: Rate: 70 [place]: 180 QRSD: 84 QT: 414 QTc: 447 [place]: P: 59 [place]: 180 QRS: 29 T: 70 INTERPRETIVE STATEMENTS: Normal sinus rhythm Normal ECG Compared to ECG 10/10/2024 00:31:59 No significant changes Electronically Signed On 10-21-24 12:07:59 CDT by Phli Jones
== END 2024-10-17 16:55 | disposition home or self-care (01) ==
LOC: ER 13:09
DX: R53.1 Weakness (principal); F41.9 Anxiety disorder, unspecified; F32.A Depression, unspecified; Z85.43 Personal history of malignant neoplasm of ovary
CPT/HCPCS: 93005; 87040 ×2; 85025; 81001; 36415; 85610; 83605; 85730; 80053; 70450; 71045; 96360; 99285; J7030